=== PATIENT | male | born 1945 | race Caucasian/White ===

== ENCOUNTER 2016-08-20 19:30 | Inpatient (IN) | payer MEDICARE ==
[~2016-08-20] VITALS: Ht 177.8 cm; Wt 85.2 kg
--- NOTE | 2016-08-20 19:35 | NUR ---
EDGE KITTER IN ROOM WITH PT
--- NOTE | 2016-08-20 19:46 | ERPDOC ---
Departure Disposition Decision Date: Aug 20, 2016 Disposition Decision Time: 20:54 (ROSALEE GLASS APRN) Disposition: 65 TO PSYCH HOSP/UNIT Impression Impression (ROSALEE GLASS APRN) Impression: Primary Impression: Dementia with behavioral disturbance Dementia type: unspecified type Qualified Codes: F03.91 - Unspecified dementia with behavioral disturbance Severity: Mild Severity Details Medically stable for admission to [facility] (ROSALEE GLASS APRN) Condition: Stable Seen By: Mid-level only (ROSALEE GLASS APRN) Problems/Meds/Labs Reviewed?: Yes Medications reviewed and manag: Yes (ROSALEE GLASS APRN) Follow up care ordered?: Yes (ROSALEE GLASS APRN) HPI - Psychosocial General Chief Complaint: Psychiatric Problems Stated Complaint: GEN CLEARANCE/DEMENTIA/AGRESSION Time Seen by MD: 19:37 Source: RN notes reviewed Exam Limitations: clinical condition (DEMENTIA, SEDATED) (ROSALEE GLASS APRN) HPI - Psychosocial Initial Comments Patient is a 71-year-old male who is brought to [facility] emergency room this evening for evaluation of acute psychosis in behaviors. Patient has a known history of dementia. He currently resides at the [facility] in [place]. It is reported that he has resided at this location since August 12 2016. Reported that he has had increasing aggressive behaviors toward staff. On arrival to the emergency room. Patient is sleeping in the upright position with his eyes closed. He does not appear to be in any acute distress. Vital signs reviewed. It is reported that he received Haldol prior to arrival. He will not follow any commands due to his level of sedation. Occurred At: home Onset: Rapid Duration: 1 week (ROSALEE GLASS APRN) Allergies: Coded Allergies: No Known Allergies (Unverified , 08/20/16) Past History Patient Medical History Problem List Updates: Dementia Hypothyroidism Hearing deficit (ROSALEE GLASS APRN) Patient Surgical History Surgical history is unknown. No listed surgical history. In paperwork (ROSALEE GLASS APRN) Review of Systems Unable to Obtain ROS Due to: clinical condition, dementia Comments Unable to obtain ROS due to mentation (ROSALEE GLASS APRN) Physical Exam General Vitals and Pain First Documented Vital Signs Date Time Temp Pulse Resp B/P Pulse Ox O2 Delivery O2 Flow Rate FiO2 08/20/16 19:33 62 16 99/58 98 Room Air Weight: Kilograms: Height (feet): Height (inches): Triage Pain Scale: (ROSALEE GLASS V ELECTRICAL PROSPECTOR) Respiratory (brief) Respiratory: FOUND: clear all roberts, equal bilaterally ([place],ROSALEE V ELECTRICAL PROSPECTOR) Cardiovascular (brief) Cardiac: FOUND: regular rate, regular rhythm (ROSALEE GLASS V ELECTRICAL PROSPECTOR) Abdomen (brief) Abdominal Brief: FOUND: bowel normo active x4, soft, NOT FOUND: distended, tender (ROSALEE GLASS V ELECTRICAL PROSPECTOR) Integumentary (brief) Integumentary Brief: FOUND: dry, pink, warm, NOT FOUND: rash (ROSALEE GLASS V ELECTRICAL PROSPECTOR) Psychiatric (brief) Comments Sedated (ROSALEE GLASS V ELECTRICAL PROSPECTOR) Progress Results/Orders Orders Procedure Category Date Status Time Cmp - Comprehensive LAB 08/20/16 Complete Metabolic 19:41 Ua, Dip Wreflex LAB 08/20/16 Complete Microsc & [facility]endant [facility] 19:41 Tsh - Thyroid Stim LAB 08/20/16 Complete Hormone 19:41 EKG EKG 08/20/16 Logged 19:41 Cbc W/Auto LAB 08/20/16 Complete Diff-Reflex Manual 19:41 Lab Results Laboratory Tests Test 08/20/16 19:57 08/20/16 20:15 White Blood Count 5.2T/MM3 Red Blood Count 4.23M/MM3 Hemoglobin 13.5GM/DL Hematocrit 40.9% Mean Corpuscular Volume 96.7UM3 Mean Corpuscular Hemoglobin 31.9UUG Mean Corpuscular Hemoglobin Concent 33.0GM/DL RDW Standard Deviation 46.3FL Platelet Count 178T/MM3 Mean Platelet Volume 9.5UM3 Immature Granulocyte % (Auto) 0.2% Neutrophils (%) (Auto) 61.2% Lymphocytes (%) (Auto) 24.0% Monocytes (%) (Auto) 9.4% Eosinophils (%) (Auto) 4.8% Basophils (%) (Auto) 0.4% Absolute Immature Granulocyte (auto 0.01T/MM3 Absolute Neutrophils (auto) 3.2T/MM3 Absolute Lymphocytes (auto) 1.3T/MM3 Absolute Monocytes (auto) 0.5T/MM3 Absolute Eosinophils (auto) 0.3T/MM3 Absolute Basophils (auto) 0.0T/MM3 Turbidity < 20 Sodium Level 141MEQ/L Potassium Level 4.2MEQ/L Chloride Level 102MEQ/L Carbon Dioxide Level 28MEQ/L Anion Gap 11MEQ/L Blood Urea Nitrogen 13.0MG/DL Creatinine 1.0MG/DL Glomerular Filtration Rate Calc 73 BUN/Creatinine Ratio 13RATIO Glucose Level 101MG/DL Calculated Osmolality 271MOSM/KG Calcium Level 8.9MG/DL Total Bilirubin 1.20MG/DL Icterus Index < 2 Aspartate Amino Transf (AST/SGOT) 25U/L Alanine Aminotransferase (ALT/SGPT) 30U/L Alkaline Phosphatase 54U/L Total Protein 6.5G/DL Albumin 3.6G/DL Globulin 2.9G/DL Albumin/Globulin Ratio 1.2RATIO Thyroid Stimulating Hormone (TSH) 3.13MIU/L Chemistry Specimen Hemolysis 35 Urine Collection Type Voided-not cc-midstr Urine Color Yellow Urine Turbidity Clear Urine pH 5.0 Urine Specific [place] >=1.030 Urine Protein Negative Urine Glucose (UA) Negative Urine Ketones Negative Urine Blood Negative Urine Nitrite Negative Urine Bilirubin Negative Urine Urobilinogen 0.2EU/DL Urine Leukocyte Esterase Negative Urinalysis Comment Microscopic not ind. (ROSALEE GLASS APRN) Progress Progress 2044- Reviewed all medical labs. Patient appears to be medically stable to admission to [facility] for further psychiatric evaluation and treatment. (ROSALEE GLASS APRN) ROSALEE GLASS APRN Aug 20, 2016 19:46 YAHAIRA SERRANO MD Aug 26, 2016 17:16
[2016-08-20] MEDS ORDERED: HALO1TAB PO (20:03)
[2016-08-20] MEDS ORDERED: LEVO125T11 PO (20:05)
[2016-08-20] MEDS ORDERED: DONE10TA30 PO (20:05)
[2016-08-20] MEDS ORDERED: LORA0.5T2 PO (20:05)
[2016-08-20] MEDS ORDERED: RISP4TAB17 PO (20:07)
[2016-08-20] MEDS ORDERED: MIRT15TA6 PO (20:07)
[2016-08-20 20:12] LABS: BASOPHILS % (AUTO) 0.4 % (0-2); EOSINOPHILS # (AUTO) 0.3 T/MM3 (0-0.5); EOSINOPHILS % (AUTO) 4.8 % (0-4); HCT - HEMATOCRIT 40.9 % (41-53); HGB - HEMOGLOBIN 13.5 GM/DL (13.5-17.5); IMMATURE GRANULOCYTE # (AUTO) 0.01 T/MM3 (0.00-0.03); IMMATURE GRANULOCYTE % (AUTO) 0.2 % (0.0-0.5); LYMPHOCYTES # (AUTO) 1.3 T/MM3 (1-4.8); MEAN CORPUSCULAR HGB 31.9 UUG (26-34); MEAN CORPUSCULAR VOLUME 96.7 UM3 (80-100); MEAN PLATELET VOLUME 9.5 UM3 (9.4-12.4); MONOCYTES # (AUTO) 0.5 T/MM3 (0-0.8); MONOCYTES % (AUTO) 9.4 % (0-9.0); NEUTROPHILS #(AUTO)-ABSOLUTE 3.2 T/MM3 (1.8-7.7); NEUTROPHILS % (AUTO) 61.2 % (33-66); RED BLOOD COUNT 4.23 M/MM3 (4.50-5.90); WBC - WHITE BLOOD COUNT 5.2 T/MM3 (4.5-11.0)
[2016-08-20 20:19] LABS: ALBUMIN 3.6 G/DL (3.5-5.0); ALBUMIN/GLOBULIN RATIO 1.2 RATIO (1.1-2.2); ALKALINE PHOSPHATASE 54 U/L (38-126); ALT (SGPT) 30 U/L (21-72); ANION GAP 11 MEQ/L (5-15); AST (SGOT) 25 U/L (17-59); BUN/CREATININE RATIO 13 RATIO (6-26); CALCIUM 8.9 MG/DL (8.4-10.2); CHLORIDE 102 MEQ/L (98-107); CO2 - CARBON DIOXIDE 28 MEQ/L (22-30); GLOMERULAR FILTRATION RATE 73; GLUCOSE 101 MG/DL (75-110); POTASSIUM 4.2 MEQ/L (3.6-5); SODIUM 141 MEQ/L (134-144); TOTAL PROTEIN 6.5 G/DL (6.3-8.2)
[2016-08-20 20:20] LABS: BLOOD, URINE NEGATIVE (NEGATIVE); COLOR,URINE YELLOW (YELLOW); LEUKOCYTE ESTERASE ,URINE NEGATIVE (NEGATIVE); NITRITE,URINE NEGATIVE (NEGATIVE); UROBILINOGEN,URINE 0.2 EU/DL (NORMAL)
[2016-08-20 20:50] LABS: THYROID STIM HORMONE-TSH 3.13 MIU/L (0.47-4.68)
--- NOTE | 2016-08-20 21:04 | NUR ---
ADMIT [facility] ROOM 191 TO PT
[2016-08-20 21:10] VITALS: BP 125/81; PULSE 70; RESP 20; TEMP 97.9; O2SAT 99
--- NOTE | 2016-08-20 21:10 | NUR ---
admit note Pt is a 71 yr old male patient coming from ER, pt is from [place] foster home came through [facility]. Pt transferred with ER nurse and belonging into room 191. Pt transferred from cart to bed with assist of three. Pt is lethargic, pt does open his eyes and mumbles to stimuli. Pt is alert and oriented x1, pt is lethargic, anxious and guarded when woken up. Pt appropriately dressed for the weather, pt has a reddness to his coccyx area, skin is intact no drainage noted. will turn pt q 2 hours. Pt came with a suit case and clothing listed in inventory, pt has a left sided hearing aide. Pt unable to state why he is here. Per facility pt here for combative behaviors, and insomnia.
--- OUTSIDE RECORDS SUMMARY | 2016-08-20 23:01 | XMS REPORT | Continuity of Care Document ---
Demographics Preferred Language Unknown Marital Status Unknown Mandaeism Affiliation Unknown Race Unknown Ethnic Group Unknown Author Author [facility] Organization [facility] Address Unknown Phone Unavailable Support Name Relationship Address Phone YAHAIRA SERRANO MD Caregiver [address] [place] [phone] Unavailable Advance Directives Directive Response Recorded Date/Time Advanced Directives Type Unable to Obtain 08/20/16 7:33pm Chief Complaint and Reason for Visit Chief Complaint Psychiatric Problems Reason for Visit Dementia with behavioral disturbance Problems Past Problems Medical Problem Onset Date Dementia with behavioral disturbance Unknown Medications Current Home Medications Medication Dose Units Route Directions Days Qty Instructions Start Date Donepezil Hcl 10 Mg Tablet 10 Mg Oral Daily 08/20/16 Haloperidol 1 Mg Tablet 1 Mg Oral Every 12 Hours 08/20/16 Levothyroxine Sodium 125 Mcg Tablet 125 Mcg Oral Before Breakfast 08/20/16 Lorazepam 0.5 Mg Tablet 0.5 Mg Oral Every 4 Hours as needed for Anxiety 08/20/16 Mirtazapine 15 Mg Tablet 7.5 Mg Oral Bedtime 08/20/16 Risperidone 4 Mg Tablet 2 Mg Oral Twice A Day 08/20/16 Social History Query Response Start Date Stop Date Smoking Status Unknown if ever smoked Hospital Discharge Instructions No hospital discharge instructions. Plan of Care Discharge Date 08/20/16 9:10pm Disposition 65 TO PSYCH HOSP/UNIT Condition at Discharge Stable Prescriptions See Medication Section Functional Status No functional status results. Allergies, Adverse Reactions, Alerts No known allergies. Immunizations Query Response on File Recorded Date/Time Influenza Vaccine Hx UNKNOWN 08/20/16 7:52pm Vital Signs Acute Vital Signs Vital Response Date/Time Pulse Rate (adult) 54 bpm (60 - 100) 08/20/2016 9:10pm Respiratory Rate 16 breaths/min (10 - 20) 08/20/2016 9:10pm O2 Sat by Pulse Oximetry 97 % (90 - 100) 08/20/2016 9:10pm Blood Pressure 104/62 mm Hg 08/20/2016 9:10pm Height (Feet) 5 feet 08/20/2016 7:33pm Height (Inches) 10.00 inches 08/20/2016 7:33pm Weight (Kilograms) 89.800 kg 08/20/2016 7:33pm Body Mass Index (BMI) 28.0 08/20/2016 7:33pm Results Laboratory Results Test Name Result Units Flags Reference Collection Date/Time Result Date/ Time Comments White Blood Count 5.2 T/MM3 4.5-11.0 08/20/2016 7:57pm 08/20/2016 8: 12pm Red Blood Count 4.23 M/MM3 L 4.50-5.90 08/20/2016 7:57pm 08/20/2016 8: 12pm Hemoglobin 13.5 GM/DL 13.5-17.5 08/20/2016 7:57pm 08/20/2016 8:12pm Hematocrit 40.9 % L 41-53 08/20/2016 7:57pm 08/20/2016 8:12pm Mean Corpuscular Volume 96.7 UM3 80-100 08/20/2016 7:57pm 08/20/2016 8: 12pm Mean Corpuscular Hemoglobin 31.9 UUG 26-34 08/20/2016 7:57pm 2016 8:12pm Mean Corpuscular Hemoglobin Concent 33.0 GM/DL 31-37 08/20/2016 7:57pm 08/20/2016 8:12pm RDW Standard Deviation 46.3 FL 36.9-50.2 08/20/2016 7:57pm 08/20/2016 8 :12pm Platelet Count 178 T/MM3 130-400 08/20/2016 7:57pm 08/20/2016 8:12pm Mean Platelet Volume 9.5 UM3 9.4-12.4 08/20/2016 7:57pm 08/20/2016 8: 12pm Neutrophils (%) (Auto) 61.2 % 33-66 08/20/2016 7:57pm 08/20/2016 8: 12pm Lymphocytes (%) (Auto) 24.0 % 23-45 08/20/2016 7:57pm 08/20/2016 8: 12pm Monocytes (%) (Auto) 9.4 % H 0-9.0 08/20/2016 7:57pm 08/20/2016 8:12pm Eosinophils (%) (Auto) 4.8 % H 0-4 08/20/2016 7:57pm 08/20/2016 8:12pm Basophils (%) (Auto) 0.4 % 0-2 08/20/2016 7:57pm 08/20/2016 8:12pm Immature Granulocyte % (Auto) 0.2 % 0.0-0.5 08/20/2016 7:57pm 2016 8:12pm Absolute Neutrophils (auto) 3.2 T/MM3 1.8-7.7 08/20/2016 7:57pm 2016 8:12pm Absolute Lymphocytes (auto) 1.3 T/MM3 1-4.8 08/20/2016 7:57pm 2016 8:12pm Absolute Monocytes (auto) 0.5 T/MM3 0-0.8 08/20/2016 7:57pm 08/20/2016 8:12pm Absolute Eosinophils (auto) 0.3 T/MM3 0-0.5 08/20/2016 7:57pm 2016 8:12pm Absolute Basophils (auto) 0.0 T/MM3 0-0.2 08/20/2016 7:57pm 08/20/2016 8:12pm Absolute Immature Granulocyte (auto 0.01 T/MM3 0.00-0.03 08/20/2016 7: 57pm 08/20/2016 8:12pm Icterus Index < 2 0-7 08/20/2016 7:57pm 08/20/2016 8:50pm Chemistry Specimen Hemolysis 35 H 0-25 08/20/2016 7:57pm 08/20/2016 8: 50pm 26-70: Specimen Exhibited Slight Hemolysis - can falsely elevate K (Potassium) and Urine Protein. Turbidity < 20 0-20 08/20/2016 7:57pm 08/20/2016 8:50pm Sodium Level 141 MEQ/L 134-144 08/20/2016 7:57pm 08/20/2016 8:19pm Potassium Level 4.2 MEQ/L 3.6-5 08/20/2016 7:57pm 08/20/2016 8:19pm Chloride Level 102 MEQ/L 98-107 08/20/2016 7:57pm 08/20/2016 8:19pm Carbon Dioxide Level 28 MEQ/L 22-30 08/20/2016 7:57pm 08/20/2016 8: 19pm Anion Gap 11 MEQ/L 5-15 08/20/2016 7:57pm 08/20/2016 8:19pm Blood Urea Nitrogen 13.0 MG/DL 9-20 08/20/2016 7:57pm 08/20/2016 8: 19pm Creatinine 1.0 MG/DL 0.8-1.5 08/20/2016 7:57pm 08/20/2016 8:19pm BUN/Creatinine Ratio 13 RATIO 6-26 08/20/2016 7:57pm 08/20/2016 8:19pm Glomerular Filtration Rate Calc 73 08/20/2016 7:57pm 08/20/2016 8: 19pm Glucose Level 101 MG/DL 75-110 08/20/2016 7:57pm 08/20/2016 8:19pm Calculated Osmolality 271 MOSM/KG 261-280 08/20/2016 7:57pm 08/20/2016 8:19pm Calcium Level 8.9 MG/DL 8.4-10.2 08/20/2016 7:57pm 08/20/2016 8:19pm Total Bilirubin 1.20 MG/DL 0.20-1.30 08/20/2016 7:57pm 08/20/2016 8: 19pm Alkaline Phosphatase 54 U/L 38-126 08/20/2016 7:57pm 08/20/2016 8:19pm Total Protein 6.5 G/DL 6.3-8.2 08/20/2016 7:57pm 08/20/2016 8:19pm Albumin 3.6 G/DL 3.5-5.0 08/20/2016 7:57pm 08/20/2016 8:19pm Globulin 2.9 G/DL 2.4-3.6 08/20/2016 7:57pm 08/20/2016 8:19pm Albumin/Globulin Ratio 1.2 RATIO 1.1-2.2 08/20/2016 7:57pm 08/20/2016 8 :19pm Aspartate Amino Transf (AST/SGOT) 25 U/L 17-59 08/20/2016 7:57pm 2016 8:19pm Alanine Aminotransferase (ALT/SGPT) 30 U/L 21-72 08/20/2016 7:57pm 09/2016 8:19pm Thyroid Stimulating Hormone (TSH) 3.13 MIU/L 0.47-4.68 08/20/2016 7: 57pm 08/20/2016 8:50pm Urine Collection Type VOIDED-NOT CC-MIDSTR 08/20/2016 8:15pm 2016 8:20pm Urine Color YELLOW YELLOW 08/20/2016 8:15pm 08/20/2016 8:20pm Urine Turbidity CLEAR CLEAR 08/20/2016 8:15pm 08/20/2016 8:20pm Urine Specific [place] >=1.030 H 1.015-1.025 08/20/2016 8:15pm 2016 8:20pm Urine pH 5.0 5.0-8.0 08/20/2016 8:15pm 08/20/2016 8:20pm Urine Leukocyte Esterase NEGATIVE NEGATIVE 08/20/2016 8:15pm 2016 8:20pm Urine Nitrite NEGATIVE NEGATIVE 08/20/2016 8:15pm 08/20/2016 8:20pm Urine Protein NEGATIVE NEGATIVE 08/20/2016 8:15pm 08/20/2016 8:20pm Urine Glucose (UA) NEGATIVE NEGATIVE 08/20/2016 8:15pm 08/20/2016 8: 20pm Urine Ketones NEGATIVE NEGATIVE 08/20/2016 8:15pm 08/20/2016 8:20pm Urine Urobilinogen 0.2 EU/DL NORMAL 08/20/2016 8:15pm 08/20/2016 8: 20pm Urine Bilirubin NEGATIVE NEGATIVE 08/20/2016 8:15pm 08/20/2016 8: 20pm Urine Blood NEGATIVE NEGATIVE 08/20/2016 8:15pm 08/20/2016 8:20pm Urinalysis Comment MICROSCOPIC NOT IND. 08/20/2016 8:15pm 2016 8:20pm Procedures No known history of procedures. Encounters Encounter Location Arrival/Admit Date Discharge/Depart Date Attending Provider Departed Emergency Room [facility] 08/20/16 7:30pm 08/20/16 9: 10pm YAHAIRA SERRANO MD Recent Diagnosis
[2016-08-20] MEDS ORDERED: DIVA250T4 PO (23:15)
[2016-08-20] MEDS ORDERED: QUET25TA PO (23:15)
[2016-08-20] MEDS ORDERED: PRN ORDERS MC (23:30)
[2016-08-20] MEDS ORDERED: HALOPERIDOL 5 MG/ML INJECTION IM PRN (23:30)
[2016-08-20] MEDS ORDERED: LORAZEPAM 2 MG/ML INJECTION IM PRN (23:30)
[2016-08-21] VITALS (7 sets, daily range): BP systolic 105–108; BP diastolic 63–69; PULSE 60–82; RESP 10–18; TEMP 97.5–98.4; O2SAT 95–99; Ht 177.8 cm; Wt 85.2 kg
[2016-08-21] MEDS: MIRTAZAPINE 15 MG TABLET PO SCH ×2 (01:14→20:06)
[2016-08-21] MEDS: DONEPEZIL 10 MG TABLET PO SCH ×2 (01:14→20:06)
--- NOTE | 2016-08-21 04:42 | NUR ---
Chart Check 24 hour chart check completed
--- NOTE | 2016-08-21 06:56 | NUR ---
Summary Arrived on shift, patient was awake in bed with the bed alarm on, patient was guarded with assessment. patient was wringing his hands back and forth while i was listening to his lung sounds. Patient was up and down frequently to the side of bed. Patient thought it was morning and wanted to get ready for work. To help patient calm, staff walked patient with the assist of 2 and gait belt up and down the hallwayx2, and to sit in dayroom for a snack. Patient received his scheduled HS medications once brought from pharmacy at 0114. Patient took medications crushed without issue. While in dayroom patient had a glass of water and 2 pudding cups. After snacks patient was transitioned to bed without issue. Patient was cooperative with all cares. Patient is noticeably rigid, has tremors, and shuffled gait. Once patient transitioned back to bed. Patient fell asleep around 0230. Patient has been incontinent of large amounts of urine x2 this shift. no prns given. patient is currently asleep in bed with the bed alarm on, rails upx3, and call light is in reach.
--- NOTE | 2016-08-21 07:54 | NUR ---
SMOKING STATUS Pt has not smoked in last year. Unknown if patient had previously smoked. No RT consult needed.
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
[2016-08-21 09:38] LABS: HEMOGLOBIN A1C 5.3 % (6.1-7.9)
[2016-08-21] MEDS: LEVOTHYROXINE 125 MCG TABLET PO SCH (09:55)
[2016-08-21 10:30] LABS: PREALBUMIN 15.9 MG/DL (17.6-36.0)
--- NOTE | 2016-08-21 14:40 | NUR ---
STERLING KATZ SPOKE WITH PT SON BARI. CM EXPLAINED ROLE AND PROVIDED CONTACT INFORMATION. PT WILL RETURN TO [facility]. BARI IS AWARE TO CONTACT CM IF NEEDS ARISE. CM LEFT MESSAGE FOR ZACKERY AT [facility].
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
--- NOTE | 2016-08-21 19:30 | NUR ---
SUMMARY Patient is AO x 1. patient woke up at 1315 today and did not take naps after he woke up, patient did not ate breakfast, he needed assistance with meals. Patient was refusing to let staff assist him with cares, he tried to kick a nursing officer, eventually he allow staff to finish his bag bath, patient walked with a gait belt on and assistance of 2 to the dining room, he gives small steps. No aggressive behaviors noted, no Hallucinations noted. Patient does tried to get up and walk without assistance. He is unsteady, and does not always make needs known. No PRN medications given this shift.
[2016-08-21] MEDS: LORAZEPAM INTENSOL 1mg/0.5ml ORAL SOLUTION SL PRN (21:46)
--- NOTE | 2016-08-21 23:02 | NUR ---
status: Patient in day room at start of shift. Physical assessment complete with no significant findings. Patient was eating a pudding. Patient was calm and walking around day room and group room with staff. Snacks x2 after walk. Patient began to go look for doors and found the back/front door and tried to leave. Patient was becoming restless and agitated, as observed by patient was tense, restless, guarded, pushing staff away. Staff assisted patient to room to check patients incontinence, patient was incontinent of a large bowel movement. Patient became physically aggressive with staff while doing cares. He was shoving, grabbing, trying to break fingers, and trying to swing at staff. Two staff stood with patient to help maintain balance, while third RN provided hygiene care. Patient received ativan 0.5mg intensol at 2146. Staff was then able to provide hygiene cares. Patient was still guarded and tense once cares were done, patient was remorseful and patient apologized to staff "are you ok, are you sure". Patient gave staff a hug. Patient walked more with staff, to day room. In day room, staff applied lotion to patients skin. Patient sat and help staffs hands once cares where done. Patient sat with staff until he was ready to go to bed. Patient transitioned to bed with no issues. Gave staff hug. Bed rails up x 3 and bed alarm activated. Addendum: 08/22/16 at 0757 by CHRISSIE NIELSON RN Note was dictated by this RN, Document wrote By Orienting RN. I agree with the note charted above.
--- NOTE | 2016-08-21 23:27 | GENHPPDOC ---
[facility] 08/21/16 Time of Service: 18:40 Start Time: 18:40 Stop Time: 19:20 >50% of this visit spent in counseling/coordination care. Chief Complaint: Combativeness History of Present Illness Patient is a 71-year-old, retired [employer], who was transferred from foster home for combativeness and agitation. He has history of cognitive impairment and was recently transferred by his family to the foster due to inability of his family to take care of him. He was said to agitated to the point where he grabbed a staff and was shaking the staff. He was taken to the ER at [facility] and was given Haloperidol which appeared to have helped but not much. He was on Risperidone 2mg BID and Haloperidol 1mg BID. Both were recently discontinued. He is also on Donepezil 10mg and Mirtazapine 7.5mg po q hs. Patient was seen to have hearing loss on both ears and he responds vaguely to loud speech. He was noted to have bradykinesis, postural instability, resting and kinetic tremor. There is also cogwheel rigidity of both of wrist with clasp knife rigidity of his elbow. Patient was supposed to be evaluated by speech therapy today, but they are yet to assess him. He is able to eat and drinks liberally. Reviewed his CBC, CMP and UA were all WNL. His EKG showed sinus bradycardia with QtcB of 433 and QtcF of 434. Past Medical Hx: Hypothyroidism, hearing loss Past Psych: Unable to obtain Social Hx: He lives in a foster home and retired from the [employer] Psychosis: delusions, paranoia Dementia: memory impairment, poor executive function. Past Medical History Past Medical History Patient's Medical History: (1) Sensorineural hearing loss (2) Hypothyroidism (3) Overweight (BMI 25.0-29.9) (4) Dementia with behavioral disturbance Dementia Hypothyroidism Hearing deficit Surgical History Patient's Surgical History: Unknown. Current Medications Home Meds Reported Medications Divalproex Sodium (Depakote) 250 Mg Tablet.dr, 1 TAB PO BID, TAB 08/20/16 Quetiapine Fumarate (Seroquel) 25 Mg Tablet, 25 MG PO 1600,2100, TAB 08/20/16 Mirtazapine (Mirtazapine) 15 Mg Tablet, 7.5 MG PO HS 08/20/16 Lorazepam (Lorazepam) 0.5 Mg Tablet, 0.5 MG PO Q4H Y for ANXIETY 08/20/16 Levothyroxine Sodium (Levothyroxine Sodium) 125 Mcg Tablet, 125 MCG PO ACB 08/20/16 Donepezil HCl (Donepezil HCl) 10 Mg Tablet, 10 MG PO HS 08/20/16 Allergies: Coded Allergies: No Known Allergies (Unverified , 08/20/16) Family History Family History: Unknown and unobtainable. Vaccines UNKNOWN No Social History Smoking Status: Unknown if ever smoked Service: Yes Advance Directives: Yes DPOA for Healthcare Only Review of Systems Constitutional: REPORTS: appetite decrease Eyes General: DENIES: exudate Lids/Accessories: DENIES: eye protrusion Vision: DENIES: blurring ENMT Ears: DENIES: drainage Hearing: REPORTS: hearing loss Balance: ataxia, falling to one side Sinuses: NOT FOUND: congestion Mouth/Throat: DENIES: painful swallowing Cardiovascular DENIES: dyspnea on exertion Vascular: DENIES: pallor of an extremity Pulmonary Respiratory: DENIES: dyspnea, tachypnea GI Upper Abdomen: DENIES: abdominal swelling Lower Abdomen: DENIES: constipation Musculoskeletal General: DENIES: tenderness Integumentary Skin: DENIES: sores Nails: DENIES: striae Neurological General: DENIES: blindness Psychiatric Psychiatric: anxiety, irritability, DENIES: memory impairment Generations Exam Vitals Vital Signs Date Time Temp Pulse Resp B/P Pulse Ox O2 Delivery O2 Flow Rate FiO2 08/21/16 22:39 98.3 82 18 108/69 97 Room Air Physical examination performed by the hospitalist. Height (Feet): 5 Height (Inches): 10.00 Mental Status Exam Muscle Strength/Tone: Weak Dressing: Casual Grooming: Disheveled Attitude: Combative Motor Activity: Agitation Eye Contact: Poor Speech: Slowed Volume: Soft Rhythm: Mumbled, Paucity of Language Sensory: Alert Orientation: Disoriented to time, Disoriented to person, Disoriented to place, Disoriented to situation Mood: Irritable Affect: Flat Thought Organization: [place] Associations: Loose-associations Abstract Reasoning: Impaired, concrete Computation: Poor Computation Thought Content: Delusions Perception/Psychotic: Psychotic Attention Span/Concentration: Inattentive Language: Naming Impaired Fund of Knowledge: Poor fund of knowledge Memory: Poor-immediate, Poor-recent, Poor-remote Suicidal Ideation: None Homicidal Ideation: None Insight: Poor Judgment: Poor Impulse Control: Poor Laboratory Tests Test 08/21/16 08:06 Hemoglobin A1c 5.3% Prealbumin 15.9MG/DL Triglycerides Level Pending Cholesterol Level Pending LDL Cholesterol, Calculated Pending VLDL Cholesterol Pending HDL Cholesterol Direct Pending Cholesterol/HDL Ratio Pending Vitamin B12 Level Pending Folate Pending Assessment and Plan (1) Major neurocognitive disorder Assessment: Possibly due to Parkinsonian type or Subcortical etiology. r/o anti-psychotic induced Parkinsonian syndrome. 1. Hold Risperidone and Haloperidol. Cont Mirtazapine 2. Observe patient on the unit 3. ST to see patient for swallow test VONDA CLARK MD Aug 21, 2016 23:17
[2016-08-22] MEDS: HALOPERIDOL 1 MG/0.5 ML ORAL LIQUID PO PRN (01:44)
--- NOTE | 2016-08-22 02:12 | NUR ---
Sleep note: Patient went to sleep at 2215 and was awake walking and pacing at 0130.
[2016-08-22 04:03] LABS: FOLATE 16.2 NG/ML (2.76-20)
--- NOTE | 2016-08-22 04:36 | NUR ---
Status: Patient is being handed off to Eros HUI who states she needs no further report on patient, as she knows them.
--- NOTE | 2016-08-22 07:59 | NUR ---
Chart Check 24 hour chart check completed
--- NOTE | 2016-08-22 08:02 | NUR ---
Summary/PRN Post laying down at 2300 patient rested awake in bed quietly talking to self for an hour before wanting to get up and walk again. Patient believed he was at work and things needed to be done. Patient walked in garza with 2 assist. Patient was cooperative until 0120, patient was wringing his hands, grabbing and squeezing staffs hands. Patient balled up hands shaking repeating "don't and it's not right" patient was tense and agitated. With the assist of staff patient was checked for incontinence. Patient had another bowel movement, and was not letting staff provide cares. Patient received PRN Haldol 0.5mg po at 0144. After receiving PRN patient allowed staff to change his brief 20min later. Once cares were done, patient was still guarded though continued to slowly ease. After patient calmed he thought he was back in the , patient wanted to be in formation and walk eber up and down the hallway. Patient counted steps "1,2,3,4" over and over. After walking laps, patient wanted to work on the "track", as he was pointing to the ground. Patient made comments of there can't be any holes around the track and they need to be fixed. Staff continued to walk with patient pretending to fix the track. Patient was pleasant and cooperative during this interaction. Pleasantly demented. Patient then slowly wore himself down till he was tiring. Staff was then able to direct patient to sit in recliner for a snack. Patient had 2 puddings, then sat peacefully holding hands with RN until he was ready for bed. Patient transitioned to bed with the assist of 2 staff. Once in bed staff sat with patient until he fell asleep. Bed alarm is on, Rails upx3, and call light is in reach.
[2016-08-22] MEDS: LEVOTHYROXINE 125 MCG TABLET PO SCH (08:39)
--- NOTE | 2016-08-22 08:45 | NUR ---
Patient slept 4 hours last night
[2016-08-22 08:56] VITALS: BP 98/63; PULSE 77; RESP 15; O2SAT 94
--- NOTE | 2016-08-22 09:59 | NUR ---
SPEECH SCREEN COMPLETED NURSING REPORTS PATIENT MASTICATING WELL AND SWALLOWING THIN LIQUIDS WITH NO OVERT S/S OF ASPIRATION. NURSING TO CONTACT ST DEPARTMENT IF QUESTIONS/CONCERNS ARISE.
--- NOTE | 2016-08-22 10:25 | NUR ---
Patient Status Patient is sleeping at the time of this RN's arrival at 0700; he awakes on his own at 0845, incontinent of both bowel and bladder. Three staff members are present to provide cares; two are holding hands and distracting him from the third helping to adjust clothing and provide skin/barry care. He does not yell out or try to swing as staff; only pushes against staff when they assist him to sit. Following cares he ambulated to the dining room and ate 100% of breakfast requiring only set-up assistance from staff. He walked a couple of times in the hallway with staff and gait belt stopping at the doors and asking if he could leave. Staff are able to distract by showing him the locked doors and offering a seat in a recliner in the day room. He sat and fell asleep at 0945 until just now. He is awake and interacting with staff.
--- NOTE | 2016-08-22 11:55 | NUR ---
BRANCH SERVICE REPRESENTATIVE - PSH / ADVANCED DIRECTIVES TROUBLE TRACER found pt in day room and was escorted to office with RN. Pt was able to walk with a shuffle to the office with assist of staff and gait belt. Pt presented with tremors in Parkinson-like fashion as he was walking and when he was able to sit in SW office. Pt was only Ox1 but could only recite his first name. Pt shows signs of hearing loss bilaterally and therefore it was somewhat difficult for pt to understand during interview. Pt showed signs of flat affect as evidenced by no facial expression and lack of emotion. Pt did become easily agitated in conversation and got up to walk by himself. RN assist called to walk pt back to day room. According to documentation from the [place], pt was recently placed in a respite placement and then went to a [facility] Foster [facility] for personnel. Pt was non service connected in the [facility]. He was placed in the [facility] on 08/16/16 and later the staff took him on 08/18/16 to [facility] because of difficulty sleeping and combative with cares. Only documentation of family found was patient's son, Henry Diego, whom patient was living prior to respite placement. Documentation shows son was unable to care for pt further because of change of pt's need of care. Son has been called to complete the PSH, however, no answer. Waiting for call back to further complete hx. SW unable to discuss tx plan [facility] pt at this time because of resistance in communication with SW. Pt is considered poor historian. No documentation of Advanced directives found in pt chart. Clarification with son will occur.
--- NOTE | 2016-08-22 14:57 | NUR ---
TRAINING FACILITATOR--PSH/ADVANCE DIRECTIVE [facility] made phone call to pt's son/DPOA-HC (Henry Jacobs). He was asked about pt's code status and he asked that pt. be made DNR. Pt. was born in [place]. He has been and 3x. He has two sons (Henry--[place]; Nathanael--[place]). He was in the [employer] during [place] [employer]. 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 Pt. was alcoholic and went to substance abuse treatment. He has not drank for over 30 years. Pt. has never been episcopal. Discharge plan is for pt. to return to [place] foster home in [place] when stable. Son reports pt. has been difficult for him to manage for past several weeks. They have gotten worse since moving to placement.
[2016-08-22 16:19] VITALS: BP 114/72; PULSE 65; RESP 14; TEMP 97.7; O2SAT 93
--- NOTE | 2016-08-22 18:22 | NUR ---
Shift Summary Patient is alert and awake over the noon hour, ate 100% of lunch independently and walked with staff in the garza. At 1415 staff assisted him to the bathroom to provide hygiene cares as patient was incontinent. This RN helped to adjust patient clothing while other RN talked to him for distraction. He yelled out once "hey!" and again was resistive to sitting down but did not try to strike out at staff. He napped off an on for two and a half hours (sometimes appearing asleep, other times looking out in to the hallway). He sets off his bed alarm just after 1700 requesting to get something to eat. He consumes 100% of supper independently and walked two laps in the garza. He asked for something more to eat, took a cup of tapioca pudding and has now fallen back asleep in the recliner
--- NOTE | 2016-08-22 19:45 | GENPN ---
Generations Subjective Date DATE: 08/22/16 TIME: 19:40 Subjective/Severity of Illness Medications Current Medications Medications (Trade) Dose Ordered Sig/Raymon Start Time Stop Time Status Last Admin Dose Admin Donepezil HCl (Aricept) 10 mg HS 08/21/16 21:00 08/21/16 20:06 10 MG Levothyroxine Sodium (Synthroid) 125 mcg ACB 08/21/16 06:30 08/22/16 08:39 125 MCG Mirtazapine (Remeron) 7.5 mg HS 08/21/16 21:00 08/21/16 20:06 7.5 MG Miscellaneous Medication (May use PRN orders) 1 PRN PRN 08/20/16 23:30 Haloperidol (Haldol) 0.5 mg Q6H PRN 08/20/16 23:30 Lorazepam (Ativan) 0.5 mg Q6H PRN 08/20/16 23:30 Lorazepam (Ativan) 0.5 mg Q6H PRN 08/20/16 23:30 Haloperidol Lactate (Haldol 5 Mg/ml Inj) 0.5 mg Q6H PRN 08/20/16 23:30 Lorazepam (Ativan Intensol) 0.5 mg Q6H PRN 08/21/16 03:15 08/21/16 21:46 0.5 MG Haloperidol (Haldol Liquid) 0.5 mg Q6H PRN 08/21/16 03:15 08/22/16 01:44 0.5 MG Subjective Pt seen and chart examined. Case discussed with nursing. Nursing reports pt slept 4 hours and has a good appetite. Pt did nap some during the day. Nursing reports pt was slightly combative and agitated with cares last night but was better today. On face to face the pt is resting quielty in bed. He is pleasant but only oriented to self. He continues to have a tremor. He voices no concerns at this time. Time of Service: 16:30 Start Time: 16:30 Stop Time: 16:45 Care >50% of this visit spent in counseling/coordination care. Generations Exam Vitals Vital Signs Date Time Temp Pulse Resp B/P Pulse Ox O2 Delivery O2 Flow Rate FiO2 08/22/16 16:19 97.7 65 14 114/72 93 Room Air Physical examination performed by the hospitalist. Height (Feet): 5 Height (Inches): 10.00 Mental Status Exam Muscle Strength/Tone: Weak Dressing: Casual Grooming: Good Attitude: Cooperative Motor Activity: Retardation Eye Contact: Fair Speech: Slowed Volume: Soft Rhythm: Slurred Sensory: Alert Orientation: Oriented to person Mood: Neutral Affect: Congruent Rate of Thoughts: Delayed Thought Organization: [place] Associations: Illogical Abstract Reasoning: Impaired, concrete Thought Content: Normal Perception/Psychotic: Hx psychosis,not current Attention Span/Concentration: Short Span Fund of Knowledge: Poor fund of knowledge Memory: Poor-immediate, Poor-recent Suicidal Ideation: None Homicidal Ideation: None Insight: Poor Judgment: Poor Impulse Control: Poor Assessment and Plan (1) Major neurocognitive disorder Assessment: Possibly due to Parkinsonian type or Subcortical etiology. r/o anti-psychotic induced Parkinsonian syndrome. 1. Hold Risperidone and Haloperidol. Cont Mirtazapine 2. Observe patient on the unit 3. ST to see patient for swallow test\ 08/22/16 Continue current care Cont. current psych. meds JUAN MEDINA MD Aug 22, 2016 19:44
[2016-08-22] MEDS: DONEPEZIL 10 MG TABLET PO SCH (20:06)
[2016-08-22] MEDS: MIRTAZAPINE 15 MG TABLET PO SCH (20:07)
[2016-08-22 22:33] VITALS: BP 103/65; PULSE 73; RESP 14; TEMP 98.3; O2SAT 97
[2016-08-22] MEDS: ACETAMINOPHEN 325 MG TABLET PO PRN (23:52)
--- NOTE | 2016-08-23 03:37 | NUR ---
Chart Check 24 hour chart check completed
--- NOTE | 2016-08-23 03:37 | NUR ---
status arrived on shift. Patient was sitting in dayroom watching tv with staff present. patient walked halls with staff. patient continues to be aggressive with hygiene cares. During cares patient was grabbing, twisting limbs, digging nails, and attempting to hit staff. It took 3 staff to provide hygiene cares. Once cares were done patient calmed, no prns needed. After cares patient went back to walking halls before sitting in dayroom with staff. When patient when to sit down in dayroom patient grimaced and started rubbing his left knee. PRN tylenol 650mg given po at 2345. Post tylenol patient was no longer rubbing knee, though still grimaced x2. will continue to monitor. Patient is still awake in dayroom with staff present at this time.
--- NOTE | 2016-08-23 04:30 | NUR ---
sleep Patient is asleep in bed. bed alarm on, rails upx3, call light is in reach.
--- NOTE | 2016-08-23 06:24 | NUR ---
Summary Patient spent most of the shift walking the garza or sitting in the dayroom with staff. Patient is oriented to person only. Unable to make needs known. Patient continues to be aggressive just with hygiene cares. While trying to change and clean patient, he was attempting to hit, grab, shove, digging nails, and twisting limbs. Patient was 3 assist with cares. once cares were done, patient calmed. no prns needed. patient was awake till 0430. when patient fell asleep in bed with the bed alarm on, rails upx2, and call light is in reach.
[2016-08-23] MEDS: LEVOTHYROXINE 125 MCG TABLET PO SCH (06:53)
[2016-08-23 11:06] VITALS: BP 118/74; PULSE 65; RESP 16; TEMP 97.3; O2SAT 99
--- NOTE | 2016-08-23 11:09 | NUR ---
status pt slept 6.75 hrs. woke at 1045 this am. very cooperative with shower and morning hygiene cares. no aggressive behavior with changing wet clothing. pt ate oatmeal and milk for breakfast due to lunch being served soon. will continue to monitor.
--- NOTE | 2016-08-23 14:01 | GENPN ---
Generations Subjective Date DATE: 08/23/16 TIME: 13:57 Subjective/Severity of Illness Medications Current Medications Medications (Trade) Dose Ordered Sig/Raymon Start Time Stop Time Status Last Admin Dose Admin Donepezil HCl (Aricept) 10 mg HS 08/21/16 21:00 08/22/16 20:06 10 MG Levothyroxine Sodium (Synthroid) 125 mcg ACB 08/21/16 06:30 08/23/16 06:53 125 MCG Mirtazapine (Remeron) 7.5 mg HS 08/21/16 21:00 08/22/16 20:07 7.5 MG Miscellaneous Medication (May use PRN orders) 1 PRN PRN 08/20/16 23:30 Haloperidol (Haldol) 0.5 mg Q6H PRN 08/20/16 23:30 Lorazepam (Ativan) 0.5 mg Q6H PRN 08/20/16 23:30 Lorazepam (Ativan) 0.5 mg Q6H PRN 08/20/16 23:30 Haloperidol Lactate (Haldol 5 Mg/ml Inj) 0.5 mg Q6H PRN 08/20/16 23:30 Lorazepam (Ativan Intensol) 0.5 mg Q6H PRN 08/21/16 03:15 08/21/16 21:46 0.5 MG Haloperidol (Haldol Liquid) 0.5 mg Q6H PRN 08/21/16 03:15 08/22/16 01:44 0.5 MG Acetaminophen (Tylenol Regular Strength) 1-2 tabs Q5H PRN 08/22/16 23:45 08/22/16 23:52 650 MG Subjective Pt seen and chart examined. Case discussed with nursing. Nursing reports pt slept 4 hours and has a good appetite. Pt did nap some during the day. pt continues to be agitated and irritable with cares at times but is otherwise doing well. on face to face the pt is resting in bed. he is slow to respond and only oriented to self. he denies pain and voices no concerns at this time Time of Service: 09:30 Start Time: 09:30 Stop Time: 09:45 Care >50% of this visit spent in counseling/coordination care. Generations Exam Vitals Vital Signs Date Time Temp Pulse Resp B/P Pulse Ox O2 Delivery O2 Flow Rate FiO2 4/8/17 11:06 97.3 65 16 118/74 99 Room Air Physical examination performed by the hospitalist. Height (Feet): 5 Height (Inches): 10.00 Mental Status Exam Muscle Strength/Tone: Normal Dressing: Casual Grooming: Fair Attitude: Guarded Motor Activity: Retardation Eye Contact: Fair Speech: Slowed Volume: Soft Rhythm: Appropriate Rhythm Sensory: Alert Orientation: Oriented to person Mood: Neutral Affect: Congruent Rate of Thoughts: Delayed Thought Organization: [place] Associations: Illogical Abstract Reasoning: Impaired, concrete Thought Content: Normal Perception/Psychotic: Hx psychosis,not current Attention Span/Concentration: Short Span Fund of Knowledge: Poor fund of knowledge Memory: Poor-immediate, Poor-recent Suicidal Ideation: None Homicidal Ideation: None Insight: Poor Judgment: Poor Impulse Control: Poor Assessment and Plan (1) Major neurocognitive disorder Assessment: Possibly due to Parkinsonian type or Subcortical etiology. r/o anti-psychotic induced Parkinsonian syndrome. 1. Hold Risperidone and Haloperidol. Cont Mirtazapine 2. Observe patient on the unit 3. ST to see patient for swallow test\ 08/22/16 Continue current care 08/23/16 continue current care Cont. current psych. meds JUAN MEDINA MD Aug 23, 2016 14:00
[2016-08-23 16:00] VITALS: BP 112/65; PULSE 63; RESP 16; TEMP 98.6; O2SAT 96
--- NOTE | 2016-08-23 16:00 | NUR ---
SLUMS/ETOH Patient abused alcohol by history, has been sober for 20 years. Unable to complete SLUMS due to significant cognitive impairment and limited verbal communication
[2016-08-23] MEDS: LORAZEPAM INTENSOL 1mg/0.5ml ORAL SOLUTION SL PRN (17:00)
[2016-08-23] MEDS: HALOPERIDOL 1 MG/0.5 ML ORAL LIQUID PO PRN (17:00)
--- NOTE | 2016-08-23 17:15 | NUR ---
PRN during cares pt became angry, squeezing this nurses hands. yelling "help me help me" once done with cares pt and this nurse walked up the garza. pt asked this nurse "why are you doing this to me" pt became very suspicious and tense of staff and other pts in the day room. pt stating " they are out to get me, they are hurting me. Let me talk to a malt liquors sales supervisor." 0.5mg of ativan and 0.5mg of haldol intensol given at 1700. will continue to monitor.
--- NOTE | 2016-08-23 17:36 | NUR ---
summary pt slept 1.25 hrs this shift. was cooperative up until giving him the prn at 1700. ate 100% of all meals. pt a little more calm at this time sitting in recliner in day room. pt has a flat affect. pt unable to make needs known. pt has walked up and down the garza just a few times this shift. no exit seeking this shift. had just the one time of aggressive behavior with cares.
[2016-08-23] MEDS: DONEPEZIL 10 MG TABLET PO SCH (19:37)
[2016-08-23] MEDS: MIRTAZAPINE 15 MG TABLET PO SCH (19:37)
[2016-08-23 20:00] VITALS: RESP 14
--- NOTE | 2016-08-23 22:00 | NUR ---
BEDTIMES PT INTO BED AT 1900 SLEEPING AT 1930. PT INTO BED 0 NOTED ASLEEP 2244. PT SLEPT 0.75 HOURS FOR DAYSHIFT.
--- NOTE | 2016-08-23 22:39 | NUR ---
CARES ASSISTED PT TO RESTROOM PT WAS UNAWARE THAT HE HAD SOILED HIMSELF. PT UNABLE TO VERBALIZE HIS NEEDS OR ABLE TO FOLLOW DIRECTIONS WITHOUT CONSTANT CUING AND LEADING FROM STAFF. PT HAD INCONTINENT BM AND URINE THAT SATURATED HIS PANTS. PT UNABLE TO FOLLOW DIRECTIONS TO SIT ON TOILET AND TOOK MUCH EFFORT FROM STAFF TO ASSIST PT TO TOILET. PT GAIT IS SHAKY AND UNSTEADY. PT SPEECH IS INAPPROPRIATE AND MUMBLED. PT IS UNABLE TO GIVE APPROPRIATE ANSWERS OR RESPONSES TO QUESTIONS OR DIRECTION. WHILE ASSISTING PT TO CHANGE CLOTHING AND CLEAN BM PT URINATED ON THE FLOOR AND REMAINED UNAWARE OF HIS ACTIONS OR SURROUNDINGS. PT ASSISTED WITH EILEEN CARE AND SKIN CARE AND ASSISTED TO BED. PT IN BED WITH 2 RAILS UP ALARM ON BED IN LOW POSITIONS AND LIGHTS DIMMED DOOR PARTIALLY OPEN. Addendum: 08/23/16 at 2243 by DARIELA PASTOR RN Amended: Links added.
--- NOTE | 2016-08-23 22:45 | NUR ---
STATUS UPON START OF SHIFT PT IS IN BED SLEEPING. PT IS SLEEPING HEAVILY AND DIFFICULT TO AROUSE. PT ABLE TO OPEN EYES BUT DOES NOT ANSWER QUESTIONS OR COOPERATE WITH ASSESSMENT WITHOUT CONSTANT CUING AND DIRECTION. FOLLOWING ASSESSMENT AND PT IS ABLE TO TAKE MEDICATIONS CRUSHED IN PUDDING AND DRINK WATER, PT HAS NO COUGHING OR DIFFICULTY WITH THESE TASKS. PT REMAINED IN BED UNTIL APPROXIMATELY 2144 WHEN PT GOT OUT OF BED SETTING OFF BED ALARM. PT IS CONFUSED AND WALKING WITH SHAKY GAIT UNSTEADY ON HIS FEET AND TREMORS NOTED IN UPPER EXTREMITIES. PT SPEECH IS MUMBLED AND VERY DIFFICULT TO UNDERSTAND, SPEECH IS INAPPROPRIATE AND NOT RELATED TO CURRENT SURROUNDINGS. PT UNABLE TO EXPRESS ANY NEEDS UNAWARE HE HAS SOILED HIMSELF. PT UNABLE TO TAKE DIRECTION TO RESTROOM WITHOUT CONSTANT CUING SEE CARES NOTE. PT ASSISTED BACK TO BED FOLLOWING CARES. PT HAS NOT BEEN AGGRESSIVE PHYSICALLY OR VERBALLY. PT HAS REQUIRED NO PRN MEDICATIONS FROM THIS RN.
--- NOTE | 2016-08-23 23:46 | NUR ---
Chart Check 24 hour chart check completed
[2016-08-24 00:34] VITALS: BP 114/69; PULSE 61; RESP 16; TEMP 97.8; O2SAT 97
--- NOTE | 2016-08-24 01:00 | NUR ---
CARES ASSISTED PT WITH CHANGING OF CLOTHING AND BEDDING FOLLOWING INCONTINENT VOID. PT SATURATED BEDDING AND CLOTHING. PT GOT OUT OF BED ACTIVATING BED ALARM. PT CONFUSED AND UNABLE TO FOLLOW COMMANDS. PT UPSET AND CURING WITH STAFF DURING CARES. PT GRABBING STAFF HANDS AND ARMS AND TWISTING ABLE. PT BEDDING CHANGED PT ASSISTED INTO GOWN AND CLEAN UNDERGARMENTS. PT BACK IN BED WITH 2 RAILS UP ALARM ON LIGHTS DIMMED AND DOOR PARTIALLY CLOSED TO LIMIT NOISE AND LIGHT DISTRACTIONS. Addendum: 08/24/16 at 0102 by DARIELA PASTOR RN Amended: Links added.
--- NOTE | 2016-08-24 01:42 | NUR ---
CARES PT ASSISTED WITH CARES FOLLOWING GETTING OUT OF BED SOUNDING ALARM. PT HAD INCONTINENT VOID. DURING THIS TIME PT GOT OUT OF BED AND WAS UNABLE TO BE REDIRECTED TO RESTROOM OR BACK INTO BED IMMEDIATELY. PT ATTEMPTED TO WALK PAST STAFF AND STAFF AMBULATED WITH PT IN HOWELL TO DINNING AREA. PT WENT TO LOCKED DOOR AND STATED "I THOUGHT BY NOW THEY WOULD BE SWARMING US" PT THEN PUSHED ON LOCKED EMERGENCY EXIT AND PT WAS ASSURED ALL DOORS IN THE AREA WERE LOCKED AND THAT WE WERE SAFE WHERE WE WERE. PT AT THIS MOMENT STATED "WELL THAT IS A GOOD THING" AND CONTINUED TO AMBULATE. PT STATES "MY BAGGIN IS A DRAGGIN" AND PULLS UP HIS GOWN AND BEGINS MESSING WITH HIS BRIEF, AT THIS POINT PT IS ABLE TO BE DIRECTED BACK TO HIS ROOM TO CHANGE HIS UNDERGARMENTS. PT IS SUSPICIOUS OF SOME STAFF BUT REMAINS COOPERATIVE AT THIS TIME. PT SPEECH IS MORE CLEAR BUT REMAINS INAPPROPRIATE OR UNRELATED IN REGARDS TO MOST CIRCUMSTANCES. Addendum: 08/24/16 at 0150 by DARIELA PASTOR RN Amended: Links added.
[2016-08-24] MEDS: LORAZEPAM 0.5 MG TABLET PO PRN (04:10)
[2016-08-24] MEDS: ACETAMINOPHEN 325 MG TABLET PO PRN (04:11)
--- NOTE | 2016-08-24 04:24 | NUR ---
CARES PT UP OUT OF BED ALARM SOUNDED. PT SATURATED BRIEFS, GOWN AND BEDDING. ALL SATURATED ITEMS REPLACED AND SKIN CARE PROVIDED. PT RUBBING RIGHT KNEE AND APPEARS TO BE COMPLAINT OF PAIN IN RIGHT KNEE. PT HAS NOT BEEN RESTING WELL. Addendum: 08/24/16 at 0426 by DARIELA PASTOR RN Amended: Links added.
--- NOTE | 2016-08-24 04:26 | NUR ---
PRN MEDICATION PRN MEDICATIONS GIVEN SEE EMAR. PT DURING CARES WAS RUBBING RIGHT KNEE AND COMPLAINT OF PAIN IN RIGHT KNEE UNABLE TO RATE PAIN. PT HAS BEEN RESTLESS AND NOT GETTING MUCH SLEEP. PT NOTED TO BE MUMBLING TO SELF IN DARK AND SINGING TO SELF IN DARK OF ROOM RATHER THAN SLEEPING. PRN'S GIVEN IN ATTEMPT TO CONTROL PT PAIN AND ASSIST WITH RESTLESS BEHAVIOR. WILL CONTINUE TO MONITOR PT BEHAVIOR. PT TOOK MEDS CRUSHED IN PUDDING AND DRANK WHOLE ANNELISE AND APPLE JUICE. PT TOLERATED WELL AND IS EASILY DIRECTED BACK INTO BED.
--- NOTE | 2016-08-24 05:24 | NUR ---
STATUS PT UP OUT OF BED SOUNDING ALARM. PT AMBULATED IN THE HOWELL AFTER FAILED ATTEMPT TO REDIRECT PT TO BED. PT AMBULATED WITH STAND BY ASSIST TO DAY ROOM WHERE HE ATE A PUDDING AND DRANK A ANNELISE. PT THEN AMBULATED BACK TO ROOM AND WAS ASSISTED BACK INTO BED. ALARM ON BED IN LOW POSITION AND RAILS UP X2.
[2016-08-24] MEDS: LEVOTHYROXINE 125 MCG TABLET PO SCH (05:33)
--- NOTE | 2016-08-24 05:44 | NUR ---
SUMMARY PT AT START OF SHIFT WAS VERY DROWSY AND HAD DIFFICULTY STAYING AWAKE DURING EXAM AND DID NOT ANSWER QUESTIONS. THE NIGHT WENT ON PT BECAME MORE ALERT AND BECAME RESTLESS. PT WAS IN BED AT START OF THIS RN SHIFT. PT WAS COOPERATIVE WITH MEDICATIONS. PT WAS AGGRESSIVE AT SOME TIMES DURING CARES. PT THROUGHOUT THE NIGHT HAD IMPROVED SPEECH HOWEVER PT IS STILL DIFFICULT TO UNDERSTAND AND MAKES STATEMENTS THAT ARE NOT CONGRUENT WITH CURRENT SITUATION. PT WAS RESTLESS MOST OF THE NIGHT GETTING OUT OF BED OFTEN, WALKING THE HALLS SEVERAL TIMES. PT HAD SEVERAL INCONTINENT VOIDS. WHEN PT WAS IN BED HE DID NOT SLEEP MOST OF THE TIME HE COULD BE HEARD MUMBLING AND HUMMING TO HIMSELF. PT RECEIVED PRN MEDICATIONS SEE EMAR FOR PAIN AND RESTLESSNESS. PT HAS DIFFICULTY FOLLOWING DIRECTION AND REQUIRES CONTINUOUS PROMPTS AND CUING TO PERFORM SIMPLE TASKS. PT DURING EPISODES OF INCONTINENCE AND SATURATING BEDDING WAS UNABLE TO MAKE IT KNOWN THAT HE HAD URINATED OR NOTICE THAT HIS CLOTHING AND BEDDING WERE SOILED.
--- NOTE | 2016-08-24 06:32 | NUR ---
CARES PT OUT OF BED ALARM SOUNDING. PT INCONTINENT VOID SOILED BRIEF AND GOWN. PT ASSISTED TO GET CLEANED AND CHANGED. DURING ASSISTING PT BECAME AGGRESSIVE WITH THIS RN GRABBING AT WRISTS AND HANDS AND ATTEMPTING TO WRING HANDS/WRISTS. PT WAS CALMED BY THIS RN AND OTHER STAFF. OTHER STEREOTYPER HELPER WAS ABLE TO STEP IN AND REDUCE PT AGITATION AND COMPLETE ASSISTANCE WITH CARES. Addendum: 08/24/16 at 0634 by DARIELA PASTOR RN Amended: Links added.
[2016-08-24 08:22] VITALS: BP 112/71; PULSE 70; RESP 16; TEMP 97.4; O2SAT 97
--- NOTE | 2016-08-24 08:30 | NUR ---
Sleep time Pt was in bed at 1900 and up at 0730. he slept a total of 3.5 hours as recorded on patient observation forms.
--- NOTE | 2016-08-24 10:13 | NUR ---
Vaccine Assessment Called and left message for Yojana ([phone]) at the [facility] to call back with Vaccine information. Pts name was not left in the message, just that we had a mutual patient and that we needed Flu and Pneumonia immunization information.
--- NOTE | 2016-08-24 11:03 | GENPN ---
[facility] Subjective Date DATE: 08/24/16 TIME: 10:59 Subjective/Severity of Illness Medications Current Medications Medications (Trade) Dose Ordered Sig/Raymon Start Time Stop Time Status Last Admin Dose Admin Donepezil HCl (Aricept) 10 mg HS 08/21/16 21:00 08/23/16 19:37 10 MG Levothyroxine Sodium (Synthroid) 125 mcg ACB 08/21/16 06:30 08/24/16 05:33 125 MCG Mirtazapine (Remeron) 7.5 mg HS 08/21/16 21:00 08/23/16 19:37 7.5 MG Miscellaneous Medication (May use PRN orders) 1 PRN PRN 08/20/16 23:30 Haloperidol (Haldol) 0.5 mg Q6H PRN 08/20/16 23:30 Lorazepam (Ativan) 0.5 mg Q6H PRN 08/20/16 23:30 08/24/16 04:10 0.5 MG Lorazepam (Ativan) 0.5 mg Q6H PRN 08/20/16 23:30 Haloperidol Lactate (Haldol 5 Mg/ml Inj) 0.5 mg Q6H PRN 08/20/16 23:30 Lorazepam (Ativan Intensol) 0.5 mg Q6H PRN 08/21/16 03:15 08/23/16 17:00 0.5 MG Haloperidol (Haldol Liquid) 0.5 mg Q6H PRN 08/21/16 03:15 08/23/16 17:00 0.5 MG Acetaminophen (Tylenol Regular Strength) 1-2 tabs Q5H PRN 08/22/16 23:45 08/24/16 04:11 650 MG Subjective Pt seen and chart examined. Case discussed with nursing. Nursing reports pt has not been sleeping well but has been sleeping during the day. Nursing reports pt paces and exit seeks at times. On face to face the pt is pleasant but confused. He is only oriented to self. He states he is doing well and voices no concerns. Denies any pain. Time of Service: 09:30 Start Time: 09:30 Stop Time: 09:45 Care >50% of this visit spent in counseling/coordination care. [facility] Exam Vitals Vital Signs Date Time Temp Pulse Resp B/P Pulse Ox O2 Delivery O2 Flow Rate FiO2 4/9/17 08:22 97.4 70 16 112/71 97 Room Air Physical examination performed by the hospitalist. Height (Feet): 5 Height (Inches): 10.00 Mental Status Exam Muscle Strength/Tone: Weak Dressing: Casual Grooming: Good Attitude: Guarded Motor Activity: Retardation Eye Contact: Fair Speech: Slowed Volume: Soft Rhythm: Slurred Sensory: Alert Orientation: Oriented to person Mood: Neutral Affect: Congruent Rate of Thoughts: Delayed Thought Organization: [place] Associations: Illogical Abstract Reasoning: Impaired, concrete Thought Content: Normal Perception/Psychotic: Hx psychosis,not current Attention Span/Concentration: Short Span Fund of Knowledge: Poor fund of knowledge Memory: Poor-immediate, Poor-recent Suicidal Ideation: None Homicidal Ideation: None Insight: Poor Judgment: Poor Impulse Control: Fair Assessment and Plan (1) Major neurocognitive disorder Assessment: Possibly due to Parkinsonian type or Subcortical etiology. r/o anti-psychotic induced Parkinsonian syndrome. 1. Hold Risperidone and Haloperidol. Cont Mirtazapine 2. Observe patient on the unit 3. ST to see patient for swallow test\ 08/22/16 Continue current care 08/23/16 continue current care 08/24/16 Continue current care Cont. current psych. meds JUAN MEDINA MD Aug 24, 2016 11:03
[2016-08-24] MEDS: LORAZEPAM INTENSOL 1mg/0.5ml ORAL SOLUTION SL PRN ×2 (12:15→20:39)
[2016-08-24] MEDS: HALOPERIDOL 1 MG/0.5 ML ORAL LIQUID PO PRN ×2 (12:15→20:40)
--- NOTE | 2016-08-24 12:15 | NUR ---
PRN Pt received PRN Ativan 0.5mg Liquid and Haldol 0.5mg Liquid @ 1215 for aggression. Pt was hitting staff during cares and being verbally aggressive telling staff "I am tired of this shit and i am not going to take it anymore".
--- NOTE | 2016-08-24 12:52 | NUR ---
Status Pt was cooperative with assessment and medications but resistive with cares. Pt was incontinent of B&B and took three staff to change his brief and clean him. Pt was aggressive, hitting and yelling at staff. Pt received PRN medications to help him calm (see note). Pt is impulsive and restless, he will not stay seated for long periods of time. Speech is nonsensical, sarcastic and requests need to be repeated often. When asked to perform a task the patient will agree that he understands what is being asked of him, but is unable to perform the task. Pt is currently in day room watching television with staff present.
--- NOTE | 2016-08-24 13:15 | NUR ---
PRN Follow up PT responded well to PRN. Pt calmed and sat in recliner in the day room after lunch.
--- NOTE | 2016-08-24 18:31 | NUR ---
Summary Pt was incontinent of B&B a few times today and each time we changed him he was aggressive. We tried numerous approaches and changed out staff to make the patient feel more comfortable. Pt would attempt to hit staff if cares were attempted. If he could not hit he would attempt to bite. Pt is unable to sit still for more than 15-20min and requires additional observation when he is up due to his poor safety awareness and poor gait. Pt able to answer a few questions with a valid response but most answers are nonsensical and do not pertain to the question. Pt will state that it is ok for us to do his cares but then will not allow the action to take place. PT has eaten well today and had no complaints of pain or discomfort. Pt is currently sitting with staff in the day room.
[2016-08-24 20:00] VITALS: RESP 16
[2016-08-24] MEDS: DONEPEZIL 10 MG TABLET PO SCH (20:33)
[2016-08-24] MEDS: MIRTAZAPINE 15 MG TABLET PO SCH (20:34)
--- NOTE | 2016-08-24 20:39 | NUR ---
PRN PT GIVEN PRN ATIVAN AND HALDOL AT THIS TIME. PT SINCE START OF THIS RN SHIFT HAS BEEN RESTLESS, WANDERING HALLS, GETTING IN AND OUT OF BED WALKING TO DAY ROOM SITTING AND THEN WALKING TO ROOM. PT OFTEN PAUSES AND STANDS IN HOWELL AND IS UNABLE TO BE DIRECTED. PT DURING ASSISTANCE WITH CARES PT BECOMES VERBALLY AGGRESSIVE AND MAKES THREATS TO STAFF TO BE PHYSICALLY AGGRESSIVE. PT REQUIRES MULTIPLE STAFF TO ASSIST WITH CARES DUE TO HIS INABILITY TO COMPREHEND THE PROCESS OF CARES AND HIS AGITATION AND AGGRESSION WITH CARES. PT HAS TREMORS AND SHUFFLING GAIT AND IS UNSTEADY ON HIS FEET. PT DOES NOT TAKE CUING OR DIRECTION WELL. WHEN ATTEMPTING TO REDIRECT PT HE EASILY BECOMES BOTH VERBALLY AGGRESSIVE AND PHYSICALLY AGGRESSIVE. PT GRASPS STAFF HANDS AND ARMS AND OCCASIONALLY ATTEMPTS TO WRING STAFF EXTREMITIES.
--- NOTE | 2016-08-24 21:10 | NUR ---
BEDTIME PT ASSISTED INTO BED BY STAFF AT THIS TIME.
[2016-08-24 22:45] VITALS: BP 119/67; PULSE 80; RESP 18; TEMP 98.6; O2SAT 96
--- NOTE | 2016-08-25 00:40 | NUR ---
SHIFT STATUS PT ALERT ORIENTED TO SELF. PT SPEECH IS MUMBLED AND DIFFICULT TO UNDERSTAND. PT IS AGGRESSIVE WITH CARES AND UNCOOPERATIVE. PT DOES NOT TAKE CUES OR FOLLOW INSTRUCTIONS. PT GETS RIGID AND WILL NOT BEND LEGS WHEN TRYING TO HELP PT SIT ON TOILET OR IN BED. WHEN PT SATURATED CLOTHING AND BED PT WAS CHANGED AND WAS VERY AGITATED CURSING AT STAFF GRABBING STAFF HANDS AND WRISTS AND ATTEMPTING TO WRING STAFF LIMBS. PT IS NOT ABLE TO BE REDIRECTED EASILY AND IS RESTLESS GETTING OUT OF BED SEVERAL TIMES WANDERING HALLS TO DAY ROOM AND THEN BACK TO BED. PT IS COMPLETE INCONTINENT WITH VOIDING AND BMS. PT IS UNABLE TO UNDERSTAND EDUCATION. PT AT 0030 WAS UP WANTING TO WALK IN HOWELL DURING AMBULATION PT POINTS TO FLOOR AND STATES " THE GROOVES ARE ALL IN THE [place]... THERE IS A BUNCH OF FOOD DOWN THERE, YOU CANT SEE IT BUT YOU CAN FEEL IT" WHILE STATING THIS PT BEGAN TO STEP HIGHER RAISING KNEES IF TRYING TO STEP OVER THINGS. ATTEMPTED TO REORIENT PT TO HOSPITAL AND ENSURE THAT THERE WAS NOTHING IN HIS WAY. PT AMBULATED BACK TO HIS BED AND CRAWLED INTO BED EASILY STATING "WILL YOU JUST LET ME SLEEP". PT IN BED LOW POSITION BED ALARM ON RAILS UP X3 LIGHTS OFF AND DOOR PARTIALLY CLOSED TO LIMIT DISTRACTIONS.
--- NOTE | 2016-08-25 01:51 | NUR ---
Chart Check 24 hour chart check completed
[2016-08-25] MEDS: LORAZEPAM INTENSOL 1mg/0.5ml ORAL SOLUTION SL PRN ×2 (02:49→14:29)
[2016-08-25] MEDS: HALOPERIDOL 1 MG/0.5 ML ORAL LIQUID PO PRN (02:49)
--- NOTE | 2016-08-25 02:56 | NUR ---
PRN PT HAS BEEN GETTING INCREASINGLY LOUDER OVER THE LAST COUPLE OF HOURS SHOUTING OUT. PT HAS BEEN RESTLESS GETTING OUT OF BED AND TRYING TO WANDER IN HALLS. PT HAS NOT BEEN SLEEPING TALKING TO SELF AND OCCASIONALLY SHOUTING OUT. PT IS UNABLE TO EXPRESS WHAT HIS NEEDS ARE WHEN STAFF RESPONDS TO HIS SHOUTS. PT IS AGITATED AND CURSING AT STAFF AND WHEN NO ONE IS IN THE ROOM WITH HIM. PT HAS HAD HALLUCINATIONS LOOKING AROUND ROOM AND STATING "HUH I GUESS HE IS GONE NOW" HOWEVER PT IS UNABLE TO DESCRIBE ANY FURTHER OR EXPRESS ANY MORE CLEARLY WHAT HE IS EXPERIENCING. PRN GIVEN TO HELP PT WITH RESTLESSNESS.
--- NOTE | 2016-08-25 05:47 | NUR ---
SHIFT SUMMARY Pt alert oriented to self. Pt is uncooperative and does not take direction well does not take cuing well. Pt has been aggressive verbally and physically with staff. Pt has been restless all shift for this RN and has been noted when not attempting to get up and wander halls with SBA pt is noted to be mumbling to self and occasionally calling out, and pt has received PRN medications see emar and notes. Pt is unable to make his needs known. Pt is fully incontinent. Pt has had hallucinations while ambulating in garza see status note. Pt speech is clear and easily understood and appropriate during periods of agitation and aggressiveness with staff. Pt has tremors noted and shuffling gait, requires stand by assist. Pt requires multiple staff for cares due to aggressive behaviors and pt becomes very rigid and grasps/clings to staff and will not bend legs when trying to toilet or assist pt to sit in bed. Pt has remained restless and agitated despite PRN doses.
[2016-08-25] MEDS: LEVOTHYROXINE 125 MCG TABLET PO SCH (06:38)
[2016-08-25 07:56] VITALS: BP 111/74; PULSE 71; RESP 18; TEMP 97.7; O2SAT 98
--- NOTE | 2016-08-25 09:53 | PNPDOC ---
Subjective Date DATE: 08/25/16 TIME: 09:45 Subjective Yuan was seen at the breakfast table. He looked directly at me when I talked with him, but he hardly said a word. His motor movements were slow but controlled. He denied having any pain. Staff report that he's been verbally and physically aggressive. He's been restless and hallucinating. He's had a good appetite and bowels are moving. Objective Vital Signs Vital signs Vital Signs Date Time Temp Pulse Resp B/P Pulse Ox O2 Delivery O2 Flow Rate FiO2 08/25/16 07:56 97.7 71 18 111/74 98 Room Air Height (Feet): 5 Height (Inches): 10.00 Weight (Kilograms): 89.000 General General Appearance: Alert, Orientated x 1, No Acute Distress Eyes (Brief) Eyes: FOUND: other ENMT (Brief) ENMT: FOUND: mucosa moist Respiratory (Brief) Respiratory: FOUND: clear all roberts, equal bilaterally Cardiovascular (Brief) Cardiac: FOUND: regular rate, regular rhythm Abdomen (Brief) Abdominal: FOUND: BS normo active x4, soft, NOT FOUND: tender Extremities (Brief) Extremity : Side: Bilateral Extremity Finding: NOT FOUND: edema Musculoskeletal (Brief) Musculoskeletal: NOT FOUND: deformity, tenderness Integumentary (Brief) Integumentary: FOUND: dry, warm Neurologic (Brief) Neurological: FOUND: other (no tremor noted today) Psychiatric (Brief) Psychiatric: FOUND: alert, oriented (x1) Assessment & Plan Problems: (1) Dementia with behavioral disturbance Status: Acute Qualifiers: Dementia type: unspecified type Qualified Codes: F03.91 - Unspecified dementia with behavioral disturbance (2) Sinus bradycardia Status: Resolved (3) Hypothyroidism Status: Chronic (4) Sensorineural hearing loss Status: Chronic (5) Overweight (BMI 25.0-29.9) Status: Chronic Plan/Intensity of Service Labs reviewed - unremarkable. VSS. Psychiatric notes reviewed. Medically stable. Code Status Do Not Resuscitate Hospital Course Summary Disclaimer The hospital course summary below is not to be considered part of the above Progress Note. Hospital Course Summary 08/21/16 Agree with admission orders. Hypothyroidism. TSH was over 10 when checked in April 2016. On reassessment yesterday, it had improved to 3.13. Continue levothyroxine. Labs reviewed: CBC and CMP were unremarkable. Urinalysis was negative for UTI. Folate, iron, vitamin B12, hemoglobin A1c, all pending. Will also check prealbumin. Bradycardia: EKG revealed sinus bradycardia with a left axis deviation. Borderline hypotension: Monitor at this time. Patient had similarly low blood pressure upon admission to the [facility]. Shuffling gait, tremor, and nurses report rigidity: Consider neurologic evaluation for Parkinson's. 08/22/16 Labs reviewed - unremarkable. VSS. Psychiatric notes reviewed. Medically stable. TAMARA BLAIR MACHINE FINISHER Aug 25, 2016 09:49
--- NOTE | 2016-08-25 10:28 | NUR ---
SLEEP Pt was out of bed at 0715 and has 0 reported hours of sleep per the observation sheets.
--- NOTE | 2016-08-25 10:49 | NUR ---
Communication Called and spoke to Lissa RN ([phone]) who has handled patients care before coming to the [facility] unit. She relayed Vaccine information and stated that she would fax documentation later today.
--- NOTE | 2016-08-25 11:03 | NUR ---
DEMAND INSPECTOR--AM GROUP Pt. was present but asleep in recliner during AM psychoeducational group facilitated by [facility]. Pt. did not respond to his name when it was called.
--- NOTE | 2016-08-25 11:14 | NUR ---
ASSET MANAGEMENT COORDINATOR LSCSW left phone message with pt's son/DPOA-HC (Henry) regarding review of Tx Plan.
--- NOTE | 2016-08-25 14:30 | NUR ---
PRN Pt received Ativan Intensol 0.5mg before his shower this afternoon @ 1429 due to aggressive behaviors with cares. Pt was hitting and grabbing staff.
--- NOTE | 2016-08-25 14:56 | NUR ---
COKE OVEN MASON--PM GROUP Pt. was in his room with staff and was not present for the psychoeducational group facilitated by [facility].
--- NOTE | 2016-08-25 14:56 | NUR ---
STERLING KATZ SPOKE WITH ZACKERY FROM [place]. ZACKERY IS WORKING ON TRANSPORTATION NEEDS FOR PT AT THE TIME OF D/C FROM [facility]. ZACKERY IS PLANNING TO FOLLOW UP WITH [facility]. ZACKERY IS AWARE TO CONTACT [facility] IF NEEDS ARISE.
--- NOTE | 2016-08-25 15:18 | NUR ---
ORCHARD WORKER--[place] PLAN SIGNED LSCSW made phone contact with pt's son/DPOA-HC (Henry Diego). Reviewed contents of proposed [place] plan. Son had no additions or corrections and gave permission to sign his name in agreement on the form.
--- NOTE | 2016-08-25 15:24 | NUR ---
PRN Follow up Pt calmed after PRN was given and cares were complete.
--- NOTE | 2016-08-25 15:28 | NUR ---
Status Pt was cooperative with assessment. He takes his medications crushed in pudding and is still resistive to cares. Pt eats well usually finishing his meals. Pt had a shower today and was resistive until he realized what we were doing and then began to cooperate. Pt struck out at staff but soon after apologized for his actions. Pt was incontinent of B&B and is still very uncomfortable with changing him and cleaning him. Pt received Ativan Intensol to help calm him before his shower. Pt has been out to all meals so far today and napped in the day room in the recliner this afternoon. Pt is currently in bed resting with side rails up x2 and bed alarm activated.
[2016-08-25 16:35] VITALS: BP 95/54; PULSE 53; RESP 18; TEMP 97.1; O2SAT 99
--- NOTE | 2016-08-25 18:33 | NUR ---
Summary Pt slept for a short time after his shower and got up for dinner. It takes him a while to realize what is going on and constant cueing is needed. patient ate 100% of meals today and has no behaviors since waking from his shower. Pt has had no complaints of pain or discomfort. Pt is currently sitting with staff in the day room.
--- NOTE | 2016-08-25 19:26 | GENPN ---
[facility] Subjective Date DATE: 08/25/16 TIME: 10:33 Subjective/Severity of Illness Medications Current Medications Medications (Trade) Dose Ordered Sig/Raymon Start Time Stop Time Status Last Admin Dose Admin Donepezil HCl (Aricept) 10 mg HS 08/21/16 21:00 08/24/16 20:33 10 MG Levothyroxine Sodium (Synthroid) 125 mcg ACB 08/21/16 06:30 08/25/16 06:38 125 MCG Mirtazapine (Remeron) 7.5 mg HS 08/21/16 21:00 08/24/16 20:34 7.5 MG Miscellaneous Medication (May use PRN orders) 1 PRN PRN 08/20/16 23:30 Haloperidol (Haldol) 0.5 mg Q6H PRN 08/20/16 23:30 Lorazepam (Ativan) 0.5 mg Q6H PRN 08/20/16 23:30 08/24/16 04:10 0.5 MG Lorazepam (Ativan) 0.5 mg Q6H PRN 08/20/16 23:30 Haloperidol Lactate (Haldol 5 Mg/ml Inj) 0.5 mg Q6H PRN 08/20/16 23:30 Lorazepam (Ativan Intensol) 0.5 mg Q6H PRN 08/21/16 03:15 08/25/16 02:49 0.5 MG Haloperidol (Haldol Liquid) 0.5 mg Q6H PRN 08/21/16 03:15 08/25/16 02:49 0.5 MG Acetaminophen (Tylenol Regular Strength) 1-2 tabs Q5H PRN 08/22/16 23:45 08/24/16 04:11 650 MG Subjective Patient seen and chart reviewed. Case discussed with treatment team. Patient is sleeping during rounds as he did not sleep all night. He reportedly laid in bed from 2100 to 0700, restless but did not sleep. Per staff, patient has been aggressive with cares (hitting/biting) and requiring PRN Haldol/Ativan multiple times per day. The weekend psychiatrist did not start an antipsychotic due to patients rigidity but will discuss use of Seroquel with son given other limited treatment options to control aggression. Appetite is good. VSS. No new labs. Time of Service: 09:30 Start Time: 10:00 Stop Time: 10:20 Care >50% of this visit spent in counseling/coordination care. [facility] Exam Vitals Vital Signs Date Time Temp Pulse Resp B/P Pulse Ox O2 Delivery O2 Flow Rate FiO2 08/25/16 07:56 97.7 71 18 111/74 98 Room Air Physical examination performed by the hospitalist. Height (Feet): 5 Height (Inches): 10.00 Mental Status Exam Muscle Strength/Tone: Rigid Dressing: Casual Grooming: Fair Attitude: Combative Motor Activity: Restless (when awake, currently sleeping) Eye Contact: Other Speech: Other (sleeping) Sensory: Other (sleeping) Orientation: Oriented to person Mood: Irritable Affect: Labile Rate of Thoughts: Other (cannot currently assess) Thought Organization: Other (cannot currently assess) Thought Content: Other (canot currently assess) Perception/Psychotic: Other (canot currently assess) Attention Span/Concentration: Other (cannot currently assess) Fund of Knowledge: Poor fund of knowledge Memory: Other (cannot currently assess) Suicidal Ideation: Other (no suicidal comments made to staff) Homicidal Ideation: Other (no homicidal statements made to staff) Insight: Impaired Judgment: Impaired Impulse Control: Poor Assessment and Plan (1) Major neurocognitive disorder Assessment: Possibly due to Parkinsonian type or Subcortical etiology. r/o anti-psychotic induced Parkinsonian syndrome. 1. Hold Risperidone and Haloperidol. Cont Mirtazapine 2. Observe patient on the unit 3. ST to see patient for swallow test\ 08/22/16 Continue current care 08/23/16 continue current care 08/24/16 Continue current care 08/25/16: Will discuss antipsychotic use with son/KANDACE Figueroa ([phone]) and start Seroquel 25mg PO BID if he consents; plan to start Ativan 1mg PO HS to target insomnia as well. Will discuss antipsychotic use with son/KANDACE Figueroa ([phone]) and start Seroquel 25mg PO BID if he consents; plan to start Ativan 1mg PO HS to target insomnia as well. VAUGHN PARRA MD Aug 25, 2016 10:33
[2016-08-25 19:58] VITALS: BP 126/71; PULSE 64; RESP 16; TEMP 97.8; O2SAT 98
[2016-08-25 20:30] VITALS: PULSE 86
[2016-08-25] MEDS: DONEPEZIL 10 MG TABLET PO SCH (21:40)
[2016-08-25] MEDS: LORAZEPAM 1 MG TABLET PO SCH (21:40)
[2016-08-25] MEDS: MIRTAZAPINE 15 MG TABLET PO SCH (21:40)
[2016-08-25] MEDS: QUETIAPINE 25 MG TABLET PO SCH (21:40)
--- NOTE | 2016-08-25 22:40 | NUR ---
summary Arrived on shift, patient was dozing off and on in recliner in dayroom. Patient was passive with assessment. Cooperative with vitals. Patient took scheduled hs medications crushed in pudding without issue. No behaviors noted. no prns given. after an hour patient roused and became more awake sitting watching tv with staff present.
[2016-08-25 23:00] VITALS: PULSE 82; RESP 16
[2016-08-26] MEDS: LORAZEPAM 0.5 MG TABLET PO PRN (00:10)
[2016-08-26] MEDS: HALOPERIDOL 0.5 MG TABLET PO PRN ×2 (00:10→22:18)
--- NOTE | 2016-08-26 00:10 | NUR ---
prn given Pt is restless, pacing up and down hallways with staff, pt incontinent taken to room and changed, pt guarded with staff pushed staff hands away, pt then touch his pants and stated they are wet, pt then agreed to change into new clothes. Pt held the brief and then sat down on bed and allowed staff to pull brief over his feet, pt then stood up and pulled brief up. Pt up pacing room, pt assisted back to dayroom, pt paced in dayroom, then sat in recliner for less than 5 min, pt up pacing hallways with staff, pt given Ativan and Haldol in pudding, pt remains in dayroom with staff.
--- NOTE | 2016-08-26 01:00 | NUR ---
prn update Pt is now sitting in dayroom with staff, pt is calmer in the recliner, pt is rocking his body in the chair, pt is drinking lemonade crystal light, will monitor pt.
[2016-08-26 01:23] LABS: LDL CHOLESTEROL,CALCULATED 55.4 (66-159); RISK FACTOR 2.3 RATIO (0-5.0); VLDL CHOLESTEROL 13.6 MG/DL (0-28)
--- NOTE | 2016-08-26 02:15 | NUR ---
bedtime Pt fell asleep at 02:15, pt slept 4.5 hours on dayshift
--- NOTE | 2016-08-26 04:50 | NUR ---
Chart Check 24 hour chart check completed
--- NOTE | 2016-08-26 07:17 | NUR ---
shift summary Pt is alert and oriented x1, pt awake and in dayroom at the start of shift, pt then up pacing unit with staff, pt talking loudly and mumbling words at times, pt up and down unable to rest. Pt little resistive with cares (see previous prn note). Pt given Ativan 0.5mg and Haldol 0.5 mg at 00:10, pt remained restless, pacing and having visual hallucinations seeing and grabbing at stuff on the floor. Pt falling asleep in recliner in dayroom, pt assisted to room, pt incontinent changed, pt then assist x1 into bed, pt awake, restless, and taking in bed, pt fell asleep at 04:15, pt is currently sleeping in bed with 2 bed rails up and bed alarm on.
[2016-08-26] MEDS: LEVOTHYROXINE 125 MCG TABLET PO SCH (08:58)
[2016-08-26] MEDS: QUETIAPINE 25 MG TABLET PO SCH (08:58)
--- NOTE | 2016-08-26 09:26 | NUR ---
SLEEP 3.75 Pt went to bed at 0215 this morning and awoke at 0845. Pt slept a total of 3.75 hours as reported on 15 minute observation sheets.
[2016-08-26 09:35] VITALS: BP 115/73; PULSE 87; RESP 16; TEMP 97.1; O2SAT 98
--- NOTE | 2016-08-26 10:30 | NUR ---
BUSINESS SERVICES ASSOCIATE--AM GROUP Pt. was sitting at table in day room staring out the window. When invited to join group, pt. stood up and began walking the hallways. He does not make eye contact nor acknowledge SW's request to join the group.
--- NOTE | 2016-08-26 14:48 | NUR ---
Status Pt was cooperative with assessment cares and medications. Pt has been more cooperative today with cares than usual. Cares are explained very clearly to the patient before they are performed. Pt has not been resistive at all today so far and has actually assisted with cares. Pt has been incontinent of urine a couple of times today requiring bed changes. He has been back and forth from the day room to his bedroom today taking naps. Pt is currently in the day room watching television with staff present.
--- NOTE | 2016-08-26 16:25 | GENPN ---
[facility] Subjective Date DATE: 08/26/16 TIME: 10:12 Subjective/Severity of Illness Medications Current Medications Medications (Trade) Dose Ordered Sig/Raymon Start Time Stop Time Status Last Admin Dose Admin Donepezil HCl (Aricept) 10 mg HS 08/21/16 21:00 08/25/16 21:40 10 MG Levothyroxine Sodium (Synthroid) 125 mcg ACB 08/21/16 06:30 08/26/16 08:58 125 MCG Mirtazapine (Remeron) 7.5 mg HS 08/21/16 21:00 08/25/16 21:40 7.5 MG Miscellaneous Medication (May use PRN orders) 1 PRN PRN 08/20/16 23:30 Haloperidol (Haldol) 0.5 mg Q6H PRN 08/20/16 23:30 08/26/16 00:10 0.5 MG Lorazepam (Ativan) 0.5 mg Q6H PRN 08/20/16 23:30 08/26/16 00:10 0.5 MG Lorazepam (Ativan) 0.5 mg Q6H PRN 08/20/16 23:30 Haloperidol Lactate (Haldol 5 Mg/ml Inj) 0.5 mg Q6H PRN 08/20/16 23:30 Lorazepam (Ativan Intensol) 0.5 mg Q6H PRN 08/21/16 03:15 08/25/16 14:29 0.5 MG Haloperidol (Haldol Liquid) 0.5 mg Q6H PRN 08/21/16 03:15 08/25/16 02:49 0.5 MG Acetaminophen (Tylenol Regular Strength) 1-2 tabs Q5H PRN 08/22/16 23:45 08/24/16 04:11 650 MG Lorazepam (Ativan) 1 mg HS 08/25/16 21:00 08/25/16 21:40 1 MG Quetiapine Fumarate (Seroquel) 25 mg BID 08/25/16 21:00 08/26/16 08:58 25 MG Subjective Patient seen and chart reviewed. Case discussed with treatment team. Patient is initially in dayroom and then slowly pacing the garza during interview. He shakes my hand when I introduce myself and attempts to be polite, but has limited effective communication (and does seem frustrated by this). Staff report that patient has been restless and a little resistive with cares, but improved from previous. He was restless, pacing, and having VH overnight. He was then given PRN Ativan and Haldol PO at 00:10 and this was effective). Patient's gait/rigidity not significantly changed since starting Seroquel. Appetite is good. VSS. Time of Service: 09:30 Start Time: 10:00 Stop Time: 10:20 Care >50% of this visit spent in counseling/coordination care. [facility] Exam Vitals Vital Signs Date Time Temp Pulse Resp B/P Pulse Ox O2 Delivery O2 Flow Rate FiO2 08/26/16 09:35 97.1 87 16 115/73 98 Room Air Physical examination performed by the hospitalist. Height (Feet): 5 Height (Inches): 10.00 Mental Status Exam Muscle Strength/Tone: Rigid Dressing: Casual Grooming: Fair Attitude: Cooperative (to his ability) Motor Activity: Retardation, Pacing, Restless Eye Contact: Fair Speech: Slowed Volume: Soft Rhythm: Mumbled, Paucity of Language Sensory: Alert Orientation: Disoriented to time, Disoriented to place, Disoriented to situation, Oriented to person Mood: Neutral Affect: Restricted Rate of Thoughts: Delayed Thought Organization: Confused Associations: Illogical Abstract Reasoning: Poor abstract reasoning Thought Content: Other (No abnormal thought content elicited other than suspecte poverty) Perception/Psychotic: Psychotic Current Hallucinations: Visual (overnight) Attention Span/Concentration: Short Span Language: Naming Impaired Fund of Knowledge: Poor fund of knowledge Memory: Poor-immediate, Poor-recent Suicidal Ideation: Denies Homicidal Ideation: Denies Insight: Impaired Judgment: Impaired Impulse Control: Fair (improving) Assessment and Plan (1) Major neurocognitive disorder Assessment: Possibly due to Parkinsonian type or Subcortical etiology. r/o anti-psychotic induced Parkinsonian syndrome. 1. Hold Risperidone and Haloperidol. Cont Mirtazapine 2. Observe patient on the unit 3. ST to see patient for swallow test\ 08/22/16 Continue current care 08/23/16 continue current care 08/24/16 Continue current care 08/25/16: Will discuss antipsychotic use with son/DPWILLIAM Figueroa ([phone]) and start Seroquel 25mg PO BID if he consents; plan to start Ativan 1mg PO HS to target insomnia as well. 08/26/16: Increase Seroquel to 25mg PO q AM and 50mg PO q HS; titrate slowly to effect while monitoring effect on gait/rigidity. Increase Seroquel to 25mg PO q AM and 50mg PO q HS; titrate slowly to effect while monitoring effect on gait/rigidity. Continue current care otherwise. VAUGHN PARRA MD Aug 26, 2016 10:12
[2016-08-26 16:55] VITALS: BP 103/65; PULSE 67; RESP 18; TEMP 97.7; O2SAT 96
--- NOTE | 2016-08-26 18:12 | NUR ---
Summary Pt slept off and on today and was incontinent of urine twice. Pt reacted better today with cares, he was not resistive and was able to help with changing his clothes, attempting to put his own pants on and putting his own shirt on. Patient ate well today and has no behaviors other than a small amount of restlessness later in the shift. Pt has had no S/S of pain or discomfort and no PRN medications. Pt is currently sitting with staff in the day room.
[2016-08-26 19:49] VITALS: BP 106/66; PULSE 77; RESP 16; TEMP 98.6; O2SAT 94
[2016-08-26] MEDS: DONEPEZIL 10 MG TABLET PO SCH (20:24)
[2016-08-26] MEDS: LORAZEPAM 1 MG TABLET PO SCH (20:24)
[2016-08-26] MEDS: MIRTAZAPINE 15 MG TABLET PO SCH (20:24)
[2016-08-26 21:00] VITALS: RESP 16
[2016-08-26] MEDS ORDERED: QUETIAPINE 50 MG TABLET PO SCH (21:00)
--- NOTE | 2016-08-26 22:18 | NUR ---
prn given Pt is restless, pacing the hallways, grimacing, pt voice is getting louder with staff, attempting to push at staff, pt exit seeking pushing on door in dayroom, pulling at door handles of pt rooms, pt attempting to enter other pt's room. Pt given Haldol 0.5mg po crushed in pudding. Pt paced in hallways with staff, pt now in dayroom with staff eating pudding.
[2016-08-26] MEDS: ACETAMINOPHEN 325 MG TABLET PO PRN (23:43)
--- NOTE | 2016-08-26 23:43 | NUR ---
prn given/update Pt is in dayroom with staff watching tv, pt complaining of left leg knee pain, Tylenol 650mg po given, will monitor pt.
--- NOTE | 2016-08-27 00:30 | NUR ---
prn update/bedtime Pt went to bed at 0030, pt states his knee feels okay, pt mumbles with speech, pt is currently in bed with 2 bed rails up and bed alarm on.
--- NOTE | 2016-08-27 06:38 | NUR ---
shift summary Pt is oriented to person only, pt is confused needed staff extra supervision for a short period of time. pt took hs meds crushed in pudding. Pt needed lots of cuing with cares, pt did push staff hands away with cares, pt refused to sit on the toilet to have a bowel movement, pt incontinent of urine, pt did allow brief to be changed with lots of cuing. Pt is having visual hallucination thinks the floor is a boat and wanted to walk on the boat. Pt paced the unit and exit seeking pushing on doors, wanted to put staff out of the unit. Pt given Haldol 0.5mg po at 22:18 when pt grabbed staffs hands, and unable to sooth patient with voice or touch. Pt had knee pain and given Tylenol at 23:43, pt went to bed at 00:30. Pt up several times during the night incontinent, pt had a bowel movement at 03:30, pt did allow staff to clean him after cuing and waiting until pt said he was ready. Pt is sleeping in bed with 2 bed rails up and bed alarm on.
[2016-08-27] MEDS: LEVOTHYROXINE 125 MCG TABLET PO SCH (07:06)
[2016-08-27] MEDS ORDERED: QUETIAPINE 25 MG TABLET PO SCH (09:00)
--- NOTE | 2016-08-27 11:04 | NUR ---
VEHICLE INSURANCE AGENT--AM GROUP PT. was not present for psychoeducational group facilitated by [facility]. The severity of his dementia makes it difficult for him to attend to such activities.
--- NOTE | 2016-08-27 12:11 | GENPN ---
[facility] Subjective Date DATE: 08/27/16 TIME: 12:06 Subjective/Severity of Illness Medications Current Medications Medications (Trade) Dose Ordered Sig/Raymon Start Time Stop Time Status Last Admin Dose Admin Donepezil HCl (Aricept) 10 mg HS 08/21/16 21:00 08/26/16 20:24 10 MG Levothyroxine Sodium (Synthroid) 125 mcg ACB 08/21/16 06:30 08/27/16 07:06 125 MCG Mirtazapine (Remeron) 7.5 mg HS 08/21/16 21:00 08/26/16 20:24 7.5 MG Miscellaneous Medication (May use PRN orders) 1 PRN PRN 08/20/16 23:30 Haloperidol (Haldol) 0.5 mg Q6H PRN 08/20/16 23:30 08/26/16 22:18 0.5 MG Lorazepam (Ativan) 0.5 mg Q6H PRN 08/20/16 23:30 08/26/16 00:10 0.5 MG Lorazepam (Ativan) 0.5 mg Q6H PRN 08/20/16 23:30 Haloperidol Lactate (Haldol 5 Mg/ml Inj) 0.5 mg Q6H PRN 08/20/16 23:30 Lorazepam (Ativan Intensol) 0.5 mg Q6H PRN 08/21/16 03:15 08/25/16 14:29 0.5 MG Haloperidol (Haldol Liquid) 0.5 mg Q6H PRN 08/21/16 03:15 08/25/16 02:49 0.5 MG Acetaminophen (Tylenol Regular Strength) 1-2 tabs Q5H PRN 08/22/16 23:45 08/26/16 23:43 650 MG Lorazepam (Ativan) 1 mg HS 08/25/16 21:00 08/26/16 20:24 1 MG Quetiapine Fumarate (Seroquel) 25 mg BID 08/25/16 21:00 08/26/16 10:49 DC 08/26/16 08:58 25 MG Quetiapine Fumarate (Seroquel) 25 mg DAILY 08/27/16 09:00 Quetiapine Fumarate (Seroquel) 50 mg HS 08/26/16 21:00 08/26/16 20:24 50 MG Subjective Patient seen and chart reviewed. Case discussed with treatment team. Patient currently sleeping during AM rounds as he was reportedly restless and slept very little overnight. He continues to struggle with sleep time disturbance as he slept 5-6 hours yesterday during the day. Patient continues to exhibit frequent agitation and physical aggression with any cares by staff despite redirection, priming, etc. He continues to have VH and exit-seek as well. Appetite is good. VSS. PRNs in past 24 hours: Haldol PO at 2118 for physical aggression with cares. Time of Service: :30 Start Time: 09:40 Stop Time: 10:00 Care >50% of this visit spent in counseling/coordination care. [facility] Exam Vitals Vital Signs Date Time Temp Pulse Resp B/P Pulse Ox O2 Delivery O2 Flow Rate FiO2 08/26/16 21:00 16 08/26/16 19:49 98.6 77 106/66 94 Room Air Physical examination performed by the hospitalist. Height (Feet): 5 Height (Inches): 10.00 Mental Status Exam Muscle Strength/Tone: Rigid Dressing: Casual Grooming: Poor Attitude: Uncooperative, Combative Motor Activity: Retardation, Pacing, Restless Eye Contact: Poor Speech: Slowed Volume: Soft Rhythm: Mumbled, Paucity of Language Sensory: Other (Currently sleeping) Orientation: Disoriented to time, Disoriented to place, Disoriented to situation, Oriented to person Mood: Neutral Affect: Labile Rate of Thoughts: Delayed Thought Organization: Confused Associations: Illogical Abstract Reasoning: Impaired, concrete Thought Content: Other (Difficult to fully assess due to limited communication skills) Perception/Psychotic: Psychotic Current Hallucinations: Visual Attention Span/Concentration: Short Span Language: Naming Impaired Fund of Knowledge: Poor fund of knowledge Memory: Poor-immediate, Poor-recent, Poor-remote Suicidal Ideation: None Homicidal Ideation: None Insight: Impaired Judgment: Impaired Impulse Control: Poor Assessment and Plan (1) Major neurocognitive disorder Assessment: Possibly due to Parkinsonian type or Subcortical etiology. 1. Hold Risperidone and Haloperidol. Cont Mirtazapine 2. Observe patient on the unit 3. ST to see patient for swallow test\ 08/22/16 Continue current care 08/23/16 continue current care 08/24/16 Continue current care 08/25/16: Will discuss antipsychotic use with son/DPWILLIAM Figueroa ([phone]) and start Seroquel 25mg PO BID if he consents; plan to start Ativan 1mg PO HS to target insomnia as well. 08/26/16: Increase Seroquel to 25mg PO q AM and 50mg PO q HS; titrate slowly to effect while monitoring effect on gait/rigidity. 08/27/16: Increase Seroquel to 50mg PO q AM and 100mg PO q HS; titrate slowly to effect while monitoring effect on gait/rigidity. (2) Hypothyroidism (3) Sensorineural hearing loss Increase Seroquel to 50mg PO q AM and 100mg PO q HS; titrate slowly to effect while monitoring effect on gait/rigidity. VAUGHN PARRA MD Aug 27, 2016 12:09
--- NOTE | 2016-08-27 14:34 | NUR ---
MID SHIFT NOTE PT IS ORIENTED TO SELF ONLY. PT HAS BEEN COMPLIANT WITH CARES BUT NEEDS CONSTANT REDIRECTION. PT HAS BEEN INCONTINENT OF BLADDER. PT HAS TAKEN ALL MEDS DIRECTED. PT REFUSED BREAKFAST BUT ATE WELL FOR LUNCH. PT CANNOT MAKE NEEDS KNOWN AND IS DEPENDANT FOR CARES. PT IS ABLE TO AMBULATE WITH SBA.
[2016-08-27 14:43] VITALS: RESP 16
[2016-08-27 16:06] VITALS: BP 108/65; PULSE 76; RESP 16; TEMP 98.2; O2SAT 100
--- NOTE | 2016-08-27 16:12 | NUR ---
STERILE PROC TECH--PM GROUP Pt. was only passively involved for short parts of the psychoeducational group led by [facility]. The severity of pt's dementia makes it difficult for him to interact or be aware of his surroundings. He sat briefly for a time in a recliner in the group area but he did not appear to understand what was going on around him.
--- NOTE | 2016-08-27 17:19 | PNPDOC ---
Subjective Date DATE: 08/27/16 TIME: 17:10 Subjective Yuan is seen this afternoon sitting up in the day room watching television. He is alert and makes good eye contact and states, "I am hard of hearing". Yesterday as having any pain. He denies. He is comfortably breathing on room air and does not appear to be in any acute distress. BP 108/65. Objective Vital Signs Vital signs Vital Signs Date Time Temp Pulse Resp B/P Pulse Ox O2 Delivery O2 Flow Rate FiO2 08/27/16 16:06 98.2 76 16 108/65 100 Room Air Height (Feet): 5 Height (Inches): 10.00 Weight (Kilograms): 89.000 General General Appearance: Alert, Orientated x 1, Cooperative, No Acute Distress Eyes (Brief) Eyes: FOUND: EOMI ENMT (Brief) ENMT: FOUND: mucosa moist, normal dentition, NOT FOUND: pharnyx erythema Neck (Brief) Neck: FOUND: midline, NOT FOUND: adenopathy, carotid bruits, tracheal deviation Respiratory (Brief) Respiratory: FOUND: clear all roberts, equal bilaterally, NOT FOUND: wheezes Cardiovascular (Brief) Cardiac: FOUND: regular rate, regular rhythm, NOT FOUND: murmur, pedal edema Capillary Refill: <2 sec Abdomen (Brief) Abdominal: FOUND: BS normo active x4, soft, NOT FOUND: distended, tender Lymphatic (Brief) Lymphatic: NOT FOUND: adenopathy Musculoskeletal (Brief) Musculoskeletal: NOT FOUND: tenderness Integumentary (Brief) Integumentary: FOUND: dry, pink, warm Neurologic (Brief) Neurological: FOUND: cranial 2-12 intact Psychiatric (Brief) Psychiatric: FOUND: alert, attentive, normal affect Comments Flat affect Assessment & Plan Problems: (1) Dementia with behavioral disturbance Status: Acute Qualifiers: Dementia type: unspecified type Qualified Codes: F03.91 - Unspecified dementia with behavioral disturbance (2) Sinus bradycardia Status: Resolved (3) Hypothyroidism Status: Chronic (4) Sensorineural hearing loss Status: Chronic (5) Overweight (BMI 25.0-29.9) Status: Chronic Plan/Intensity of Service 08/27 Overall appears to be medically stable. Continued psychiatric care as per Dr. Cui Blood pressure has been well controlled Continue to encourage patient to participate in unit activities and provide a safe environment Code Status Do Not Resuscitate Hospital Course Summary Disclaimer The hospital course summary below is not to be considered part of the above Progress Note. Hospital Course Summary 08/21/16 Agree with admission orders. Hypothyroidism. TSH was over 10 when checked in April 2016. On reassessment yesterday, it had improved to 3.13. Continue levothyroxine. Labs reviewed: CBC and CMP were unremarkable. Urinalysis was negative for UTI. Folate, iron, vitamin B12, hemoglobin A1c, all pending. Will also check prealbumin. Bradycardia: EKG revealed sinus bradycardia with a left axis deviation. Borderline hypotension: Monitor at this time. Patient had similarly low blood pressure upon admission to the [facility]. Shuffling gait, tremor, and nurses report rigidity: Consider neurologic evaluation for Parkinson's. 08/22/16 Labs reviewed - unremarkable. VSS. Psychiatric notes reviewed. Medically stable. ROSALEE GLASS APRN Aug 27, 2016 17:18
--- NOTE | 2016-08-27 18:43 | NUR ---
SHIFT SUMMARY SEE PRIOR NOTE. PT IS PACING IN [place] WITH SBA. PT ATE WELL FOR SUPPER PT HAS HAD NO BEHAVIORS AND IS ATTEMPTING TO COMMUNICATE NEEDS (WORDS ARE MUMBLED) PT HAS HAD NO PRN MEDICATION AND NO BEHAVIORS FOR THIS SHIFT. PT SLEPT FOR 11 HOURS FROM MIDNIGHT TILL END OF THIS SHIFT.
[2016-08-27] MEDS: LORAZEPAM 1 MG TABLET PO SCH (19:49)
[2016-08-27] MEDS: DONEPEZIL 10 MG TABLET PO SCH (19:49)
[2016-08-27] MEDS: MIRTAZAPINE 15 MG TABLET PO SCH (19:50)
[2016-08-27] MEDS: QUETIAPINE 50 MG TABLET PO SCH (19:50)
--- NOTE | 2016-08-27 20:50 | NUR ---
prn given Pt is restless, grimacing and pacing hallways with staff, pt took hs meds crushed in pudding at 19:50, pt incontinent of urine, pt would not allow staff to change him, pt swatted at staff, and refused to allow pants to be pulled down, pt given Haldol 0.5 mg po, pt is pacing dayroom with staff.
[2016-08-27] MEDS: HALOPERIDOL 0.5 MG TABLET PO PRN ×2 (20:53→20:55)
[2016-08-27 21:27] VITALS: BP 128/71; PULSE 86; RESP 18; TEMP 98.9; O2SAT 97
[2016-08-27 21:50] VITALS: RESP 18
--- NOTE | 2016-08-27 21:50 | NUR ---
prn update Pt remains restless, pacing, pt did allow staff to change him. Pt is now in dayroom with staff, will monitor pt.
--- NOTE | 2016-08-27 23:59 | NUR ---
Chart Check 24 hour chart check completed
--- NOTE | 2016-08-28 | NUR ---
Bed Pt. went to bed at 2345 after pacing the hallways with staff. Lying in bed talking at this time.
--- NOTE | 2016-08-28 00:01 | NUR ---
bedtime Pt is in dayroom in the recliner with feet up on footrest, pt fell asleep at 0001. Pt legs covered with a blanket for comfort, staff giving extra care tonight, will monitor pt. Addendum: 08/29/16 at 0239 by GARCIA LONDON RN pt fell asleep at 00:1 in the recliner dayroom, pt legs are up on foot rest, staff is with patient giving extra care.
[2016-08-28] MEDS: LORAZEPAM INTENSOL 1mg/0.5ml ORAL SOLUTION SL PRN ×4 (01:02→22:12)
--- NOTE | 2016-08-28 01:09 | NUR ---
Agitation Pt. got out of bed at 0100 sounding bed alarm. Staff responded. Pt. agitated and grabbed staff bilat. wrist, mumbling something incoherently. Two RN assisted to release staff member and assisted pt. back to bed. Pt. placed in reverse trendelenburg and pt. began to sleep nearly immediately. Bed position returned to normal and pt. continues to sleep at this time.
--- NOTE | 2016-08-28 01:35 | NUR ---
Agitation Pt. climbed out of bed. Agitated, shaky. Ativan Intensol 0.5mg given with water. Assisted back to bed. RN gently patting right leg for comfort and noted muscle spasms.
[2016-08-28] MEDS: CYCLOBENZAPRINE 5 MG TABLET PO PRN ×2 (03:02→19:59)
--- NOTE | 2016-08-28 03:02 | NUR ---
Restless Pt. restless. Muscles spams palpable on legs. Flexeril 5mg po given with pudding. Pt. in bed, alarm on.
--- NOTE | 2016-08-28 03:45 | NUR ---
Sleep Pt. went to sleep.
--- NOTE | 2016-08-28 05:43 | NUR ---
Status Pt. woke briefly. Reassured pt. and pt. laid back down to sleep.
[2016-08-28] MEDS: LEVOTHYROXINE 125 MCG TABLET PO SCH (06:42)
[2016-08-28 08:00] VITALS: BP 128/69; PULSE 85; RESP 16; TEMP 97.8; O2SAT 98
[2016-08-28] MEDS ORDERED: QUETIAPINE 25 MG TABLET PO SCH (09:00)
--- NOTE | 2016-08-28 09:09 | NUR ---
status/prn pt wake at 0845. took pt to the bathroom to change clothes and to give a shower. pt became agitated with taking off his wet clothes. pt grabbed this nurses wrist/arm and started twisting and squeezing very tight. pt tried to bite this nurses arm. finally got shower done. pt walking to dinning room cussing and still very agitated. 0.5mg ativan given at 0905.
--- NOTE | 2016-08-28 10:30 | NUR ---
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 was present for part of the psychoeducational group facilitated by [facility]. He did not make any attempt to participate, even passively. He is Ox1 and remained calm while sitting in recliner in group area. Although awake, he did not respond or show any recognition that his name was being called by this SW. Finished group by listening to three Hindu hymns related to Ping. Pt. did now show any change in demeanor during group time.
--- NOTE | 2016-08-28 10:48 | NUR ---
follow up pt more calm since prn medication given this am. ativan was 0.5mg ativan intensol. ate well for breakfast. sitting in day room at present time. pt slept a total of 5.5 hrs.
--- NOTE | 2016-08-28 14:04 | NUR ---
STERLING KATZ LEFT FOR CHOLO DOUGLAS STRATEGIC PLANNER AT THE ME. CM EXPLAINED ROLE AND PROVIDED CONTACT INFORMATION.
[2016-08-28 16:10] VITALS: BP 114/69; PULSE 75; RESP 16; TEMP 97.8; O2SAT 100
--- NOTE | 2016-08-28 16:59 | GENPN ---
[facility] Subjective Date DATE: 08/28/16 TIME: 16:52 Subjective/Severity of Illness Medications Current Medications Medications (Trade) Dose Ordered Sig/Raymon Start Time Stop Time Status Last Admin Dose Admin Donepezil HCl (Aricept) 10 mg HS 08/21/16 21:00 08/27/16 19:49 10 MG Levothyroxine Sodium (Synthroid) 125 mcg ACB 08/21/16 06:30 08/28/16 06:42 125 MCG Mirtazapine (Remeron) 7.5 mg HS 08/21/16 21:00 08/27/16 19:50 7.5 MG Miscellaneous Medication (May use PRN orders) 1 PRN PRN 08/20/16 23:30 Haloperidol (Haldol) 0.5 mg Q6H PRN 08/20/16 23:30 08/27/16 20:55 0.5 MG Lorazepam (Ativan) 0.5 mg Q6H PRN 08/20/16 23:30 08/26/16 00:10 0.5 MG Lorazepam (Ativan) 0.5 mg Q6H PRN 08/20/16 23:30 Haloperidol Lactate (Haldol 5 Mg/ml Inj) 0.5 mg Q6H PRN 08/20/16 23:30 Lorazepam (Ativan Intensol) 0.5 mg Q6H PRN 08/21/16 03:15 08/28/16 09:06 0.5 MG Haloperidol (Haldol Liquid) 0.5 mg Q6H PRN 08/21/16 03:15 08/25/16 02:49 0.5 MG Acetaminophen (Tylenol Regular Strength) 1-2 tabs Q5H PRN 08/22/16 23:45 08/26/16 23:43 650 MG Lorazepam (Ativan) 1 mg HS 08/25/16 21:00 08/27/16 19:49 1 MG Quetiapine Fumarate (Seroquel) 25 mg BID 08/25/16 21:00 08/26/16 10:49 DC 08/26/16 08:58 25 MG Quetiapine Fumarate (Seroquel) 25 mg DAILY 08/27/16 09:00 08/27/16 12:12 DC Quetiapine Fumarate (Seroquel) 50 mg HS 08/26/16 21:00 08/27/16 12:12 DC 08/26/16 20:24 50 MG Quetiapine Fumarate (Seroquel) 100 mg HS 08/27/16 21:00 08/27/16 19:50 100 MG Quetiapine Fumarate (Seroquel) 50 mg DAILY 08/28/16 09:00 08/28/16 09:06 50 MG Cyclobenzaprine HCl (Flexeril) 5 mg Q8H PRN 08/28/16 02:00 08/28/16 03:02 5 MG Subjective Patient seen and chart reviewed. Case discussed with treatment team. Patient currently sleeping during AM rounds in chair in dayroom. He did sleep 5.5 hours overnight (partly due to the fact that he slept until 11 AM yesterday) -- will continue efforts to modify sleeping hours to regular. Per staff, patient continues to be aggressive, particularly with cares, despite attempts to prime, redirect, etc. This tends to occur any time they need to help him with urination /incontinence. He has gotten multiple PRNs in the past 24 hours. He continues to have VH and exit-seek as well. Appetite is good. VSS. Time of Service: 09:30 Start Time: 10:20 Stop Time: 10:40 Care >50% of this visit spent in counseling/coordination care. [facility] Exam Vitals Vital Signs Date Time Temp Pulse Resp B/P Pulse Ox O2 Delivery O2 Flow Rate FiO2 08/28/16 16:10 97.8 75 16 114/69 100 Room Air Physical examination performed by the hospitalist. Height (Feet): 5 Height (Inches): 10.00 Mental Status Exam Muscle Strength/Tone: Rigid Dressing: Casual Grooming: Fair Attitude: Uncooperative, Combative Motor Activity: Restless Eye Contact: Poor Speech: Slowed Volume: Soft Rhythm: Mumbled Sensory: Other (Currently sleeping) Orientation: Disoriented to time, Disoriented to place, Disoriented to situation, Oriented to person Mood: Neutral Affect: Labile Rate of Thoughts: Delayed Thought Organization: Confused Associations: Illogical Abstract Reasoning: Poor abstract reasoning Thought Content: Other (Difficult to fuly assess) Perception/Psychotic: Perception Normal Attention Span/Concentration: Short Span Language: Naming Impaired Fund of Knowledge: Poor fund of knowledge Memory: Poor-immediate, Poor-recent Suicidal Ideation: None Homicidal Ideation: None Insight: Impaired Judgment: Impaired Impulse Control: Poor Assessment and Plan (1) Major neurocognitive disorder Assessment: Possibly due to Parkinsonian type or Subcortical etiology. 1. Hold Risperidone and Haloperidol. Cont Mirtazapine 2. Observe patient on the unit 3. ST to see patient for swallow test\ 08/22/16 Continue current care 08/23/16 continue current care 08/24/16 Continue current care 08/25/16: Will discuss antipsychotic use with son/DPWILLIAM Figueroa ([phone]) and start Seroquel 25mg PO BID if he consents; plan to start Ativan 1mg PO HS to target insomnia as well. 08/26/16: Increase Seroquel to 25mg PO q AM and 50mg PO q HS; titrate slowly to effect while monitoring effect on gait/rigidity. 08/27/16: Increase Seroquel to 50mg PO q AM and 100mg PO q HS; titrate slowly to effect while monitoring effect on gait/rigidity. 08/28/16: Start Depakote 250mg PO BID to target anger. (2) Hypothyroidism (3) Sensorineural hearing loss Start Depakote 250mg PO BID to target anger/mood in addition to Seroquel. VAUGHN PARRA MD Aug 28, 2016 16:55
--- NOTE | 2016-08-28 18:00 | NUR ---
summary pt alert and oriented to self only. pt has flat affect. cooperative most of shift. since the am ativan no further prn's given. pt eats well for all meals. pt was incontinent this afternoon, no physical aggression with hygiene and changing of brief. no visual hallucinations noted. takes all medication with no issues. pt slept for 3.25 hrs so far this shift.
[2016-08-28] MEDS: DIVALPROEX 250 MG TABLET PO SCH (19:58)
[2016-08-28] MEDS: LORAZEPAM 1 MG TABLET PO SCH (19:58)
[2016-08-28] MEDS: DONEPEZIL 10 MG TABLET PO SCH (19:58)
[2016-08-28] MEDS: MIRTAZAPINE 15 MG TABLET PO SCH (19:59)
[2016-08-28] MEDS: QUETIAPINE 50 MG TABLET PO SCH (19:59)
[2016-08-28 20:00] VITALS: BP 111/66; PULSE 64; RESP 16; RESP 18; TEMP 98.4; O2SAT 97
--- NOTE | 2016-08-28 20:00 | NUR ---
Prn given Pt is restless, getting in and out of bed, pt muscles and tight and tense. Pt given Flexeril in pudding with hs meds, pt is now up ambulating hallways.
--- NOTE | 2016-08-28 21:00 | NUR ---
prn update Pt is less anxious able to ambulate in the hallways, 2 staff able to change patient, pt did grab at wrist/hands, but let go when asked. Pt then walked out to dayroom with staff and is now in dayroom eating a snack.
[2016-08-28] MEDS: HALOPERIDOL 1 MG/0.5 ML ORAL LIQUID PO PRN (22:12)
--- NOTE | 2016-08-28 22:12 | NUR ---
prn given Pt is now restless, ambulating hallways with staff, pt becoming more tense, pt grimacing, having visual hallucinations seeing faces in the carpet. Pt unable to be soothed with voice, pt given Ativan/Haldol liquid in water, pt remains ambulating hallways with staff.
--- NOTE | 2016-08-28 23:12 | NUR ---
prn follow up Pt is sitting in recliner and eating applesauce with staff, less tense, but awake and watching tv in the dayroom.
--- NOTE | 2016-08-29 00:01 | NUR ---
bedtime Pt fell asleep in recliner in dayroom with leg's elevated at 0001, pt is still asleep in dayroom with staff present, will monitor pt.
--- NOTE | 2016-08-29 02:34 | NUR ---
Chart Check 24 hour chart check completed
--- NOTE | 2016-08-29 06:42 | NUR ---
shift summary Pt is alert and oriented to self only, pt is up with assist x1-2, pt needs lots of cuing for adl's. pt in bed at the start of shift, pt assessment, vitals done while pt in bed, pt cussing at staff to leave his pants alone. Pt reassured that his vitals were all I needed at this time. Pt did allow vitals to bed taken. Pt got up out of bed twice, walked to the door looked out and then went back to bed. Pt up again at 20:30 incontinent of urine and stool. Pt pushing staff's hands away and holding on to staff' wrist, staff back off and walked hallways with patient. Pt did come down to dayroom, and took meds crushed in pudding. Pt given flexeril given for muscle pain. Pt did allow staff to change him at 2100. Pt then assisted to the dayroom, pt sat in recliner, ambulated hallways, ate several snacks. Pt restless at 22:10, ambulating hallways with staff, pt clinching fist and grimacing (see previous notes) pt restless up and down, attempted to assist pt to bed unable to, pt got on all fours in bed, but would not allow staff to lay him down, pt just screamed when staff attempted. Pt taken back to dayroom, pt fell asleep in a recliner in the dayroom at 0001, pt has been sleeping in the recliner since. Staff in dayroom with patient for safety. will monitor pt.
[2016-08-29] MEDS: LEVOTHYROXINE 125 MCG TABLET PO SCH (09:22)
[2016-08-29] MEDS: DIVALPROEX 250 MG TABLET PO SCH ×2 (09:24→19:08)
[2016-08-29 09:25] VITALS: BP 119/69; PULSE 61; RESP 16; TEMP 97.6; O2SAT 99
[2016-08-29] MEDS ORDERED: QUETIAPINE 50 MG TABLET PO SCH (09:30)
--- NOTE | 2016-08-29 10:00 | NUR ---
status pt sleeping in recliner upon this nurses arrival. woke at 0915 for a total sleep time of 9.25 hrs. pt compliant with meds and changing incontinent clothes. no aggressive behavior.
[2016-08-29 15:38] VITALS: BP 101/54; PULSE 62; RESP 16; TEMP 97.4; O2SAT 99
--- NOTE | 2016-08-29 17:08 | GENPN ---
[facility] Subjective Date DATE: 08/29/16 TIME: 17:04 Subjective/Severity of Illness Medications Current Medications Medications (Trade) Dose Ordered Sig/Raymon Start Time Stop Time Status Last Admin Dose Admin Donepezil HCl (Aricept) 10 mg HS 08/21/16 21:00 08/28/16 19:58 10 MG Levothyroxine Sodium (Synthroid) 125 mcg ACB 08/21/16 06:30 08/29/16 09:22 125 MCG Mirtazapine (Remeron) 7.5 mg HS 08/21/16 21:00 08/28/16 19:59 7.5 MG Miscellaneous Medication (May use PRN orders) 1 PRN PRN 08/20/16 23:30 Haloperidol (Haldol) 0.5 mg Q6H PRN 08/20/16 23:30 08/27/16 20:55 0.5 MG Lorazepam (Ativan) 0.5 mg Q6H PRN 08/20/16 23:30 08/26/16 00:10 0.5 MG Lorazepam (Ativan) 0.5 mg Q6H PRN 08/20/16 23:30 Haloperidol Lactate (Haldol 5 Mg/ml Inj) 0.5 mg Q6H PRN 08/20/16 23:30 Lorazepam (Ativan Intensol) 0.5 mg Q6H PRN 08/21/16 03:15 08/28/16 22:12 0.5 MG Haloperidol (Haldol Liquid) 0.5 mg Q6H PRN 08/21/16 03:15 08/28/16 22:12 0.5 MG Acetaminophen (Tylenol Regular Strength) 1-2 tabs Q5H PRN 08/22/16 23:45 08/26/16 23:43 650 MG Lorazepam (Ativan) 1 mg HS 08/25/16 21:00 08/28/16 19:58 1 MG Quetiapine Fumarate (Seroquel) 25 mg BID 08/25/16 21:00 08/26/16 10:49 DC 08/26/16 08:58 25 MG Quetiapine Fumarate (Seroquel) 25 mg DAILY 08/27/16 09:00 08/27/16 12:12 DC Quetiapine Fumarate (Seroquel) 50 mg HS 08/26/16 21:00 08/27/16 12:12 DC 08/26/16 20:24 50 MG Quetiapine Fumarate (Seroquel) 100 mg HS 08/27/16 21:00 08/28/16 19:59 100 MG Quetiapine Fumarate (Seroquel) 50 mg DAILY 08/28/16 09:00 08/29/16 09:24 DC 08/28/16 09:06 50 MG Cyclobenzaprine HCl (Flexeril) 5 mg Q8H PRN 08/28/16 02:00 08/28/16 19:59 5 MG Divalproex Sodium (Depakote) 250 mg BID 08/28/16 21:00 08/29/16 09:24 250 MG Quetiapine Fumarate (Seroquel) 50 mg DAILY 08/30/16 09:00 08/30/16 09:00 DC Quetiapine Fumarate (Seroquel) 50 mg DAILY 08/29/16 09:30 08/29/16 09:30 50 MG Subjective Patient seen and chart reviewed. Nursing reports pt remains some what resistive with cares at times although today he did well with no issues. Pt received Ativan and Haldol at 2212 for agitation. Pt slept well but would not sleep in his bed. On face to face the pt is confused. He is only oriented to self. He is not able to respond appropriately to questions. He does not appear to be in any pain. Tolerating meds Time of Service: 16:15 Start Time: 16:15 Stop Time: 16:30 Care >50% of this visit spent in counseling/coordination care. [facility] Exam Vitals Vital Signs Date Time Temp Pulse Resp B/P Pulse Ox O2 Delivery O2 Flow Rate FiO2 08/29/16 15:38 97.4 62 16 101/54 99 Room Air Physical examination performed by the hospitalist. Height (Feet): 5 Height (Inches): 10.00 Mental Status Exam Muscle Strength/Tone: Normal Dressing: Casual Grooming: Fair Attitude: Guarded Motor Activity: Retardation Eye Contact: Fair Speech: Slowed Volume: Soft Rhythm: Slurred Sensory: Alert Orientation: Oriented to person Mood: Neutral Affect: Congruent Rate of Thoughts: Delayed Thought Organization: [place] Associations: Illogical Abstract Reasoning: Impaired, concrete Thought Content: Delusions Perception/Psychotic: Hx psychosis,not current Attention Span/Concentration: Short Span Fund of Knowledge: Poor fund of knowledge Memory: Poor-immediate, Poor-recent Suicidal Ideation: None Homicidal Ideation: None Insight: Poor Judgment: Poor Impulse Control: Poor Assessment and Plan (1) Major neurocognitive disorder Assessment: Possibly due to Parkinsonian type or Subcortical etiology. 1. Hold Risperidone and Haloperidol. Cont Mirtazapine 2. Observe patient on the unit 3. ST to see patient for swallow test\ 08/22/16 Continue current care 08/23/16 continue current care 08/24/16 Continue current care 08/25/16: Will discuss antipsychotic use with son/DPWILLIAM Figueroa ([phone]) and start Seroquel 25mg PO BID if he consents; plan to start Ativan 1mg PO HS to target insomnia as well. 08/26/16: Increase Seroquel to 25mg PO q AM and 50mg PO q HS; titrate slowly to effect while monitoring effect on gait/rigidity. 08/27/16: Increase Seroquel to 50mg PO q AM and 100mg PO q HS; titrate slowly to effect while monitoring effect on gait/rigidity. 08/28/16: Start Depakote 250mg PO BID to target anger. 08/29/16 Continue current care (2) Hypothyroidism (3) Sensorineural hearing loss Cont. current psych. meds JUAN MEDINA MD Aug 29, 2016 17:07
--- NOTE | 2016-08-29 17:35 | NUR ---
summary pt cooperative most of shift. walks garza a couple times. eats well for all meals. no physical aggressiveness so far this shift. has allow staff to change wet briefs x2 this shift. no prn meds given. no hallucinations noted. has disorganized speech.
[2016-08-29] MEDS: QUETIAPINE 50 MG TABLET PO SCH (19:08)
[2016-08-29] MEDS: LORAZEPAM 1 MG TABLET PO SCH (19:08)
[2016-08-29] MEDS: MIRTAZAPINE 15 MG TABLET PO SCH (19:09)
[2016-08-29] MEDS: DONEPEZIL 10 MG TABLET PO SCH (19:09)
[2016-08-29] MEDS: CYCLOBENZAPRINE 5 MG TABLET PO PRN (19:09)
[2016-08-29 20:26] VITALS: PULSE 77; RESP 18
[2016-08-29 20:29] VITALS: BP 112/67; PULSE 77; RESP 18; TEMP 98.2; O2SAT 98
[2016-08-29] MEDS: HALOPERIDOL 0.5 MG TABLET PO PRN (22:28)
[2016-08-29] MEDS: LORAZEPAM 0.5 MG TABLET PO PRN (22:28)
[2016-08-29] MEDS: ACETAMINOPHEN 325 MG TABLET PO PRN (22:28)
--- NOTE | 2016-08-29 22:28 | NUR ---
PRN Pt. given Ativan 0.5mg PO and Haldol 0.5mg PO crushed to promote sleep and decrease restlessness. Pt. is pacing the halls and is up and down in the recliner in the dayroom. Pt. is having visual hallucinations. Pt. is reaching out for things that are not seen while laying in his bed. Pt. is observed doing this twice. Pt. is also given 650mg of tylenol at 2228 for pain observed when walking the halls, pt. reaches down and grabs his left knee and also his left side and groans. Pt. takes meds without difficulty. Pt. is sitting in the dayroom with staff supervision.
--- NOTE | 2016-08-29 23:40 | NUR ---
PRN F/U - Status Pt. is currently resting calmly in bed. Bed alarm activated and SR up x3.
--- NOTE | 2016-08-30 00:18 | NUR ---
Chart Check 24 hour chart check completed
[2016-08-30] MEDS: CYCLOBENZAPRINE 5 MG TABLET PO PRN ×2 (03:42→20:00)
--- NOTE | 2016-08-30 03:46 | NUR ---
PRN PRN Flexeril given to pt. to relieve spasms in pt legs. Pt. is having apparent agitation and restlessness for prior RN pt had pain in legs and pt is known to have rigidity and spasms in legs. Pt. legs are rigid and shake with ambulation and attempting to sit or stand. Will continue to monitor.
--- NOTE | 2016-08-30 03:50 | NUR ---
STATUS SINCE START OF THIS RN SHIFT PT HAS BEEN AGITATED. PT WAS GIVEN HALDOL AND ATIVAN AND TYLENOL PRIOR TO THIS RN SHIFT. PT WAS ASSISTED BY PRIOR SHIFT INTO BED AT 1146. BY 1150 PT WAS BACK OUT OF BED AND CONTINUED TO GET OUT OF BED WAS DIFFICULT TO REDIRECT AND REQUIRED 1 TO 1 PATIENT CARE FOR PT SAFETY. PT HAS BEEN EXPERIENCING VISUAL HALLUCINATIONS GRABBING FOR OBJECTS IN THE AIR AND SPEAKING TO PEOPLE WHEN NO ONE IS IN ROOM. PT MUMBLES TO SELF AND OCCASIONALLY SHOUTS OUT. PT IS DIFFICULT TO UNDERSTAND AND PT DOES NOT FOLLOW THOUGHT PATTERNS, DIRECTION OR CUES FROM STAFF. PT CONTINUES TO BE UNCOOPERATIVE AND AGITATED OCCASIONALLY GETTING UP AND WANDERING HALLS. PT HAS CURSED AND KICKED AT STAFF DURING ASSISTING PT TO SAFE POSITION IN BED WHEN PT WAS HANGING HIMSELF OVER THE RAILS OF THE BED YELLING "HELP ME".
--- NOTE | 2016-08-30 04:27 | NUR ---
CARES PT VERY AGGRESSIVE WITH CARES FOLLOWING SATURATING BRIEF AND MONSTER ON BED. PT REQUIRED THREE RN ASSISTANCE. PT WAS GRABBING TWISTING AND MADE SEVERAL ATTEMPTS TO BITE STAFF. PT YELLED "YOU WANNA LOSE A HAND" AT STAFF AFTER GRABBING HOLD OF STAFF HAND AND WRIST AND ATTEMPTING TO TWIST AND WRING STAFF MEMBERS HANDS AND WRISTS. FOLLOWING GETTING NEW BRIEF AND CLEAN MONSTER APPLIED TO BED PT IS BACK TO QUIET MUMBLING TO SELF WITH OCCASIONAL SHOUTS AND RESTLESS BEHAVIORS. Addendum: 08/30/16 at 0429 by DARIELA PASTOR RN Amended: Links added.
[2016-08-30] MEDS: HALOPERIDOL 1 MG/0.5 ML ORAL LIQUID PO PRN (04:33)
[2016-08-30] MEDS: LORAZEPAM INTENSOL 1mg/0.5ml ORAL SOLUTION SL PRN (04:33)
--- NOTE | 2016-08-30 04:38 | NUR ---
PRN PT GIVEN PRN DUE TO AGGRESSION WITH CARES. SEE EMAR AND CARES NOTE.
[2016-08-30] MEDS: LEVOTHYROXINE 125 MCG TABLET PO SCH (05:32)
--- NOTE | 2016-08-30 05:38 | NUR ---
PRN FOLLOW UP PT HAS BEEN SLEEPING SINCE 0500 FOLLOWING PRN'S SEE EMAR AND CARES NOTES. RESTLESSNESS AND AGITATION DECREASED
--- NOTE | 2016-08-30 05:39 | NUR ---
SHIFT SUMMARY ASSUMED CARE OF PT AT 2300. AT THIS TIME PT IS AMBULATING IN [place] WITH PRIOR SHIFT RN. PT IS CONFUSED ALERT ONLY TO SELF. PT IS REPORTED TO HAVE BEEN COOPERATIVE WITH CARES AND PLEASANT FOR THE MOST PART OF THE DAY AND EARLY EVENING SHIFT. PRIOR TO LEAVING RN FROM PRIOR SHIFT GOT PT TO BED AROUND 1146. PT WAS BACK OUT OF BED AT 1150 SOUNDING BED ALARM. PT IS CONFUSED DOES NOT FOLLOW DIRECTIONS OR CUES AND IS DIFFICULT TO DIRECT. PT REQUIRED ONE ON ONE CARE FROM 0000 TO 0030 AND AGAIN ONE ON ONE CARE FROM 0100 TO 0500. DURING THIS TIME PT WAS NOTED TO BE HAVING VISUAL HALLUCINATIONS ATTEMPTING TO GRAB OBJECTS FROM THE AIR. PT WAS RESTLESS GETTING OUT OF BED SEVERAL TIMES WITH UNSTEADY GAIT. PT WAS NOTED TO BE AGITATED AND UNCOOPERATIVE AND NOT EASILY REDIRECTED. PT REQUIRED BEDDING AND BRIEF CHANGE AND BECAME VERY AGGRESSIVE WITH STAFF SEE CARES NOTE AND REQUIRED PRN MEDICATION SEE EMAR AND CARES NOTE. AT 0500 PT WAS SNORING AND TALKING TO SELF IN SLEEP. PT IS IN BED IN LOW POSITION RAILS UP X3 BED ALARM ARMED DOOR PARTIALLY CLOSED AND LIGHTS DIMMED. 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
[2016-08-30] MEDS ORDERED: QUETIAPINE 50 MG TABLET PO SCH (09:00)
--- NOTE | 2016-08-30 10:29 | GENPN ---
Ch[facility] Subjective Date DATE: 08/30/16 TIME: 10:25 Subjective/Severity of Illness Medications Current Medications Medications (Trade) Dose Ordered Sig/Raymon Start Time Stop Time Status Last Admin Dose Admin Donepezil HCl (Aricept) 10 mg HS 08/21/16 21:00 08/29/16 19:09 10 MG Levothyroxine Sodium (Synthroid) 125 mcg ACB 08/21/16 06:30 08/30/16 05:32 125 MCG Mirtazapine (Remeron) 7.5 mg HS 08/21/16 21:00 08/29/16 19:09 7.5 MG Miscellaneous Medication (May use PRN orders) 1 PRN PRN 08/20/16 23:30 Haloperidol (Haldol) 0.5 mg Q6H PRN 08/20/16 23:30 08/29/16 22:28 0.5 MG Lorazepam (Ativan) 0.5 mg Q6H PRN 08/20/16 23:30 08/29/16 22:28 0.5 MG Lorazepam (Ativan) 0.5 mg Q6H PRN 08/20/16 23:30 Haloperidol Lactate (Haldol 5 Mg/ml Inj) 0.5 mg Q6H PRN 08/20/16 23:30 Lorazepam (Ativan Intensol) 0.5 mg Q6H PRN 08/21/16 03:15 08/30/16 04:33 0.5 MG Haloperidol (Haldol Liquid) 0.5 mg Q6H PRN 08/21/16 03:15 08/30/16 04:33 0.5 MG Acetaminophen (Tylenol Regular Strength) 1-2 tabs Q5H PRN 08/22/16 23:45 08/29/16 22:28 325 MG Lorazepam (Ativan) 1 mg HS 08/25/16 21:00 08/29/16 19:08 1 MG Quetiapine Fumarate (Seroquel) 25 mg BID 08/25/16 21:00 08/26/16 10:49 DC 08/26/16 08:58 25 MG Quetiapine Fumarate (Seroquel) 25 mg DAILY 08/27/16 09:00 08/27/16 12:12 DC Quetiapine Fumarate (Seroquel) 50 mg HS 08/26/16 21:00 08/27/16 12:12 DC 08/26/16 20:24 50 MG Quetiapine Fumarate (Seroquel) 100 mg HS 08/27/16 21:00 08/29/16 19:08 100 MG Quetiapine Fumarate (Seroquel) 50 mg DAILY 08/28/16 09:00 08/29/16 09:24 DC 08/28/16 09:06 50 MG Cyclobenzaprine HCl (Flexeril) 5 mg Q8H PRN 08/28/16 02:00 08/30/16 03:42 5 MG Divalproex Sodium (Depakote) 250 mg BID 08/28/16 21:00 08/29/16 19:08 250 MG Quetiapine Fumarate (Seroquel) 50 mg DAILY 08/30/16 09:00 08/30/16 09:00 DC Quetiapine Fumarate (Seroquel) 50 mg DAILY 08/29/16 09:30 08/29/16 09:30 50 MG Subjective Patient seen and chart reviewed. Nursing reports pt was up most of the night wandering. Pt received Ativan and Haldol and nursing reports it is not effective. On nelson to face the pt is resting quietly in bed. He is confused and only oriented to self. He denies any pain. Voices no concerns at this time. Time of Service: 10:15 Start Time: 10:15 Stop Time: 10:30 Care >50% of this visit spent in counseling/coordination care. [facility] Exam Vitals Vital Signs Date Time Temp Pulse Resp B/P Pulse Ox O2 Delivery O2 Flow Rate FiO2 08/29/16 20:29 98.2 77 18 112/67 98 Room Air Physical examination performed by the hospitalist. Height (Feet): 5 Height (Inches): 10.00 Mental Status Exam Muscle Strength/Tone: Normal Dressing: Casual Grooming: Fair Attitude: Guarded Motor Activity: Retardation Eye Contact: Fair Speech: Slowed Volume: Soft Rhythm: Slurred Sensory: Alert Orientation: Oriented to person Mood: Neutral Affect: Congruent Rate of Thoughts: Delayed Thought Organization: [place] Associations: Illogical Abstract Reasoning: Impaired, concrete Thought Content: Normal Perception/Psychotic: Psychotic Attention Span/Concentration: Inattentive Fund of Knowledge: Poor fund of knowledge Memory: Poor-immediate, Poor-recent Suicidal Ideation: None Homicidal Ideation: None Insight: Poor Judgment: Poor Impulse Control: Fair Assessment and Plan (1) Major neurocognitive disorder Assessment: Possibly due to Parkinsonian type or Subcortical etiology. 1. Hold Risperidone and Haloperidol. Cont Mirtazapine 2. Observe patient on the unit 3. ST to see patient for swallow test\ 08/22/16 Continue current care 08/23/16 continue current care 08/24/16 Continue current care 08/25/16: Will discuss antipsychotic use with son/DPWILLIAM Figueroa ([phone]) and start Seroquel 25mg PO BID if he consents; plan to start Ativan 1mg PO HS to target insomnia as well. 08/26/16: Increase Seroquel to 25mg PO q AM and 50mg PO q HS; titrate slowly to effect while monitoring effect on gait/rigidity. 08/27/16: Increase Seroquel to 50mg PO q AM and 100mg PO q HS; titrate slowly to effect while monitoring effect on gait/rigidity. 08/28/16: Start Depakote 250mg PO BID to target anger. 08/29/16 Continue current care 08/30/16 Change Seroquel to 25mg daily and 150mg PO QHS (2) Hypothyroidism (3) Sensorineural hearing loss Cont. current psych. meds Change Seroquel to 25mg PO daily and 150mg PO QHS JUAN MEDINA MD Aug 30, 2016 10:29
[2016-08-30] MEDS: QUETIAPINE 50 MG TABLET PO SCH ×2 (10:32→19:59)
[2016-08-30] MEDS: DIVALPROEX 250 MG TABLET PO SCH (10:35)
[2016-08-30 10:36] VITALS: BP 129/70; PULSE 76; RESP 18; TEMP 97.9; O2SAT 96
[2016-08-30 10:54] VITALS: PULSE 76; RESP 18
--- NOTE | 2016-08-30 11:00 | NUR ---
Pt slept 3 hours total this shift. Pt was up and down throughout the night and didn't really rest enough to sleep at all. Pt able to sleep from 0730 to 1030. Pt woke up soaked in urine, Pt able to be assisted x 2 and cleaned. Pt cooperative and followed cues well. Pt now eating at this time. Will continue to monitor.
[2016-08-30 15:53] VITALS: BP 98/52; PULSE 61; RESP 18; TEMP 98.2; O2SAT 96
--- NOTE | 2016-08-30 16:33 | PNPDOC ---
ALONDRALIBERTAD Tses LEAD PASTOR 08/30/16 1627: Subjective Date DATE: 08/30/16 TIME: 16:24 Subjective Yuan is seen in follow up. He is sleeping quietly. Chart is reviewed. He continues to have variable behaviors at times. Objective Vital Signs Vital signs Vital Signs Date Time Temp Pulse Resp B/P Pulse Ox O2 Delivery O2 Flow Rate FiO2 08/30/16 15:53 98.2 61 18 98/52 96 Room Air Height (Feet): 5 Height (Inches): 10.00 Weight (Kilograms): 89.000 General Comments Resting quietly. NAD Neck (Brief) Neck: FOUND: midline, NOT FOUND: JVD, nuchal rigidity, spasm Respiratory (Brief) Respiratory: FOUND: clear all roberts, equal bilaterally, symmetrical, NOT FOUND : rales, wheezes Cardiovascular (Brief) Cardiac: FOUND: regular rate, regular rhythm Abdomen (Brief) Abdominal: FOUND: BS normo active x4, soft, NOT FOUND: tender Musculoskeletal (Brief) Musculoskeletal: NOT FOUND: deformity Integumentary (Brief) Integumentary: FOUND: dry, pink, warm Psychiatric (Brief) Comments Sleeping quietly. Assessment & Plan Problems: (1) Dementia with behavioral disturbance Status: Acute Qualifiers: Dementia type: unspecified type Qualified Codes: F03.91 - Unspecified dementia with behavioral disturbance (2) Sinus bradycardia Status: Resolved (3) Hypothyroidism Status: Chronic (4) Sensorineural hearing loss Status: Chronic (5) Overweight (BMI 25.0-29.9) Status: Chronic Plan/Intensity of Service 08/30/16- Continue supportive care. Need to consider CT of the head if not done elsewhere. Repeat labs in am. Assess RPR as well. BP is a bit low- push fluids. Likely due to antipsychotics. Consider neurology eval. for diagnosis of gait instability, rigidity. We will continue to monitor. Code Status Do Not Resuscitate Hospital Course Summary Disclaimer The hospital course summary below is not to be considered part of the above Progress Note. Hospital Course Summary 08/21/16 Agree with admission orders. Hypothyroidism. TSH was over 10 when checked in April 2016. On reassessment yesterday, it had improved to 3.13. Continue levothyroxine. Labs reviewed: CBC and CMP were unremarkable. Urinalysis was negative for UTI. Folate, iron, vitamin B12, hemoglobin A1c, all pending. Will also check prealbumin. Bradycardia: EKG revealed sinus bradycardia with a left axis deviation. Borderline hypotension: Monitor at this time. Patient had similarly low blood pressure upon admission to the [facility]. Shuffling gait, tremor, and nurses report rigidity: Consider neurologic evaluation for Parkinson's. 08/22/16 Labs reviewed - unremarkable. VSS. Psychiatric notes reviewed. Medically stable. 08/30/16- Continue supportive care. Need to consider CT of the head if not done elsewhere. Repeat labs in am. Assess RPR as well. BP is a bit low- push fluids. Likely due to antipsychotics. Consider neurology eval. for diagnosis of gait instability, rigidity. (Bill CHIEF OPERATOR visit only). MARK CHIRINOS MD 08/30/16 1935: LIBERTAD CANTU LEAD PASTOR Aug 30, 2016 16:27 MARK CHIRINOS MD Aug 30, 2016 19:35
--- NOTE | 2016-08-30 16:38 | NUR ---
Mid shift Summary Pt has been resting most of the day. Pt hasn't slept much of the past few days. Pt slept from 1245 to 1445, 2 hours. Pt now up and eating pudding and drinking fluid. Pt bag bath given in room, and Pt cooperative and attempted to clean himself. Pt has not been aggressive, physically or verbally. Pt does set off bed alarm when getting out of bed. Pt unable to process using call light. Pt did participate in beach ball toss this morning, unable to see the ball when above head level, but no injury obtained. Pt goes through 3 ring binder of scenery pictures at the table this afternoon. Pt up with shuffling gait, and stand by assist x 1. Pt has no drooling. Dementia assessment of pain rated at a 1. WIll continue to monitor pain.
--- NOTE | 2016-08-30 17:35 | NUR ---
Summary Pt has been oriented to self only. PT has been mostly nonverbal and slept in between groups and meals for a total of 4 hours since 0700. See previous note to how much he slept last night. Pt has been compliant with all medications. PT took meds whole, but then chewed them up, order for depakote sprinkles obtained. Pt did allow all cares today by staff with assist x 2 without physical aggression. It was helpful when 1 staff would que Pt verbally, while the other staff helped with nonverbal ques ie patting the bed to sit down so that pants could be changed. Pt becoming more alert this evening as the night progresses. Pt stares at the floor and at times seems to be responding to internal stimuli, but doesn't grab at anything; mostly looking around at the floor. Otherwise, no s/s seen of hallucinations. Will continue to monitor. Pt has been completely incontinent. No BM today. No other c/o voiced.
[2016-08-30] MEDS: LORAZEPAM 1 MG TABLET PO SCH (19:58)
[2016-08-30] MEDS: DONEPEZIL 10 MG TABLET PO SCH (19:58)
[2016-08-30] MEDS: DIVALPROEX SPRINKLE 125 MG CAPSULE PO SCH (19:58)
[2016-08-30] MEDS: MIRTAZAPINE 15 MG TABLET PO SCH (19:59)
[2016-08-30 20:00] VITALS: PULSE 84; RESP 18
[2016-08-30] MEDS: ACETAMINOPHEN 325 MG TABLET PO PRN (22:50)
[2016-08-30] MEDS: LORAZEPAM 0.5 MG TABLET PO PRN (22:50)
[2016-08-30] MEDS: HALOPERIDOL 0.5 MG TABLET PO PRN (22:50)
--- NOTE | 2016-08-30 23:00 | NUR ---
STATUS Report received in SBAR. All cares assumed. Pt sitting at table in day care having a snack at the start of shift. Pt is impulsive, standing and sitting frequently. Pt speech is illogical and nonsensical, monotone speech. Assessment complete. See flowsheet. Pt is alert and oriented to self only. He is unaware of location, time or current situation. Pt PERRL, MAETC, noted stiffness to extremities. Pt is 5/5 for strength x 4 extremities with stiffness et shuffling walk. Pt began to remove his pants in day room. When assisting pt to pulls his pants up he became irritated et making nonsensical statements. pt was returned to room where he had a BM. Pt returned to bed and day room frequently. While assisting pt in his room to use the RR, pt became combative et started pulling on aids arms. Was able to calm pt down. Pt was given Ativan 0.5mg PO, HAldol 0.5mg PO prn doses to assist pt in calming down. Pt sat in day room for about 30 min then stated that he was sleepy. Pt retired to bed. Pt is currently in bed sleeping. RN nearby. Will cont to monitor.
[2016-08-30 23:59] VITALS: BP 116/73; PULSE 84; RESP 18; TEMP 98.8; O2SAT 95
--- NOTE | 2016-08-31 01:25 | NUR ---
Chart Check 24 hour chart check completed
--- NOTE | 2016-08-31 06:38 | NUR ---
BEDTIME Pt went to bed at 0030 last night with small 15 minute nap prior to that. Pt slept approximately 3.75 hours on day shift.
--- NOTE | 2016-08-31 06:38 | NUR ---
SUMMARY Pt did not awaken in the night to use RR. Pt was mostly cooperative with cares. For the one time he became somewhat combative pt was easily redirected and immediately apologized to staff. Pt speech is monotone and slow. He is slow to respond and when he does the words are nonsensical. Pt was pacing and restless eliciting PRN Ativan, Haldol PO. Pt was able to take these meds crushed in pudding.
[2016-08-31 08:00] VITALS: BP 115/69; PULSE 79; RESP 20; TEMP 96.8; O2SAT 99
--- NOTE | 2016-08-31 08:17 | GENPN ---
Chika Subjective Date DATE: 08/31/16 TIME: 08:14 Subjective/Severity of Illness Medications Current Medications Medications (Trade) Dose Ordered Sig/Raymon Start Time Stop Time Status Last Admin Dose Admin Donepezil HCl (Aricept) 10 mg HS 08/21/16 21:00 08/30/16 19:58 10 MG Levothyroxine Sodium (Synthroid) 125 mcg ACB 08/21/16 06:30 08/30/16 05:32 125 MCG Mirtazapine (Remeron) 7.5 mg HS 08/21/16 21:00 08/30/16 19:59 7.5 MG Miscellaneous Medication (May use PRN orders) 1 PRN PRN 08/20/16 23:30 Haloperidol (Haldol) 0.5 mg Q6H PRN 08/20/16 23:30 08/30/16 22:50 0.5 MG Lorazepam (Ativan) 0.5 mg Q6H PRN 08/20/16 23:30 08/30/16 22:50 0.5 MG Lorazepam (Ativan) 0.5 mg Q6H PRN 08/20/16 23:30 Haloperidol Lactate (Haldol 5 Mg/ml Inj) 0.5 mg Q6H PRN 08/20/16 23:30 Lorazepam (Ativan Intensol) 0.5 mg Q6H PRN 08/21/16 03:15 08/30/16 04:33 0.5 MG Haloperidol (Haldol Liquid) 0.5 mg Q6H PRN 08/21/16 03:15 08/30/16 04:33 0.5 MG Acetaminophen (Tylenol Regular Strength) 1-2 tabs Q5H PRN 08/22/16 23:45 08/30/16 22:50 325 MG Lorazepam (Ativan) 1 mg HS 08/25/16 21:00 08/30/16 19:58 1 MG Quetiapine Fumarate (Seroquel) 25 mg BID 08/25/16 21:00 08/26/16 10:49 DC 08/26/16 08:58 25 MG Quetiapine Fumarate (Seroquel) 25 mg DAILY 08/27/16 09:00 08/27/16 12:12 DC Quetiapine Fumarate (Seroquel) 50 mg HS 08/26/16 21:00 08/27/16 12:12 DC 08/26/16 20:24 50 MG Quetiapine Fumarate (Seroquel) 100 mg HS 08/27/16 21:00 08/30/16 10:31 DC 08/29/16 19:08 100 MG Quetiapine Fumarate (Seroquel) 50 mg DAILY 08/28/16 09:00 08/29/16 09:24 DC 08/28/16 09:06 50 MG Cyclobenzaprine HCl (Flexeril) 5 mg Q8H PRN 08/28/16 02:00 08/30/16 20:00 5 MG Divalproex Sodium (Depakote) 250 mg BID 08/28/16 21:00 08/30/16 11:24 DC 08/30/16 10:35 250 MG Quetiapine Fumarate (Seroquel) 50 mg DAILY 08/30/16 09:00 08/30/16 09:00 DC Quetiapine Fumarate (Seroquel) 50 mg DAILY 08/29/16 09:30 08/30/16 10:30 DC 08/29/16 09:30 50 MG Quetiapine Fumarate (Seroquel) 25 mg DAILY 08/31/16 09:00 08/30/16 10:32 25 MG Quetiapine Fumarate (Seroquel) 150 mg HS 08/30/16 21:00 08/30/16 19:59 150 MG Divalproex Sodium (Depakote Sprinkle) 250 mg BID 08/30/16 21:00 08/30/16 19:58 250 MG Subjective Patient seen and chart reviewed. Nursing reports pt did sleep better. Did get Haldol and Ativan before bed for restlessness but no behaviors noted. On face to face the pt is resting quietly in bed. He is pleasant but confused. He is only oriented to self. Denies pain. Tolerating meds Time of Service: 07:45 Start Time: 07:45 Stop Time: 08:00 Care >50% of this visit spent in counseling/coordination care. Generations Exam Vitals Vital Signs Date Time Temp Pulse Resp B/P Pulse Ox O2 Delivery O2 Flow Rate FiO2 08/30/16 23:59 98.8 84 18 116/73 95 Room Air Physical examination performed by the hospitalist. Height (Feet): 5 Height (Inches): 10.00 Mental Status Exam Muscle Strength/Tone: Normal Dressing: Casual Grooming: Fair Attitude: Guarded Motor Activity: Retardation Eye Contact: Fair Speech: Slowed Volume: Soft Rhythm: Slurred Sensory: Alert Orientation: Oriented to person Mood: Neutral Affect: Congruent Rate of Thoughts: Delayed Thought Organization: [place] Associations: Illogical Abstract Reasoning: Impaired, concrete Thought Content: Normal Perception/Psychotic: Hx psychosis,not current Attention Span/Concentration: Short Span Fund of Knowledge: Poor fund of knowledge Memory: Poor-immediate, Poor-recent Suicidal Ideation: None Homicidal Ideation: None Insight: Poor Judgment: Poor Impulse Control: Fair Assessment and Plan (1) Major neurocognitive disorder Assessment: Possibly due to Parkinsonian type or Subcortical etiology. 1. Hold Risperidone and Haloperidol. Cont Mirtazapine 2. Observe patient on the unit 3. ST to see patient for swallow test\ 08/22/16 Continue current care 08/23/16 continue current care 08/24/16 Continue current care 08/25/16: Will discuss antipsychotic use with son/DPWILLIAM Figueroa ([phone]) and start Seroquel 25mg PO BID if he consents; plan to start Ativan 1mg PO HS to target insomnia as well. 08/26/16: Increase Seroquel to 25mg PO q AM and 50mg PO q HS; titrate slowly to effect while monitoring effect on gait/rigidity. 08/27/16: Increase Seroquel to 50mg PO q AM and 100mg PO q HS; titrate slowly to effect while monitoring effect on gait/rigidity. 08/28/16: Start Depakote 250mg PO BID to target anger. 08/29/16 Continue current care 08/30/16 Change Seroquel to 25mg daily and 150mg PO QHS 08/31/16 Continue current care (2) Hypothyroidism (3) Sensorineural hearing loss Cont. current psych. meds JUAN MEDINA MD Aug 31, 2016 08:17
[2016-08-31] MEDS: LEVOTHYROXINE 125 MCG TABLET PO SCH (10:00)
[2016-08-31] MEDS: DIVALPROEX SPRINKLE 125 MG CAPSULE PO SCH ×2 (10:01→19:58)
[2016-08-31] MEDS: QUETIAPINE 50 MG TABLET PO SCH ×2 (10:01→19:59)
--- NOTE | 2016-08-31 12:40 | NUR ---
wake up time patient woke up at 0945 this morning
[2016-08-31 13:44] LABS: BASOPHILS % (AUTO) 0.3 % (0-2); EOSINOPHILS # (AUTO) 0.3 T/MM3 (0-0.5); EOSINOPHILS % (AUTO) 3.6 % (0-4); HCT - HEMATOCRIT 42.7 % (41-53); HGB - HEMOGLOBIN 14.4 GM/DL (13.5-17.5); IMMATURE GRANULOCYTE # (AUTO) 0.03 T/MM3 (0.00-0.03); IMMATURE GRANULOCYTE % (AUTO) 0.3 % (0.0-0.5); LYMPHOCYTES # (AUTO) 1.4 T/MM3 (1-4.8); LYMPHOCYTES % (AUTO) 16.2 % (23-45); MEAN CORPUSCULAR HGB 32.4 UUG (26-34); MEAN CORPUSCULAR HGB CONC(MCHC 33.7 GM/DL (31-37); MEAN CORPUSCULAR VOLUME 96.2 UM3 (80-100); MEAN PLATELET VOLUME 9.2 UM3 (9.4-12.4); MONOCYTES # (AUTO) 0.6 T/MM3 (0-0.8); MONOCYTES % (AUTO) 6.9 % (0-9.0); NEUTROPHILS #(AUTO)-ABSOLUTE 6.4 T/MM3 (1.8-7.7); NEUTROPHILS % (AUTO) 72.7 % (33-66); RED BLOOD COUNT 4.44 M/MM3 (4.50-5.90); WBC - WHITE BLOOD COUNT 8.8 T/MM3 (4.5-11.0)
[2016-08-31 13:53] LABS: ANION GAP 10 MEQ/L (5-15); BUN/CREATININE RATIO 14 RATIO (6-26); CALCIUM 9.1 MG/DL (8.4-10.2); CHLORIDE 102 MEQ/L (98-107); CO2 - CARBON DIOXIDE 30 MEQ/L (22-30); CREATININE 0.9 MG/DL (0.8-1.5); GLOMERULAR FILTRATION RATE 83; GLUCOSE 83 MG/DL (75-110); POTASSIUM 4.3 MEQ/L (3.6-5); SODIUM 142 MEQ/L (134-144)
--- NOTE | 2016-08-31 14:42 | NUR ---
SUMMARY patient woke up incontinent this morning, he allow this RN to assist with hygiene cares with out getting restless or aggressive, patient ate most 100 % of his breakfast, after breakfast staff asked if he wanted to do some coloring with other patients and patient said yes, he sat in the dining room and did some coloring for a little bit, then he went to the recliner and took a nap. Patient denies pain, no physical distress noted. Flat affect, does not smile, Patient has difficulty making needs known. NO PRN medication given. Patient is currently taking a nap in the day room, will continue to monitor.
[2016-08-31 16:00] VITALS: BP 112/68; PULSE 81; RESP 18; TEMP 97.8; O2SAT 98
[2016-08-31 19:40] VITALS: BP 99/56; PULSE 70; RESP 18; TEMP 97.4; O2SAT 98
[2016-08-31] MEDS: CYCLOBENZAPRINE 5 MG TABLET PO PRN (19:57)
[2016-08-31] MEDS: DONEPEZIL 10 MG TABLET PO SCH (19:57)
[2016-08-31] MEDS: LORAZEPAM 1 MG TABLET PO SCH (19:57)
--- NOTE | 2016-08-31 19:57 | NUR ---
prn update Pt is alert to self only, pt in bed at the start of shift, pt woke up and got out of bed, pt now pacing in the hallways with staff, pt grabbing his left knee Flexeril and HS meds given crushed in pudding. Pt is still ambulating with staff.
[2016-08-31] MEDS: MIRTAZAPINE 15 MG TABLET PO SCH (19:59)
[2016-08-31 20:30] VITALS: RESP 20
[2016-08-31] MEDS: HALOPERIDOL 0.5 MG TABLET PO PRN (21:10)
[2016-08-31] MEDS: LORAZEPAM 0.5 MG TABLET PO PRN (21:10)
--- NOTE | 2016-08-31 21:10 | NUR ---
prn given and update Pt is exit seeking banging on back exit door, pt upset that he cannot open door, pt angry pacing hallways attempting to open door, pt pushed open the door another patient room, other pt asleep in the bed, JJ started slapping the nurse restaurant line server outside other pt room. Staff intervened and attempted to turn pt towards his room. Pt became very angry yelled "don't touch me" and started swinging and swatting at staff. Pt grabbed staffs wrist and fingers gripped tightly, and attempted to twist pt hands. Pt did let go after staff talking with staff, pt remains angry pacing hallways with staff,pt is incontinent of urine, pt will not allow staff to change him at this time. Pt given Ativan 0.5mg and Haldol 0.5mg po crushed in pudding. Pt took pudding while standing, pt then up and down in recliner, with staff.
[2016-08-31] MEDS: ACETAMINOPHEN 325 MG TABLET PO PRN (22:46)
--- NOTE | 2016-08-31 22:46 | NUR ---
prn update Pt is awake, restless, sitting down in dayroom, pt grimacing and touching left knee. Tylenol given crushed in pudding, will monitor pt.
--- NOTE | 2016-08-31 23:45 | NUR ---
patient update Pt sitting in the dayroom talking with staff, pt starting picking at spots on his pants. Pt agreed to have his pants changed, pt walked with staff to his room, pt refused to go into the bathroom. Pt did walk to the closet and picked out his pants and shirt, pt did allow his pants to be changed with lots of cuing, with assist from staff x2, pt incontinent with urine and bowel.
--- NOTE | 2016-09-01 00:30 | NUR ---
bedtime Pt went to sleep at 0030, pt slept 3.5 hours on dayshift, with 2 bed rails up and bed alarm on.
--- NOTE | 2016-09-01 03:39 | NUR ---
Chart Check 24 hour chart check completed
--- NOTE | 2016-09-01 06:40 | NUR ---
shift summary Pt is alert and oriented x1, pt is up with assist x1-2, pt uncooperative with staff at the start of shift (see previous notes), pt went to sleep at 0030, pt up once during night, pt did allow staff to change patient during without aggression or combativeness. Pt is sleeping in bed with 2 bed rails up and bed alarm on.
[2016-09-01 08:55] VITALS: BP 117/72; PULSE 73; RESP 18; TEMP 97.6; O2SAT 98
[2016-09-01] MEDS: DIVALPROEX SPRINKLE 125 MG CAPSULE PO SCH ×2 (08:57→19:56)
[2016-09-01] MEDS: LEVOTHYROXINE 125 MCG TABLET PO SCH (08:57)
[2016-09-01] MEDS: QUETIAPINE 50 MG TABLET PO SCH ×2 (08:58→19:55)
--- NOTE | 2016-09-01 09:06 | PNPDOC ---
Subjective Date DATE: 09/01/16 TIME: 08:48 Subjective Yuan was still in bed. He opened his eyes briefly but did not verbally communicate. He appeared to be comfortable. He has been resistive and uncooperative most of the times when he needs changing, but nurses deny any new or acute concerns. He has been eating well and his bowels are moving. Objective Vital Signs Vital signs Vital Signs Date Time Temp Pulse Resp B/P Pulse Ox O2 Delivery O2 Flow Rate FiO2 08/31/16 20:30 20 08/31/16 19:40 97.4 70 99/56 98 Room Air Height (Feet): 5 Height (Inches): 10.00 Weight (Kilograms): 87.200 General General Appearance: Orientated x 1, No Acute Distress Respiratory (Brief) Respiratory: FOUND: clear all roberts, equal bilaterally Cardiovascular (Brief) Cardiac: FOUND: regular rate, regular rhythm Abdomen (Brief) Abdominal: FOUND: BS normo active x4, soft, NOT FOUND: distended Extremities (Brief) Extremity : Side: Bilateral Extremity Finding: NOT FOUND: edema Musculoskeletal (Brief) Musculoskeletal: NOT FOUND: deformity, tenderness Integumentary (Brief) Integumentary: FOUND: dry, warm Psychiatric (Brief) Psychiatric: FOUND: other (sleeps but awakens easily with light touch. Did not verbally communicate) Laboratory Laboratory Laboratory Tests 08/31/16 13:07 Laboratory Tests 08/31/16 13:07 Assessment & Plan Problems: (1) Dementia with behavioral disturbance Status: Acute Qualifiers: Dementia type: unspecified type Qualified Codes: F03.91 - Unspecified dementia with behavioral disturbance (2) Sinus bradycardia Status: Resolved (3) Hypothyroidism Status: Chronic (4) Sensorineural hearing loss Status: Chronic (5) Overweight (BMI 25.0-29.9) Status: Chronic Plan/Intensity of Service [facility] had a [facility]. BP continues to run low - encourage fluids. Labs were done on 08/31/16 - unremarkable. Psych notes reviewed - over the last few days Depakote was started to target anger and Seroquel dose has been adjusted. Code Status Do Not Resuscitate Hospital Course Summary Disclaimer The hospital course summary below is not to be considered part of the above Progress Note. Hospital Course Summary 08/21/16 Agree with admission orders. Hypothyroidism. TSH was over 10 when checked in April 2016. On reassessment yesterday, it had improved to 3.13. Continue levothyroxine. Labs reviewed: CBC and CMP were unremarkable. Urinalysis was negative for UTI. Folate, iron, vitamin B12, hemoglobin A1c, all pending. Will also check prealbumin. Bradycardia: EKG revealed sinus bradycardia with a left axis deviation. Borderline hypotension: Monitor at this time. Patient had similarly low blood pressure upon admission to the [facility]. Shuffling gait, tremor, and nurses report rigidity: Consider neurologic evaluation for Parkinson's. 08/22/16 Labs reviewed - unremarkable. VSS. Psychiatric notes reviewed. Medically stable. 08/30/16- Continue supportive care. Need to consider CT of the head if not done elsewhere. Repeat labs in am. Assess RPR as well. BP is a bit low- push fluids. Likely due to antipsychotics. Consider neurology eval. for diagnosis of gait instability, rigidity. (Bill RADIO INSTALLER AUTOM[employer]BILE visit only). 09/01/16 Staff is going to call the [place] and see if he's had a previous head CT. BP continues to run low - encourage fluids. Labs were done on 08/31/16 - unremarkable. Psych notes reviewed - over the last few days Depakote was started to target anger and Seroquel dose has been adjusted. TAMARA BLAIR APRN Sep 01, 2016 08:49
--- NOTE | 2016-09-01 09:52 | NUR ---
SLEEP 7.75 hours Pt went to bed at 0030 last night and awoke at 0845 for 7.75 hours of total sleep as documented on 15 minute observation form.
--- NOTE | 2016-09-01 14:12 | NUR ---
Status Pt was cooperative with assessment cares and medications crushed in pudding. Pt had a shower this morning and has been mostly cooperative today. Cares are explained very clearly to the patient before they are performed and he allows us to change him but is still hesitant. Pt has not been happy with this RN today due to having to follow him around when he ambulates but he has not been aggressive. Pt has resisted cares from this RN after his shower this morning but will allow the female RN's to help him with cares. Pt is currently in the day room watching television with staff present.
--- NOTE | 2016-09-01 14:50 | NUR ---
STERLING KATZ SPOKE WITH CHOLO DOUGL[employer] COUNTERPERSON. SHE WILL SET UP TRANSPORTATION AT TIME OF D/C FROM [facility]. CHOLO IS AWARE TO CONTACT STERLING IF NEEDS ARISE.
[2016-09-01 15:57] VITALS: BP 103/66; PULSE 72; RESP 16; TEMP 98.7; O2SAT 99
--- NOTE | 2016-09-01 18:10 | NUR ---
Summary Pt had no behaviors this shift, other than being a little bit restless. Pt had a Continent BM today and is beginning to recognize when he needs to go to the bathroom. Pt ate well at all meals and is currently in the day room sitting in a recliner with staff present.
[2016-09-01] MEDS: LORAZEPAM 1 MG TABLET PO SCH (19:55)
[2016-09-01] MEDS: MIRTAZAPINE 15 MG TABLET PO SCH (19:56)
[2016-09-01] MEDS: DONEPEZIL 10 MG TABLET PO SCH (19:56)
[2016-09-01 20:05] VITALS: PULSE 82
[2016-09-01] MEDS: CYCLOBENZAPRINE 5 MG TABLET PO PRN (20:48)
[2016-09-01] MEDS: HALOPERIDOL 1 MG/0.5 ML ORAL LIQUID PO PRN (20:49)
--- NOTE | 2016-09-01 21:30 | NUR ---
Status/PRN Arrived on shift, patient was a/ox1 in dayroom. Patient was passive with assessment, took scheduled hs medications crushed in pudding without issue. Patient sat in dayroom with staff present before getting up and walking to patient room. Once in room patient was pacing around bed cursing. Patient was making nonsensical sentences. Staff attempted to calm and redirect patient, attempted to walk with patient. Patient was glaring and becoming intrusive to staff. patient was getting in staff's face while still cursing and pointing around room. Patient was not able to be calmed or redirected. Staff could not safely check for patient incontinence, and just continued to attempt to redirect and calm patient while other staff member got PRN Haldol 0.5mg po at 2047 for patient. Staff swapped out again to attempt to reproach patient. At that time staff was able to get patient to take 1 bite of pudding with PRN medication in it, before patient refuse the rest of the snack. After patient received prn, staff let patient continue to pace at a safe distance before patient began to slowly calm. Once starting to calm staff checked patient for incontinence, and was able to change brief with 3 assist. Patient was grabbing and cursing at staff during hygiene cares. Once cares were done patient paced for a short period before laying down. Patient is currently laying in bed talking to self.
--- NOTE | 2016-09-01 21:42 | GENPN ---
Chika Subjective Date DATE: 09/01/16 TIME: 09:22 Subjective/Severity of Illness Medications Current Medications Medications (Trade) Dose Ordered Sig/Raymon Start Time Stop Time Status Last Admin Dose Admin Donepezil HCl (Aricept) 10 mg HS 08/21/16 21:00 08/31/16 19:57 10 MG Levothyroxine Sodium (Synthroid) 125 mcg ACB 08/21/16 06:30 09/01/16 08:57 125 MCG Mirtazapine (Remeron) 7.5 mg HS 08/21/16 21:00 08/31/16 19:59 7.5 MG Miscellaneous Medication (May use PRN orders) 1 PRN PRN 08/20/16 23:30 Haloperidol (Haldol) 0.5 mg Q6H PRN 08/20/16 23:30 08/31/16 21:10 0.5 MG Lorazepam (Ativan) 0.5 mg Q6H PRN 08/20/16 23:30 08/31/16 21:10 0.5 MG Lorazepam (Ativan) 0.5 mg Q6H PRN 08/20/16 23:30 Haloperidol Lactate (Haldol 5 Mg/ml Inj) 0.5 mg Q6H PRN 08/20/16 23:30 Lorazepam (Ativan Intensol) 0.5 mg Q6H PRN 08/21/16 03:15 08/30/16 04:33 0.5 MG Haloperidol (Haldol Liquid) 0.5 mg Q6H PRN 08/21/16 03:15 08/30/16 04:33 0.5 MG Acetaminophen (Tylenol Regular Strength) 1-2 tabs Q5H PRN 08/22/16 23:45 08/31/16 22:46 650 MG Lorazepam (Ativan) 1 mg HS 08/25/16 21:00 08/31/16 19:57 1 MG Quetiapine Fumarate (Seroquel) 25 mg BID 08/25/16 21:00 08/26/16 10:49 DC 08/26/16 08:58 25 MG Quetiapine Fumarate (Seroquel) 25 mg DAILY 08/27/16 09:00 08/27/16 12:12 DC Quetiapine Fumarate (Seroquel) 50 mg HS 08/26/16 21:00 08/27/16 12:12 DC 08/26/16 20:24 50 MG Quetiapine Fumarate (Seroquel) 100 mg HS 08/27/16 21:00 08/30/16 10:31 DC 08/29/16 19:08 100 MG Quetiapine Fumarate (Seroquel) 50 mg DAILY 08/28/16 09:00 08/29/16 09:24 DC 08/28/16 09:06 50 MG Cyclobenzaprine HCl (Flexeril) 5 mg Q8H PRN 08/28/16 02:00 08/31/16 19:57 5 MG Divalproex Sodium (Depakote) 250 mg BID 08/28/16 21:00 08/30/16 11:24 DC 08/30/16 10:35 250 MG Quetiapine Fumarate (Seroquel) 50 mg DAILY 08/30/16 09:00 08/30/16 09:00 DC Quetiapine Fumarate (Seroquel) 50 mg DAILY 08/29/16 09:30 08/30/16 10:30 DC 08/29/16 09:30 50 MG Quetiapine Fumarate (Seroquel) 25 mg DAILY 08/31/16 09:00 09/01/16 08:58 25 MG Quetiapine Fumarate (Seroquel) 150 mg HS 08/30/16 21:00 08/31/16 19:59 150 MG Divalproex Sodium (Depakote Sprinkle) 250 mg BID 08/30/16 21:00 09/01/16 08:57 250 MG Subjective Patient seen and chart reviewed. Case discussed with treatment team. Patient is eating breakfast on approach and does not respond to my attempts at interview. Intention tremor noticeable but does not impair ability to feed self. Patient slept ~3.5 hours during the day yesterday but did sleep 7.75 hours overnight, which is a significant improvement. He had an episode of agitation last night with cares, requiring both PRN Ativan and Haldol. He continues to be difficult to redirect as well as physically aggressive during these episodes. No concern for SI, HI. Not observed responding to internal stimuli. Very limited communication skills. Hospitalist suggested CT of head; agree but do not think patient's STM allows him to be cooperative at this time. Staff asked to look at [place] records for previous imaging. VSS. Time of Service: 07:45 Start Time: 09:10 Stop Time: 09:30 Care >50% of this visit spent in counseling/coordination care. Generations Exam Vitals Vital Signs Date Time Temp Pulse Resp B/P Pulse Ox O2 Delivery O2 Flow Rate FiO2 08/31/16 20:30 20 08/31/16 19:40 97.4 70 99/56 98 Room Air Physical examination performed by the hospitalist. Height (Feet): 5 Height (Inches): 10.00 Mental Status Exam Muscle Strength/Tone: Rigid (not noticeably increased since start of Seroquel) Dressing: Casual Grooming: Fair Attitude: Combative (at tiems) Motor Activity: Retardation, Tremors Eye Contact: Poor Speech: Slowed Volume: Soft Rhythm: Mumbled, Paucity of Language Sensory: Alert Orientation: Disoriented to time, Disoriented to place, Disoriented to situation, Oriented to person Mood: Neutral Affect: Labile Rate of Thoughts: Delayed Thought Organization: Confused Associations: Illogical Abstract Reasoning: Poor abstract reasoning Thought Content: Other (Poverty of thought) Perception/Psychotic: Perception Normal Attention Span/Concentration: Inattentive Language: Naming Impaired Fund of Knowledge: Poor fund of knowledge Memory: Poor-immediate, Poor-recent, Poor-remote Suicidal Ideation: None Homicidal Ideation: None Insight: Impaired Judgment: Impaired Impulse Control: Poor Laboratory Tests Test 08/31/16 13:07 White Blood Count 8.8T/MM3 Red Blood Count 4.44M/MM3 Hemoglobin 14.4GM/DL Hematocrit 42.7% Mean Corpuscular Volume 96.2UM3 Mean Corpuscular Hemoglobin 32.4UUG Mean Corpuscular Hemoglobin Concent 33.7GM/DL RDW Standard Deviation 45.4FL Platelet Count 195T/MM3 Mean Platelet Volume 9.2UM3 Immature Granulocyte % (Auto) 0.3% Neutrophils (%) (Auto) 72.7% Lymphocytes (%) (Auto) 16.2% Monocytes (%) (Auto) 6.9% Eosinophils (%) (Auto) 3.6% Basophils (%) (Auto) 0.3% Absolute Immature Granulocyte (auto 0.03T/MM3 Absolute Neutrophils (auto) 6.4T/MM3 Absolute Lymphocytes (auto) 1.4T/MM3 Absolute Monocytes (auto) 0.6T/MM3 Absolute Eosinophils (auto) 0.3T/MM3 Absolute Basophils (auto) 0.0T/MM3 Turbidity < 20 Sodium Level 142MEQ/L Potassium Level 4.3MEQ/L Chloride Level 102MEQ/L Carbon Dioxide Level 30MEQ/L Anion Gap 10MEQ/L Blood Urea Nitrogen 13.0MG/DL Creatinine 0.9MG/DL Glomerular Filtration Rate Calc 83 BUN/Creatinine Ratio 14RATIO Glucose Level 83MG/DL Calculated Osmolality 272MOSM/KG Calcium Level 9.1MG/DL Icterus Index < 2 Chemistry Specimen Hemolysis < 15 Rapid Plasma Reagin Pending Assessment and Plan (1) Major neurocognitive disorder Assessment: Possibly due to Parkinsonian type or Subcortical etiology. 1. Hold Risperidone and Haloperidol. Cont Mirtazapine 2. Observe patient on the unit 3. ST to see patient for swallow test\ 08/22/16 Continue current care 08/23/16 continue current care 08/24/16 Continue current care 08/25/16: Will discuss antipsychotic use with son/DPWILLIAM Figueroa ([phone]) and start Seroquel 25mg PO BID if he consents; plan to start Ativan 1mg PO HS to target insomnia as well. 08/26/16: Increase Seroquel to 25mg PO q AM and 50mg PO q HS; titrate slowly to effect while monitoring effect on gait/rigidity. 08/27/16: Increase Seroquel to 50mg PO q AM and 100mg PO q HS; titrate slowly to effect while monitoring effect on gait/rigidity. 08/28/16: Start Depakote 250mg PO BID to target anger. 08/29/16 Continue current care 08/30/16 Change Seroquel to 25mg daily and 150mg PO QHS 08/31/16 Continue current care 09/01/16: Increase Depakote to 250mg PO q AM and 500mg PO q HS to target continued mood lability. (2) Hypothyroidism (3) Sensorineural hearing loss Increase Depakote to 250mg PO q AM and 500mg PO q HS to target continued mood lability. VAUGHN PARRA MD Sep 01, 2016 09:22
[2016-09-01] MEDS: ACETAMINOPHEN 325 MG TABLET PO PRN (21:45)
--- NOTE | 2016-09-01 22:45 | NUR ---
sleep Patient has calmed and is currently asleep in bed.
--- NOTE | 2016-09-01 22:50 | NUR ---
status patient laid in bed for a short period talking to self before getting up to walk into hallway. Once in hallway patient told staff that his left knee was bothering him. Patient was offered Tylenol for pain, Patient stated "yea, that might help them go". Patient received 650mg of Tylenol po at 2145. Patient took medication crushed in pudding without issue. After taking Tylenol patient went back into room and stared at bed. Patient then walked around to other side of bed to stare before walking back. After this behavior continued a few times, staff was able to help get the patient to sit down. Once sitting Staff helped lay the patient down and provided a warm blanket. patient laid awake in bed talking before falling asleep at 2245
[2016-09-02 00:42] VITALS: BP 113/69; PULSE 71; RESP 16; TEMP 98.6; O2SAT 99
--- NOTE | 2016-09-02 07:19 | NUR ---
summary Once asleep in bed at 2245, patient has been asleep since. no further behaviors noted. Bed alarm is on, rails upx3, and call light is in reach.
[2016-09-02 08:58] VITALS: BP 120/76; PULSE 62; RESP 12; TEMP 97; O2SAT 96
[2016-09-02] MEDS: LEVOTHYROXINE 125 MCG TABLET PO SCH (09:23)
[2016-09-02] MEDS: DIVALPROEX SPRINKLE 125 MG CAPSULE PO SCH ×2 (09:23→19:21)
[2016-09-02] MEDS: CYCLOBENZAPRINE 5 MG TABLET PO PRN ×2 (09:26→19:22)
[2016-09-02] MEDS: QUETIAPINE 50 MG TABLET PO SCH ×2 (09:26→19:22)
--- NOTE | 2016-09-02 10:30 | NUR ---
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 was present and passively engaged in psychoeducational group facilitated by [facility]. Pt. was alert but only oriented to himself. He appeared calm and demonstrated flat affect. Topic was on "Favorites" and "Change". Patients were asked to identify some of their favorite things (ice cream, color, vegetable, etc.). Pt did not attempt to answer any question asked of him. Talked with patients about how some of the things they either "liked" or "disliked" change--just like everything else. Ended group by listening to Khurram younger. Pt. remained calm for entire group.
--- NOTE | 2016-09-02 10:49 | NUR ---
STATUS Patient went to bed at 2245 and woke up this morning at 0930. patient cooperative with care and assist with x2 staff given bag bath no hitting kicking or biting during care patient voices no pain at this time. assisted to the dining room and ambulates with a non stable gait. will continue to monitor.
--- NOTE | 2016-09-02 13:14 | NUR ---
status Patient had good appetite and took his medicine crushed in vanilla pudding without any difficulties given prn due complain of knee pain. very restless seating in the day room then will walk in the hallway or lay down for few minutes then up. Resistive with care and would not let anyone help him even after trying different staff will continue to try. Resting quiet in bed.
--- NOTE | 2016-09-02 14:31 | NUR ---
status patient in room seated on the edge of bed restless and talking to self did allow staff to help with barry care with assist x 2 patient holding staff hand and trying to squeeze trying to squeeze staff hand. is continent of urine and following directions without difficulties at this time. will continue to monitor.
[2016-09-02 16:01] VITALS: BP 145/79; PULSE 74; RESP 94; TEMP 98.1; O2SAT 98
--- NOTE | 2016-09-02 16:44 | GENPN ---
Chika Subjective Date DATE: 09/02/16 TIME: 08:47 Subjective/Severity of Illness Medications Current Medications Medications (Trade) Dose Ordered Sig/Raymon Start Time Stop Time Status Last Admin Dose Admin Donepezil HCl (Aricept) 10 mg HS 08/21/16 21:00 09/01/16 19:56 10 MG Levothyroxine Sodium (Synthroid) 125 mcg ACB 08/21/16 06:30 09/01/16 08:57 125 MCG Mirtazapine (Remeron) 7.5 mg HS 08/21/16 21:00 09/01/16 19:56 7.5 MG Miscellaneous Medication (May use PRN orders) 1 PRN PRN 08/20/16 23:30 Haloperidol (Haldol) 0.5 mg Q6H PRN 08/20/16 23:30 08/31/16 21:10 0.5 MG Lorazepam (Ativan) 0.5 mg Q6H PRN 08/20/16 23:30 08/31/16 21:10 0.5 MG Lorazepam (Ativan) 0.5 mg Q6H PRN 08/20/16 23:30 Haloperidol Lactate (Haldol 5 Mg/ml Inj) 0.5 mg Q6H PRN 08/20/16 23:30 Lorazepam (Ativan Intensol) 0.5 mg Q6H PRN 08/21/16 03:15 08/30/16 04:33 0.5 MG Haloperidol (Haldol Liquid) 0.5 mg Q6H PRN 08/21/16 03:15 09/01/16 20:49 0.5 MG Acetaminophen (Tylenol Regular Strength) 1-2 tabs Q5H PRN 08/22/16 23:45 09/01/16 21:45 650 MG Lorazepam (Ativan) 1 mg HS 08/25/16 21:00 09/01/16 19:55 1 MG Quetiapine Fumarate (Seroquel) 25 mg BID 08/25/16 21:00 08/26/16 10:49 DC 08/26/16 08:58 25 MG Quetiapine Fumarate (Seroquel) 25 mg DAILY 08/27/16 09:00 08/27/16 12:12 DC Quetiapine Fumarate (Seroquel) 50 mg HS 08/26/16 21:00 08/27/16 12:12 DC 08/26/16 20:24 50 MG Quetiapine Fumarate (Seroquel) 100 mg HS 08/27/16 21:00 08/30/16 10:31 DC 08/29/16 19:08 100 MG Quetiapine Fumarate (Seroquel) 50 mg DAILY 08/28/16 09:00 08/29/16 09:24 DC 08/28/16 09:06 50 MG Cyclobenzaprine HCl (Flexeril) 5 mg Q8H PRN 08/28/16 02:00 09/01/16 20:48 5 MG Divalproex Sodium (Depakote) 250 mg BID 08/28/16 21:00 08/30/16 11:24 DC 08/30/16 10:35 250 MG Quetiapine Fumarate (Seroquel) 50 mg DAILY 08/30/16 09:00 08/30/16 09:00 DC Quetiapine Fumarate (Seroquel) 50 mg DAILY 08/29/16 09:30 08/30/16 10:30 DC 08/29/16 09:30 50 MG Quetiapine Fumarate (Seroquel) 25 mg DAILY 08/31/16 09:00 09/01/16 08:58 25 MG Quetiapine Fumarate (Seroquel) 150 mg HS 08/30/16 21:00 09/01/16 19:55 150 MG Divalproex Sodium (Depakote Sprinkle) 250 mg BID 08/30/16 21:00 09/01/16 21:43 DC 09/01/16 19:56 250 MG Divalproex Sodium (Depakote Sprinkle) 250 mg DAILY 09/02/16 09:00 Divalproex Sodium (Depakote Sprinkle) 500 mg HS 09/02/16 21:00 Subjective Patient seen and chart reviewed. Case discussed with treatment team. Patient is still sleeping during AM rounds and I did not wake him as he has very limited communication skills. Patient did sleep 10+ hours overnight, which is a significant improvement. Per nursing staff, he was much more cooperative during the day yesterday though somewhat mildly resistive with cares. He did have an episode of agitation in the evening with pacing, cussing and "getting in staff's faces." He was given PRN Haldol at 20:49. No concern for SI, HI. Not observed responding to internal stimuli. Hospitalist suggested CT of head; agree but do not think patient's STM allows him to be cooperative at this time. Staff asked to look at [place] records for previous imaging. VSS. Time of Service: 07:45 Start Time: 09:10 Stop Time: 09:30 Care >50% of this visit spent in counseling/coordination care. Generations Exam Vitals Vital Signs Date Time Temp Pulse Resp B/P Pulse Ox O2 Delivery O2 Flow Rate FiO2 09/02/16 00:42 98.6 71 16 113/69 99 Room Air Physical examination performed by the hospitalist. Height (Feet): 5 Height (Inches): 10.00 Mental Status Exam Muscle Strength/Tone: Rigid Dressing: Casual Grooming: Fair Attitude: Uncooperative (improving ), Combative Motor Activity: Retardation, Tremors Eye Contact: Poor Speech: Slowed Volume: Soft Rhythm: Mumbled, Paucity of Language Sensory: Other (Currently asleep) Orientation: Disoriented to time, Disoriented to place, Disoriented to situation, Oriented to person Mood: Neutral Affect: Labile (improving) Rate of Thoughts: Delayed Thought Organization: Confused Associations: Illogical Abstract Reasoning: Impaired, concrete Thought Content: Other (Poverty of thought) Perception/Psychotic: Perception Normal Attention Span/Concentration: Inattentive Language: Naming Impaired Fund of Knowledge: Poor fund of knowledge Memory: Poor-immediate, Poor-recent, Poor-remote Suicidal Ideation: None Homicidal Ideation: None Insight: Impaired Judgment: Impaired Impulse Control: Poor Assessment and Plan (1) Major neurocognitive disorder Assessment: Possibly due to Parkinsonian type or Subcortical etiology. 1. Hold Risperidone and Haloperidol. Cont Mirtazapine 2. Observe patient on the unit 3. ST to see patient for swallow test\\ 08/22/16 Continue current care 08/23/16 continue current care 08/24/16 Continue current care 08/25/16: Will discuss antipsychotic use with son/DPWILLIAM Figueroa ([phone]) and start Seroquel 25mg PO BID if he consents; plan to start Ativan 1mg PO HS to target insomnia as well. 08/26/16: Increase Seroquel to 25mg PO q AM and 50mg PO q HS; titrate slowly to effect while monitoring effect on gait/rigidity. 4/12/17: Increase Seroquel to 50mg PO q AM and 100mg PO q HS; titrate slowly to effect while monitoring effect on gait/rigidity. 08/28/16: Start Depakote 250mg PO BID to target anger. 08/29/16 Continue current care 08/30/16 Change Seroquel to 25mg daily and 150mg PO QHS 08/31/16 Continue current care 09/01/16: Increase Depakote to 250mg PO q AM and 500mg PO q HS to target continued mood lability. 09/02/16: Patient will receive increased dose of Depakote tonight at bedtime; continue current care otherwise. Improving overall. (2) Hypothyroidism (3) Sensorineural hearing loss VAUGHN PARRA MD Sep 02, 2016 08:47
--- NOTE | 2016-09-02 18:00 | NUR ---
Summary Patient currently seated in the day room with staff is alert x1 et pt had a good day and was resisting care during the day with increased confusion . no aggression at this times. will continue to monitor.
[2016-09-02] MEDS: DONEPEZIL 10 MG TABLET PO SCH (19:22)
[2016-09-02] MEDS: MIRTAZAPINE 15 MG TABLET PO SCH (19:22)
[2016-09-02] MEDS: LORAZEPAM 1 MG TABLET PO SCH (19:22)
--- NOTE | 2016-09-02 19:22 | NUR ---
PRN PT GIVEN PRN FLEXERIL WITH HS MEDICATIONS DUE TO RIGIDITY AND SPASMS.
[2016-09-02 20:16] VITALS: BP 112/69; PULSE 89; RESP 18; TEMP 98.9; O2SAT 95
--- NOTE | 2016-09-02 20:50 | NUR ---
BEDTIME PT INTO BED WITH TWO ASSIST. BED LOW ALARM ON RAILS UP X2. LIGHTS DIMMED DOOR PARTIALLY SHUT TO MINIMIZE DISTURBANCES.
[2016-09-02] MEDS: HALOPERIDOL 1 MG/0.5 ML ORAL LIQUID PO PRN (21:57)
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
[2016-09-02] MEDS: OXYCODONE 10 MG/0.5 ML PO PRN (23:42)
--- NOTE | 2016-09-03 | NUR ---
status/prn pain assumed care of patient at 2300. Patient was sitting in dayroom with 2 staff. Patient sat in dayroom for short period before wanting to walk in the halls. When walking in the garza patient was observed to be grimacing, pausing every few steps, noticed rubbing knees and side. Patient was rigid and tense, unable to make needs known. Patient is uncooperative with cares, shoving, grabbing, pushing, and trying to kick staff when in reach. Telehospitalist contacted about advance dementia pain, and pain control. PRN order received. Patient received prn Oxycodone 5mg po at 2342, Patient is currently awake in bed with staff at bedside.
--- NOTE | 2016-09-03 01:00 | NUR ---
sleep Patient asleep in bed at 0100
--- NOTE | 2016-09-03 02:00 | NUR ---
Chart Check 24 hour chart check completed
--- NOTE | 2016-09-03 05:48 | NUR ---
Summary/Sleep time After receiving prn pain medication, patient was awake in bed tossing and turning. Patient was talking to self and picking and grabbing at the air. Patient appeared to be having visual hallucinations. Speech was jumbled, disorganized and hard to follow thought process. Patient slowly started to calm, before resting quietly in bed looking around. Patient fell asleep in bed at 0100, and slept till 0515 for a total of 4.25 hours. Patient is currently lying awake in bed mumbling to self and looking around room. Bed alarm is on, rails upx3, and call light is in reach.
--- NOTE | 2016-09-03 06:52 | NUR ---
sleep patient fell back to sleep at 0630
[2016-09-03 08:53] VITALS: BP 115/69; PULSE 66; RESP 18; TEMP 97; O2SAT 97
[2016-09-03] MEDS: LEVOTHYROXINE 125 MCG TABLET PO SCH (10:50)
[2016-09-03] MEDS: CYCLOBENZAPRINE 5 MG TABLET PO PRN (10:51)
[2016-09-03] MEDS: QUETIAPINE 50 MG TABLET PO SCH ×2 (10:51→19:28)
[2016-09-03] MEDS: DIVALPROEX SPRINKLE 125 MG CAPSULE PO SCH ×2 (10:52→19:27)
--- NOTE | 2016-09-03 14:46 | NUR ---
UNIT NURSE--PM GROUP [facility] led psychoeducational group in which pt. was a passive participant. Activity involved neurocognitive guessing game to encourage communication and socialization. Pt. was alert, Ox1, calm, with dysthymic mood and affect. He did not attempt to answer any questions asked. When asked how he was doing, he had scowl on his face and did not answer. Pt. did not seem to be aware of the situation around him.
--- NOTE | 2016-09-03 15:19 | NUR ---
[facility] [place] ([phone]). Patient has not had imaging performed there; records going back to 2013. Information requested by Dr. Mey Smalls
[2016-09-03 16:27] VITALS: BP 111/65; PULSE 68; RESP 18; TEMP 97.7; O2SAT 99
--- NOTE | 2016-09-03 16:48 | NUR ---
Summary Pt slept off and on today. Pt tolerated his cares much better today, he was minimally resistive. Patient ate well today and has no behaviors other than a small amount of restlessness later in the shift. Pt received Tramadol 5mg this morning with his am medications. Pt is currently sitting with staff in the day room.
[2016-09-03] MEDS: LORAZEPAM 1 MG TABLET PO SCH (19:27)
[2016-09-03] MEDS: DONEPEZIL 10 MG TABLET PO SCH (19:27)
[2016-09-03] MEDS: MIRTAZAPINE 15 MG TABLET PO SCH (19:27)
[2016-09-03] MEDS: CYCLOBENZAPRINE 5 MG TABLET PO SCH (19:28)
[2016-09-03] MEDS: OXYCODONE 10 MG/0.5 ML PO PRN (19:29)
[2016-09-03 21:08] VITALS: BP 133/68; PULSE 82; RESP 18; TEMP 97.7; O2SAT 98
--- NOTE | 2016-09-03 22:03 | NUR ---
SHIFT SUMMARY PATIENT HAS BEEN PLEASANT AND COOPERATIVE WITH STAFF THIS EVENING. HE WALKED THE HOWELL MAJORITY OF THE EVENING. HE WOULD HAVE SHORT PERIODS WHERE HE WOULD SIT AND HAVE A SNACK AND THEN WOULD GET UP AND START WALKING AROUND WITH SUPERVISION. HE TOOK ALL HIS EVENING MEDICATIONS CRUSHED. HE WAS GIVEN A PRN OXYCODONE 5MG FOR KNEE DISCOMFORT AND IT WAS EFFECTIVE WITHIN 20 MIN. HE DID NOT HAVE ANY VISUAL HALLUCINATIONS DURING THIS 4 HOUR SHIFT. ONCE IN ROOM HE REMAINED IN BED WITH BED ALARM ON AND BED RAILS UP X2.
[2016-09-03 23:49] VITALS: PULSE 82; RESP 18
--- NOTE | 2016-09-04 00:25 | NUR ---
Chart Check 24 hour chart check completed
--- NOTE | 2016-09-04 06:47 | NUR ---
Sleeptime Pt. is asleep at 2100 awake at 2215. Pt is asleep at 2245 and awake at 2315 and asleep at 2345.
--- NOTE | 2016-09-04 06:49 | NUR ---
Summary Pt. is alert to self. Pt. sets off the bed alarm at 2315 and is incontinent of urine. Pt. is passive and cooperative with hygiene cares. Pt. redirects back to bed without difficulty. No physical or verbal aggression is noted or reported. No hallucinations noted. No prn meds given. Pt. is resting in bed with the bed alarm activated and SR up x2.
[2016-09-04] MEDS: CYCLOBENZAPRINE 5 MG TABLET PO SCH ×3 (10:41→19:42)
[2016-09-04] MEDS: LEVOTHYROXINE 125 MCG TABLET PO SCH (10:41)
[2016-09-04] MEDS: QUETIAPINE 50 MG TABLET PO SCH ×2 (10:41→19:41)
[2016-09-04] MEDS: DIVALPROEX SPRINKLE 125 MG CAPSULE PO SCH ×2 (10:41→19:41)
[2016-09-04 10:47] VITALS: BP 121/77; PULSE 82; RESP 16; TEMP 97.8; O2SAT 95
--- NOTE | 2016-09-04 10:58 | NUR ---
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 was in his room and did not participate in psychoeducational group facilitated by [facility].
--- NOTE | 2016-09-04 13:32 | GENPN ---
[facility] Subjective Date DATE: 09/03/16 TIME: 21:40 Subjective/Severity of Illness Medications Current Medications Medications (Trade) Dose Ordered Sig/Raymon Start Time Stop Time Status Last Admin Dose Admin Donepezil HCl (Aricept) 10 mg HS 08/21/16 21:00 09/03/16 19:27 10 MG Levothyroxine Sodium (Synthroid) 125 mcg ACB 08/21/16 06:30 09/03/16 10:50 125 MCG Mirtazapine (Remeron) 7.5 mg HS 08/21/16 21:00 09/03/16 19:27 7.5 MG Miscellaneous Medication (May use PRN orders) 1 PRN PRN 08/20/16 23:30 Haloperidol (Haldol) 0.5 mg Q6H PRN 08/20/16 23:30 08/31/16 21:10 0.5 MG Lorazepam (Ativan) 0.5 mg Q6H PRN 08/20/16 23:30 08/31/16 21:10 0.5 MG Lorazepam (Ativan) 0.5 mg Q6H PRN 08/20/16 23:30 Haloperidol Lactate (Haldol 5 Mg/ml Inj) 0.5 mg Q6H PRN 08/20/16 23:30 Lorazepam (Ativan Intensol) 0.5 mg Q6H PRN 08/21/16 03:15 08/30/16 04:33 0.5 MG Haloperidol (Haldol Liquid) 0.5 mg Q6H PRN 08/21/16 03:15 09/02/16 21:57 0.5 MG Acetaminophen (Tylenol Regular Strength) 1-2 tabs Q5H PRN 08/22/16 23:45 09/01/16 21:45 650 MG Lorazepam (Ativan) 1 mg HS 08/25/16 21:00 09/03/16 19:27 1 MG Quetiapine Fumarate (Seroquel) 25 mg BID 08/25/16 21:00 08/26/16 10:49 DC 08/26/16 08:58 25 MG Quetiapine Fumarate (Seroquel) 25 mg DAILY 08/27/16 09:00 08/27/16 12:12 DC Quetiapine Fumarate (Seroquel) 50 mg HS 08/26/16 21:00 08/27/16 12:12 DC 08/26/16 20:24 50 MG Quetiapine Fumarate (Seroquel) 100 mg HS 08/27/16 21:00 08/30/16 10:31 DC 08/29/16 19:08 100 MG Quetiapine Fumarate (Seroquel) 50 mg DAILY 08/28/16 09:00 08/29/16 09:24 DC 08/28/16 09:06 50 MG Cyclobenzaprine HCl (Flexeril) 5 mg Q8H PRN 08/28/16 02:00 09/03/16 10:51 5 MG Divalproex Sodium (Depakote) 250 mg BID 08/28/16 21:00 08/30/16 11:24 DC 08/30/16 10:35 250 MG Quetiapine Fumarate (Seroquel) 50 mg DAILY 08/30/16 09:00 08/30/16 09:00 DC Quetiapine Fumarate (Seroquel) 50 mg DAILY 08/29/16 09:30 08/30/16 10:30 DC 08/29/16 09:30 50 MG Quetiapine Fumarate (Seroquel) 25 mg DAILY 08/31/16 09:00 09/03/16 10:51 25 MG Quetiapine Fumarate (Seroquel) 150 mg HS 08/30/16 21:00 09/03/16 19:28 150 MG Divalproex Sodium (Depakote Sprinkle) 250 mg BID 08/30/16 21:00 09/01/16 21:43 DC 09/01/16 19:56 250 MG Divalproex Sodium (Depakote Sprinkle) 250 mg DAILY 09/02/16 09:00 09/03/16 10:52 250 MG Divalproex Sodium (Depakote Sprinkle) 500 mg HS 09/02/16 21:00 09/03/16 19:27 500 MG Oxycodone HCl (Oxycodone Oral Solution) 5 mg Q4H PRN 09/02/16 22:30 09/03/16 19:29 5 MG Cyclobenzaprine HCl (Flexeril) 5 mg TID 09/03/16 21:00 09/03/16 19:28 5 MG Subjective Patient seen and chart reviewed. Case discussed with treatment team. Patient is sitting in chair relaxing in dayroom watching TV with peers on approach. He is eating grapes and cannot tell me what they are but offers me one. When I ask to perform physical exam to assess rigidity, patient refuses and says he has already been stretched 3 times today. He then gets up and tries to walk to his room. Per nursing staff, he was much more cooperative during the day yesterday though somewhat mildly resistive with cares. He did have an episode of agitation in the evening and was given PRN Haldol at 21:59. Patient seems to be less agitated when his pain is relieved. No concern for SI, HI. Not observed responding to internal stimuli. Hospitalist suggested CT of head; agree but do not think patient's STM allows him to be cooperative at this time. Staff asked to look at [place] records for previous imaging. VSS. Time of Service: 07:45 Start Time: 16:50 Stop Time: 17:10 Care >50% of this visit spent in counseling/coordination care. [facility] Exam Vitals Vital Signs Date Time Temp Pulse Resp B/P Pulse Ox O2 Delivery O2 Flow Rate FiO2 09/03/16 21:08 97.7 82 18 133/68 98 Room Air Physical examination performed by the hospitalist. Height (Feet): 5 Height (Inches): 10.00 Mental Status Exam Muscle Strength/Tone: Rigid Dressing: Casual Grooming: Fair Attitude: Combative (intermittent, improving) Motor Activity: Retardation, Tremors Eye Contact: Poor Speech: Slowed Volume: Soft Rhythm: Mumbled, Paucity of Language Sensory: Alert Orientation: Disoriented to time, Disoriented to place, Disoriented to situation, Oriented to person Mood: Neutral Affect: Labile Rate of Thoughts: Delayed Thought Organization: Confused Associations: Illogical Abstract Reasoning: Impaired, concrete Thought Content: Other (Poverty of thought) Perception/Psychotic: Perception Normal Attention Span/Concentration: Inattentive Language: Naming Impaired Fund of Knowledge: Poor fund of knowledge Memory: Poor-immediate, Poor-recent, Poor-remote Suicidal Ideation: None Homicidal Ideation: None Insight: Impaired Judgment: Impaired Impulse Control: Poor (though improving) Assessment and Plan (1) Major neurocognitive disorder Assessment: Possibly due to Parkinsonian type or Subcortical etiology. 1. Hold Risperidone and Haloperidol. Cont Mirtazapine 2. Observe patient on the unit 3. ST to see patient for swallow test\ 08/22/16 Continue current care 08/23/16 continue current care 08/24/16 Continue current care 08/25/16: Will discuss antipsychotic use with son/KANDACE Figueroa ([phone]) and start Seroquel 25mg PO BID if he consents; plan to start Ativan 1mg PO HS to target insomnia as well. 08/26/16: Increase Seroquel to 25mg PO q AM and 50mg PO q HS; titrate slowly to effect while monitoring effect on gait/rigidity. 08/27/16: Increase Seroquel to 50mg PO q AM and 100mg PO q HS; titrate slowly to effect while monitoring effect on gait/rigidity. 08/28/16: Start Depakote 250mg PO BID to target anger. 08/29/16 Continue current care 08/30/16 Change Seroquel to 25mg daily and 150mg PO QHS 08/31/16 Continue current care 09/01/16: Increase Depakote to 250mg PO q AM and 500mg PO q HS to target continued mood lability. 09/02/16: Patient will receive increased dose of Depakote tonight at bedtime; continue current care otherwise. Improving overall. 09/03/16: Will schedule Flexeril 5mg PO TID at 0800, 1500, 2100. Continue current care otherwise; Depakote has yet to reach steady-state level since increasing dose. (2) Hypothyroidism (3) Sensorineural hearing loss VAUGHN PARRA MD Sep 03, 2016 21:40
--- NOTE | 2016-09-04 13:43 | NUR ---
status pt woke this am at 1045. total sleep time is 11 hrs. pt alert to person only. allows this nurse to change incontinent brief without any verbal or physical aggression. at some fruit for breakfast and only bites for lunch. pt stayed in day room for a short time, got up and walked to room and got in bed. no hallucinations noted so far this shift. compliant with am medication.
[2016-09-04 16:42] VITALS: BP 103/67; PULSE 85; RESP 16; TEMP 98.1; O2SAT 95
--- NOTE | 2016-09-04 18:00 | NUR ---
summary pt has been cooperative all shift. pt has not shown any verbal or physical aggression with incontinent cares all shift. tries to open fire door in dinning room once. compliant with all medications. no visual or auditory hallucinations noted this shift.
[2016-09-04] MEDS: MIRTAZAPINE 15 MG TABLET PO SCH (19:42)
[2016-09-04] MEDS: DONEPEZIL 10 MG TABLET PO SCH (19:42)
[2016-09-04] MEDS: OXYCODONE 10 MG/0.5 ML PO PRN ×2 (19:42→23:32)
[2016-09-04] MEDS: LORAZEPAM 1 MG TABLET PO SCH (19:42)
[2016-09-04 19:51] VITALS: BP 107/67; PULSE 86; RESP 20; TEMP 98.1; O2SAT 93
--- NOTE | 2016-09-04 20:47 | GENPN ---
[facility] Subjective Date DATE: 09/04/16 TIME: 09:08 Subjective/Severity of Illness Medications Current Medications Medications (Trade) Dose Ordered Sig/Raymon Start Time Stop Time Status Last Admin Dose Admin Donepezil HCl (Aricept) 10 mg HS 08/21/16 21:00 09/03/16 19:27 10 MG Levothyroxine Sodium (Synthroid) 125 mcg ACB 08/21/16 06:30 09/03/16 10:50 125 MCG Mirtazapine (Remeron) 7.5 mg HS 08/21/16 21:00 09/03/16 19:27 7.5 MG Miscellaneous Medication (May use PRN orders) 1 PRN PRN 08/20/16 23:30 Haloperidol (Haldol) 0.5 mg Q6H PRN 08/20/16 23:30 08/31/16 21:10 0.5 MG Lorazepam (Ativan) 0.5 mg Q6H PRN 08/20/16 23:30 08/31/16 21:10 0.5 MG Lorazepam (Ativan) 0.5 mg Q6H PRN 08/20/16 23:30 Haloperidol Lactate (Haldol 5 Mg/ml Inj) 0.5 mg Q6H PRN 08/20/16 23:30 Lorazepam (Ativan Intensol) 0.5 mg Q6H PRN 08/21/16 03:15 08/30/16 04:33 0.5 MG Haloperidol (Haldol Liquid) 0.5 mg Q6H PRN 08/21/16 03:15 09/02/16 21:57 0.5 MG Acetaminophen (Tylenol Regular Strength) 1-2 tabs Q5H PRN 08/22/16 23:45 09/01/16 21:45 650 MG Lorazepam (Ativan) 1 mg HS 08/25/16 21:00 09/03/16 19:27 1 MG Quetiapine Fumarate (Seroquel) 25 mg BID 08/25/16 21:00 08/26/16 10:49 DC 08/26/16 08:58 25 MG Quetiapine Fumarate (Seroquel) 25 mg DAILY 08/27/16 09:00 08/27/16 12:12 DC Quetiapine Fumarate (Seroquel) 50 mg HS 08/26/16 21:00 08/27/16 12:12 DC 08/26/16 20:24 50 MG Quetiapine Fumarate (Seroquel) 100 mg HS 08/27/16 21:00 08/30/16 10:31 DC 08/29/16 19:08 100 MG Quetiapine Fumarate (Seroquel) 50 mg DAILY 08/28/16 09:00 08/29/16 09:24 DC 08/28/16 09:06 50 MG Cyclobenzaprine HCl (Flexeril) 5 mg Q8H PRN 08/28/16 02:00 09/03/16 10:51 5 MG Divalproex Sodium (Depakote) 250 mg BID 08/28/16 21:00 08/30/16 11:24 DC 08/30/16 10:35 250 MG Quetiapine Fumarate (Seroquel) 50 mg DAILY 08/30/16 09:00 08/30/16 09:00 DC Quetiapine Fumarate (Seroquel) 50 mg DAILY 08/29/16 09:30 08/30/16 10:30 DC 08/29/16 09:30 50 MG Quetiapine Fumarate (Seroquel) 25 mg DAILY 08/31/16 09:00 09/03/16 10:51 25 MG Quetiapine Fumarate (Seroquel) 150 mg HS 08/30/16 21:00 09/03/16 19:28 150 MG Divalproex Sodium (Depakote Sprinkle) 250 mg BID 08/30/16 21:00 09/01/16 21:43 DC 09/01/16 19:56 250 MG Divalproex Sodium (Depakote Sprinkle) 250 mg DAILY 09/02/16 09:00 09/03/16 10:52 250 MG Divalproex Sodium (Depakote Sprinkle) 500 mg HS 09/02/16 21:00 09/03/16 19:27 500 MG Oxycodone HCl (Oxycodone Oral Solution) 5 mg Q4H PRN 09/02/16 22:30 09/03/16 19:29 5 MG Cyclobenzaprine HCl (Flexeril) 5 mg TID 09/03/16 21:00 09/03/16 19:28 5 MG Subjective Patient seen and chart reviewed. Case discussed with treatment team. Patient is still sleeping during AM rounds and I did not wake him as he has very limited communication skills and did not sleep as well overnight as he has been recently. Per nursing staff, patient has been more pleasant and overall cooperative with cares, despite restless sleep last night. No psychotropic PRNs required in the past 24 hours. Appetite good. No concern for SI, HI. Not observed responding to internal stimuli. Hospitalist suggested CT of head; agree but do not think patient's STM allows him to be cooperative at this time. [facility] VSS. Time of Service: 07:45 Start Time: 09:20 Stop Time: 09:40 Care >50% of this visit spent in counseling/coordination care. [facility] Exam Vitals Vital Signs Date Time Temp Pulse Resp B/P Pulse Ox O2 Delivery O2 Flow Rate FiO2 09/03/16 23:49 82 18 09/03/16 21:08 97.7 133/68 98 Room Air Physical examination performed by the hospitalist. Height (Feet): 5 Height (Inches): 10.00 Mental Status Exam Muscle Strength/Tone: Rigid Dressing: Casual Grooming: Fair Attitude: Cooperative (improving) Motor Activity: Retardation, Tremors Eye Contact: Poor Speech: Slowed Volume: Soft Rhythm: Mumbled, Paucity of Language Sensory: Other (Currently sleeping) Orientation: Disoriented to person, Disoriented to place, Disoriented to situation, Oriented to person Mood: Neutral Affect: Restricted (Lability improving) Rate of Thoughts: Delayed Thought Organization: Confused Associations: Illogical Abstract Reasoning: Impaired, concrete Computation: Poor Computation Thought Content: Other (Poverty of thought) Perception/Psychotic: Perception Normal Attention Span/Concentration: Inattentive Language: Naming Impaired Fund of Knowledge: Poor fund of knowledge Memory: Poor-immediate, Poor-recent, Poor-remote Suicidal Ideation: None Homicidal Ideation: None Insight: Impaired Judgment: Impaired Impulse Control: Other (Improving) Assessment and Plan (1) Major neurocognitive disorder Assessment: Possibly due to Parkinsonian type or Subcortical etiology. 1. Hold Risperidone and Haloperidol. Cont Mirtazapine 2. Observe patient on the unit 3. ST to see patient for swallow test\ 08/22/16 Continue current care 08/23/16 continue current care 08/24/16 Continue current care 08/25/16: Will discuss antipsychotic use with son/DPWILLIAM Figueroa ([phone]) and start Seroquel 25mg PO BID if he consents; plan to start Ativan 1mg PO HS to target insomnia as well. 08/26/16: Increase Seroquel to 25mg PO q AM and 50mg PO q HS; titrate slowly to effect while monitoring effect on gait/rigidity. 08/27/16: Increase Seroquel to 50mg PO q AM and 100mg PO q HS; titrate slowly to effect while monitoring effect on gait/rigidity. 08/28/16: Start Depakote 250mg PO BID to target anger. 08/29/16 Continue current care 08/30/16 Change Seroquel to 25mg daily and 150mg PO QHS 08/31/16 Continue current care 09/01/16: Increase Depakote to 250mg PO q AM and 500mg PO q HS to target continued mood lability. 09/02/16: Patient will receive increased dose of Depakote tonight at bedtime; continue current care otherwise. Improving overall. 09/03/16: Will schedule Flexeril 5mg PO TID at 0800, 1500, 2100. Continue current care otherwise; Depakote has yet to reach steady-state level since increasing dose. 09/04/16: Continue current care as patient is improving - sleep is biggest concern right now. Will continue to monitor for need of any additional bedtime PRNs. (2) Hypothyroidism (3) Sensorineural hearing loss VAUGHN PARRA MD Sep 04, 2016 09:08
--- NOTE | 2016-09-04 21:30 | NUR ---
bedtime Pt went to sleep at 21:30 with 2 bed rails up and bed alarm on.
--- NOTE | 2016-09-04 22:05 | NUR ---
SUMMARY PATIENT HAS BEEN PLEASANT AND COOPERATIVE THIS EVENING WITH STAFF. HE TOOK ALL HIS MEDICATIONS CRUSHED WITH PUDDING. HE WAS GIVEN A PRN OXYCODONE 5MG FOR KNEE PAIN. MEDICATION WAS EFFECTIVE, WHEN ASKED IF HE HAD PAIN HE DENIED IT. HE CONTINUES TO BE INCONTINENT, SKIN IS INTACT. NO OTHER PRN'S GIVEN OF NOW. HE SPENT ALOT OF TIME THIS EVENING IN THE DAYROOM WATCHING TV. PACING DOWN THE HOWELL HAS DECREASED THIS EVENING COMPARED TO YESTERDAY. NO AGGRESSIVE BEHAVIORS THIS SHIFT. NO HALLUCINATIONS NOTED. PATIENT REMAINED IN BED WITH BED ALARM ON AND BED RAILS UP X2.
[2016-09-04] MEDS: LORAZEPAM 0.5 MG TABLET PO PRN (23:32)
--- NOTE | 2016-09-04 23:50 | NUR ---
prn update Pt restless, slapping at staff, pt spiting at staff, pt twisting arms and pulling on arms, pt given Oxycodone at 2332 and Ativan 0.5mg po crushed in pudding, pt did rest after getting the meds.
--- NOTE | 2016-09-05 03:58 | NUR ---
Chart Check 24 hour chart check completed
[2016-09-05] MEDS: OXYCODONE 10 MG/0.5 ML PO PRN ×2 (05:46→19:55)
[2016-09-05] MEDS: LEVOTHYROXINE 125 MCG TABLET PO SCH (05:46)
--- NOTE | 2016-09-05 05:46 | NUR ---
prn given Pt awake, restless, swatting at staff, spiting at staff, pt given Synthroid crushed in pudding and Oxycodone in pudding. Pt able to be changed and is now resting in bed with staff at bedside. will monitor pt
--- NOTE | 2016-09-05 06:45 | NUR ---
shift summary Pt is alert and oriented x1, pt restless, pacing during start of manager of maintenance, pt had Oxycodone at 1942, 2332 and 0546, pt also had Ativan 0.5mg po crushed in pudding. Pt resistive to cares during night (see previous notes) Pt is now in bed with 2 bed rails up and bed alarm on.
[2016-09-05] MEDS: CYCLOBENZAPRINE 5 MG TABLET PO SCH ×2 (08:29→19:54)
[2016-09-05] MEDS: DIVALPROEX SPRINKLE 125 MG CAPSULE PO SCH ×2 (08:29→19:54)
[2016-09-05] MEDS: QUETIAPINE 50 MG TABLET PO SCH ×2 (08:30→19:53)
[2016-09-05 08:33] VITALS: BP 107/71; PULSE 78; RESP 14; TEMP 97.2; O2SAT 98
--- NOTE | 2016-09-05 08:51 | NUR ---
Status Pt went to bed at 2130 and awoke at 0815 this morning. He received a shower this morning with no combativeness. Pt resistant with walking, was leaning backwards, used wheelchair to bring to dining room for breakfast. Pt took his medications crushed with no issues. Pt eating minimally this morning. Will continue to monitor.
--- NOTE | 2016-09-05 10:46 | NUR ---
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 was sitting at dining room table finishing his breakfast during morning psychoeducational group facilitated by [facility].
--- NOTE | 2016-09-05 10:51 | PNPDOC ---
Subjective Date DATE: 09/05/16 TIME: 10:27 Subjective Yuan is seen today while sitting up at the breakfast table. He has his eyes closed and fork in his hand. He will open his eyes to verbal stimuli, however, will not verbally respond. His vital signs are normal this morning 107/71, pulse in the 70s. Last reported bowel movement was 09/02, he is incontinent chronically of urine. Objective Vital Signs Vital signs Vital Signs Date Time Temp Pulse Resp B/P Pulse Ox O2 Delivery O2 Flow Rate FiO2 09/05/16 08:33 97.2 78 14 107/71 98 Room Air Height (Feet): 5 Height (Inches): 10.00 Weight (Kilograms): 87.200 General General Appearance: Alert, Confused, Cooperative, No Acute Distress Eyes (Brief) Eyes: FOUND: EOMI ENMT (Brief) ENMT: FOUND: mucosa moist, normal dentition, NOT FOUND: pharnyx erythema Neck (Brief) Neck: FOUND: midline, NOT FOUND: adenopathy, carotid bruits, tracheal deviation Respiratory (Brief) Respiratory: FOUND: clear all roberts, equal bilaterally, NOT FOUND: wheezes Cardiovascular (Brief) Cardiac: FOUND: regular rate, regular rhythm, NOT FOUND: murmur, pedal edema Capillary Refill: <2 sec Abdomen (Brief) Abdominal: FOUND: BS normo active x4, soft, NOT FOUND: distended, tender Lymphatic (Brief) Lymphatic: NOT FOUND: adenopathy Musculoskeletal (Brief) Musculoskeletal: NOT FOUND: tenderness Integumentary (Brief) Integumentary: FOUND: dry, pink, warm Neurologic (Brief) Neurological: FOUND: cranial 2-12 intact Psychiatric (Brief) Psychiatric: FOUND: alert, attentive, normal affect Comments Non-verbal Assessment & Plan Problems: (1) Dementia with behavioral disturbance Status: Acute Qualifiers: Dementia type: unspecified type Qualified Codes: F03.91 - Unspecified dementia with behavioral disturbance (2) Sinus bradycardia Status: Resolved (3) Hypothyroidism Status: Chronic (4) Sensorineural hearing loss Status: Chronic (5) Overweight (BMI 25.0-29.9) Status: Chronic Plan/Intensity of Service 09/05/16 Yuan is somnolent this morning at the breakfast table. Did discuss medications with Dr Cui. Will change Flexeril to scheduled only at HS and otherwise keep it PRN. He is sleeping during the night which is a improvement. Continue with oxycodone as needed for pain control. BP is well controlled. Will add Miralax daily for bowel motivation. Last reported BM was on 09/05 Code Status Do Not Resuscitate Hospital Course Summary Disclaimer The hospital course summary below is not to be considered part of the above Progress Note. Hospital Course Summary 08/21/16 Agree with admission orders. Hypothyroidism. TSH was over 10 when checked in April 2016. On reassessment yesterday, it had improved to 3.13. Continue levothyroxine. Labs reviewed: CBC and CMP were unremarkable. Urinalysis was negative for UTI. Folate, iron, vitamin B12, hemoglobin A1c, all pending. Will also check prealbumin. Bradycardia: EKG revealed sinus bradycardia with a left axis deviation. Borderline hypotension: Monitor at this time. Patient had similarly low blood pressure upon admission to the [facility]. Shuffling gait, tremor, and nurses report rigidity: Consider neurologic evaluation for Parkinson's. 08/22/16 Labs reviewed - unremarkable. VSS. Psychiatric notes reviewed. Medically stable. 08/30/16- Continue supportive care. Need to consider CT of the head if not done elsewhere. Repeat labs in am. Assess RPR as well. BP is a bit low- push fluids. Likely due to antipsychotics. Consider neurology eval. for diagnosis of gait instability, rigidity. (Bill SECURITY INSTALLATION TECHNICIAN visit only). 09/01/16 Staff is going to call the [place] and see if he's had a previous head CT. BP continues to run low - encourage fluids. Labs were done on 08/31/16 - unremarkable. Psych notes reviewed - over the last few days Depakote was started to target anger and Seroquel dose has been adjusted. 09/05/16 Yuan is somnolent this morning at the breakfast table. Did discuss medications with Dr Cui. Will change Flexeril to scheduled only at HS and otherwise keep it PRN. He is sleeping during the night which is a improvement. Continue with oxycodone as needed for pain control. BP is well controlled. Will add Miralax daily for bowel motivation. Last reported BM was on 09/05 ROSALEE GLASS APRN Sep 05, 2016 10:50
[2016-09-05] MEDS: POLYETHYL.GLYCOL 3350 PACKET 17gm PO SCH (11:51)
--- NOTE | 2016-09-05 12:11 | NUR ---
Behaviors Pt combative during cares, kicking, hitting, and squeezing staff's hands during cares. Pt difficult to redirect. No prns given at this time; pt calmed once cares completed, will continue to monitor.
--- NOTE | 2016-09-05 12:52 | NUR ---
STERLING PARRA IS ANTICIPATING D/C FOR THURSDAY OF NEXT WEEK. STERLING SPOKE WITH CHOLO DOOR MAKER FROM [facility] AND SHE IS AWARE OF ANTICIPATED D/C PLAN FOR PT. CHOLO WILL SET UP TRANSPORTATION AND CONTACT STERLING WITH A ADMISSIONS COUNSELOR TIME. CHOLO AWARE TO CONTACT STERLING IF NEEDS ARISE.
--- NOTE | 2016-09-05 15:01 | GENPN ---
Chika Subjective Date DATE: 09/05/16 TIME: 10:12 Subjective/Severity of Illness Medications Current Medications Medications (Trade) Dose Ordered Sig/Raymon Start Time Stop Time Status Last Admin Dose Admin Donepezil HCl (Aricept) 10 mg HS 08/21/16 21:00 09/04/16 19:42 10 MG Levothyroxine Sodium (Synthroid) 125 mcg ACB 08/21/16 06:30 09/05/16 05:46 125 MCG Mirtazapine (Remeron) 7.5 mg HS 08/21/16 21:00 09/04/16 19:42 7.5 MG Miscellaneous Medication (May use PRN orders) 1 PRN PRN 08/20/16 23:30 Haloperidol (Haldol) 0.5 mg Q6H PRN 08/20/16 23:30 08/31/16 21:10 0.5 MG Lorazepam (Ativan) 0.5 mg Q6H PRN 08/20/16 23:30 09/04/16 23:32 0.5 MG Lorazepam (Ativan) 0.5 mg Q6H PRN 08/20/16 23:30 Haloperidol Lactate (Haldol 5 Mg/ml Inj) 0.5 mg Q6H PRN 08/20/16 23:30 Lorazepam (Ativan Intensol) 0.5 mg Q6H PRN 08/21/16 03:15 08/30/16 04:33 0.5 MG Haloperidol (Haldol Liquid) 0.5 mg Q6H PRN 08/21/16 03:15 09/02/16 21:57 0.5 MG Acetaminophen (Tylenol Regular Strength) 1-2 tabs Q5H PRN 08/22/16 23:45 09/01/16 21:45 650 MG Lorazepam (Ativan) 1 mg HS 08/25/16 21:00 09/04/16 19:42 1 MG Quetiapine Fumarate (Seroquel) 25 mg BID 08/25/16 21:00 08/26/16 10:49 DC 08/26/16 08:58 25 MG Quetiapine Fumarate (Seroquel) 25 mg DAILY 08/27/16 09:00 08/27/16 12:12 DC Quetiapine Fumarate (Seroquel) 50 mg HS 08/26/16 21:00 08/27/16 12:12 DC 08/26/16 20:24 50 MG Quetiapine Fumarate (Seroquel) 100 mg HS 08/27/16 21:00 08/30/16 10:31 DC 08/29/16 19:08 100 MG Quetiapine Fumarate (Seroquel) 50 mg DAILY 08/28/16 09:00 08/29/16 09:24 DC 08/28/16 09:06 50 MG Cyclobenzaprine HCl (Flexeril) 5 mg Q8H PRN 08/28/16 02:00 09/03/16 10:51 5 MG Divalproex Sodium (Depakote) 250 mg BID 08/28/16 21:00 08/30/16 11:24 DC 08/30/16 10:35 250 MG Quetiapine Fumarate (Seroquel) 50 mg DAILY 08/30/16 09:00 08/30/16 09:00 DC Quetiapine Fumarate (Seroquel) 50 mg DAILY 08/29/16 09:30 08/30/16 10:30 DC 08/29/16 09:30 50 MG Quetiapine Fumarate (Seroquel) 25 mg DAILY 08/31/16 09:00 09/05/16 08:30 25 MG Quetiapine Fumarate (Seroquel) 150 mg HS 08/30/16 21:00 09/04/16 19:41 150 MG Divalproex Sodium (Depakote Sprinkle) 250 mg BID 08/30/16 21:00 09/01/16 21:43 DC 09/01/16 19:56 250 MG Divalproex Sodium (Depakote Sprinkle) 250 mg DAILY 09/02/16 09:00 09/05/16 08:29 250 MG Divalproex Sodium (Depakote Sprinkle) 500 mg HS 09/02/16 21:00 09/04/16 19:41 500 MG Oxycodone HCl (Oxycodone Oral Solution) 5 mg Q4H PRN 09/02/16 22:30 09/05/16 05:46 5 MG Cyclobenzaprine HCl (Flexeril) 5 mg TID 09/03/16 21:00 09/05/16 08:29 5 MG Subjective Patient seen and chart reviewed. Case discussed with treatment team. Patient is sitting in dayroom in a wheelchair and attempts to cooperate with interview but has very limited communication skills. He continues to be resistive to physical exam but rigidity does not appear to have worsened in his wrists. Nursing were concerned that patient seemed to be more stiff and in pain this morning. Per nursing staff, patient was cooperative with cares throughout the day yesterday but continues to have episodic evening agitation. He was physically combative with evening cares last night and was given PRN Haldol 0.5mg PO at 2332. Patient then slept 10.75 hours overnight. Appetite good. No concern for SI, HI. Not observed responding to internal stimuli. Hospitalist suggested CT of head; agree if patient is able to cooperate. [facility] V[facility]. Time of Service: 07:45 Start Time: 09:50 Stop Time: 10:10 Care >50% of this visit spent in counseling/coordination care. [facility] Exam Vitals Vital Signs Date Time Temp Pulse Resp B/P Pulse Ox O2 Delivery O2 Flow Rate FiO2 09/05/16 08:33 97.2 78 14 107/71 98 Room Air Physical examination performed by the hospitalist. Height (Feet): 5 Height (Inches): 10.00 Mental Status Exam Muscle Strength/Tone: Rigid Dressing: Casual Grooming: Fair Attitude: Combative (at times in evening) Motor Activity: Retardation, Tremors Eye Contact: Poor Speech: Slowed Volume: Soft Rhythm: Mumbled, Paucity of Language Sensory: Alert Orientation: Disoriented to time, Disoriented to place, Disoriented to situation, Oriented to person Mood: Neutral Affect: Blunted, Labile Rate of Thoughts: Delayed Thought Organization: Confused Associations: Illogical Abstract Reasoning: Impaired, concrete Computation: Poor Computation Thought Content: Other (Poverty of thought) Perception/Psychotic: Perception Normal Attention Span/Concentration: Inattentive Language: Naming Impaired Fund of Knowledge: Poor fund of knowledge Memory: Poor-immediate, Poor-recent, Poor-remote Suicidal Ideation: None Homicidal Ideation: None Insight: Impaired Judgment: Impaired Impulse Control: Other (Worse in evening, improving) Assessment and Plan (1) Major neurocognitive disorder Assessment: Possibly due to Parkinsonian type or Subcortical etiology. 1. Hold Risperidone and Haloperidol. Cont Mirtazapine 2. Observe patient on the unit 3. ST to see patient for swallow test\ 08/22/16 Continue current care 08/23/16 continue current care 08/24/16 Continue current care 08/25/16: Will discuss antipsychotic use with son/DPWILLIAM Figueroa ([phone]) and start Seroquel 25mg PO BID if he consents; plan to start Ativan 1mg PO HS to target insomnia as well. 08/26/16: Increase Seroquel to 25mg PO q AM and 50mg PO q HS; titrate slowly to effect while monitoring effect on gait/rigidity. 08/27/16: Increase Seroquel to 50mg PO q AM and 100mg PO q HS; titrate slowly to effect while monitoring effect on gait/rigidity. 08/28/16: Start Depakote 250mg PO BID to target anger. 08/29/16 Continue current care 08/30/16 Change Seroquel to 25mg daily and 150mg PO QHS 08/31/16 Continue current care 09/01/16: Increase Depakote to 250mg PO q AM and 500mg PO q HS to target continued mood lability. 09/02/16: Patient will receive increased dose of Depakote tonight at bedtime; continue current care otherwise. Improving overall. 09/03/16: Will schedule Flexeril 5mg PO TID at 0800, 1500, 2100. Continue current care otherwise; Depakote has yet to reach steady-state level since increasing dose. 09/04/16: Continue current care as patient is improving - sleep is biggest concern right now. Will continue to monitor for need of any additional bedtime PRNs. 09/05/16: Will increase HS Ativan to 2mg, obtain VPA trough level in AM and adjust accordingly, check UA to r/o UTI, obtain CT of head if patient able to cooperate. (2) Hypothyroidism (3) Sensorineural hearing loss VAUGHN PARRA MD Sep 05, 2016 10:12
--- NOTE | 2016-09-05 16:04 | NUR ---
Status Pt only ate one bite of breakfast and only a few bites of lunch. Pt had aggression with hitting, kicking, and squeezing hands during cares in the afternoon. Pt did take medications with no issues, crushed in pudding. Pt has not received any prn's this shift; calmed once cares were done. Pt has been mumbled, hard to understand. He has not ambulated yet today, is leaning backwards and not wanting to move his feet. Pt has used wheelchair much of the day and been a x2 assist with transfers. No notice of any hallucinations today during this shift. Pt is currently in dayroom with staff present, will continue to monitor.
[2016-09-05 16:17] VITALS: BP 122/68; PULSE 87; RESP 16; TEMP 98.7; O2SAT 98
--- NOTE | 2016-09-05 18:55 | NUR ---
Summary Pt has not eaten well today; only bites of each meal. Has taken meds when given crushed. Pt combative with cares, kicking, hitting, squeezing. Pt has need 3 staff with cares. Pt has been restless but unable to walk on his own today; and won't let anyone help him. Pt currently in dayroom with staff sitting by him.
[2016-09-05] MEDS: MIRTAZAPINE 15 MG TABLET PO SCH (19:54)
[2016-09-05] MEDS: DONEPEZIL 10 MG TABLET PO SCH (19:54)
[2016-09-05] MEDS: LORAZEPAM 1 MG TABLET PO SCH (19:55)
--- NOTE | 2016-09-05 19:55 | NUR ---
prn given Pt is in dayroom, restless, pulling and pushing at staff, pt is squeezing hands tightly, pt keeps attempting to stand, pt stands up and starts to fall back and staff has to hold on to patient. Pt grimacing and clinching his teeth and hands. Pt given hs meds crushed in pudding and Oxycodone given, pt remains in dayroom with staff. will monitor pt.
[2016-09-05 20:00] VITALS: RESP 18
[2016-09-05 20:29] VITALS: BP 124/65; PULSE 82; RESP 18; TEMP 98.2; O2SAT 97
--- NOTE | 2016-09-05 21:00 | NUR ---
prn update Pt is in dayroom with staff, starting to fall asleep in the recliner, pt taken to room with assist of 2, pt assisted to bed changed, pt had no behaviors or aggression noted. Pt is now in bed with 2 bed rails up and bed alarm on.
--- NOTE | 2016-09-05 21:15 | NUR ---
bedrest Pt went to sleep at 21:15, pt is in bed with 2 bed rails up and bed alarm on
--- NOTE | 2016-09-06 01:39 | NUR ---
Chart Check 24 hour chart check completed
--- NOTE | 2016-09-06 07:15 | NUR ---
shift summary Pt is alert and orientated x1, pt resistive with cares, pt did allow staff to change him three times during master black belt, pt allowed labs to be drawn this morning. Pt needs to have a UA collected, pt incontinent overnight. Pt did have visual hallucinations at the start of shift wanting to grab at stuff in the air. Pt did receive a prn dose of Oxycodone elixer at 19:55 pt was swatting, kicking at staff. Pt is unsteady on his feet, pt leans back when standing, pt is up with assist x2 with gait belt. Pt is currently in bed with 2 bed rails up and bed alarm on.
[2016-09-06 08:23] VITALS: BP 118/71; PULSE 61; RESP 14; TEMP 97.4; O2SAT 98
--- NOTE | 2016-09-06 10:15 | NUR ---
Patient slept 9.25 hours last night
[2016-09-06] MEDS: LEVOTHYROXINE 125 MCG TABLET PO SCH (10:26)
[2016-09-06] MEDS: QUETIAPINE 50 MG TABLET PO SCH ×2 (10:27→19:46)
[2016-09-06] MEDS: POLYETHYL.GLYCOL 3350 PACKET 17gm PO SCH (10:27)
[2016-09-06] MEDS: DIVALPROEX SPRINKLE 125 MG CAPSULE PO SCH ×3 (10:27→19:47)
--- NOTE | 2016-09-06 11:40 | NUR ---
ST order received and chart reviewed. ST attempted swallow eval on Thursday, but pt was not awake/alert enough to participate. He took 2 swallows of thin liquid by straw without overt s/s aspiration. With the next bolus, he held it in his mouth and did not swallow. With max cues to alert, the patient eventually swallowed. Additional trials were not presented as pt was not alert enough. ST will follow and will complete eval when the patient is able.
--- NOTE | 2016-09-06 12:38 | GENPN ---
[facility] Subjective Date DATE: 09/06/16 TIME: 06:31 Subjective/Severity of Illness Medications Current Medications Medications (Trade) Dose Ordered Sig/Raymon Start Time Stop Time Status Last Admin Dose Admin Donepezil HCl (Aricept) 10 mg HS 08/21/16 21:00 09/05/16 19:54 10 MG Levothyroxine Sodium (Synthroid) 125 mcg ACB 08/21/16 06:30 09/05/16 05:46 125 MCG Mirtazapine (Remeron) 7.5 mg HS 08/21/16 21:00 09/05/16 19:54 7.5 MG Miscellaneous Medication (May use PRN orders) 1 PRN PRN 08/20/16 23:30 Haloperidol (Haldol) 0.5 mg Q6H PRN 08/20/16 23:30 08/31/16 21:10 0.5 MG Lorazepam (Ativan) 0.5 mg Q6H PRN 08/20/16 23:30 09/04/16 23:32 0.5 MG Lorazepam (Ativan) 0.5 mg Q6H PRN 08/20/16 23:30 Haloperidol Lactate (Haldol 5 Mg/ml Inj) 0.5 mg Q6H PRN 08/20/16 23:30 Lorazepam (Ativan Intensol) 0.5 mg Q6H PRN 08/21/16 03:15 08/30/16 04:33 0.5 MG Haloperidol (Haldol Liquid) 0.5 mg Q6H PRN 08/21/16 03:15 09/02/16 21:57 0.5 MG Acetaminophen (Tylenol Regular Strength) 1-2 tabs Q5H PRN 08/22/16 23:45 09/01/16 21:45 650 MG Lorazepam (Ativan) 1 mg HS 08/25/16 21:00 09/05/16 12:28 DC 09/04/16 19:42 1 MG Quetiapine Fumarate (Seroquel) 25 mg BID 08/25/16 21:00 08/26/16 10:49 DC 08/26/16 08:58 25 MG Quetiapine Fumarate (Seroquel) 25 mg DAILY 08/27/16 09:00 08/27/16 12:12 DC Quetiapine Fumarate (Seroquel) 50 mg HS 08/26/16 21:00 08/27/16 12:12 DC 08/26/16 20:24 50 MG Quetiapine Fumarate (Seroquel) 100 mg HS 08/27/16 21:00 08/30/16 10:31 DC 08/29/16 19:08 100 MG Quetiapine Fumarate (Seroquel) 50 mg DAILY 08/28/16 09:00 08/29/16 09:24 DC 08/28/16 09:06 50 MG Cyclobenzaprine HCl (Flexeril) 5 mg Q8H PRN 08/28/16 02:00 09/03/16 10:51 5 MG Divalproex Sodium (Depakote) 250 mg BID 08/28/16 21:00 08/30/16 11:24 DC 08/30/16 10:35 250 MG Quetiapine Fumarate (Seroquel) 50 mg DAILY 08/30/16 09:00 08/30/16 09:00 DC Quetiapine Fumarate (Seroquel) 50 mg DAILY 08/29/16 09:30 08/30/16 10:30 DC 08/29/16 09:30 50 MG Quetiapine Fumarate (Seroquel) 25 mg DAILY 08/31/16 09:00 09/05/16 08:30 25 MG Quetiapine Fumarate (Seroquel) 150 mg HS 08/30/16 21:00 09/05/16 19:53 150 MG Divalproex Sodium (Depakote Sprinkle) 250 mg BID 08/30/16 21:00 09/01/16 21:43 DC 09/01/16 19:56 250 MG Divalproex Sodium (Depakote Sprinkle) 250 mg DAILY 09/02/16 09:00 09/05/16 08:29 250 MG Divalproex Sodium (Depakote Sprinkle) 500 mg HS 09/02/16 21:00 09/05/16 19:54 500 MG Oxycodone HCl (Oxycodone Oral Solution) 5 mg Q4H PRN 09/02/16 22:30 09/05/16 19:55 5 MG Cyclobenzaprine HCl (Flexeril) 5 mg TID 09/03/16 21:00 09/05/16 10:44 DC 09/05/16 08:29 5 MG Cyclobenzaprine HCl (Flexeril) 5 mg HS 09/05/16 21:00 09/05/16 19:54 5 MG Polyethylene Glycol (Miralax) 17 g DAILY 09/05/16 11:00 09/05/16 11:51 17 G Lorazepam (Ativan) 2 mg HS 09/05/16 21:00 09/05/16 19:55 2 MG Subjective Patient seen and chart reviewed. RN reports he was admitted secondary to behaviors of combativeness and uncooperative w cares related to dementia. RN reports that his behavior has remained erratic at times. Having difficulty walking, unstead. Took a swing at the REFERRAL AND INFORMATION AIDE she reports. Takes meds in pudding. RN reports overall he is more cooperative w cares than prior to admission. has allowed them to change him throughout the night without combativeness. Alert, Oriented to self only. Slept thru night except for up due to incontinence. Appetite is poor yesterday. Time of Service: 06:45 Start Time: 06:45 Stop Time: 07:00 Care >50% of this visit spent in counseling/coordination care. [facility] Exam Vitals Vital Signs Date Time Temp Pulse Resp B/P Pulse Ox O2 Delivery O2 Flow Rate FiO2 09/05/16 20:29 98.2 82 18 124/65 97 Room Air Physical examination performed by the hospitalist. Height (Feet): 5 Height (Inches): 10.00 Mental Status Exam Dressing: Casual Grooming: Fair Attitude: Uncooperative Speech: Normal Sensory: Alert Orientation: Disoriented to time, Disoriented to place, Disoriented to situation, Oriented to person Mood: Irritable Affect: Labile Thought Organization: Disorganized, Confused Attention Span/Concentration: Distractable Memory: Poor-recent Suicidal Ideation: None Homicidal Ideation: None Insight: Poor Judgment: Poor Impulse Control: Poor Assessment and Plan (1) Major neurocognitive disorder Assessment: Possibly due to Parkinsonian type or Subcortical etiology. 1. Hold Risperidone and Haloperidol. Cont Mirtazapine 2. Observe patient on the unit 3. ST to see patient for swallow test\ 08/22/16 Continue current care 08/23/16 continue current care 08/24/16 Continue current care 08/25/16: Will discuss antipsychotic use with son/DPOA Henry ([phone]) and start Seroquel 25mg PO BID if he consents; plan to start Ativan 1mg PO HS to target insomnia as well. 08/26/16: Increase Seroquel to 25mg PO q AM and 50mg PO q HS; titrate slowly to effect while monitoring effect on gait/rigidity. 08/27/16: Increase Seroquel to 50mg PO q AM and 100mg PO q HS; titrate slowly to effect while monitoring effect on gait/rigidity. 08/28/16: Start Depakote 250mg PO BID to target anger. 08/29/16 Continue current care 08/30/16 Change Seroquel to 25mg daily and 150mg PO QHS 08/31/16 Continue current care 09/01/16: Increase Depakote to 250mg PO q AM and 500mg PO q HS to target continued mood lability. 09/02/16: Patient will receive increased dose of Depakote tonight at bedtime; continue current care otherwise. Improving overall. 09/03/16: Will schedule Flexeril 5mg PO TID at 0800, 1500, 2100. Continue current care otherwise; Depakote has yet to reach steady-state level since increasing dose. 09/04/16: Continue current care as patient is improving - sleep is biggest concern right now. Will continue to monitor for need of any additional bedtime PRNs. 09/05/16: Will increase HS Ativan to 2mg, obtain VPA trough level in AM and adjust accordingly, check UA to r/o UTI, obtain CT of head if patient able to cooperate. 09/06/16: VPA level this AM. Increase Depakote to 250/250/500. If cooperative enough today, CT scan. (2) Hypothyroidism (3) Sensorineural hearing loss CAROLINA FLORES MD Sep 06, 2016 06:36
[2016-09-06] MEDS: LORAZEPAM 0.5 MG TABLET PO PRN (14:35)
[2016-09-06] MEDS: CYCLOBENZAPRINE 5 MG TABLET PO SCH (14:35)
--- NOTE | 2016-09-06 15:00 | NUR ---
Pain/Behaviors Patient is rigid and stiff in his body movements, is noted to have facial grimacing and increased hand tremor. Staff assist patient to the bathroom as this is typical behavior if he has been incontinent. In the bathroom patient begins yelling out, squeezing and trying to hit with closed fist, tries to bite this RN's hand then the other CAR FERRIER. Staff provide continual explanation of cares during cares. Once on the toilet (no incontinent episode) patient appears to relax more though once staff have him back up to walk out he again tries to push at staff at squeezes tightly yelling loudly "help help help!". Once cares are finished patient sits in the day room. Posturing remains tense and guarded, shoulders are very tense and continued facial grimacing notes. Flexeril given for pain and Ativan 0.5mg at this time prior to straight cath to obtain ordered UA
[2016-09-06 16:00] VITALS: BP 109/75; PULSE 62; RESP 16; TEMP 97.4; O2SAT 98
--- NOTE | 2016-09-06 17:00 | NUR ---
UA Collection Straight cath performed using sterile technique; obtained 100cc light straw clear urine. Staff provide education to patient prior to procedure but due to patient's significant cognitive impairment staff are unable to verify patient's understanding. 3 staff present in the room at that time. Initially patient tried hitting and kicking but one staff member at the [facility] continued to talk to him and staff were able to obtain urine without too much difficulty. UA sent to lab per order
[2016-09-06 17:49] LABS: BLOOD, URINE TRACE-LYSED (NEGATIVE); COLOR,URINE YELLOW (YELLOW); LEUKOCYTE ESTERASE ,URINE NEGATIVE (NEGATIVE); NITRITE,URINE NEGATIVE (NEGATIVE)
--- NOTE | 2016-09-06 19:10 | NUR ---
Shift Summary Patient has been fatigued most of this shift; sleeps in until 1015 and then sleeps and additional 3 hours throughout this shift. (12-03). His gait is more steady then what was noted when this RN worked with him last but still used the wheelchair twice in the hallway when staff felt necessary. He slept through breakfast and through lunch, ate 2 ice creams this afternoon then ate 50% of supper independently. He took medications crushed in ice cream as he has a tendency to chew them. Presently he is sitting quietly in the day room with staff
[2016-09-06 19:35] VITALS: BP 137/72; PULSE 85; RESP 16; TEMP 98.5; O2SAT 99
[2016-09-06] MEDS: CYCLOBENZAPRINE 5 MG TABLET PO PRN (19:46)
[2016-09-06] MEDS: LORAZEPAM 1 MG TABLET PO SCH (19:46)
[2016-09-06] MEDS: MIRTAZAPINE 15 MG TABLET PO SCH (19:47)
[2016-09-06] MEDS: DONEPEZIL 10 MG TABLET PO SCH (19:47)
[2016-09-06] MEDS: OXYCODONE 10 MG/0.5 ML PO PRN (21:51)
--- NOTE | 2016-09-06 23:17 | NUR ---
Status/PRN/PRN Follow-Up Assumed patient care at 1914 and assessment completed at 1934. Patient is in dayroom recliner at time of assessment; quiet affect/guarded behavior. Does not answer orientation questions but does respond when name is called; with assessment he is mildly resistive stating in a gruff/irritated tone, "What are you doing?" Does not appear to comprehend provided rationale and does not follow simple commands. VS are stable. Takes medications - crushed and in ice cream (feeds self); no coughing or difficulty is noted with swallowing. Remains mildly resistive with HS cares although he is not physically aggressive and he distracts easily. Incontinent of urine and does not notify staff of needs. No hallucinations are noted. Restless/tense/frowns with activity; Oxycodone oral solution 5 mg. given po at 2150. Patient falls asleep by 2214 and remains sleeping at the current time.
--- NOTE | 2016-09-06 23:40 | NUR ---
Bedtime Patient is in bed at 2130 and is asleep by 2215. He slept 4.25 hours on day shift. He transfers to/from wheelchair with x1-2 assist; takes unsteady steps (stooped posture) and needs significant cueing for any direction/activity. Sleeping quietly at the current time. Bed alarm is on and side rails are up x3.
--- NOTE | 2016-09-07 01:51 | NUR ---
Chart Check 24 hour chart check completed
[2016-09-07] MEDS: LEVOTHYROXINE 125 MCG TABLET PO SCH ×2 (05:29→06:20)
--- NOTE | 2016-09-07 05:58 | NUR ---
Summary Patient has been CANDIS to person only this shift. Quiet/flat affect and guarded behavior last evening; seemingly poor comprehension of staff attempts to reassure/explain. Mildly resistive to cares/cueing although no physically or verbally aggressive behaviors are exhibited last evening; he distracts/redirects easily. Compliant with medications crushed and placed in ice cream. Oxycodone given prn for s/s pain/discomfort appeared to be effective as patient calms and rests well following administration. Incontinent of urine; unsteady gait and x1-2 assist provided with transfers to/from wheelchair. No evidence of hallucinations are noted. Physically and verbally aggressive with cares this a.m. (kicks, hits with a closed fist, cusses, grabs/pinches, and attempts to bite). Calms when left undisturbed. Refuses A.M. medication. Resting quietly at the current time. Bed rails are up x3 and bed alarm is on.
[2016-09-07 08:59] VITALS: BP 119/69; PULSE 63; RESP 16; TEMP 97.6; O2SAT 94
--- NOTE | 2016-09-07 10:00 | NUR ---
Patient slept 10 hours last night
[2016-09-07] MEDS: QUETIAPINE 25 MG TABLET PO SCH (10:32)
[2016-09-07] MEDS: DIVALPROEX SPRINKLE 125 MG CAPSULE PO SCH ×3 (10:32→19:42)
[2016-09-07] MEDS: POLYETHYL.GLYCOL 3350 PACKET 17gm PO SCH (10:32)
--- NOTE | 2016-09-07 11:29 | GENPN ---
[facility] Subjective Date DATE: 09/07/16 TIME: 06:10 Subjective/Severity of Illness Medications Current Medications Medications (Trade) Dose Ordered Sig/Raymon Start Time Stop Time Status Last Admin Dose Admin Donepezil HCl (Aricept) 10 mg HS 08/21/16 21:00 09/06/16 19:47 10 MG Levothyroxine Sodium (Synthroid) 125 mcg ACB 08/21/16 06:30 09/06/16 10:26 125 MCG Mirtazapine (Remeron) 7.5 mg HS 08/21/16 21:00 09/06/16 19:47 7.5 MG Miscellaneous Medication (May use PRN orders) 1 PRN PRN 08/20/16 23:30 Haloperidol (Haldol) 0.5 mg Q6H PRN 08/20/16 23:30 08/31/16 21:10 0.5 MG Lorazepam (Ativan) 0.5 mg Q6H PRN 08/20/16 23:30 09/06/16 14:35 0.5 MG Lorazepam (Ativan) 0.5 mg Q6H PRN 08/20/16 23:30 Haloperidol Lactate (Haldol 5 Mg/ml Inj) 0.5 mg Q6H PRN 08/20/16 23:30 Lorazepam (Ativan Intensol) 0.5 mg Q6H PRN 08/21/16 03:15 08/30/16 04:33 0.5 MG Haloperidol (Haldol Liquid) 0.5 mg Q6H PRN 08/21/16 03:15 09/02/16 21:57 0.5 MG Acetaminophen (Tylenol Regular Strength) 1-2 tabs Q5H PRN 08/22/16 23:45 09/01/16 21:45 650 MG Lorazepam (Ativan) 1 mg HS 08/25/16 21:00 09/05/16 12:28 DC 09/04/16 19:42 1 MG Quetiapine Fumarate (Seroquel) 25 mg BID 08/25/16 21:00 08/26/16 10:49 DC 08/26/16 08:58 25 MG Quetiapine Fumarate (Seroquel) 25 mg DAILY 08/27/16 09:00 08/27/16 12:12 DC Quetiapine Fumarate (Seroquel) 50 mg HS 08/26/16 21:00 08/27/16 12:12 DC 08/26/16 20:24 50 MG Quetiapine Fumarate (Seroquel) 100 mg HS 08/27/16 21:00 08/30/16 10:31 DC 08/29/16 19:08 100 MG Quetiapine Fumarate (Seroquel) 50 mg DAILY 08/28/16 09:00 08/29/16 09:24 DC 08/28/16 09:06 50 MG Cyclobenzaprine HCl (Flexeril) 5 mg Q8H PRN 08/28/16 02:00 09/06/16 19:46 5 MG Divalproex Sodium (Depakote) 250 mg BID 08/28/16 21:00 08/30/16 11:24 DC 08/30/16 10:35 250 MG Quetiapine Fumarate (Seroquel) 50 mg DAILY 08/30/16 09:00 08/30/16 09:00 DC Quetiapine Fumarate (Seroquel) 50 mg DAILY 08/29/16 09:30 08/30/16 10:30 DC 08/29/16 09:30 50 MG Quetiapine Fumarate (Seroquel) 25 mg DAILY 08/31/16 09:00 09/06/16 11:06 DC 09/06/16 10:27 25 MG Quetiapine Fumarate (Seroquel) 150 mg HS 08/30/16 21:00 09/06/16 19:46 150 MG Divalproex Sodium (Depakote Sprinkle) 250 mg BID 08/30/16 21:00 09/01/16 21:43 DC 09/01/16 19:56 250 MG Divalproex Sodium (Depakote Sprinkle) 250 mg DAILY 09/02/16 09:00 09/06/16 12:41 DC 09/06/16 10:27 250 MG Divalproex Sodium (Depakote Sprinkle) 500 mg HS 09/02/16 21:00 09/06/16 19:47 500 MG Oxycodone HCl (Oxycodone Oral Solution) 5 mg Q4H PRN 09/02/16 22:30 09/06/16 21:51 5 MG Cyclobenzaprine HCl (Flexeril) 5 mg TID 09/03/16 21:00 09/05/16 10:44 DC 09/05/16 08:29 5 MG Cyclobenzaprine HCl (Flexeril) 5 mg HS 09/05/16 21:00 09/06/16 14:35 5 MG Polyethylene Glycol (Miralax) 17 g DAILY 09/05/16 11:00 09/06/16 10:27 17 G Lorazepam (Ativan) 2 mg HS 09/05/16 21:00 09/06/16 19:46 2 MG Quetiapine Fumarate (Seroquel) 25 mg DAILY 09/07/16 09:00 Divalproex Sodium (Depakote Sprinkle) 250 mg [id number] 09/06/16 14:00 09/06/16 14:36 250 MG Subjective Patient seen and chart reviewed. RN reports he was admitted secondary to behaviors of combativeness and uncooperative w cares related to dementia. RN reports that his behavior has remained erratic at times. Having difficulty walking, unsteady. RN reports he was kicking, biting, cursing, hitting and it took 4 of them to do his cares tonight. They report the pain meds seem to have helped more than anything. Ativan reportedly beneficial as well. I increased his Depakote yesterday and has tolerated it fairly well thus far. Time of Service: 06:00 Start Time: 06:00 Stop Time: 06:15 Care >50% of this visit spent in counseling/coordination care. [facility] Exam Vitals Vital Signs Date Time Temp Pulse Resp B/P Pulse Ox O2 Delivery O2 Flow Rate FiO2 09/06/16 19:35 85 16 09/06/16 19:35 98.5 137/72 99 Room Air Physical examination performed by the hospitalist. Height (Feet): 5 Height (Inches): 10.00 Mental Status Exam Muscle Strength/Tone: Normal Dressing: Casual Grooming: Fair Attitude: Uncooperative, Combative Eye Contact: Fair Speech: Normal Volume: Normal Rhythm: Appropriate Rhythm Sensory: Alert Orientation: Disoriented to time, Disoriented to place, Disoriented to situation, Oriented to person Mood: Irritable Affect: Congruent, Labile Thought Organization: Confused Attention Span/Concentration: Distractable Memory: Poor-recent Suicidal Ideation: None Homicidal Ideation: None Insight: Poor Judgment: Poor Impulse Control: Poor Laboratory Tests Test 09/06/16 07:10 09/06/16 17:17 Valproic Acid (Depakene) Level 45.8UG/ML Urine Collection Type Voided-not cc-midstr Urine Color Yellow Urine Turbidity Clear Urine pH 6.0 Urine Specific [place] 1.025 Urine Protein Negative Urine Glucose (UA) Negative Urine Ketones 1+ Urine Blood Trace-lysed Urine Nitrite Negative Urine Bilirubin Negative Urine Urobilinogen 1.0EU/DL Urine Leukocyte Esterase Negative Urinalysis Comment Microscopic not ind. Assessment and Plan (1) Major neurocognitive disorder Assessment: Possibly due to Parkinsonian type or Subcortical etiology. 1. Hold Risperidone and Haloperidol. Cont Mirtazapine 2. Observe patient on the unit 3. ST to see patient for swallow test\ 08/22/16 Continue current care 08/23/16 continue current care 08/24/16 Continue current care 08/25/16: Will discuss antipsychotic use with son/DPWILLIAM Figueroa ([phone]) and start Seroquel 25mg PO BID if he consents; plan to start Ativan 1mg PO HS to target insomnia as well. 08/26/16: Increase Seroquel to 25mg PO q AM and 50mg PO q HS; titrate slowly to effect while monitoring effect on gait/rigidity. 08/27/16: Increase Seroquel to 50mg PO q AM and 100mg PO q HS; titrate slowly to effect while monitoring effect on gait/rigidity. 08/28/16: Start Depakote 250mg PO BID to target anger. 08/29/16 Continue current care 08/30/16 Change Seroquel to 25mg daily and 150mg PO QHS 08/31/16 Continue current care 09/01/16: Increase Depakote to 250mg PO q AM and 500mg PO q HS to target continued mood lability. 09/02/16: Patient will receive increased dose of Depakote tonight at bedtime; continue current care otherwise. Improving overall. 09/03/16: Will schedule Flexeril 5mg PO TID at 0800, 1500, 2100. Continue current care otherwise; Depakote has yet to reach steady-state level since increasing dose. 09/04/16: Continue current care as patient is improving - sleep is biggest concern right now. Will continue to monitor for need of any additional bedtime PRNs. 09/05/16: Will increase HS Ativan to 2mg, obtain VPA trough level in AM and adjust accordingly, check UA to r/o UTI, obtain CT of head if patient able to cooperate. 09/06/16: VPA level this AM. Increase Depakote to 250/250/500. If cooperative enough today, CT scan. 09/07/16: VPA was 45. I increased Depakote to total of 1000mg per day but may be able to go higher yet. Would like to monitor for daytime sedation first. (2) Hypothyroidism (3) Sensorineural hearing loss CAROLINA FLORES MD Sep 07, 2016 06:14
--- NOTE | 2016-09-07 13:36 | NUR ---
Status Patient sleeps in until 1000; it is reported to this RN that patient is "mildly resistive" (pushes against staff and needs constant cuing and direction for tasks) but is not physically aggressive toward staff during cares. He eats 100% of breakfast and 25% of lunch with only set-up help from staff. He took medications crushed in pudding due to recent history of swallowing difficulties (none noted with either meal or thin liquids today) and tendency to chew meds when given whole. He has used the wheelchair for transport due to unsteady gait (leans backwards). Presently he is sitting in the day room; eyes closed but is not asleep
--- NOTE | 2016-09-07 15:28 | PNPDOC ---
Subjective Date DATE: 09/07/16 TIME: 15:22 Subjective Yuan is up in chair sleepy soundly. Does not awaken to my exam. Another patient reports "he has been sleeping all day." Chart is reviewed- behaviors continue variable. Medications are being adjusted. Objective Vital Signs Vital signs Vital Signs Date Time Temp Pulse Resp B/P Pulse Ox O2 Delivery O2 Flow Rate FiO2 09/07/16 08:59 97.6 63 16 119/69 94 Room Air Height (Feet): 5 Height (Inches): 10.00 Weight (Kilograms): 87.100 General General Appearance: No Acute Distress Comments Resting quietly. Neck (Brief) Neck: FOUND: midline Respiratory (Brief) Respiratory: FOUND: clear all roberts, equal bilaterally, symmetrical, NOT FOUND : rales, wheezes Cardiovascular (Brief) Cardiac: FOUND: pedal edema (2+ LE edema. ), regular rate, regular rhythm Abdomen (Brief) Abdominal: FOUND: BS normo active x4, soft, NOT FOUND: distended, tender Extremities (Brief) Extremity : Side: Bilateral Extremity Finding: FOUND: edema Integumentary (Brief) Integumentary: FOUND: dry, warm Laboratory Laboratory Laboratory Tests Test 09/06/16 07:10 09/06/16 17:17 Valproic Acid (Depakene) Level 45.8UG/ML Urine Collection Type Voided-not cc-midstr Urine Color Yellow Urine Turbidity Clear Urine pH 6.0 Urine Specific [place] 1.025 Urine Protein Negative Urine Glucose (UA) Negative Urine Ketones 1+ Urine Blood Trace-lysed Urine Nitrite Negative Urine Bilirubin Negative Urine Urobilinogen 1.0EU/DL Urine Leukocyte Esterase Negative Urinalysis Comment Microscopic not ind. Sepsis Diagnostic Criteria Sepsis Confirmed/Suspected Infection: No Assessment & Plan Problems: (1) Dementia with behavioral disturbance Status: Acute Qualifiers: Dementia type: unspecified type Qualified Codes: F03.91 - Unspecified dementia with behavioral disturbance (2) Sinus bradycardia Status: Resolved (3) Hypothyroidism Status: Chronic (4) Sensorineural hearing loss Status: Chronic (5) Overweight (BMI 25.0-29.9) Status: Chronic Plan/Intensity of Service 09/07/16- Pt is resting quietly. Medications are being adjusted due to variable behavior. DC planning is noted- potential DC on Thursday. UA is assessed. No acute sx of UTI noted. Last BM 09/05. Labs are reviewed. Flexeril adjusted to decrease sedation. PRN oxycodone. Continue to attempt pain control. Mild edema, but does not appear fluid overloaded. Continue to monitor. Code Status Do Not Resuscitate Hospital Course Summary Disclaimer The hospital course summary below is not to be considered part of the above Progress Note. Hospital Course Summary 08/21/16 Agree with admission orders. Hypothyroidism. TSH was over 10 when checked in April 2016. On reassessment yesterday, it had improved to 3.13. Continue levothyroxine. Labs reviewed: CBC and CMP were unremarkable. Urinalysis was negative for UTI. Folate, iron, vitamin B12, hemoglobin A1c, all pending. Will also check prealbumin. Bradycardia: EKG revealed sinus bradycardia with a left axis deviation. Borderline hypotension: Monitor at this time. Patient had similarly low blood pressure upon admission to the [facility]. Shuffling gait, tremor, and nurses report rigidity: Consider neurologic evaluation for Parkinson's. 08/22/16 Labs reviewed - unremarkable. VSS. Psychiatric notes reviewed. Medically stable. 08/30/16- Continue supportive care. Need to consider CT of the head if not done elsewhere. Repeat labs in am. Assess RPR as well. BP is a bit low- push fluids. Likely due to antipsychotics. Consider neurology eval. for diagnosis of gait instability, rigidity. (Bill [employer] visit only). 09/01/16 Staff is going to call the [facility] and see if he's had a previous head CT. BP continues to run low - encourage fluids. Labs were done on 08/31/16 - unremarkable. Psych notes reviewed - over the last few days Depakote was started to target anger and Seroquel dose has been adjusted. 09/05/16 Yuan is somnolent this morning at the breakfast table. Did discuss medications with Dr Cui. Will change Flexeril to scheduled only at HS and otherwise keep it PRN. He is sleeping during the night which is a improvement. Continue with oxycodone as needed for pain control. BP is well controlled. Will add Miralax daily for bowel motivation. Last reported BM was on 09/0509/07/16- Pt is resting quietly. Medications are being adjusted due to variable behavior. DC planning is noted- potential DC on Thursday. UA is assessed. No acute sx of UTI noted. Last BM 09/05. Labs are reviewed. Flexeril adjusted to decrease sedation. PRN oxycodone. Continue to attempt pain control. Mild edema, but does not appear fluid overloaded. Continue to monitor. LIBERTAD CANTU [employer] SAL[employer] MANAGER Sep 07, 2016 15:25
[2016-09-07 16:00] VITALS: BP 106/67; PULSE 84; RESP 16; TEMP 98.3; O2SAT 99
--- NOTE | 2016-09-07 18:45 | NUR ---
Shift Summary Patient stays in the day room most of the shift, sleeping 2 hours this afternoon otherwise awake and restless: attempting to stand from the chair without staff assistance; sometimes able to completely stand otherwise legs never straighten and he supports his weight on his arms. He leans back when standing and is extremely unsteady necessitating the use of the wheelchair for transport. During hygiene cares today he has been resistive: squeezing staff's hands and "stiffens" when staff try to help him sit. He has not been combative (e.g. swinging at staff or trying to bite). Medications crushed throughout the shift. Presently he is sitting in the day room with staff
[2016-09-07 19:40] VITALS: BP 124/70; PULSE 92; RESP 18; TEMP 98.6; O2SAT 97
[2016-09-07] MEDS: DONEPEZIL 10 MG TABLET PO SCH (19:41)
[2016-09-07] MEDS: CYCLOBENZAPRINE 5 MG TABLET PO SCH (19:42)
[2016-09-07] MEDS: MIRTAZAPINE 15 MG TABLET PO SCH (19:44)
[2016-09-07] MEDS: QUETIAPINE 50 MG TABLET PO SCH (19:45)
[2016-09-07] MEDS: LORAZEPAM 1 MG TABLET PO SCH (19:53)
[2016-09-07] MEDS: OXYCODONE 10 MG/0.5 ML PO PRN (21:30)
--- NOTE | 2016-09-08 01:44 | NUR ---
Status/PRN and Follow-Up Assumed patient care at 1914 and assessment completed at 1939. Patient spends the evening in dayroom recliner - quiet/dozing at the beginning of the shift and then with noted restlessness as the evening progresses. CANDIS to person only and with guarded behavior. Seemingly poor comprehension of environment and of staff attempts to communicate with him; he does not follow simple commands. Speech is mumbled and when understood, it is nonsensical. VS are stable. Compliant with medications, crushed and placed in ice cream; he does not appear to have any difficulty swallowing. Prune juice was given; last BM 4-21 (small) and slightly hypoactive bowel sounds - abdomen is soft to touch (+ flatus). Increasingly restless and tense this evening, becoming loud and argumentative (frowns) - unable to reassure/distract. Oxycodone oral solution 5 mg. given po at 2129. Incontinent of urine. Resistive with cares (grabs/kicks lightly at staff) but does not hit or attempt to bite. Bears weight with transfers (stooped posture) and takes only a couple of shuffled steps. No evidence of hallucinations are noted. Calms after prn medication and cares.
--- NOTE | 2016-09-08 02:05 | NUR ---
Bedtime Patient was in bed by 0 and asleep by 2214. He slept 2.25 hours on dayshi. Resting quietly at the current time. Bed alarm is on and side rails are up x3.
--- NOTE | 2016-09-08 02:47 | NUR ---
Chart Check 24 hour chart check completed
[2016-09-08] MEDS: LEVOTHYROXINE 125 MCG TABLET PO SCH (05:33)
--- NOTE | 2016-09-08 06:21 | NUR ---
Summary Patient has been oriented only to self this shift. Compliant with medications, crushed and placed in ice cream/pudding. He remains resistive to cares (despite explanations/reassurances); becomes tense and will grab at staff and squeeze tightly. With cares this morning, he attempts to bite and kick; he calms as soon as cares are completed. He often keeps his eyes closed and mumbles to himself - it is difficult to tell if he is responding to visual or auditory hallucinations. Resting quietly at the current time.
[2016-09-08] MEDS: QUETIAPINE 25 MG TABLET PO SCH (09:42)
[2016-09-08] MEDS: DIVALPROEX SPRINKLE 125 MG CAPSULE PO SCH ×3 (09:42→19:40)
[2016-09-08] MEDS: POLYETHYL.GLYCOL 3350 PACKET 17gm PO SCH (09:42)
[2016-09-08] MEDS: OXYCODONE 10 MG/0.5 ML PO PRN (12:42)
[2016-09-08 16:34] VITALS: BP 125/78; PULSE 70; RESP 16; TEMP 97.8; O2SAT 98
--- NOTE | 2016-09-08 16:37 | NUR ---
STERLING KATZ SPOKE WITH CHOLO FROM [place] AND SHE IS AWARE THAT PT WILL NOT D/C TOMORROW BUT WILL FOLLOW UP WITH CM TOMORROW REGARDING D/C PLANS. CHOLO IS AWARE OF INSURANCE PEER TO PEER REVIEW FOR TOMORROW.
[2016-09-08] MEDS ORDERED: MILK OF MAGNESIA 30 ML SUSP PO PRN (16:45)
--- NOTE | 2016-09-08 17:12 | NUR ---
Shift Summary Pt did sleep in today. Pt was cooperative with assessment. Pt was premedicated with pain Meds before shower was given today. Pt still tried to hit and bite staff during cares. Pt did calm after cares were complete. Pt has been in the dayroom resting in recliner this afternoon. Pt only ate bites of lunch, did drink all of a mighty shake and ice cream. Pt has not had any difficulty swallowing today. Pt has taken Meds crushed in pudding today, without difficulty.
--- NOTE | 2016-09-08 17:17 | GENPN ---
[facility] Subjective Date DATE: 09/08/16 TIME: 14:58 Subjective/Severity of Illness Medications Current Medications Medications (Trade) Dose Ordered Sig/Raymon Start Time Stop Time Status Last Admin Dose Admin Donepezil HCl (Aricept) 10 mg HS 08/21/16 21:00 09/07/16 19:41 10 MG Levothyroxine Sodium (Synthroid) 125 mcg ACB 08/21/16 06:30 09/08/16 05:33 125 MCG Mirtazapine (Remeron) 7.5 mg HS 08/21/16 21:00 09/07/16 19:44 7.5 MG Miscellaneous Medication (May use PRN orders) 1 PRN PRN 08/20/16 23:30 Haloperidol (Haldol) 0.5 mg Q6H PRN 08/20/16 23:30 08/31/16 21:10 0.5 MG Lorazepam (Ativan) 0.5 mg Q6H PRN 08/20/16 23:30 09/06/16 14:35 0.5 MG Lorazepam (Ativan) 0.5 mg Q6H PRN 08/20/16 23:30 Haloperidol Lactate (Haldol 5 Mg/ml Inj) 0.5 mg Q6H PRN 08/20/16 23:30 Lorazepam (Ativan Intensol) 0.5 mg Q6H PRN 08/21/16 03:15 08/30/16 04:33 0.5 MG Haloperidol (Haldol Liquid) 0.5 mg Q6H PRN 08/21/16 03:15 09/02/16 21:57 0.5 MG Acetaminophen (Tylenol Regular Strength) 1-2 tabs Q5H PRN 08/22/16 23:45 09/01/16 21:45 650 MG Lorazepam (Ativan) 1 mg HS 08/25/16 21:00 09/05/16 12:28 DC 09/04/16 19:42 1 MG Quetiapine Fumarate (Seroquel) 25 mg BID 08/25/16 21:00 08/26/16 10:49 DC 08/26/16 08:58 25 MG Quetiapine Fumarate (Seroquel) 25 mg DAILY 08/27/16 09:00 08/27/16 12:12 DC Quetiapine Fumarate (Seroquel) 50 mg HS 08/26/16 21:00 08/27/16 12:12 DC 08/26/16 20:24 50 MG Quetiapine Fumarate (Seroquel) 100 mg HS 08/27/16 21:00 08/30/16 10:31 DC 08/29/16 19:08 100 MG Quetiapine Fumarate (Seroquel) 50 mg DAILY 08/28/16 09:00 08/29/16 09:24 DC 08/28/16 09:06 50 MG Cyclobenzaprine HCl (Flexeril) 5 mg Q8H PRN 08/28/16 02:00 09/06/16 19:46 5 MG Divalproex Sodium (Depakote) 250 mg BID 08/28/16 21:00 08/30/16 11:24 DC 08/30/16 10:35 250 MG Quetiapine Fumarate (Seroquel) 50 mg DAILY 08/30/16 09:00 08/30/16 09:00 DC Quetiapine Fumarate (Seroquel) 50 mg DAILY 08/29/16 09:30 08/30/16 10:30 DC 08/29/16 09:30 50 MG Quetiapine Fumarate (Seroquel) 25 mg DAILY 08/31/16 09:00 09/06/16 11:06 DC 09/06/16 10:27 25 MG Quetiapine Fumarate (Seroquel) 150 mg HS 08/30/16 21:00 09/07/16 19:45 150 MG Divalproex Sodium (Depakote Sprinkle) 250 mg BID 08/30/16 21:00 09/01/16 21:43 DC 09/01/16 19:56 250 MG Divalproex Sodium (Depakote Sprinkle) 250 mg DAILY 09/02/16 09:00 09/06/16 12:41 DC 09/06/16 10:27 250 MG Divalproex Sodium (Depakote Sprinkle) 500 mg HS 09/02/16 21:00 09/07/16 19:42 500 MG Oxycodone HCl (Oxycodone Oral Solution) 5 mg Q4H PRN 09/02/16 22:30 09/08/16 12:42 5 MG Cyclobenzaprine HCl (Flexeril) 5 mg TID 09/03/16 21:00 09/05/16 10:44 DC 09/05/16 08:29 5 MG Cyclobenzaprine HCl (Flexeril) 5 mg HS 09/05/16 21:00 09/07/16 19:42 5 MG Polyethylene Glycol (Miralax) 17 g DAILY 09/05/16 11:00 09/08/16 09:42 17 G Lorazepam (Ativan) 2 mg HS 09/05/16 21:00 09/07/16 19:53 2 MG Quetiapine Fumarate (Seroquel) 25 mg DAILY 09/07/16 09:00 09/08/16 09:42 25 MG Divalproex Sodium (Depakote Sprinkle) 250 mg [id number] 09/06/16 14:00 09/08/16 09:42 250 MG Subjective Patient seen and chart reviewed. Case discussed with treatment team. Patient is resting in bed and is confused, with limited communication skills, but cooperative to the best of his ability through interview. Patient denies adverse side effects related to medications. Per staff, patient is relatively cooperative with no problematic behaviors during the day, but again became agitated and aggressive with overnight cares last night. This has decreased in intensity at least and has not required PRNs but continues to be problematic for nighttime caregivers. Much of patient's agitation seems to be related to pain. Patient slept 12+ hours overnight. Appetite is good. VSS. No psychotropic PRNs required in the past 24 hours. Time of Service: 06:00 Start Time: 10:20 Stop Time: 10:40 Care >50% of this visit spent in counseling/coordination care. [facility] Exam Vitals Vital Signs Date Time Temp Pulse Resp B/P Pulse Ox O2 Delivery O2 Flow Rate FiO2 09/07/16 19:40 98.6 92 18 124/70 97 Room Air Physical examination performed by the hospitalist. Height (Feet): 5 Height (Inches): 10.00 Mental Status Exam Muscle Strength/Tone: Rigid Dressing: Casual Grooming: Fair Attitude: Combative (overnight only) Motor Activity: Retardation Eye Contact: Poor Speech: Slowed Volume: Soft Rhythm: Mumbled, Paucity of Language Sensory: Alert Orientation: Disoriented to time, Disoriented to place, Disoriented to situation, Oriented to person Mood: Neutral Affect: Blunted (labile only overnight) Rate of Thoughts: Delayed Thought Organization: Confused Associations: Illogical Abstract Reasoning: Impaired, concrete Computation: Poor Computation Thought Content: Other (Poverty of thought) Perception/Psychotic: Perception Normal Attention Span/Concentration: Inattentive Language: Naming Impaired Fund of Knowledge: Poor fund of knowledge Memory: Poor-immediate, Poor-recent, Poor-remote Suicidal Ideation: None Homicidal Ideation: None Insight: Impaired Judgment: Impaired Impulse Control: Other (Limited but improving) Assessment and Plan (1) Major neurocognitive disorder Assessment: Possibly due to Parkinsonian type or Subcortical etiology. 1. Hold Risperidone and Haloperidol. Cont Mirtazapine 2. Observe patient on the unit 3. ST to see patient for swallow test\ 08/22/16 Continue current care 08/23/16 continue current care 08/24/16 Continue current care 08/25/16: Will discuss antipsychotic use with son/KANDACE Figueroa ([phone]) and start Seroquel 25mg PO BID if he consents; plan to start Ativan 1mg PO HS to target insomnia as well. 08/26/16: Increase Seroquel to 25mg PO q AM and 50mg PO q HS; titrate slowly to effect while monitoring effect on gait/rigidity. 08/27/16: Increase Seroquel to 50mg PO q AM and 100mg PO q HS; titrate slowly to effect while monitoring effect on gait/rigidity. 08/28/16: Start Depakote 250mg PO BID to target anger. 08/29/16 Continue current care 08/30/16 Change Seroquel to 25mg daily and 150mg PO QHS 08/31/16 Continue current care 09/01/16: Increase Depakote to 250mg PO q AM and 500mg PO q HS to target continued mood lability. 09/02/16: Patient will receive increased dose of Depakote tonight at bedtime; continue current care otherwise. Improving overall. 09/03/16: Will schedule Flexeril 5mg PO TID at 0800, 1500, 2100. Continue current care otherwise; Depakote has yet to reach steady-state level since increasing dose. 09/04/16: Continue current care as patient is improving - sleep is biggest concern right now. Will continue to monitor for need of any additional bedtime PRNs. 09/05/16: Will increase HS Ativan to 2mg, obtain VPA trough level in AM and adjust accordingly, check UA to r/o UTI, obtain CT of head if patient able to cooperate. 09/06/16: VPA level this AM. Increase Depakote to 250/250/500. If cooperative enough today, CT scan. 09/07/16: VPA was 45. I increased Depakote to total of 1000mg per day but may be able to go higher yet. Would like to monitor for daytime sedation first. 09/08/16: Schedule oxycodone 5mg PO q HS. May continue taking Flexeril back to 5mg PO TID if patient is not too sedated during day, but primarily need to target overnight agitation/aggression first. Depakote still increasing to new steady state after recent increase. (2) Hypothyroidism (3) Sensorineural hearing loss VAUGHN PARRA MD Sep 08, 2016 14:58
[2016-09-08] MEDS: DONEPEZIL 10 MG TABLET PO SCH (19:40)
[2016-09-08] MEDS: LORAZEPAM 1 MG TABLET PO SCH (19:40)
[2016-09-08] MEDS: MIRTAZAPINE 15 MG TABLET PO SCH (19:41)
[2016-09-08] MEDS: QUETIAPINE 50 MG TABLET PO SCH (19:41)
[2016-09-08] MEDS: CYCLOBENZAPRINE 5 MG TABLET PO SCH (19:42)
[2016-09-08] MEDS: OXYCODONE 10 MG/0.5 ML PO SCH (19:45)
[2016-09-08 21:00] VITALS: RESP 18
[2016-09-08 21:11] VITALS: BP 120/76; PULSE 92; RESP 16; TEMP 98.4; O2SAT 98
--- NOTE | 2016-09-08 21:45 | NUR ---
bedtime Pt is sleeping in recliner in dayroom, pt assisted to bed x2, pt allowed gait belt to be placed with no issues. Pt cooperative with cares no aggression or agitation noted. Pt is now in bed with 2 bed rails up and bed alarm on.
--- NOTE | 2016-09-09 01:00 | NUR ---
patient status Pt is alert and oriented x1, pt in recliner at the start of shift, pt restless, anxious up and down, pt took hs meds, and had a snack, pt then rested in recliner until 21:30 pt cares done (see previous noted), pt is currently sleeping in bed with bed alarm on.
[2016-09-09] MEDS ORDERED: BISACODYL 5 MG E.C. TABLET PO PRN (02:00)
--- NOTE | 2016-09-09 02:25 | NUR ---
Chart Check 24 hour chart check completed
[2016-09-09] MEDS: DIVALPROEX SPRINKLE 125 MG CAPSULE PO SCH ×3 (06:38→20:06)
[2016-09-09] MEDS: LEVOTHYROXINE 125 MCG TABLET PO SCH (06:38)
--- NOTE | 2016-09-09 07:00 | NUR ---
shift summary Pt is alert and oriented x1, pt resistive to cares, pt took meds crushed in pudding, pt went to sleep at 21:45 and slept well, pt woken up at 06:30 changed, pt did push, pull and tug out staff. Pt did allow change with lots of cuing. Pt incontinent of urine, pt took half of his meds crushed in pudding. Pt is now resting in bed with 2 bed rails up and bed alarm on.
[2016-09-09] MEDS ORDERED: MILK OF MAGNESIA 30 ML SUSP PO ONE (09:15)
--- NOTE | 2016-09-09 09:19 | PNPDOC ---
TAMARA BLAIR C[employer] MEAT 09/09/16 0917: Subjective Date DATE: 09/09/16 TIME: 09:13 Subjective Yuan was sleeping comfortably in bed. He did not easily awaken. Per nurses, he was slightly resistive to cares this am but was cooperative last night. Oral intake is variable. Last BM was 09/05/16. Objective Vital Signs Vital signs Vital Signs Date Time Temp Pulse Resp B/P Pulse Ox O2 Delivery O2 Flow Rate FiO2 09/08/16 21:11 98.4 92 16 120/76 98 Room Air Height (Feet): 5 Height (Inches): 10.00 Weight (Kilograms): 87.100 General General Appearance: No Acute Distress Respiratory (Brief) Respiratory: FOUND: clear all roberts, equal bilaterally Cardiovascular (Brief) Cardiac: FOUND: regular rate, regular rhythm Abdomen (Brief) Abdominal: FOUND: BS normo active x4, soft, NOT FOUND: tender Extremities (Brief) Extremity : Side: Bilateral Extremity Finding: NOT FOUND: edema Musculoskeletal (Brief) Musculoskeletal: NOT FOUND: deformity Sepsis Diagnostic Criteria Sepsis Confirmed/Suspected Infection: No Assessment & Plan Problems: (1) Dementia with behavioral disturbance Status: Acute Qualifiers: Dementia type: unspecified type Qualified Codes: F03.91 - Unspecified dementia with behavioral disturbance (2) Sinus bradycardia Status: Resolved (3) Hypothyroidism Status: Chronic (4) Sensorineural hearing loss Status: Chronic (5) Overweight (BMI 25.0-29.9) Status: Chronic Plan/Intensity of Service Constipation - give MOM again today; start scheduled Senna plus in addition to MiraLAX. Bradycardia - resolved. Repeat labs for surveillance. Psychiatric notes reviewed - Depakote increased; scheduled oxycodone HS; continue Depakote. Code Status Do Not Resuscitate Hospital Course Summary Disclaimer The hospital course summary below is not to be considered part of the above Progress Note. Hospital Course Summary 08/21/16 Agree with admission orders. Hypothyroidism. TSH was over 10 when checked in April 2016. On reassessment yesterday, it had improved to 3.13. Continue levothyroxine. Labs reviewed: CBC and CMP were unremarkable. Urinalysis was negative for UTI. Folate, iron, vitamin B12, hemoglobin A1c, all pending. Will also check prealbumin. Bradycardia: EKG revealed sinus bradycardia with a left axis deviation. Borderline hypotension: Monitor at this time. Patient had similarly low blood pressure upon admission to the [facility]. Shuffling gait, tremor, and nurses report rigidity: Consider neurologic evaluation for Parkinson's. 08/22/16 Labs reviewed - unremarkable. VSS. Psychiatric notes reviewed. Medically stable. 08/30/16- Continue supportive care. Need to consider CT of the head if not done elsewhere. Repeat labs in am. Assess RPR as well. BP is a bit low- push fluids. Likely due to antipsychotics. Consider neurology eval. for diagnosis of gait instability, rigidity. (Bill [facility] visit only). 09/01/16 Staff is going to call the [place] and see if he's had a previous head CT. BP continues to run low - encourage fluids. Labs were done on 08/31/16 - unremarkable. Psych notes reviewed - over the last few days Depakote was started to target anger and Seroquel dose has been adjusted. 09/05/16 Yuan is somnolent this morning at the breakfast table. Did discuss medications with Dr Cui. Will change Flexeril to scheduled only at HS and otherwise keep it PRN. He is sleeping during the night which is a improvement. Continue with oxycodone as needed for pain control. BP is well controlled. Will add Miralax daily for bowel motivation. Last reported BM was on 09/0509/07/16- Pt is resting quietly. Medications are being adjusted due to variable behavior. DC planning is noted- potential DC on Thursday. UA is assessed. No acute sx of UTI noted. Last BM 09/05. Labs are reviewed. Flexeril adjusted to decrease sedation. PRN oxycodone. Continue to attempt pain control. Mild edema, but does not appear fluid overloaded. Continue to monitor. 09/09/16 Constipation - give MOM again today; start scheduled Senna plus in addition to MiraLAX. Bradycardia - resolved. Repeat labs for surveillance. Psychiatric notes reviewed - Depakote increased; scheduled oxycodone HS; continue Depakote. MARK LOUIS MD 09/09/16 2153: Assessment & Plan Assessment 09/09/2016-I reviewed this chart, the patient history, and the COOK [employer] MEAT's/PA's documented findings as above. We discussed and formulated the assessment and plan as above with the additions below.-Dr. Louis The patient is seen at supper time, that he is not very hungry. Staff are trying to encourage him to eat. He is sitting up in a chair and seems lethargic. He is not answering any of my questions. Chest is clear to auscultation. Cardiovascular reveals a regular rate and rhythm. Abdomen is soft and nontender. Extremities are free of edema. Vital signs are essentially stable. Agree with lab work tomorrow. Patient does have a low prealbumin albumin and likely some corresponding malnutrition. Weight is down approximately 2 kg since admission. B 12 was borderline low at 305. Will start oral B 12. TAMARA BLAIR APRN Sep 09, 2016 09:17 MARK LOUIS MD Sep 09, 2016 18:03
--- NOTE | 2016-09-09 10:48 | NUR ---
STERLING KATZ RECEIVED CALL FROM [facility] REGARDING TRANSPORTATION FOR PT AT TIME OF D/C. CM WILL CONTACT [facility] WHEN PT IS READY TO D/C. PT MUST BE PICKED UP BY 3:00PM PER TRANSPORTATION THAT IS THEIR LAST RUN DAILY.
[2016-09-09 12:00] VITALS: BP 143/91; PULSE 105; RESP 20; TEMP 98
[2016-09-09] MEDS: POLYETHYL.GLYCOL 3350 PACKET 17gm PO SCH (12:26)
[2016-09-09] MEDS: SENNA + DOCUSATE TAB PO SCH ×2 (12:26→20:07)
[2016-09-09] MEDS: QUETIAPINE 25 MG TABLET PO SCH (12:26)
--- NOTE | 2016-09-09 13:00 | NUR ---
status pt woke at 1145am. slept for a total of 13.5 hrs. pt only ate bites for lunch. compliant with medication so far this shift. pt combative with am cares, swinging at staff and tries to bite them. pt sits in day room with eyes closed most of the time. gets restless at times. has no sense of safety awareness.
--- NOTE | 2016-09-09 13:47 | GENPN ---
[facility] Subjective Date DATE: 09/09/16 TIME: 08:40 Subjective/Severity of Illness Medications Current Medications Medications (Trade) Dose Ordered Sig/Raymon Start Time Stop Time Status Last Admin Dose Admin Donepezil HCl (Aricept) 10 mg HS 08/21/16 21:00 09/08/16 19:40 10 MG Levothyroxine Sodium (Synthroid) 125 mcg ACB 08/21/16 06:30 09/09/16 06:38 125 MCG Mirtazapine (Remeron) 7.5 mg HS 08/21/16 21:00 09/08/16 19:41 7.5 MG Miscellaneous Medication (May use PRN orders) 1 PRN PRN 08/20/16 23:30 Haloperidol (Haldol) 0.5 mg Q6H PRN 08/20/16 23:30 08/31/16 21:10 0.5 MG Lorazepam (Ativan) 0.5 mg Q6H PRN 08/20/16 23:30 09/06/16 14:35 0.5 MG Lorazepam (Ativan) 0.5 mg Q6H PRN 08/20/16 23:30 Haloperidol Lactate (Haldol 5 Mg/ml Inj) 0.5 mg Q6H PRN 08/20/16 23:30 Lorazepam (Ativan Intensol) 0.5 mg Q6H PRN 08/21/16 03:15 08/30/16 04:33 0.5 MG Haloperidol (Haldol Liquid) 0.5 mg Q6H PRN 08/21/16 03:15 09/02/16 21:57 0.5 MG Acetaminophen (Tylenol Regular Strength) 1-2 tabs Q5H PRN 08/22/16 23:45 09/01/16 21:45 650 MG Lorazepam (Ativan) 1 mg HS 08/25/16 21:00 09/05/16 12:28 DC 09/04/16 19:42 1 MG Quetiapine Fumarate (Seroquel) 25 mg BID 08/25/16 21:00 08/26/16 10:49 DC 08/26/16 08:58 25 MG Quetiapine Fumarate (Seroquel) 25 mg DAILY 08/27/16 09:00 08/27/16 12:12 DC Quetiapine Fumarate (Seroquel) 50 mg HS 08/26/16 21:00 08/27/16 12:12 DC 08/26/16 20:24 50 MG Quetiapine Fumarate (Seroquel) 100 mg HS 08/27/16 21:00 08/30/16 10:31 DC 08/29/16 19:08 100 MG Quetiapine Fumarate (Seroquel) 50 mg DAILY 08/28/16 09:00 08/29/16 09:24 DC 08/28/16 09:06 50 MG Cyclobenzaprine HCl (Flexeril) 5 mg Q8H PRN 08/28/16 02:00 09/06/16 19:46 5 MG Divalproex Sodium (Depakote) 250 mg BID 08/28/16 21:00 08/30/16 11:24 DC 08/30/16 10:35 250 MG Quetiapine Fumarate (Seroquel) 50 mg DAILY 08/30/16 09:00 08/30/16 09:00 DC Quetiapine Fumarate (Seroquel) 50 mg DAILY 08/29/16 09:30 08/30/16 10:30 DC 08/29/16 09:30 50 MG Quetiapine Fumarate (Seroquel) 25 mg DAILY 08/31/16 09:00 09/06/16 11:06 DC 09/06/16 10:27 25 MG Quetiapine Fumarate (Seroquel) 150 mg HS 08/30/16 21:00 09/08/16 19:41 150 MG Divalproex Sodium (Depakote Sprinkle) 250 mg BID 08/30/16 21:00 09/01/16 21:43 DC 09/01/16 19:56 250 MG Divalproex Sodium (Depakote Sprinkle) 250 mg DAILY 09/02/16 09:00 09/06/16 12:41 DC 09/06/16 10:27 250 MG Divalproex Sodium (Depakote Sprinkle) 500 mg HS 09/02/16 21:00 09/08/16 19:40 500 MG Oxycodone HCl (Oxycodone Oral Solution) 5 mg Q4H PRN 09/02/16 22:30 09/08/16 12:42 5 MG Cyclobenzaprine HCl (Flexeril) 5 mg TID 09/03/16 21:00 09/05/16 10:44 DC 09/05/16 08:29 5 MG Cyclobenzaprine HCl (Flexeril) 5 mg HS 09/05/16 21:00 09/08/16 19:42 5 MG Polyethylene Glycol (Miralax) 17 g DAILY 09/05/16 11:00 09/08/16 09:42 17 G Lorazepam (Ativan) 2 mg HS 09/05/16 21:00 09/08/16 19:40 2 MG Quetiapine Fumarate (Seroquel) 25 mg DAILY 09/07/16 09:00 09/08/16 09:42 25 MG Divalproex Sodium (Depakote Sprinkle) 250 mg [id number] 09/06/16 14:00 09/09/16 06:38 250 MG Oxycodone HCl (Oxycodone Oral Solution) 5 mg HS 09/08/16 21:00 09/08/16 19:45 5 MG Magnesium Hydroxide (Mom) 30 ml DAILY PRN 09/08/16 16:45 09/08/16 16:36 30 ML Bisacodyl (Dulcolax) 10 mg DAILY PRN 09/09/16 02:00 09/09/16 06:39 10 MG Subjective Patient seen and chart reviewed. Case discussed with treatment team. Patient is asleep during rounds and is not woken as he is able to communicate little meaningfully. Per staff, patient is relatively cooperative with no problematic behaviors during the day and slept through the night (fluids held after 8 pm), but was aggressive with AM cares upon waking this morning. Much of patient's agitation seems to be related to pain and patient had not yet had any pain medication or Flexeril prior to cares. Patient slept ~10 hours overnight. Appetite is good. VSS. No psychotropic PRNs required in the past 24 hours. Time of Service: 06:00 Start Time: 09:20 Stop Time: 09:40 Care >50% of this visit spent in counseling/coordination care. [facility] Exam Vitals Vital Signs Date Time Temp Pulse Resp B/P Pulse Ox O2 Delivery O2 Flow Rate FiO2 09/08/16 21:11 98.4 92 16 120/76 98 Room Air Physical examination performed by the hospitalist. Height (Feet): 5 Height (Inches): 10.00 Mental Status Exam Muscle Strength/Tone: Rigid Dressing: Casual Grooming: Fair Attitude: Combative (at times, improving) Motor Activity: Retardation, Tremors Eye Contact: Poor Speech: Slowed Volume: Soft Rhythm: Mumbled, Paucity of Language Sensory: Alert Orientation: Disoriented to time, Disoriented to place, Disoriented to situation, Oriented to person Mood: Neutral Affect: Labile (improving overall, primarily related to pain) Rate of Thoughts: Delayed Thought Organization: Confused Associations: Illogical Abstract Reasoning: Impaired, concrete Computation: Poor Computation Thought Content: Other (Poverty of thought) Perception/Psychotic: Perception Normal Attention Span/Concentration: Inattentive Language: Naming Impaired Fund of Knowledge: Poor fund of knowledge Memory: Poor-immediate, Poor-recent, Poor-remote Suicidal Ideation: None Homicidal Ideation: None Insight: Impaired Judgment: Impaired Impulse Control: Poor (improving) Assessment and Plan (1) Major neurocognitive disorder Assessment: Possibly due to Parkinsonian type or Subcortical etiology. 1. Hold Risperidone and Haloperidol. Cont Mirtazapine 2. Observe patient on the unit 3. ST to see patient for swallow test\ 08/22/16 Continue current care 08/23/16 continue current care 08/24/16 Continue current care 08/25/16: Will discuss antipsychotic use with son/DPWILLIAM Figueroa ([phone]) and start Seroquel 25mg PO BID if he consents; plan to start Ativan 1mg PO HS to target insomnia as well. 08/26/16: Increase Seroquel to 25mg PO q AM and 50mg PO q HS; titrate slowly to effect while monitoring effect on gait/rigidity. 08/27/16: Increase Seroquel to 50mg PO q AM and 100mg PO q HS; titrate slowly to effect while monitoring effect on gait/rigidity. 08/28/16: Start Depakote 250mg PO BID to target anger. 08/29/16 Continue current care 08/30/16 Change Seroquel to 25mg daily and 150mg PO QHS 08/31/16 Continue current care 09/01/16: Increase Depakote to 250mg PO q AM and 500mg PO q HS to target continued mood lability. 09/02/16: Patient will receive increased dose of Depakote tonight at bedtime; continue current care otherwise. Improving overall. 09/03/16: Will schedule Flexeril 5mg PO TID at 0800, 1500, 2100. Continue current care otherwise; Depakote has yet to reach steady-state level since increasing dose. 09/04/16: Continue current care as patient is improving - sleep is biggest concern right now. Will continue to monitor for need of any additional bedtime PRNs. 09/05/16: Will increase HS Ativan to 2mg, obtain VPA trough level in AM and adjust accordingly, check UA to r/o UTI, obtain CT of head if patient able to cooperate. 09/06/16: VPA level this AM. Increase Depakote to 250/250/500. If cooperative enough today, CT scan. 09/07/16: VPA was 45. I increased Depakote to total of 1000mg per day but may be able to go higher yet. Would like to monitor for daytime sedation first. 09/08/16: Schedule oxycodone 5mg PO q HS. May continue taking Flexeril back to 5mg PO TID if patient is not too sedated during day, but primarily need to target overnight agitation/aggression first. Depakote still increasing to new steady state after recent increase. 09/09/16: Continue to hold fluids after 8:00 pm. Will also schedule AM dose of Flexeril, to be given 20-30 minutes prior to AM cares to minimize aggression/ agitation due to pain. (2) Hypothyroidism (3) Sensorineural hearing loss VAUGHN PARRA MD Sep 09, 2016 08:40
--- NOTE | 2016-09-09 14:19 | NUR ---
EFFICIENCY ANALYST--[facility] made phone contact with pt's son/DPOA-HC, Henry Diego. Son stated he had talked at length with Dr. Cui yesterday so he felt he was updated on patient's status and progress towards treatment goals. He is aware that Dr. Cui is still adjusting his pain medication to help manage behaviors during CARES. Son thanked for the phone call.
[2016-09-09 16:12] VITALS: BP 107/67; PULSE 94; RESP 14; TEMP 98.6; O2SAT 96
--- NOTE | 2016-09-09 18:19 | NUR ---
summary pt sits out in day rrom since waking this am. ate 25% of supper with assist. mumbles when speaking. keeps eyes closed most of day but pt not sleeping. takes all medication this shift. no signs of pain, discomfort or hallucinations.
--- NOTE | 2016-09-09 18:41 | NUR ---
summary pt is combative with hygiene cares at this time. squeezing hands of staff tries to kick. resists even to stand up, leaning himself backwards and tries to pull away from staff. pt looked at this nurse and states " fuck you" several times.
[2016-09-09 19:51] VITALS: BP 132/71; PULSE 96; RESP 16; TEMP 98.4; O2SAT 93
[2016-09-09] MEDS: LORAZEPAM 1 MG TABLET PO SCH (20:05)
[2016-09-09] MEDS: MIRTAZAPINE 15 MG TABLET PO SCH (20:06)
[2016-09-09] MEDS: CYCLOBENZAPRINE 5 MG TABLET PO SCH (20:06)
[2016-09-09] MEDS: DONEPEZIL 10 MG TABLET PO SCH (20:06)
[2016-09-09] MEDS: QUETIAPINE 50 MG TABLET PO SCH (20:07)
[2016-09-09] MEDS: OXYCODONE 10 MG/0.5 ML PO SCH (20:22)
--- NOTE | 2016-09-09 23:13 | NUR ---
status arrived on shift, patient was fatigued in dayroom. Patient was passive with assessment, and hs medications. Patient was helped to bed with the assist of two staff. When in room, patient was cooperative with changing brief. Patient had been incontinent of urine. Patient was cooperative with hygiene care. Once cares were done staff helped patient lay back in bed. Patient calmed and is currently resting in bed with the bed alarm on, [id number], and call light is in reach.
[2016-09-10] MEDS: LEVOTHYROXINE 125 MCG TABLET PO SCH ×2 (06:30→09:28)
[2016-09-10] MEDS: CYCLOBENZAPRINE 5 MG TABLET PO SCH ×3 (06:30→19:39)
[2016-09-10 06:54] LABS: BASOPHILS % (AUTO) 0.3 % (0-2); EOSINOPHILS # (AUTO) 0.5 T/MM3 (0-0.5); EOSINOPHILS % (AUTO) 7.2 % (0-4); HGB - HEMOGLOBIN 14.9 GM/DL (13.5-17.5); IMMATURE GRANULOCYTE # (AUTO) 0.01 T/MM3 (0.00-0.03); IMMATURE GRANULOCYTE % (AUTO) 0.2 % (0.0-0.5); LYMPHOCYTES # (AUTO) 1.9 T/MM3 (1-4.8); LYMPHOCYTES % (AUTO) 29.3 % (23-45); MEAN CORPUSCULAR HGB CONC(MCHC 33.1 GM/DL (31-37); MEAN CORPUSCULAR VOLUME 96.8 UM3 (80-100); MEAN PLATELET VOLUME 9.4 UM3 (9.4-12.4); MONOCYTES # (AUTO) 0.6 T/MM3 (0-0.8); MONOCYTES % (AUTO) 9.2 % (0-9.0); NEUTROPHILS #(AUTO)-ABSOLUTE 3.4 T/MM3 (1.8-7.7); NEUTROPHILS % (AUTO) 53.8 % (33-66); RED BLOOD COUNT 4.65 M/MM3 (4.50-5.90); WBC - WHITE BLOOD COUNT 6.4 T/MM3 (4.5-11.0)
[2016-09-10] MEDS: DIVALPROEX SPRINKLE 125 MG CAPSULE PO SCH ×4 (07:00→19:39)
[2016-09-10 07:06] LABS: ANION GAP 10 MEQ/L (5-15); BUN/CREATININE RATIO 18 RATIO (6-26); CALCIUM 8.9 MG/DL (8.4-10.2); CHLORIDE 104 MEQ/L (98-107); CO2 - CARBON DIOXIDE 31 MEQ/L (22-30); CREATININE 0.9 MG/DL (0.8-1.5); GLOMERULAR FILTRATION RATE 83; GLUCOSE 91 MG/DL (75-110); POTASSIUM 4.1 MEQ/L (3.6-5); SODIUM 145 MEQ/L (134-144)
--- NOTE | 2016-09-10 08:01 | NUR ---
Summary patient transitioned to bed and was cooperative with cares. no agitation or physical aggression noted. patient was asleep in bed at 2130. Patient slept through lab draw, turns, and hygiene cares. Patient had been incontinent in bed during the night. Staff was able to change brief without waking patient. Patient is still currently asleep in bed.
--- NOTE | 2016-09-10 08:51 | NUR ---
CM PT WILL D/C TO [facility] TODAY PER DR PARRA. [facility] WILL TRANSPORT PT AT 2:00PM TODAY. CM SPOKE WITH [facility] CRIMINAL ATTORNEY REGARDING D/C FOR TODAY. CM LEFT MESSAGE FOR ZACKERY [facility] REGARDING PT D/C FOR TODAY WITH TRANSPORTATION INFORMATION. CM ENCOURAGED ZACKERY TO CONTACT IF NEEDS [facility]. CM LEFT MESSAGE FOR PT SON WARREN REGARDING D/C PLAN FOR TODAY WITH CONTACT INFORMATION FOR CM.
[2016-09-10] MEDS: SENNA + DOCUSATE TAB PO SCH ×3 (09:00→19:38)
[2016-09-10] MEDS: CYANOCOBALAMIN (B-12) 500mcg TABLET PO SCH ×2 (09:00→09:28)
[2016-09-10] MEDS: QUETIAPINE 25 MG TABLET PO SCH ×2 (09:00→09:28)
[2016-09-10] MEDS: POLYETHYL.GLYCOL 3350 PACKET 17gm PO SCH ×2 (09:00→09:29)
[2016-09-10 09:45] VITALS: PULSE 83; RESP 10
--- NOTE | 2016-09-10 09:45 | NUR ---
Pt slept 12 hours. Pt went to bed at 2100 and awake at 0945. See previous notes by previous RN.
--- NOTE | 2016-09-10 10:32 | NUR ---
Spit out meds, AM cares Pt assist x 2 with bag bath this morning. Pt attempt to hit staff x 3 while getting Pt up into recliner. Pt sedated and continues to have tremors in hands and leg, especially right leg. Pt did take in pudding with meds crushed but not swallowing; Pt now spitting out morning medications. Pt remains to be extra care at this time, due to abrupt awaking and attempting to stand. Will continue to monitor.
[2016-09-10] MEDS ORDERED: CYCL5TAB PO (10:41)
[2016-09-10] MEDS ORDERED: LORA-204 PO (10:58)
[2016-09-10] MEDS ORDERED: QUET25TA73 PO (10:58)
[2016-09-10] MEDS ORDERED: QUET50TA53 PO (10:58)
[2016-09-10] MEDS ORDERED: OXYC20OR PO (10:58)
[2016-09-10] MEDS ORDERED: DIVA125C PO ×2 (10:58)
[2016-09-10 11:13] VITALS: BP 100/67; PULSE 83; RESP 10; TEMP 98.1; O2SAT 95
--- NOTE | 2016-09-10 11:20 | NUR ---
breakfast: morning assessment Pt continues to be sleepy and arouses by touch but not enough to eat/drink breakfast. Labs reviewed and Na 145. Pt continues to have extra care. Pt awakes abruptly and then goes back to sleep. Pt increasingly less aggressive when awakening as the morning goes on. Will continue to monitor.
--- NOTE | 2016-09-10 11:40 | NUR ---
NURSE ORTHO--AM GROUP Pt. is at table in dining room with staff and did not participate in psychoeducational group facilitated by [facility].
--- NOTE | 2016-09-10 11:50 | NUR ---
CM CM LEFT MESSAGE FOR [facility] INTERCHANGE AGENT STATING THAT PT NOT D/C TODAY. CM LEFT MESSAGE FOR PT SON WARREN STATING THAT PT IS NOT D/C TODAY AND ENCOURAGED THEM TO CONTACT IF NEEDS [facility]. [facility] TRANSPORT WAS NOTIFIED THAT PT WAS NOT D/C TODAY VIA GENERATION NURSE.
--- NOTE | 2016-09-10 13:00 | NUR ---
Lunch = magic cup and thickened liquid Pt becoming more alert and looking at me in the eyes. Pt given thickened cranberry juice by this RN and Pt starting to swallow safely. Pt given more and doing well and not slapping at staff when giving it. Magic cup given for calories and Pt ate it all and drank all of the juice (120mls). Pt given 1400 depakote sprinkles. Pt then moving more and Pt taken to the toilet with assist x 2. Pt sat on the toilet but very rigid and not relaxing. Pt given a suppository and assist x 3 to bed. Pt didn't swat or get aggressive with this assistance to toilet and then to bed. Pt resting in bed now with bed alarm on. Last BM was . Pt abdomen remains soft and nontender. Will continue to monitor. Pt in no acute distress. Pt unable to ambulate at this point, moves and relies on staff greatly to move and transfer.
--- NOTE | 2016-09-10 13:58 | NUR ---
STERLING KATZ SPOKE WITH PT SON REGARDING PT STATUS. SON IS AWARE THAT D/C IS ANTICIPATED FOR NEXT DAY OR 2. SON AWARE TO CONTACT CM IF NEEDS [facility]. STERLING SPOKE WITH [facility] AND SHE IS ALSO AWARE OF THE D/C PLAN FOR THE NEXT DAY OR 2. ZACKERY AWARE TO CONTACT CM IF NEEDS [facility]. STERLING SPOKE WITH CHOLO TURNTABLE MAN AND SHE IS AWARE OF PT STATUS AND D/C PLAN. [facility]OLO TO CONTACT CM IF NEEDS ARISE.
[2016-09-10] MEDS ORDERED: BISACODYL 10 MG SUPPOSITORY RECTALLY PRN (14:45)
[2016-09-10 16:00] VITALS: BP 112/71; PULSE 84; RESP 14; TEMP 98.3; O2SAT 96
--- NOTE | 2016-09-10 19:02 | NUR ---
Summary Pt has been more alert as the day has gone on, however mostly has slept or sat in recliner with eyes closed. Pt slept total of 3 hours for naps this shift. Pt spit out AM meds, but took other meds crushed in ice cream. Pt ate magic cup after lunch. Pt ate 2 mighty shakes and 1/2 a yogurt for dinner, see intake. Pt did have large BM soft and brown after suppository. Pt has been incontinent of both bowel and bladder. Pt was hitting this morning with cares, see previous notes, but now is cooperative with cares and has not hit or been physically aggressive since 1300. Pt seen attempting to pick things up off the floor x 2 today. Pt continues to have underlying tremor when he wakes up. FLACC pain scale is 7. Plan is to see if medical physician can recommend any time of pain patch for Pt due to Pt needing flexeril in the morning, but is sleepy in the morning and can't safely swallow. Dr. Cui okay with contacting medical management tomorrow 09/11 about possible pain patch. Will continue to monitor.
[2016-09-10] MEDS: OXYCODONE 10 MG/0.5 ML PO SCH (19:36)
[2016-09-10] MEDS: QUETIAPINE 50 MG TABLET PO SCH (19:37)
[2016-09-10] MEDS: DONEPEZIL 10 MG TABLET PO SCH (19:38)
[2016-09-10] MEDS: LORAZEPAM 1 MG TABLET PO SCH (19:39)
[2016-09-10 20:35] VITALS: BP 143/74; PULSE 103; RESP 17; TEMP 99.6; O2SAT 92
[2016-09-10 20:44] VITALS: RESP 14
--- NOTE | 2016-09-10 21:35 | GENPN ---
[facility] Subjective Date DATE: 09/10/16 TIME: 21:30 Subjective/Severity of Illness Medications Current Medications Medications (Trade) Dose Ordered Sig/Raymon Start Time Stop Time Status Last Admin Dose Admin Donepezil HCl (Aricept) 10 mg HS 08/21/16 21:00 09/10/16 19:38 10 MG Levothyroxine Sodium (Synthroid) 125 mcg ACB 08/21/16 06:30 09/09/16 06:38 125 MCG Mirtazapine (Remeron) 7.5 mg HS 08/21/16 21:00 09/10/16 17:50 DC 09/09/16 20:06 7.5 MG Miscellaneous Medication (May use PRN orders) 1 PRN PRN 08/20/16 23:30 Haloperidol (Haldol) 0.5 mg Q6H PRN 08/20/16 23:30 08/31/16 21:10 0.5 MG Lorazepam (Ativan) 0.5 mg Q6H PRN 08/20/16 23:30 09/06/16 14:35 0.5 MG Lorazepam (Ativan) 0.5 mg Q6H PRN 08/20/16 23:30 Haloperidol Lactate (Haldol 5 Mg/ml Inj) 0.5 mg Q6H PRN 08/20/16 23:30 Lorazepam (Ativan Intensol) 0.5 mg Q6H PRN 08/21/16 03:15 08/30/16 04:33 0.5 MG Haloperidol (Haldol Liquid) 0.5 mg Q6H PRN 08/21/16 03:15 09/02/16 21:57 0.5 MG Acetaminophen (Tylenol Regular Strength) 1-2 tabs Q5H PRN 08/22/16 23:45 09/01/16 21:45 650 MG Lorazepam (Ativan) 1 mg HS 08/25/16 21:00 09/05/16 12:28 DC 09/04/16 19:42 1 MG Quetiapine Fumarate (Seroquel) 25 mg BID 08/25/16 21:00 08/26/16 10:49 DC 08/26/16 08:58 25 MG Quetiapine Fumarate (Seroquel) 25 mg DAILY 08/27/16 09:00 08/27/16 12:12 DC Quetiapine Fumarate (Seroquel) 50 mg HS 08/26/16 21:00 08/27/16 12:12 DC 08/26/16 20:24 50 MG Quetiapine Fumarate (Seroquel) 100 mg HS 08/27/16 21:00 08/30/16 10:31 DC 08/29/16 19:08 100 MG Quetiapine Fumarate (Seroquel) 50 mg DAILY 08/28/16 09:00 08/29/16 09:24 DC 08/28/16 09:06 50 MG Cyclobenzaprine HCl (Flexeril) 5 mg Q8H PRN 08/28/16 02:00 09/06/16 19:46 5 MG Divalproex Sodium (Depakote) 250 mg BID 08/28/16 21:00 08/30/16 11:24 DC 08/30/16 10:35 250 MG Quetiapine Fumarate (Seroquel) 50 mg DAILY 08/30/16 09:00 08/30/16 09:00 DC Quetiapine Fumarate (Seroquel) 50 mg DAILY 08/29/16 09:30 08/30/16 10:30 DC 08/29/16 09:30 50 MG Quetiapine Fumarate (Seroquel) 25 mg DAILY 08/31/16 09:00 09/06/16 11:06 DC 09/06/16 10:27 25 MG Quetiapine Fumarate (Seroquel) 150 mg HS 08/30/16 21:00 09/10/16 19:37 150 MG Divalproex Sodium (Depakote Sprinkle) 250 mg BID 08/30/16 21:00 09/01/16 21:43 DC 09/01/16 19:56 250 MG Divalproex Sodium (Depakote Sprinkle) 250 mg DAILY 09/02/16 09:00 09/06/16 12:41 DC 09/06/16 10:27 250 MG Divalproex Sodium (Depakote Sprinkle) 500 mg HS 09/02/16 21:00 09/10/16 19:39 500 MG Oxycodone HCl (Oxycodone Oral Solution) 5 mg Q4H PRN 09/02/16 22:30 09/08/16 12:42 5 MG Cyclobenzaprine HCl (Flexeril) 5 mg TID 09/03/16 21:00 09/05/16 10:44 DC 09/05/16 08:29 5 MG Cyclobenzaprine HCl (Flexeril) 5 mg HS 09/05/16 21:00 09/09/16 09:57 DC 09/08/16 19:42 5 MG Polyethylene Glycol (Miralax) 17 g DAILY 09/05/16 11:00 09/09/16 12:26 17 G Lorazepam (Ativan) 2 mg HS 09/05/16 21:00 09/10/16 17:50 DC 09/09/16 20:05 2 MG Quetiapine Fumarate (Seroquel) 25 mg DAILY 09/07/16 09:00 Future Hold 09/09/16 12:26 25 MG Divalproex Sodium (Depakote Sprinkle) 250 mg [id number] 09/06/16 14:00 09/10/16 13:47 250 MG Oxycodone HCl (Oxycodone Oral Solution) 5 mg HS 09/08/16 21:00 09/10/16 19:36 5 MG Magnesium Hydroxide (Mom) 30 ml DAILY PRN 09/08/16 16:45 09/08/16 16:36 30 ML Bisacodyl (Dulcolax) 10 mg DAILY PRN 09/09/16 02:00 09/09/16 06:39 10 MG Senna/Docusate Sodium (Senna Plus) 1 tab BID 09/09/16 09:15 09/10/16 19:38 1 TAB Cyclobenzaprine HCl (Flexeril) 5 mg 0630,21 09/09/16 21:00 09/10/16 19:39 5 MG Cyanocobalamin (Vit. B-12) 1,000 mcg DAILY 09/10/16 08:00 Bisacodyl (Dulcolax) 10 mg DAILY PRN 09/10/16 14:45 09/10/16 14:20 10 MG Lorazepam (Ativan) 1 mg HS 09/10/16 21:00 09/10/16 19:39 1 MG Subjective Patient seen and chart reviewed. Case discussed with treatment team. Patient is sitting in dayroom watching TV and responds minimally to interview but does allow me to examine his hands. Per staff, slept heavily (through cares) overnight but was aggressive with cares this morning (he had not yet been given Flexeril). He then was very sedated through much of the day, and refused his medications. He would intermittently wake up "ready to hit." BP was low this AM (100/67) and respirations were also low (~10/minute). Patient had not had a BM since 09/05; suppository was given and was calmer after BM. No psychotropic PRNs required in the past 24 hours. Time of Service: 06:00 Start Time: 18:20 Stop Time: 18:40 Care >50% of this visit spent in counseling/coordination care. [facility] Exam Vitals Vital Signs Date Time Temp Pulse Resp B/P Pulse Ox O2 Delivery O2 Flow Rate FiO2 09/10/16 20:44 14 09/10/16 20:35 99.6 103 143/74 92 Room Air Physical examination performed by the hospitalist. Height (Feet): 5 Height (Inches): 10.00 Mental Status Exam Muscle Strength/Tone: Rigid Dressing: Casual Grooming: Fair Attitude: Combative, Tense Motor Activity: Retardation, Tremors Eye Contact: Poor Speech: Slowed Volume: Soft Rhythm: Mumbled, Paucity of Language Sensory: Alert Orientation: Disoriented to time, Disoriented to place, Disoriented to situation, Oriented to person Mood: Neutral Affect: Blunted, Labile Rate of Thoughts: Delayed Thought Organization: Confused Associations: Illogical Abstract Reasoning: Impaired, concrete Computation: Poor Computation Thought Content: Other (Poverty of thought) Perception/Psychotic: Perception Normal Attention Span/Concentration: Inattentive Language: Naming Impaired Fund of Knowledge: Poor fund of knowledge Memory: Poor-immediate, Poor-recent, Poor-remote Suicidal Ideation: None Homicidal Ideation: None Insight: Impaired Judgment: Impaired Impulse Control: Poor Laboratory Tests Test 09/10/16 06:25 White Blood Count 6.4T/MM3 Red Blood Count 4.65M/MM3 Hemoglobin 14.9GM/DL Hematocrit 45.0% Mean Corpuscular Volume 96.8UM3 Mean Corpuscular Hemoglobin 32.0UUG Mean Corpuscular Hemoglobin Concent 33.1GM/DL RDW Standard Deviation 45.4FL Platelet Count 183T/MM3 Mean Platelet Volume 9.4UM3 Immature Granulocyte % (Auto) 0.2% Neutrophils (%) (Auto) 53.8% Lymphocytes (%) (Auto) 29.3% Monocytes (%) (Auto) 9.2% Eosinophils (%) (Auto) 7.2% Basophils (%) (Auto) 0.3% Absolute Immature Granulocyte (auto 0.01T/MM3 Absolute Neutrophils (auto) 3.4T/MM3 Absolute Lymphocytes (auto) 1.9T/MM3 Absolute Monocytes (auto) 0.6T/MM3 Absolute Eosinophils (auto) 0.5T/MM3 Absolute Basophils (auto) 0.0T/MM3 Turbidity < 20 Sodium Level 145MEQ/L Potassium Level 4.1MEQ/L Chloride Level 104MEQ/L Carbon Dioxide Level 31MEQ/L Anion Gap 10MEQ/L Blood Urea Nitrogen 16.0MG/DL Creatinine 0.9MG/DL Glomerular Filtration Rate Calc 83 BUN/Creatinine Ratio 18RATIO Glucose Level 91MG/DL Calculated Osmolality 280MOSM/KG Calcium Level 8.9MG/DL Icterus Index < 2 Chemistry Specimen Hemolysis < 15 Assessment and Plan (1) Major neurocognitive disorder Assessment: Possibly due to Parkinsonian type or Subcortical etiology. 1. Hold Risperidone and Haloperidol. Cont Mirtazapine 2. Observe patient on the unit 3. ST to see patient for swallow test\\ 08/22/16 Continue current care 08/23/16 continue current care 08/24/16 Continue current care 08/25/16: Will discuss antipsychotic use with son/KANDACE Figueroa ([phone]) and start Seroquel 25mg PO BID if he consents; plan to start Ativan 1mg PO HS to target insomnia as well. 08/26/16: Increase Seroquel to 25mg PO q AM and 50mg PO q HS; titrate slowly to effect while monitoring effect on gait/rigidity. 08/27/16: Increase Seroquel to 50mg PO q AM and 100mg PO q HS; titrate slowly to effect while monitoring effect on gait/rigidity. 08/28/16: Start Depakote 250mg PO BID to target anger. 08/29/16 Continue current care 08/30/16 Change Seroquel to 25mg daily and 150mg PO QHS 08/31/16 Continue current care 09/01/16: Increase Depakote to 250mg PO q AM and 500mg PO q HS to target continued mood lability. 09/02/16: Patient will receive increased dose of Depakote tonight at bedtime; continue current care otherwise. Improving overall. 09/03/16: Will schedule Flexeril 5mg PO TID at 0800, 1500, 2100. Continue current care otherwise; Depakote has yet to reach steady-state level since increasing dose. 09/04/16: Continue current care as patient is improving - sleep is biggest concern right now. Will continue to monitor for need of any additional bedtime PRNs. 09/05/16: Will increase HS Ativan to 2mg, obtain VPA trough level in AM and adjust accordingly, check UA to r/o UTI, obtain CT of head if patient able to cooperate. 09/06/16: VPA level this AM. Increase Depakote to 250/250/500. If cooperative enough today, CT scan. 09/07/16: VPA was 45. I increased Depakote to total of 1000mg per day but may be able to go higher yet. Would like to monitor for daytime sedation first. 09/08/16: Schedule oxycodone 5mg PO q HS. May continue taking Flexeril back to 5mg PO TID if patient is not too sedated during day, but primarily need to target overnight agitation/aggression first. Depakote still increasing to new steady state after recent increase. 09/09/16: Continue to hold fluids after 8:00 pm. Will also schedule AM dose of Flexeril, to be given 20-30 minutes prior to AM cares to minimize aggression/ agitation due to pain. 09/10/16: Will discontinue mirtazapine at HS, and decrease Ativan to 1mg Po q HS now that Depakote has likely reached new steady-state levels. Will also hold Seroquel 25mg q AM and monitor for less sedation. Will discuss possibility of patch for pain control rather than PO/PRN medications. (2) Hypothyroidism (3) Sensorineural hearing loss VAUGHN PARRA MD Sep 10, 2016 21:33
--- NOTE | 2016-09-11 00:57 | NUR ---
Mid shift status Pt was sitting in day room at beginning of shift. Pt alert to person. Up assist x 2. Pt cooperative with assessment. Compliant with HS meds, taking crushed in pudding. Pt has not displayed any verbal or physical aggression this shift. No behaviors with HS cares. Pt has been sleeping since 2144. No PRNs given. Currently sleeping. Bed rails up x 2 and alarm on. Will continue to monitor Addendum: 09/11/16 at 0105 by ISABELLA PELLETIER RN Correction: Report by CAN PUSHER stated pt was combative during HS cares, trying to hit and kick. Had to have 3rd assist to help change pt. Once changed, pt was fine and noncombative.
--- NOTE | 2016-09-11 01:05 | NUR ---
Bed time Pt went to bed at 2114 and was asleep by 2144. Sleep time during day hours was 2.5 hours. Currently sleeping. Will continue to monitor
--- NOTE | 2016-09-11 01:06 | NUR ---
Chart Check 24 hour chart check completed
[2016-09-11] MEDS: LEVOTHYROXINE 125 MCG TABLET PO SCH (05:44)
[2016-09-11] MEDS: CYCLOBENZAPRINE 5 MG TABLET PO SCH ×2 (05:44→20:08)
--- NOTE | 2016-09-11 06:08 | NUR ---
Summary Pt has been sleeping since 2144. Checked pt for incontinence at 0530 and he was incontinent of bowel and bladder. Pt was a bit resistive with cares, trying to swing at staff or squeeze staff hands tightly and not let go. Once pt was changed, he was fine and went back to sleep. Pt only took half of his AM meds, spitting the other half at this nurse. Pt has not displayed any verbal or physical aggression this shift. Only some combativeness during cares. No PRNs given. Currently sleeping. Bed rails up x 2 and alarm on. Will continue to monitor
[2016-09-11 08:00] VITALS: BP 132/72; PULSE 77; RESP 16; TEMP 97.4; O2SAT 95
--- NOTE | 2016-09-11 08:00 | NUR ---
WAKE UP NOTE PATIENT WOKE UP AT 1200 TODAY
[2016-09-11] MEDS: DIVALPROEX SPRINKLE 125 MG CAPSULE PO SCH ×3 (08:21→20:08)
[2016-09-11] MEDS: POLYETHYL.GLYCOL 3350 PACKET 17gm PO SCH (08:21)
[2016-09-11] MEDS: CYANOCOBALAMIN (B-12) 500mcg TABLET PO SCH (08:21)
[2016-09-11] MEDS: SENNA + DOCUSATE TAB PO SCH ×2 (08:21→20:09)
--- NOTE | 2016-09-11 11:34 | NUR ---
CM PER PHONE CONVERSATION WITH NOE VELASCO SW WILL COORDINATE HOSPICE CARE FOR THIS PATIENT.
--- NOTE | 2016-09-11 11:53 | PNPDOC ---
TAMARA BLAIR DIRECTOR [facility] 09/11/16 1147: Subjective Date DATE: 09/11/16 TIME: 11:39 Subjective Yuan was sleeping in his bed. He opened his eyes briefly and turned his head towards my voice, then closed them again. He didn't answer any questions. Dr. Cui and nursing staff voiced concerns about uncontrolled pain. He is sometimes combative or agitated with cares. Oral intake has declined. Objective Vital Signs Vital signs Vital Signs Date Time Temp Pulse Resp B/P Pulse Ox O2 Delivery O2 Flow Rate FiO2 09/10/16 20:44 14 09/10/16 20:35 99.6 103 143/74 92 Room Air Height (Feet): 5 Height (Inches): 10.00 Weight (Kilograms): 85.200 General General Appearance: No Acute Distress ENMT (Brief) ENMT: NOT FOUND: mucosa moist (dry) Respiratory (Brief) Respiratory: FOUND: clear all roberts, equal bilaterally Cardiovascular (Brief) Cardiac: FOUND: regular rate, regular rhythm Abdomen (Brief) Abdominal: FOUND: BS normo active x4, soft, NOT FOUND: tender Extremities (Brief) Extremity : Side: Bilateral Extremity Finding: NOT FOUND: edema Musculoskeletal (Brief) Musculoskeletal: NOT FOUND: deformity Integumentary (Brief) Integumentary: FOUND: dry, warm Laboratory Laboratory Laboratory Tests 09/10/16 06:25 Laboratory Tests 09/10/16 06:25 Sepsis Diagnostic Criteria Sepsis Confirmed/Suspected Infection: No Assessment & Plan Problems: (1) Dementia with behavioral disturbance Status: Acute Qualifiers: Dementia type: unspecified type Qualified Codes: F03.91 - Unspecified dementia with behavioral disturbance (2) Sinus bradycardia Status: Resolved (3) Hypothyroidism Status: Chronic (4) Sensorineural hearing loss Status: Chronic (5) Overweight (BMI 25.0-29.9) Status: Chronic Plan/Intensity of Service Will start low-dose fentanyl patch d/t concerns regarding uncontrolled pain. Vitamin B12 was low-normal and oral replacement was initiated. Mild hypernatremia noted. Poor oral intake. SW is planning on trying to reach family for guidance on goals of care. Pt would be hospice-appropriate. Psych progress notes reviewed: discontinued mirtazapine at HS, and decreased Ativan to 1mg Po q HS; Depakote has likely reached new steady-state levels. Hold Seroquel 25mg q AM and monitor for less sedation. Later in the day I received a phone call from [facility] - family wants to continue with hospice through [facility]. Code Status Do Not Resuscitate Hospital Course Summary Disclaimer The hospital course summary below is not to be considered part of the above Progress Note. Hospital Course Summary 08/21/16 Agree with admission orders. Hypothyroidism. TSH was over 10 when checked in April 2016. On reassessment yesterday, it had improved to 3.13. Continue levothyroxine. Labs reviewed: CBC and CMP were unremarkable. Urinalysis was negative for UTI. Folate, iron, vitamin B12, hemoglobin A1c, all pending. Will also check prealbumin. Bradycardia: EKG revealed sinus bradycardia with a left axis deviation. Borderline hypotension: Monitor at this time. Patient had similarly low blood pressure upon admission to the [facility]. Shuffling gait, tremor, and nurses report rigidity: Consider neurologic evaluation for Parkinson's. 08/22/16 Labs reviewed - unremarkable. VSS. Psychiatric notes reviewed. Medically stable. 08/30/16- Continue supportive care. Need to consider CT of the head if not done elsewhere. Repeat labs in am. Assess RPR as well. BP is a bit low- push fluids. Likely due to antipsychotics. Consider neurology eval. for diagnosis of gait instability, rigidity. (Bill CRIME SCENE SPECIALIST visit only). 09/01/16 Staff is going to call the [facility] and see if he's had a previous head CT. BP continues to run low - encourage fluids. Labs were done on 08/31/16 - unremarkable. Psych notes reviewed - over the last few days Depakote was started to target anger and Seroquel dose has been adjusted. 09/05/16 Yuan is somnolent this morning at the breakfast table. Did discuss medications with Dr Cui. Will change Flexeril to scheduled only at HS and otherwise keep it PRN. He is sleeping during the night which is a improvement. Continue with oxycodone as needed for pain control. BP is well controlled. Will add Miralax daily for bowel motivation. Last reported BM was on 09/0509/07/16- Pt is resting quietly. Medications are being adjusted due to variable behavior. DC planning is noted- potential DC on Thursday. UA is assessed. No acute sx of UTI noted. Last BM 09/05. Labs are reviewed. Flexeril adjusted to decrease sedation. PRN oxycodone. Continue to attempt pain control. Mild edema, but does not appear fluid overloaded. Continue to monitor. 09/09/16 Constipation - give MOM again today; start scheduled Senna plus in addition to MiraLAX. Bradycardia - resolved. Repeat labs for surveillance. Psychiatric notes reviewed - Depakote increased; scheduled oxycodone HS; continue Depakote. 09/11/16 Will start low-dose fentanyl patch d/t concerns regarding uncontrolled pain. Vitamin B12 was low-normal and oral replacement was initiated. Mild hypernatremia noted. Poor oral intake. SW is planning on trying to reach family for guidance on goals of care. Pt would be hospice-appropriate. Psych progress notes reviewed: discontinued mirtazapine at HS, and decreased Ativan to 1mg Po q HS; Depakote has likely reached new steady-state levels. Hold Seroquel 25mg q AM and monitor for less sedation. Later in the day I received a phone call from [facility] - family wants to continue with hospice through [facility]. MARK CHIRINOS MD 09/11/16 1902: TAMARA BLAIR APRN Sep 11, 2016 11:47 MARK CHIRINOS MD Sep 11, 2016 19:02
--- NOTE | 2016-09-11 12:01 | NUR ---
KNIFE GRINDER--Hospice referral During team meeting yesterday, nursing reported that pt. is pocketing food and not swallowing when they attempt to administer medications. Dr. Cui was agreeable for Hospice referral if hospitalist team was in agreement. Elizabeth Villegas APRN, was contacted and agreed pt. was appropriate for hospice services. [facility] and RN, Timothy, made phone contact with pt's son, Henry. Provided update on pt's status and advised son that recommendation from medical team is that pt. is appropriate for hospice services. Son was agreeable for hospice services and asked that [facility] be contacted. Son was advised that potential discharge would occur tomorrow once hospice services are arranged. [facility] Angela Pinto ([phone])--the flame cutting machine operator of the [facility] where Yuan resides. She has worked with hospice patients in her home and feels very comfortable with the addition of those services. She has had very good experiences working with [facility] and thinks they provide outstanding services for our veterans. [facility] made contact with [facility]. They will be out today at 1630 to evaluate pt.
[2016-09-11] MEDS: FENTANYL 12MCG/HR PATCH TD SCH (12:21)
--- NOTE | 2016-09-11 14:00 | NUR ---
STATUS PATIENT WOKE UP AT NOON TODAY, HE WAS INCONTINENT OF URINE AND BOWEL, PATIENT WAS COMBATIVE WITH CARES, HE TRIED TO PUNCH STAFF WITH CARES, HE WAS YELLING "HELP" HE WAS ALSO GRABBING STAFF HANDS REALLY TIGHT, AFTER CARES, HE CAME TO THE DINING ROOM FOR LUNCH AND ONLY ATE 15 % OF LUNCH AND A MIGHTY SHAKE. PATIENT TOOK HIS MEDICATIONS CRUSHED WITH CHOCOLATE PUDDING. PATIENT IS CURRENTLY SLEEPING IN THE DAY ROOM, WILL CONTINUE TO MONITOR FOR ANY NEEDS.
[2016-09-11 16:00] VITALS: BP 108/73; PULSE 82; RESP 14; TEMP 98.2
--- NOTE | 2016-09-11 16:59 | NUR ---
DIRECTOR OF RESEARCH AND DEVELOPMENT--[facility] Denice from [facility] came out to evaluate pt. They feel he is an appropriate referral for hospice. She is going to talk with JER Macdonald at [facility], and see if there is an opening in their hospice unit. Karen has already left for the day so she will have her supervisor chemical get back with [facility] staff regarding discharge options.
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
[2016-09-11 19:21] VITALS: BP 120/78; PULSE 90; RESP 16; TEMP 98.2; O2SAT 95
[2016-09-11] MEDS: DONEPEZIL 10 MG TABLET PO SCH (20:08)
[2016-09-11] MEDS: LORAZEPAM 1 MG TABLET PO SCH (20:08)
[2016-09-11] MEDS: QUETIAPINE 50 MG TABLET PO SCH (20:09)
[2016-09-11] MEDS: OXYCODONE 10 MG/0.5 ML PO SCH (20:09)
[2016-09-11 21:59] VITALS: PULSE 90; RESP 16
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
--- NOTE | 2016-09-12 00:58 | NUR ---
Chart Check 24 hour chart check completed
--- NOTE | 2016-09-12 00:58 | NUR ---
Bed time Pt was already in bed at beginning of shift. Pt fell asleep at 1945 and was awake at 2345 due to incontinence. After pt changed, he is back asleep at 0045. Slept 2.75 hours during days. Currently sleeping. Will continue to monitor
[2016-09-12] MEDS: LEVOTHYROXINE 125 MCG TABLET PO SCH (05:46)
[2016-09-12] MEDS: CYCLOBENZAPRINE 5 MG TABLET PO SCH ×2 (05:46→20:21)
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
[2016-09-12] MEDS: DIVALPROEX SPRINKLE 125 MG CAPSULE PO SCH ×4 (07:00→20:20)
[2016-09-12] MEDS: CYANOCOBALAMIN (B-12) 500mcg TABLET PO SCH ×2 (09:00→10:16)
[2016-09-12] MEDS: POLYETHYL.GLYCOL 3350 PACKET 17gm PO SCH ×2 (09:00→10:16)
[2016-09-12] MEDS: SENNA + DOCUSATE TAB PO SCH ×3 (09:00→20:20)
--- NOTE | 2016-09-12 09:00 | NUR ---
SLEEP 13.25 Hours Pt went to bed at 1900 last night and awoke at 1100. Pt slept a total of 13.25 hours as documented on the 15 minute observation forms.
--- NOTE | 2016-09-12 11:19 | GENPN ---
[facility] Subjective Date DATE: 09/11/16 TIME: 08:25 Subjective/Severity of Illness Medications Current Medications Medications (Trade) Dose Ordered Sig/Raymon Start Time Stop Time Status Last Admin Dose Admin Donepezil HCl (Aricept) 10 mg HS 08/21/16 21:00 09/10/16 19:38 10 MG Levothyroxine Sodium (Synthroid) 125 mcg ACB 08/21/16 06:30 09/11/16 05:44 125 MCG Mirtazapine (Remeron) 7.5 mg HS 08/21/16 21:00 09/10/16 17:50 DC 09/09/16 20:06 7.5 MG Miscellaneous Medication (May use PRN orders) 1 PRN PRN 08/20/16 23:30 Haloperidol (Haldol) 0.5 mg Q6H PRN 08/20/16 23:30 08/31/16 21:10 0.5 MG Lorazepam (Ativan) 0.5 mg Q6H PRN 08/20/16 23:30 09/06/16 14:35 0.5 MG Lorazepam (Ativan) 0.5 mg Q6H PRN 08/20/16 23:30 Haloperidol Lactate (Haldol 5 Mg/ml Inj) 0.5 mg Q6H PRN 08/20/16 23:30 Lorazepam (Ativan Intensol) 0.5 mg Q6H PRN 08/21/16 03:15 08/30/16 04:33 0.5 MG Haloperidol (Haldol Liquid) 0.5 mg Q6H PRN 08/21/16 03:15 09/02/16 21:57 0.5 MG Acetaminophen (Tylenol Regular Strength) 1-2 tabs Q5H PRN 08/22/16 23:45 09/01/16 21:45 650 MG Lorazepam (Ativan) 1 mg HS 08/25/16 21:00 09/05/16 12:28 DC 09/04/16 19:42 1 MG Quetiapine Fumarate (Seroquel) 25 mg BID 08/25/16 21:00 08/26/16 10:49 DC 08/26/16 08:58 25 MG Quetiapine Fumarate (Seroquel) 25 mg DAILY 08/27/16 09:00 08/27/16 12:12 DC Quetiapine Fumarate (Seroquel) 50 mg HS 08/26/16 21:00 08/27/16 12:12 DC 08/26/16 20:24 50 MG Quetiapine Fumarate (Seroquel) 100 mg HS 08/27/16 21:00 08/30/16 10:31 DC 08/29/16 19:08 100 MG Quetiapine Fumarate (Seroquel) 50 mg DAILY 08/28/16 09:00 08/29/16 09:24 DC 08/28/16 09:06 50 MG Cyclobenzaprine HCl (Flexeril) 5 mg Q8H PRN 08/28/16 02:00 09/06/16 19:46 5 MG Divalproex Sodium (Depakote) 250 mg BID 08/28/16 21:00 08/30/16 11:24 DC 08/30/16 10:35 250 MG Quetiapine Fumarate (Seroquel) 50 mg DAILY 08/30/16 09:00 08/30/16 09:00 DC Quetiapine Fumarate (Seroquel) 50 mg DAILY 08/29/16 09:30 08/30/16 10:30 DC 08/29/16 09:30 50 MG Quetiapine Fumarate (Seroquel) 25 mg DAILY 08/31/16 09:00 09/06/16 11:06 DC 09/06/16 10:27 25 MG Quetiapine Fumarate (Seroquel) 150 mg HS 08/30/16 21:00 09/10/16 19:37 150 MG Divalproex Sodium (Depakote Sprinkle) 250 mg BID 08/30/16 21:00 09/01/16 21:43 DC 09/01/16 19:56 250 MG Divalproex Sodium (Depakote Sprinkle) 250 mg DAILY 09/02/16 09:00 09/06/16 12:41 DC 09/06/16 10:27 250 MG Divalproex Sodium (Depakote Sprinkle) 500 mg HS 09/02/16 21:00 09/10/16 19:39 500 MG Oxycodone HCl (Oxycodone Oral Solution) 5 mg Q4H PRN 09/02/16 22:30 09/08/16 12:42 5 MG Cyclobenzaprine HCl (Flexeril) 5 mg TID 09/03/16 21:00 09/05/16 10:44 DC 09/05/16 08:29 5 MG Cyclobenzaprine HCl (Flexeril) 5 mg HS 09/05/16 21:00 09/09/16 09:57 DC 09/08/16 19:42 5 MG Polyethylene Glycol (Miralax) 17 g DAILY 09/05/16 11:00 09/11/16 08:21 17 G Lorazepam (Ativan) 2 mg HS 09/05/16 21:00 09/10/16 17:50 DC 09/09/16 20:05 2 MG Quetiapine Fumarate (Seroquel) 25 mg DAILY 09/07/16 09:00 Future Hold 09/09/16 12:26 25 MG Divalproex Sodium (Depakote Sprinkle) 250 mg [id number] 09/06/16 14:00 09/11/16 08:21 250 MG Oxycodone HCl (Oxycodone Oral Solution) 5 mg HS 09/08/16 21:00 09/10/16 19:36 5 MG Magnesium Hydroxide (Mom) 30 ml DAILY PRN 09/08/16 16:45 09/08/16 16:36 30 ML Bisacodyl (Dulcolax) 10 mg DAILY PRN 09/09/16 02:00 09/09/16 06:39 10 MG Senna/Docusate Sodium (Senna Plus) 1 tab BID 09/09/16 09:15 09/11/16 08:21 1 TAB Cyclobenzaprine HCl (Flexeril) 5 mg 0630,21 09/09/16 21:00 09/11/16 05:44 5 MG Cyanocobalamin (Vit. B-12) 1,000 mcg DAILY 09/10/16 08:00 09/11/16 08:21 1,000 MCG Bisacodyl (Dulcolax) 10 mg DAILY PRN 09/10/16 14:45 09/10/16 14:20 10 MG Lorazepam (Ativan) 1 mg HS 09/10/16 21:00 09/10/16 19:39 1 MG Subjective Patient seen and chart reviewed. Case discussed with treatment team. Patient is sleeping during rounds and was reportedly resistive with cares this morning. He also was physically aggressive with HS cares last night. This morning, he took only half of his medications and then spit out the rest. Patient slept 2.5 hours during the day and then from 21:45 to 05:30 this morning. No psychotropic PRNs required in the past 24 hours. Time of Service: 06:00 Start Time: 09:40 Stop Time: 10:00 Care >50% of this visit spent in counseling/coordination care. [facility] Exam Vitals Vital Signs Date Time Temp Pulse Resp B/P Pulse Ox O2 Delivery O2 Flow Rate FiO2 09/10/16 20:44 14 09/10/16 20:35 99.6 103 143/74 92 Room Air Physical examination performed by the hospitalist. Height (Feet): 5 Height (Inches): 10.00 Mental Status Exam Muscle Strength/Tone: Rigid Dressing: Casual Grooming: Disheveled Attitude: Combative Motor Activity: Retardation Eye Contact: Poor Speech: Slowed Volume: Soft Rhythm: Mumbled, Paucity of Language Sensory: Other (currently sleeping) Orientation: Disoriented to time, Disoriented to place, Disoriented to situation, Oriented to person Mood: Neutral Affect: Labile Rate of Thoughts: Delayed Thought Organization: Confused Associations: Illogical Abstract Reasoning: Impaired, concrete Thought Content: Other (Poverty of thought) Perception/Psychotic: Perception Normal Attention Span/Concentration: Inattentive Language: Naming Impaired Fund of Knowledge: Poor fund of knowledge Memory: Poor-immediate, Poor-recent, Poor-remote Suicidal Ideation: None Homicidal Ideation: None Insight: Impaired Judgment: Impaired Impulse Control: Poor Assessment and Plan (1) Major neurocognitive disorder Assessment: Possibly due to Parkinsonian type or Subcortical etiology. 1. Hold Risperidone and Haloperidol. Cont Mirtazapine 2. Observe patient on the unit 3. ST to see patient for swallow test\ 08/22/16 Continue current care 08/23/16 continue current care 08/24/16 Continue current care 08/25/16: Will discuss antipsychotic use with son/DPWILLIAM Figueroa ([phone]) and start Seroquel 25mg PO BID if he consents; plan to start Ativan 1mg PO HS to target insomnia as well. 08/26/16: Increase Seroquel to 25mg PO q AM and 50mg PO q HS; titrate slowly to effect while monitoring effect on gait/rigidity. 08/27/16: Increase Seroquel to 50mg PO q AM and 100mg PO q HS; titrate slowly to effect while monitoring effect on gait/rigidity. 08/28/16: Start Depakote 250mg PO BID to target anger. 08/29/16 Continue current care 08/30/16 Change Seroquel to 25mg daily and 150mg PO QHS 08/31/16 Continue current care 09/01/16: Increase Depakote to 250mg PO q AM and 500mg PO q HS to target continued mood lability. 09/02/16: Patient will receive increased dose of Depakote tonight at bedtime; continue current care otherwise. Improving overall. 09/03/16: Will schedule Flexeril 5mg PO TID at 0800, 1500, 2100. Continue current care otherwise; Depakote has yet to reach steady-state level since increasing dose. 09/04/16: Continue current care as patient is improving - sleep is biggest concern right now. Will continue to monitor for need of any additional bedtime PRNs. 09/05/16: Will increase HS Ativan to 2mg, obtain VPA trough level in AM and adjust accordingly, check UA to r/o UTI, obtain CT of head if patient able to cooperate. 09/06/16: VPA level this AM. Increase Depakote to 250/250/500. If cooperative enough today, CT scan. 09/07/16: VPA was 45. I increased Depakote to total of 1000mg per day but may be able to go higher yet. Would like to monitor for daytime sedation first. 09/08/16: Schedule oxycodone 5mg PO q HS. May continue taking Flexeril back to 5mg PO TID if patient is not too sedated during day, but primarily need to target overnight agitation/aggression first. Depakote still increasing to new steady state after recent increase. 09/09/16: Continue to hold fluids after 8:00 pm. Will also schedule AM dose of Flexeril, to be given 20-30 minutes prior to AM cares to minimize aggression/ agitation due to pain. 09/10/16: Will discontinue mirtazapine at HS, and decrease Ativan to 1mg Po q HS now that Depakote has likely reached new steady-state levels. Will also hold Seroquel 25mg q AM and monitor for less sedation. Will discuss possibility of patch for pain control rather than PO/PRN medications. 09/11/16: Patient continues to be agitated and aggressive with cares, believed to be related to pain. Patient has demonstrated decreased respiratory rate with higher doses of medications. Will discuss Hospice with family. (2) Hypothyroidism (3) Sensorineural hearing loss VAUGHN PARRA MD Sep 11, 2016 08:25
--- NOTE | 2016-09-12 11:46 | NUR ---
[employer] - DISCHARGE PLANNING This SW has spoken with [facility] who has declined pt to the inpatient unit. At this time, they have stated it is more appropriate for pt to go the unit at the [facility] for hospice. The [facility] is sending out a housing management representative to evaluate pt for placement. This SW has spoken with the [facility] foster home placement and if he is not able to go to the unit at the [facility] then she will be willing to take him back to her home with hospice placement. Pt's son has been notified and educated on hospice services and how they can benefit pt. Son is in agreeing and will be available to sign pw as needed. This SW gave names of hospices available to the foster care if needed. Hospitalist has been notified to come and assist with review of pt's change of disease and will come to [facility] to discuss. At this time, planning to D/C sometime today. SW in the unit will work with CM dept to facilitate.
--- NOTE | 2016-09-12 13:21 | NUR ---
COUN[facility] MANAGER--[facility] LSCSW received return phone call from Carlton Coleman CM at [facility] [phone]. [phone]. He said that they already have two admissions today and logistically do not have staff to take on another one, especially with the behaviors he has with CARES. He said he would be willing to call back on Thursday at 1000 to see if placement is still needed and he would evaluate pt. for placement at that time.
--- NOTE | 2016-09-12 14:34 | NUR ---
STERLING KATZ SPOKE WITH ZACKERY, [facility] PROVIDER. SHE SAID THAT SHE CAN'T ACCEPT PT BACK TO HER HOME WITHOUT PERMISSION OF [facility] (P# [phone]). ROD SPOKE WITH [facility]. SHE GAVE PERMISSION TO CONTACT HOSPICE. STERLING CONTACTED ZACKERY TO SEE WHICH HOSPICE SHE WOULD LIKE TO USE. ZACKERY SAID THAT SHE HAD SPOKEN TO [facility] AND WAS TOLD THAT PT WOULD NOT RETURN TO HER HOME. STERLING, [facility] AND ROD SPOKE ON SPEAKER PHONE. IT WAS DETERMINED THAT PT CAN'T RETURN TO [facility]. ON THURSDAY [facility] WILL RE-EVALUATE PT FOR ADMISSION TO THEIR UNIT.
--- NOTE | 2016-09-12 15:30 | NUR ---
CRIMINALIST--FAMILY CONTACT/HOSPICE APPROVAL [facility] was advised by Dorothy Murguia (PD) that Dr. Cui had done a [id number] phone call with Dr. Cobb (biomedical service engineer unit at [facility] Dr. Cobb agreed that pt. is an appropriate referral for their hospice unit but they will not be able to accept pt. until Thursday. Gabriele asked this SW to contact patient's son, Henry, to see if son is still agreeable for patient to be referred for hospice services. This SW contacted Henry by phone. Updated son regarding phone call between doctors and Dr. Cobb decision that pt. is appropriate for hospice services. Son was very agreeable to those services; he felt there was really no other option due to his dad's current condition and symptoms. The son knows that insurance is no longer paying for hospitalization. He asked that the transfer take place abigail because pt. cannot afford cost of extended stay. Advised son that Carlton Coleman ([facility] CM) would be calling this SW back on Thursday at 1000 and arrangements should be made at that time for transfer on Thursday.
[2016-09-12 16:00] VITALS: BP 120/80; PULSE 84; RESP 16; TEMP 98.2; O2SAT 95
--- NOTE | 2016-09-12 19:47 | NUR ---
SHIFT SUMMARY patient was sleep in bed until noon, he did not ate breakfast or lunch today, patient spit out morning medications. He did well with cares this after noon, he allow staff to help with bath and hygiene cares, he had 75 % of dinner this evening. No aggressive behaviors noted, No PRN medication given, Patient is unable to make needs known. Patient is currently in the day room, staff is near by, will continue to monitor.
[2016-09-12] MEDS: QUETIAPINE 50 MG TABLET PO SCH (20:20)
[2016-09-12] MEDS: LORAZEPAM 1 MG TABLET PO SCH (20:20)
[2016-09-12 20:21] VITALS: PULSE 84; RESP 16
[2016-09-12] MEDS: DONEPEZIL 10 MG TABLET PO SCH (20:21)
[2016-09-12] MEDS: OXYCODONE 10 MG/0.5 ML PO SCH (20:28)
[2016-09-12 20:35] VITALS: BP 122/68; PULSE 87; RESP 16; TEMP 98
--- NOTE | 2016-09-12 22:00 | NUR ---
Bedtime / status Pt up in wheelchair in day room upon initial assessment. Pt encouraged to take bites of magic cup but up regulated and very focused on this RN as if mad, clenching fists and attempting to kick. This RN backed away and out of Pt's sight, Pt to de regulate and allowed other staff member to give crushed medications in magic cup. Pt stayed up for a little bit and assist x 2 to get gown on and change breif. Pt incontinent of urine. Pt able to regulate better with one person talking in his right ear and being direct and calm with Pt. Pt upregulated when trying to do too many things or overstimulation of touch ie both staff trying to take off pants and put on gown. Pt in bed at this time. Will continue to monitor. Call light in reach. Bed locked and low. Bed alarm on.
--- NOTE | 2016-09-13 00:16 | NUR ---
Chart Check 24 hour chart check completed
--- NOTE | 2016-09-13 06:13 | NUR ---
Summary Pt has been sleeping most of the night. Pt slept from 2200 until now, approx 6.75 hours, and continues to sleep. When awoke to do barry-care, Pt pushing on staff when doing cares and changing him and turning him, but not physically aggressive. Pt was verbally aggressive when first getting him into bed for the night stated, "You fuckin, get out" grimaces and pulling on hands/wringing hands. PT remains assist x 2 or more with cares. Warm blankets put on Pt to help calm, but Pt took them off. Pt looked sweaty after checking in on him and only top sheet laid on Pt. Pt did take meds crushed in magic cup. Pt refused HS snack of magic cup. Will continue to monitor. Call light in reach. Bed locked and low. Bed alarm on.
[2016-09-13] MEDS: CYCLOBENZAPRINE 5 MG TABLET PO SCH ×2 (06:47→21:08)
[2016-09-13] MEDS: LEVOTHYROXINE 125 MCG TABLET PO SCH (06:47)
[2016-09-13] MEDS: DIVALPROEX SPRINKLE 125 MG CAPSULE PO SCH ×3 (07:00→21:08)
[2016-09-13] MEDS: POLYETHYL.GLYCOL 3350 PACKET 17gm PO SCH (09:00)
[2016-09-13] MEDS: CYANOCOBALAMIN (B-12) 500mcg TABLET PO SCH (09:00)
[2016-09-13] MEDS: SENNA + DOCUSATE TAB PO SCH ×2 (09:00→21:08)
[2016-09-13 09:54] VITALS: RESP 16
--- NOTE | 2016-09-13 13:31 | NUR ---
MID SHIFT NOTE PT HAS STAYED IN BED FOR MOST OF MORNING. PT IS NOT ORIENTED. PT IS COMBATIVE WITH CARES AND HAS REFUSED MOST OF HIS MEDICATION. PT SPEECH IS NOT INTELLIGIBLE BUT IS LOUD AND ANGRY. PT IS COMPLETELY INCONTINENT FOR THIS SHIFT. A FULL BED CHANGE WAS DONE AND PT WAS PIVOT TRANSFERRED TO /. PT WAS COMBATIVE WITH STAFF FOR CARES AND ATTEMPTED TO BITE, HIT, HOLD, KICK DURING CARES. PT SKIN IS PINK DRY AND INTACT DURING BRIEF CHANGE. PT ATE ABOUT 50% OF LUNCH ON OWN AND REFUSED ASSISTANCE. WILL CONTINUE TO MONITOR PT.
--- NOTE | 2016-09-13 14:51 | PNPDOC ---
Subjective Date DATE: 09/13/16 TIME: 14:46 Subjective Yuan is seen in follow up. He is nonverbal. Opens his eyes and is restless during exam. Remains violent at times with staff. D/W Dr. Cui- planned discharge to Hospice services on Thursday. Waiting on bed at [facility]. Chart is reviewed. Objective Vital Signs Vital signs Vital Signs Date Time Temp Pulse Resp B/P Pulse Ox O2 Delivery O2 Flow Rate FiO2 09/13/16 09:54 16 09/12/16 20:35 98.0 87 122/68 Room Air 09/12/16 16:00 95 Height (Feet): 5 Height (Inches): 10.00 Weight (Kilograms): 85.200 General General Appearance: Uncooperative, No Acute Distress Comments Somnolent. Respiratory (Brief) Respiratory: FOUND: clear all roberts, equal bilaterally, symmetrical, NOT FOUND : rales, wheezes Cardiovascular (Brief) Cardiac: FOUND: regular rate, regular rhythm, NOT FOUND: murmur, pedal edema Abdomen (Brief) Abdominal: FOUND: BS normo active x4, soft, NOT FOUND: distended, tender Extremities (Brief) Extremity : Extremity Finding: NOT FOUND: edema Integumentary (Brief) Integumentary: FOUND: dry, warm Sepsis Diagnostic Criteria Sepsis Confirmed/Suspected Infection: No Assessment & Plan Problems: (1) Dementia with behavioral disturbance Status: Acute Qualifiers: Dementia type: unspecified type Qualified Codes: F03.91 - Unspecified dementia with behavioral disturbance (2) Sinus bradycardia Status: Resolved (3) Hypothyroidism Status: Chronic (4) Sensorineural hearing loss Status: Chronic (5) Overweight (BMI 25.0-29.9) Status: Chronic Plan/Intensity of Service 09/13/16- Behaviors remain an issue if patient is not sedated. He seems to be a bit better on low-dose Fentanyl patch. I have reviewed medications- at this point, I think we should continue current since comfort is the herrera issue. Agree with plans to transfer to inpatient hospice at the [facility] on Thursday. Continue safe, supportive environment. Code Status Do Not Resuscitate Hospital Course Summary Disclaimer The hospital course summary below is not to be considered part of the above Progress Note. Hospital Course Summary 08/21/16 Agree with admission orders. Hypothyroidism. TSH was over 10 when checked in April 2016. On reassessment yesterday, it had improved to 3.13. Continue levothyroxine. Labs reviewed: CBC and CMP were unremarkable. Urinalysis was negative for UTI. Folate, iron, vitamin B12, hemoglobin A1c, all pending. Will also check prealbumin. Bradycardia: EKG revealed sinus bradycardia with a left axis deviation. Borderline hypotension: Monitor at this time. Patient had similarly low blood pressure upon admission to the [facility]. Shuffling gait, tremor, and nurses report rigidity: Consider neurologic evaluation for Parkinson's. 08/22/16 Labs reviewed - unremarkable. VSS. Psychiatric notes reviewed. Medically stable. 08/30/16- Continue supportive care. Need to consider CT of the head if not done elsewhere. Repeat labs in am. Assess RPR as well. BP is a bit low- push fluids. Likely due to antipsychotics. Consider neurology eval. for diagnosis of gait instability, rigidity. (Bill MUSIC PRODUCER visit only). 09/01/16 Staff is going to call the [facility] and see if he's had a previous head CT. BP continues to run low - encourage fluids. Labs were done on 08/31/16 - unremarkable. Psych notes reviewed - over the last few days Depakote was started to target anger and Seroquel dose has been adjusted. 09/05/16 Yuan is somnolent this morning at the breakfast table. Did discuss medications with Dr Cui. Will change Flexeril to scheduled only at HS and otherwise keep it PRN. He is sleeping during the night which is a improvement. Continue with oxycodone as needed for pain control. BP is well controlled. Will add Miralax daily for bowel motivation. Last reported BM was on 09/0509/07/16- Pt is resting quietly. Medications are being adjusted due to variable behavior. DC planning is noted- potential DC on Thursday. UA is assessed. No acute sx of UTI noted. Last BM 09/05. Labs are reviewed. Flexeril adjusted to decrease sedation. PRN oxycodone. Continue to attempt pain control. Mild edema, but does not appear fluid overloaded. Continue to monitor. 09/09/16 Constipation - give MOM again today; start scheduled Senna plus in addition to MiraLAX. Bradycardia - resolved. Repeat labs for surveillance. Psychiatric notes reviewed - Depakote increased; scheduled oxycodone HS; continue Depakote. 09/11/16 Will start low-dose fentanyl patch d/t concerns regarding uncontrolled pain. Vitamin B12 was low-normal and oral replacement was initiated. Mild hypernatremia noted. Poor oral intake. SW is planning on trying to reach family for guidance on goals of care. Pt would be hospice-appropriate. Psych progress notes reviewed: discontinued mirtazapine at HS, and decreased Ativan to 1mg Po q HS; Depakote has likely reached new steady-state levels. Hold Seroquel 25mg q AM and monitor for less sedation. Later in the day I received a phone call from [facility] - family wants to continue with hospice through [facility]. 09/13/16- Behaviors remain an issue if patient is not sedated. He seems to be a bit better on low-dose Fentanyl patch. I have reviewed medications- at this point, I think we should continue current since comfort is the herrera issue. Agree with plans to transfer to inpatient hospice at the [facility] on Thursday. Continue safe, supportive environment. [employer]ERT[employer] ORDER DELIVERY RUNNER Sep 13, 2016 14:50
--- NOTE | 2016-09-13 16:56 | GENPN ---
[facility] Subjective Date DATE: 09/13/16 TIME: 10:41 Subjective/Severity of Illness Medications Current Medications Medications (Trade) Dose Ordered Sig/Raymon Start Time Stop Time Status Last Admin Dose Admin Donepezil HCl (Aricept) 10 mg HS 08/21/16 21:00 09/12/16 20:21 10 MG Levothyroxine Sodium (Synthroid) 125 mcg ACB 08/21/16 06:30 09/13/16 06:47 125 MCG Mirtazapine (Remeron) 7.5 mg HS 08/21/16 21:00 09/10/16 17:50 DC 09/09/16 20:06 7.5 MG Miscellaneous Medication (May use PRN orders) 1 PRN PRN 08/20/16 23:30 Haloperidol (Haldol) 0.5 mg Q6H PRN 08/20/16 23:30 08/31/16 21:10 0.5 MG Lorazepam (Ativan) 0.5 mg Q6H PRN 08/20/16 23:30 09/06/16 14:35 0.5 MG Lorazepam (Ativan) 0.5 mg Q6H PRN 08/20/16 23:30 Haloperidol Lactate (Haldol 5 Mg/ml Inj) 0.5 mg Q6H PRN 08/20/16 23:30 Lorazepam (Ativan Intensol) 0.5 mg Q6H PRN 08/21/16 03:15 08/30/16 04:33 0.5 MG Haloperidol (Haldol Liquid) 0.5 mg Q6H PRN 08/21/16 03:15 09/02/16 21:57 0.5 MG Acetaminophen (Tylenol Regular Strength) 1-2 tabs Q5H PRN 08/22/16 23:45 09/01/16 21:45 650 MG Lorazepam (Ativan) 1 mg HS 08/25/16 21:00 09/05/16 12:28 DC 09/04/16 19:42 1 MG Quetiapine Fumarate (Seroquel) 25 mg BID 08/25/16 21:00 08/26/16 10:49 DC 08/26/16 08:58 25 MG Quetiapine Fumarate (Seroquel) 25 mg DAILY 08/27/16 09:00 08/27/16 12:12 DC Quetiapine Fumarate (Seroquel) 50 mg HS 08/26/16 21:00 08/27/16 12:12 DC 08/26/16 20:24 50 MG Quetiapine Fumarate (Seroquel) 100 mg HS 08/27/16 21:00 08/30/16 10:31 DC 08/29/16 19:08 100 MG Quetiapine Fumarate (Seroquel) 50 mg DAILY 08/28/16 09:00 08/29/16 09:24 DC 08/28/16 09:06 50 MG Cyclobenzaprine HCl (Flexeril) 5 mg Q8H PRN 08/28/16 02:00 09/06/16 19:46 5 MG Divalproex Sodium (Depakote) 250 mg BID 08/28/16 21:00 08/30/16 11:24 DC 08/30/16 10:35 250 MG Quetiapine Fumarate (Seroquel) 50 mg DAILY 08/30/16 09:00 08/30/16 09:00 DC Quetiapine Fumarate (Seroquel) 50 mg DAILY 08/29/16 09:30 08/30/16 10:30 DC 08/29/16 09:30 50 MG Quetiapine Fumarate (Seroquel) 25 mg DAILY 08/31/16 09:00 09/06/16 11:06 DC 09/06/16 10:27 25 MG Quetiapine Fumarate (Seroquel) 150 mg HS 08/30/16 21:00 09/12/16 20:20 150 MG Divalproex Sodium (Depakote Sprinkle) 250 mg BID 08/30/16 21:00 09/01/16 21:43 DC 09/01/16 19:56 250 MG Divalproex Sodium (Depakote Sprinkle) 250 mg DAILY 09/02/16 09:00 09/06/16 12:41 DC 09/06/16 10:27 250 MG Divalproex Sodium (Depakote Sprinkle) 500 mg HS 09/02/16 21:00 09/12/16 20:20 500 MG Oxycodone HCl (Oxycodone Oral Solution) 5 mg Q4H PRN 09/02/16 22:30 09/08/16 12:42 5 MG Cyclobenzaprine HCl (Flexeril) 5 mg TID 09/03/16 21:00 09/05/16 10:44 DC 09/05/16 08:29 5 MG Cyclobenzaprine HCl (Flexeril) 5 mg HS 09/05/16 21:00 09/09/16 09:57 DC 09/08/16 19:42 5 MG Polyethylene Glycol (Miralax) 17 g DAILY 09/05/16 11:00 09/11/16 08:21 17 G Lorazepam (Ativan) 2 mg HS 09/05/16 21:00 09/10/16 17:50 DC 09/09/16 20:05 2 MG Quetiapine Fumarate (Seroquel) 25 mg DAILY 09/07/16 09:00 Future Hold 09/09/16 12:26 25 MG Divalproex Sodium (Depakote Sprinkle) 250 mg [id number] 09/06/16 14:00 09/11/16 16:09 250 MG Oxycodone HCl (Oxycodone Oral Solution) 5 mg HS 09/08/16 21:00 09/12/16 20:28 5 MG Magnesium Hydroxide (Mom) 30 ml DAILY PRN 09/08/16 16:45 09/08/16 16:36 30 ML Bisacodyl (Dulcolax) 10 mg DAILY PRN 09/09/16 02:00 09/09/16 06:39 10 MG Senna/Docusate Sodium (Senna Plus) 1 tab BID 09/09/16 09:15 09/12/16 20:20 1 TAB Cyclobenzaprine HCl (Flexeril) 5 mg 0630,21 09/09/16 21:00 09/13/16 06:47 5 MG Cyanocobalamin (Vit. B-12) 1,000 mcg DAILY 09/10/16 08:00 09/11/16 08:21 1,000 MCG Bisacodyl (Dulcolax) 10 mg DAILY PRN 09/10/16 14:45 09/10/16 14:20 10 MG Lorazepam (Ativan) 1 mg HS 09/10/16 21:00 09/12/16 20:20 1 MG Fentanyl (Duragesic 12 Mcg) 1 patch Q3D 09/11/16 12:00 09/11/16 12:21 1 PATCH Fentanyl (Duragesic Patch Removal) 1 removal Q3D 09/14/16 12:00 Subjective Patient seen and chart reviewed. Case discussed with treatment team. Patient lying in bed while staff assist with care during rounds. Patient continues to be a bit resistive with cares but agitation is decreased when pain is well-controlled. Patient not able to verbally communicate well. He spits out medications at times but now has a patch for pain control. Will discuss pain regimen with hospitalist and whether other meds can now be decreased to minimize sedation and decreased respiratory drive. Son in agreement with Hospice services; [facility]. Patient slept 6.75 hours overnight. No psychotropic PRNs required in the past 24 hours. Time of Service: 06:00 Start Time: 14:00 Stop Time: 14:20 Care >50% of this visit spent in counseling/coordination care. [facility] Exam Vitals Vital Signs Date Time Temp Pulse Resp B/P Pulse Ox O2 Delivery O2 Flow Rate FiO2 09/13/16 09:54 16 09/12/16 20:35 98.0 87 122/68 Room Air 09/12/16 16:00 95 Physical examination performed by the hospitalist. Height (Feet): 5 Height (Inches): 10.00 Mental Status Exam Muscle Strength/Tone: Rigid Dressing: Casual Grooming: Fair Attitude: Uncooperative Motor Activity: Retardation, Tremors Eye Contact: Poor Speech: Normal Volume: Soft Rhythm: Mumbled, Paucity of Language Sensory: Alert Orientation: Disoriented to time, Disoriented to place, Disoriented to situation, Oriented to person Affect: Blunted Rate of Thoughts: Delayed Thought Organization: Confused Associations: Illogical Abstract Reasoning: Impaired, concrete Thought Content: Other (Poverty of thought) Perception/Psychotic: Perception Normal Attention Span/Concentration: Inattentive Language: Naming Impaired Fund of Knowledge: Poor fund of knowledge Memory: Poor-immediate, Poor-recent, Poor-remote Suicidal Ideation: None Homicidal Ideation: None Insight: Impaired Judgment: Impaired Impulse Control: Poor (improved since admission) Assessment and Plan (1) Major neurocognitive disorder Assessment: Suspected due to Parkinsonian type or Subcortical etiology. 1. Hold Risperidone and Haloperidol. Cont Mirtazapine 2. Observe patient on the unit 3. ST to see patient for swallow test\ 08/22/16 Continue current care 08/23/16 continue current care 08/24/16 Continue current care 08/25/16: Will discuss antipsychotic use with son/DPWILLIAM Figueroa ([phone]) and start Seroquel 25mg PO BID if he consents; plan to start Ativan 1mg PO HS to target insomnia as well. 08/26/16: Increase Seroquel to 25mg PO q AM and 50mg PO q HS; titrate slowly to effect while monitoring effect on gait/rigidity. 08/27/16: Increase Seroquel to 50mg PO q AM and 100mg PO q HS; titrate slowly to effect while monitoring effect on gait/rigidity. 08/28/16: Start Depakote 250mg PO BID to target anger. 08/29/16 Continue current care 08/30/16 Change Seroquel to 25mg daily and 150mg PO QHS 08/31/16 Continue current care 09/01/16: Increase Depakote to 250mg PO q AM and 500mg PO q HS to target continued mood lability. 09/02/16: Patient will receive increased dose of Depakote tonight at bedtime; continue current care otherwise. Improving overall. 09/03/16: Will schedule Flexeril 5mg PO TID at 0800, 1500, 2100. Continue current care otherwise; Depakote has yet to reach steady-state level since increasing dose. 09/04/16: Continue current care as patient is improving - sleep is biggest concern right now. Will continue to monitor for need of any additional bedtime PRNs. 09/05/16: Will increase HS Ativan to 2mg, obtain VPA trough level in AM and adjust accordingly, check UA to r/o UTI, obtain CT of head if patient able to cooperate. 09/06/16: VPA level this AM. Increase Depakote to 250/250/500. If cooperative enough today, CT scan. 09/07/16: VPA was 45. I increased Depakote to total of 1000mg per day but may be able to go higher yet. Would like to monitor for daytime sedation first. 09/08/16: Schedule oxycodone 5mg PO q HS. May continue taking Flexeril back to 5mg PO TID if patient is not too sedated during day, but primarily need to target overnight agitation/aggression first. Depakote still increasing to new steady state after recent increase. 09/09/16: Continue to hold fluids after 8:00 pm. Will also schedule AM dose of Flexeril, to be given 20-30 minutes prior to AM cares to minimize aggression/ agitation due to pain. 09/10/16: Will discontinue mirtazapine at HS, and decrease Ativan to 1mg Po q HS now that Depakote has likely reached new steady-state levels. Will also hold Seroquel 25mg q AM and monitor for less sedation. Will discuss possibility of patch for pain control rather than PO/PRN medications. 09/11/16: Patient continues to be agitated and aggressive with cares, believed to be related to pain. Patient has demonstrated decreased respiratory rate with higher doses of medications. Will discuss Hospice with family. 09/13/16: Son/DPOA in agreement with Hospice care. [facility] Will discuss pain regimen with hospitalist and whether other meds can now be decreased to minimize sedation and decreased respiratory drive. (2) Hypothyroidism (3) Sensorineural hearing loss VAUGHN PARRA MD Sep 13, 2016 10:41
[2016-09-13 17:44] VITALS: BP 121/77; PULSE 66; RESP 16; TEMP 98.6; O2SAT 96
--- NOTE | 2016-09-13 18:08 | NUR ---
SHIFT SUMMARY SEE PRIOR NOTE. PT STAYED UP IN RECLINER FOR MOST OF THE AFTERNOON THEN GOT AGITATED AND WAS OFFERED THE RESTROOM, PT WAS VERY COMBATIVE WITH STAFF. IT TOOK 3 STAFF TO PIVOT TO BED. PT WAS RESTING QUIETLY BEFORE STAFF LEFT ROOM. PT HAD BEEN 1:1 FOR ABOUT AN HOUR AFTER LUNCH BUT RELAXED AND CONTINUED TO REST AFTER THAT. PT HAS REFUSED ALL MEDICATION AND IS NOT COMPLIANT WITH ANY CARES. Addendum: 09/13/16 at 1813 by JULIANNA DICKENS RN WILL CONTINUE TO MONITOR PT TILL END OF SHIFT REPORT.
[2016-09-13] MEDS: DONEPEZIL 10 MG TABLET PO SCH (21:08)
[2016-09-13] MEDS: QUETIAPINE 50 MG TABLET PO SCH (21:13)
[2016-09-13] MEDS: LORAZEPAM 1 MG TABLET PO SCH (21:16)
[2016-09-13] MEDS: OXYCODONE 10 MG/0.5 ML PO SCH (21:37)
[2016-09-13 22:41] VITALS: BP 126/69; PULSE 83; RESP 15; TEMP 98.2; O2SAT 94
--- NOTE | 2016-09-14 02:50 | NUR ---
midshift note: PT doing well, he has been resting in bed. PT replies to RN when she speaks but is not the appropriate response.
--- NOTE | 2016-09-14 04:00 | NUR ---
Chart Check 24 hour chart check completed
--- NOTE | 2016-09-14 06:26 | NUR ---
shift summary: PT was combative while changing briefs, he was incontinent overnight. PT took medications. PT would not let RN put a shirt on him this morning but did allow RN to place pants. RN monitored patient overnight. PT slept most of shift.
[2016-09-14] MEDS: LEVOTHYROXINE 125 MCG TABLET PO SCH (06:38)
[2016-09-14] MEDS: DIVALPROEX SPRINKLE 125 MG CAPSULE PO SCH ×3 (06:39→20:06)
[2016-09-14] MEDS: CYCLOBENZAPRINE 5 MG TABLET PO SCH ×2 (06:39→20:06)
[2016-09-14 08:00] VITALS: BP 122/77; PULSE 91; RESP 16; TEMP 98.2; O2SAT 96
[2016-09-14] MEDS: SENNA + DOCUSATE TAB PO SCH ×2 (08:40→20:06)
[2016-09-14] MEDS: POLYETHYL.GLYCOL 3350 PACKET 17gm PO SCH (08:40)
[2016-09-14] MEDS: CYANOCOBALAMIN (B-12) 500mcg TABLET PO SCH (08:41)
[2016-09-14] MEDS ORDERED: FENTANYL PATCH REMOVAL TD SCH (12:00)
[2016-09-14] MEDS: FENTANYL 12MCG/HR PATCH TD SCH (12:25)
--- NOTE | 2016-09-14 15:10 | GENPN ---
[facility] Subjective Date DATE: 09/14/16 TIME: 09:51 Subjective/Severity of Illness Medications Current Medications Medications (Trade) Dose Ordered Sig/Raymon Start Time Stop Time Status Last Admin Dose Admin Donepezil HCl (Aricept) 10 mg HS 08/21/16 21:00 09/13/16 21:08 10 MG Levothyroxine Sodium (Synthroid) 125 mcg ACB 08/21/16 06:30 09/14/16 06:38 125 MCG Mirtazapine (Remeron) 7.5 mg HS 08/21/16 21:00 09/10/16 17:50 DC 09/09/16 20:06 7.5 MG Miscellaneous Medication (May use PRN orders) 1 PRN PRN 08/20/16 23:30 Haloperidol (Haldol) 0.5 mg Q6H PRN 08/20/16 23:30 08/31/16 21:10 0.5 MG Lorazepam (Ativan) 0.5 mg Q6H PRN 08/20/16 23:30 09/06/16 14:35 0.5 MG Lorazepam (Ativan) 0.5 mg Q6H PRN 08/20/16 23:30 Haloperidol Lactate (Haldol 5 Mg/ml Inj) 0.5 mg Q6H PRN 08/20/16 23:30 Lorazepam (Ativan Intensol) 0.5 mg Q6H PRN 08/21/16 03:15 08/30/16 04:33 0.5 MG Haloperidol (Haldol Liquid) 0.5 mg Q6H PRN 08/21/16 03:15 09/02/16 21:57 0.5 MG Acetaminophen (Tylenol Regular Strength) 1-2 tabs Q5H PRN 08/22/16 23:45 09/01/16 21:45 650 MG Lorazepam (Ativan) 1 mg HS 08/25/16 21:00 09/05/16 12:28 DC 09/04/16 19:42 1 MG Quetiapine Fumarate (Seroquel) 25 mg BID 08/25/16 21:00 08/26/16 10:49 DC 08/26/16 08:58 25 MG Quetiapine Fumarate (Seroquel) 25 mg DAILY 08/27/16 09:00 08/27/16 12:12 DC Quetiapine Fumarate (Seroquel) 50 mg HS 08/26/16 21:00 08/27/16 12:12 DC 08/26/16 20:24 50 MG Quetiapine Fumarate (Seroquel) 100 mg HS 08/27/16 21:00 08/30/16 10:31 DC 08/29/16 19:08 100 MG Quetiapine Fumarate (Seroquel) 50 mg DAILY 08/28/16 09:00 08/29/16 09:24 DC 08/28/16 09:06 50 MG Cyclobenzaprine HCl (Flexeril) 5 mg Q8H PRN 08/28/16 02:00 09/06/16 19:46 5 MG Divalproex Sodium (Depakote) 250 mg BID 08/28/16 21:00 08/30/16 11:24 DC 08/30/16 10:35 250 MG Quetiapine Fumarate (Seroquel) 50 mg DAILY 08/30/16 09:00 08/30/16 09:00 DC Quetiapine Fumarate (Seroquel) 50 mg DAILY 08/29/16 09:30 08/30/16 10:30 DC 08/29/16 09:30 50 MG Quetiapine Fumarate (Seroquel) 25 mg DAILY 08/31/16 09:00 09/06/16 11:06 DC 09/06/16 10:27 25 MG Quetiapine Fumarate (Seroquel) 150 mg HS 08/30/16 21:00 09/13/16 21:13 150 MG Divalproex Sodium (Depakote Sprinkle) 250 mg BID 08/30/16 21:00 09/01/16 21:43 DC 09/01/16 19:56 250 MG Divalproex Sodium (Depakote Sprinkle) 250 mg DAILY 09/02/16 09:00 09/06/16 12:41 DC 09/06/16 10:27 250 MG Divalproex Sodium (Depakote Sprinkle) 500 mg HS 09/02/16 21:00 09/13/16 21:08 500 MG Oxycodone HCl (Oxycodone Oral Solution) 5 mg Q4H PRN 09/02/16 22:30 09/08/16 12:42 5 MG Cyclobenzaprine HCl (Flexeril) 5 mg TID 09/03/16 21:00 09/05/16 10:44 DC 09/05/16 08:29 5 MG Cyclobenzaprine HCl (Flexeril) 5 mg HS 09/05/16 21:00 09/09/16 09:57 DC 09/08/16 19:42 5 MG Polyethylene Glycol (Miralax) 17 g DAILY 09/05/16 11:00 09/14/16 08:40 17 G Lorazepam (Ativan) 2 mg HS 09/05/16 21:00 09/10/16 17:50 DC 09/09/16 20:05 2 MG Quetiapine Fumarate (Seroquel) 25 mg DAILY 09/07/16 09:00 Future Hold 09/09/16 12:26 25 MG Divalproex Sodium (Depakote Sprinkle) 250 mg [id number] 09/06/16 14:00 09/14/16 06:39 250 MG Oxycodone HCl (Oxycodone Oral Solution) 5 mg HS 09/08/16 21:00 09/13/16 21:37 5 MG Magnesium Hydroxide (Mom) 30 ml DAILY PRN 09/08/16 16:45 09/08/16 16:36 30 ML Bisacodyl (Dulcolax) 10 mg DAILY PRN 09/09/16 02:00 09/09/16 06:39 10 MG Senna/Docusate Sodium (Senna Plus) 1 tab BID 09/09/16 09:15 09/14/16 08:40 1 TAB Cyclobenzaprine HCl (Flexeril) 5 mg 0630,21 09/09/16 21:00 09/14/16 06:39 5 MG Cyanocobalamin (Vit. B-12) 1,000 mcg DAILY 09/10/16 08:00 09/14/16 08:41 1,000 MCG Bisacodyl (Dulcolax) 10 mg DAILY PRN 09/10/16 14:45 09/10/16 14:20 10 MG Lorazepam (Ativan) 1 mg HS 09/10/16 21:00 09/13/16 21:16 1 MG Fentanyl (Duragesic 12 Mcg) 1 patch Q3D 09/11/16 12:00 09/11/16 12:21 1 PATCH Fentanyl (Duragesic Patch Removal) 1 removal Q3D 09/14/16 12:00 Subjective Patient seen and chart reviewed. Case discussed with treatment team. Patient lying in bed and yells out occasionally but does not communicate meaningfully; appears comfortable. Patient continues to be a bit resistive with cares but agitation is decreased when pain is well-controlled. He spits out medications at times but now has a patch for pain control. Son in agreement with Hospice services; [facility]. Patient slept well overnight. Appetite decreased which likely is contributing to more difficulty with medication adherence. No psychotropic PRNs required in the past 24 hours. Time of Service: 06:00 Start Time: 09:40 Stop Time: 10:00 Care >50% of this visit spent in counseling/coordination care. [facility] Exam Vitals Vital Signs Date Time Temp Pulse Resp B/P Pulse Ox O2 Delivery O2 Flow Rate FiO2 09/13/16 22:41 98.2 83 15 126/69 94 Room Air Physical examination performed by the hospitalist. Height (Feet): 5 Height (Inches): 10.00 Mental Status Exam Muscle Strength/Tone: Rigid Dressing: Casual Grooming: Fair Attitude: Uncooperative Motor Activity: Retardation, Tremors Eye Contact: Poor Speech: Slowed Volume: Soft Rhythm: Mumbled, Paucity of Language Sensory: Confused Orientation: Disoriented to time, Disoriented to place, Disoriented to situation, Oriented to person Mood: Neutral Affect: Blunted, Labile (improved from admission) Rate of Thoughts: Delayed Thought Organization: Confused Associations: Illogical Abstract Reasoning: Impaired, concrete Computation: Poor Computation Thought Content: Other (Poverty of thought) Perception/Psychotic: Perception Normal Attention Span/Concentration: Inattentive Language: Naming Impaired Fund of Knowledge: Poor fund of knowledge Memory: Poor-immediate, Poor-recent, Poor-remote Suicidal Ideation: None Homicidal Ideation: None Insight: Impaired Judgment: Impaired Impulse Control: Poor Assessment and Plan (1) Major neurocognitive disorder Assessment: Suspected due to Parkinsonian type or Subcortical etiology. 1. Hold Risperidone and Haloperidol. Cont Mirtazapine 2. Observe patient on the unit 3. ST to see patient for swallow test\ 08/22/16 Continue current care 08/23/16 continue current care 08/24/16 Continue current care 08/25/16: Will discuss antipsychotic use with son/MAXINEWILLIAM Figueroa ([phone]) and start Seroquel 25mg PO BID if he consents; plan to start Ativan 1mg PO HS to target insomnia as well. 08/26/16: Increase Seroquel to 25mg PO q AM and 50mg PO q HS; titrate slowly to effect while monitoring effect on gait/rigidity. 08/27/16: Increase Seroquel to 50mg PO q AM and 100mg PO q HS; titrate slowly to effect while monitoring effect on gait/rigidity. 08/28/16: Start Depakote 250mg PO BID to target anger. 08/29/16 Continue current care 08/30/16 Change Seroquel to 25mg daily and 150mg PO QHS 08/31/16 Continue current care 09/01/16: Increase Depakote to 250mg PO q AM and 500mg PO q HS to target continued mood lability. 09/02/16: Patient will receive increased dose of Depakote tonight at bedtime; continue current care otherwise. Improving overall. 09/03/16: Will schedule Flexeril 5mg PO TID at 0800, 1500, 2100. Continue current care otherwise; Depakote has yet to reach steady-state level since increasing dose. 09/04/16: Continue current care as patient is improving - sleep is biggest concern right now. Will continue to monitor for need of any additional bedtime PRNs. 09/05/16: Will increase HS Ativan to 2mg, obtain VPA trough level in AM and adjust accordingly, check UA to r/o UTI, obtain CT of head if patient able to cooperate. 09/06/16: VPA level this AM. Increase Depakote to 250/250/500. If cooperative enough today, CT scan. 09/07/16: VPA was 45. I increased Depakote to total of 1000mg per day but may be able to go higher yet. Would like to monitor for daytime sedation first. 09/08/16: Schedule oxycodone 5mg PO q HS. May continue taking Flexeril back to 5mg PO TID if patient is not too sedated during day, but primarily need to target overnight agitation/aggression first. Depakote still increasing to new steady state after recent increase. 09/09/16: Continue to hold fluids after 8:00 pm. Will also schedule AM dose of Flexeril, to be given 20-30 minutes prior to AM cares to minimize aggression/ agitation due to pain. 09/10/16: Will discontinue mirtazapine at HS, and decrease Ativan to 1mg Po q HS now that Depakote has likely reached new steady-state levels. Will also hold Seroquel 25mg q AM and monitor for less sedation. Will discuss possibility of patch for pain control rather than PO/PRN medications. 09/11/16: Patient continues to be agitated and aggressive with cares, believed to be related to pain. Patient has demonstrated decreased respiratory rate with higher doses of medications. Will discuss Hospice with family. 09/13/16: Son/DPOA in agreement with Hospice care. [facility] Will discuss pain regimen with hospitalist and whether other meds can now be decreased to minimize sedation and decreased respiratory drive. 09/14/16: Discontinue donepezil at bedtime; patient has had decreased appetite and has been refusing medications at times. Planning for transfer to Hospice once accepting facility available for transfer. (2) Hypothyroidism (3) Sensorineural hearing loss VAUGHN PARRA MD Sep 14, 2016 09:51
--- NOTE | 2016-09-14 15:50 | NUR ---
WAKE UP TIME PATIENT WOKE UP AT 0745 THIS MORNING
[2016-09-14 16:00] VITALS: BP 126/69; PULSE 90; RESP 16; TEMP 98.1; O2SAT 96
--- NOTE | 2016-09-14 18:25 | NUR ---
SHIFT SUMMARY Patient is AO x 1, patient has not been cooperative with cares, he took medications crushed with pudding in the morning and mixed with a mighty shake in the evening, he did not ate breakfast and took bites of lunch, he refused dinner and drink a mighty shake. patient was combative and cursing with cares, he grabbed staff hands with a strong cold mill supervisor and would not let go. Staff explained cares before they were done however patient was not able to understand. Patient was incontinent, unsteady gait, he transfer with assist of 2 and needed assistance of 3 staff during cares. Patient is currently sleeping in the recliner in the living room, staff is near by, will monitor for needs or concerns.
[2016-09-14] MEDS: QUETIAPINE 50 MG TABLET PO SCH (20:07)
[2016-09-14] MEDS: LORAZEPAM 1 MG TABLET PO SCH (20:14)
[2016-09-14] MEDS: OXYCODONE 10 MG/0.5 ML PO SCH (20:22)
[2016-09-14 20:23] VITALS: BP 128/78; PULSE 97; RESP 18; TEMP 98.2; O2SAT 96
[2016-09-14 22:28] VITALS: PULSE 97; RESP 18
--- NOTE | 2016-09-15 00:27 | NUR ---
Status Note Pt sitting in Day room in recliner. Pt is up to w/c x 2, a/o to self, pt was cooperative during assessment, taking medication and during cares. He had no aggressive behavior. Pt went to bed at 2100 and was asleep by 2145. Will continue to monitor.
--- NOTE | 2016-09-15 01:16 | NUR ---
Chart Check 24 hour chart check completed
[2016-09-15] MEDS: OXYCODONE 10 MG/0.5 ML PO PRN (04:39)
--- NOTE | 2016-09-15 04:45 | NUR ---
PRN PAIN Pt starting to become restless in bed. Staff checked to see if pt needed to be changed. He was grimacing and moaning. Oxycodone 5 mg solution given.
--- NOTE | 2016-09-15 05:20 | NUR ---
PAIN ASSESSMENT Pt is sleeping quietly.
--- NOTE | 2016-09-15 05:22 | NUR ---
Summary Pt had no behaviors this shift. Pt has been sleeping since 2144 except for cares. Pt is currently asleep.
[2016-09-15] MEDS: CYCLOBENZAPRINE 5 MG TABLET PO SCH ×2 (06:31→21:00)
[2016-09-15] MEDS: LEVOTHYROXINE 125 MCG TABLET PO SCH (06:31)
[2016-09-15] MEDS: DIVALPROEX SPRINKLE 125 MG CAPSULE PO SCH ×3 (07:00→21:00)
[2016-09-15 08:00] VITALS: BP 125/72; PULSE 85; RESP 20; TEMP 97.5; O2SAT 94
[2016-09-15] MEDS ORDERED: CYAN500T2 PO (08:17)
[2016-09-15] MEDS: SENNA + DOCUSATE TAB PO SCH ×2 (09:00→21:00)
[2016-09-15] MEDS: POLYETHYL.GLYCOL 3350 PACKET 17gm PO SCH (09:00)
[2016-09-15] MEDS: CYANOCOBALAMIN (B-12) 500mcg TABLET PO SCH (09:00)
--- NOTE | 2016-09-15 12:25 | NUR ---
CM CM PLACED CALL TO CHOLO DOUGLAS FROM [place] AND LEFT MESSAGE TO DISCUSS [facility] PER PREVIOUS CM NOTES. CM AWAITING RETURN CALL.
[2016-09-15 12:28] VITALS: RESP 12
--- NOTE | 2016-09-15 12:49 | NUR ---
STERLING KATZ SPOKE WITH CHOLO WHO REFERED CM TO IN HOSPICE INPT UNIT. STERLING SPOKE WITH SARAH WHO STATED THAT [facility] STAFF WERE ON THEIR WAY TO REEVALUATE PT. STERLING SPOKE WITH GENERATION NURSE AND SHE IS AWARE.
--- NOTE | 2016-09-15 14:06 | NUR ---
Status/Slept 11.25 hours Pt has been in bed this shift, pt cooperative with assessment. With cares pt does grab at staff, one staff member held pt's hands, while the other staff member changed pt. Pt kept his eyes closed during cares, pt unable drink out of a straw when offered a mighty shake. Pt's morning Meds withheld due to pt being to lethargic to swallow. Pt breathing is shallow, breaths per minute 8-12.
--- NOTE | 2016-09-15 14:56 | NUR ---
SUPERVISOR DIALS--HOSPICE Staff from [facility] unit came out to evaluate patient for placement. Karen from [facility] called back and said they are accepting pt. to their unit on 09/16/16. They asked that the hospital arrange transportation and have pt. arrive between 0900 and 1000. The nurse is to call in report tomorrow at [phone]. [phone].
--- NOTE | 2016-09-15 15:01 | NUR ---
STERLING KATZ SPOKE WITH [facility] PT SON REGARDING D/C PLAN FOR TOMORROW. STERLING SPOKE WITH CHOLO FROM [place] AND SHE WILL SET UP TRANSPORTATION AND CONTACT STERLING WITH RAILWAY SIGNAL TECHNICIAN TIME.
--- NOTE | 2016-09-15 15:35 | GENPN ---
[facility] Subjective Date DATE: 09/15/16 TIME: 15:26 Subjective/Severity of Illness Medications Current Medications Medications (Trade) Dose Ordered Sig/Raymon Start Time Stop Time Status Last Admin Dose Admin Donepezil HCl (Aricept) 10 mg HS 08/21/16 21:00 09/14/16 15:09 DC 09/13/16 21:08 10 MG Levothyroxine Sodium (Synthroid) 125 mcg ACB 08/21/16 06:30 09/15/16 06:31 125 MCG Mirtazapine (Remeron) 7.5 mg HS 08/21/16 21:00 09/10/16 17:50 DC 09/09/16 20:06 7.5 MG Miscellaneous Medication (May use PRN orders) 1 PRN PRN 08/20/16 23:30 Haloperidol (Haldol) 0.5 mg Q6H PRN 08/20/16 23:30 08/31/16 21:10 0.5 MG Lorazepam (Ativan) 0.5 mg Q6H PRN 08/20/16 23:30 09/06/16 14:35 0.5 MG Lorazepam (Ativan) 0.5 mg Q6H PRN 08/20/16 23:30 Haloperidol Lactate (Haldol 5 Mg/ml Inj) 0.5 mg Q6H PRN 08/20/16 23:30 Lorazepam (Ativan Intensol) 0.5 mg Q6H PRN 08/21/16 03:15 08/30/16 04:33 0.5 MG Haloperidol (Haldol Liquid) 0.5 mg Q6H PRN 08/21/16 03:15 09/02/16 21:57 0.5 MG Acetaminophen (Tylenol Regular Strength) 1-2 tabs Q5H PRN 08/22/16 23:45 09/01/16 21:45 650 MG Lorazepam (Ativan) 1 mg HS 08/25/16 21:00 09/05/16 12:28 DC 09/04/16 19:42 1 MG Quetiapine Fumarate (Seroquel) 25 mg BID 08/25/16 21:00 08/26/16 10:49 DC 08/26/16 08:58 25 MG Quetiapine Fumarate (Seroquel) 25 mg DAILY 08/27/16 09:00 08/27/16 12:12 DC Quetiapine Fumarate (Seroquel) 50 mg HS 08/26/16 21:00 08/27/16 12:12 DC 08/26/16 20:24 50 MG Quetiapine Fumarate (Seroquel) 100 mg HS 08/27/16 21:00 08/30/16 10:31 DC 08/29/16 19:08 100 MG Quetiapine Fumarate (Seroquel) 50 mg DAILY 08/28/16 09:00 08/29/16 09:24 DC 08/28/16 09:06 50 MG Cyclobenzaprine HCl (Flexeril) 5 mg Q8H PRN 08/28/16 02:00 09/06/16 19:46 5 MG Divalproex Sodium (Depakote) 250 mg BID 08/28/16 21:00 08/30/16 11:24 DC 08/30/16 10:35 250 MG Quetiapine Fumarate (Seroquel) 50 mg DAILY 08/30/16 09:00 08/30/16 09:00 DC Quetiapine Fumarate (Seroquel) 50 mg DAILY 08/29/16 09:30 08/30/16 10:30 DC 08/29/16 09:30 50 MG Quetiapine Fumarate (Seroquel) 25 mg DAILY 08/31/16 09:00 09/06/16 11:06 DC 09/06/16 10:27 25 MG Quetiapine Fumarate (Seroquel) 150 mg HS 08/30/16 21:00 09/14/16 20:07 150 MG Divalproex Sodium (Depakote Sprinkle) 250 mg BID 08/30/16 21:00 09/01/16 21:43 DC 09/01/16 19:56 250 MG Divalproex Sodium (Depakote Sprinkle) 250 mg DAILY 09/02/16 09:00 09/06/16 12:41 DC 09/06/16 10:27 250 MG Divalproex Sodium (Depakote Sprinkle) 500 mg HS 09/02/16 21:00 09/14/16 20:06 500 MG Oxycodone HCl (Oxycodone Oral Solution) 5 mg Q4H PRN 09/02/16 22:30 09/15/16 04:39 5 MG Cyclobenzaprine HCl (Flexeril) 5 mg TID 09/03/16 21:00 09/05/16 10:44 DC 09/05/16 08:29 5 MG Cyclobenzaprine HCl (Flexeril) 5 mg HS 09/05/16 21:00 09/09/16 09:57 DC 09/08/16 19:42 5 MG Polyethylene Glycol (Miralax) 17 g DAILY 09/05/16 11:00 09/14/16 08:40 17 G Lorazepam (Ativan) 2 mg HS 09/05/16 21:00 09/10/16 17:50 DC 09/09/16 20:05 2 MG Quetiapine Fumarate (Seroquel) 25 mg DAILY 09/07/16 09:00 Future Hold 09/09/16 12:26 25 MG Divalproex Sodium (Depakote Sprinkle) 250 mg [id number] 09/06/16 14:00 09/14/16 14:32 250 MG Oxycodone HCl (Oxycodone Oral Solution) 5 mg HS 09/08/16 21:00 09/14/16 20:22 5 MG Magnesium Hydroxide (Mom) 30 ml DAILY PRN 09/08/16 16:45 09/08/16 16:36 30 ML Bisacodyl (Dulcolax) 10 mg DAILY PRN 09/09/16 02:00 09/09/16 06:39 10 MG Senna/Docusate Sodium (Senna Plus) 1 tab BID 09/09/16 09:15 09/14/16 20:06 1 TAB Cyclobenzaprine HCl (Flexeril) 5 mg 0630,21 09/09/16 21:00 09/15/16 06:31 5 MG Cyanocobalamin (Vit. B-12) 1,000 mcg DAILY 09/10/16 08:00 09/14/16 08:41 1,000 MCG Bisacodyl (Dulcolax) 10 mg DAILY PRN 09/10/16 14:45 09/10/16 14:20 10 MG Lorazepam (Ativan) 1 mg HS 09/10/16 21:00 09/14/16 20:14 1 MG Fentanyl (Duragesic 12 Mcg) 1 patch Q3D 09/11/16 12:00 09/14/16 12:25 1 PATCH Fentanyl (Duragesic Patch Removal) 1 removal Q3D 09/14/16 12:00 09/14/16 12:00 1 REMOVAL Subjective Patient seen and chart reviewed. Case discussed with treatment team. Patient lying in supine in bed and unable to respond to calls of his name. The plan is to transfer patient to hospice care in [facility]. Dr. Cui spoke with Dr. Cobb yesterday and I also spoke to him today. He wants to have his mid-level practitioner and caser up to see patient before transfer to his facility. They were able to see him today and the plan is for a transfer tomorrow morning. Son in agreement with Hospice services. Patient slept well overnight. Appetite decreased which likely is contributing to more difficulty with medication adherence. No psychotropic PRNs required in the past 24 hours. Time of Service: 10:45 Start Time: 10:45 Stop Time: 11:00 Care >50% of this visit spent in counseling/coordination care. [facility] Exam Vitals Vital Signs Date Time Temp Pulse Resp B/P Pulse Ox O2 Delivery O2 Flow Rate FiO2 09/15/16 12:28 12 09/15/16 08:00 97.5 85 125/72 94 Room Air Physical examination performed by the hospitalist. Height (Feet): 5 Height (Inches): 10.00 Mental Status Exam Muscle Strength/Tone: Weak Dressing: Casual Grooming: Fair Attitude: Other (not responsive) Motor Activity: Restless (at times) Eye Contact: Poor Speech: Other (None) Volume: Other (None) Rhythm: Other (None) Sensory: Stupor Orientation: Disoriented to time, Disoriented to person, Disoriented to place, Disoriented to situation Mood: Other (Sleepy) Affect: Other (Sleepy) Rate of Thoughts: Other (None) Associations: Other (None) Abstract Reasoning: Impaired, concrete Computation: Poor Computation Attention Span/Concentration: Other (Poor) Memory: Poor-immediate, Poor-recent, Poor-remote Suicidal Ideation: None Homicidal Ideation: None Insight: Poor Judgment: Poor Impulse Control: Poor Assessment and Plan (1) Major neurocognitive disorder Assessment: Suspected due to Parkinsonian type or Subcortical etiology. 1. Hold Risperidone and Haloperidol. Cont Mirtazapine 2. Observe patient on the unit 3. ST to see patient for swallow test\ 08/22/16 Continue current care 08/23/16 continue current care 08/24/16 Continue current care 08/25/16: Will discuss antipsychotic use with son/DPWILLIAM Figueroa ([phone]) and start Seroquel 25mg PO BID if he consents; plan to start Ativan 1mg PO HS to target insomnia as well. 08/26/16: Increase Seroquel to 25mg PO q AM and 50mg PO q HS; titrate slowly to effect while monitoring effect on gait/rigidity. 08/27/16: Increase Seroquel to 50mg PO q AM and 100mg PO q HS; titrate slowly to effect while monitoring effect on gait/rigidity. 08/28/16: Start Depakote 250mg PO BID to target anger. 08/29/16 Continue current care 08/30/16 Change Seroquel to 25mg daily and 150mg PO QHS 08/31/16 Continue current care 09/01/16: Increase Depakote to 250mg PO q AM and 500mg PO q HS to target continued mood lability. 09/02/16: Patient will receive increased dose of Depakote tonight at bedtime; continue current care otherwise. Improving overall. 09/03/16: Will schedule Flexeril 5mg PO TID at 0800, 1500, 2100. Continue current care otherwise; Depakote has yet to reach steady-state level since increasing dose. 09/04/16: Continue current care as patient is improving - sleep is biggest concern right now. Will continue to monitor for need of any additional bedtime PRNs. 09/05/16: Will increase HS Ativan to 2mg, obtain VPA trough level in AM and adjust accordingly, check UA to r/o UTI, obtain CT of head if patient able to cooperate. 09/06/16: VPA level this AM. Increase Depakote to 250/250/500. If cooperative enough today, CT scan. 09/07/16: VPA was 45. I increased Depakote to total of 1000mg per day but may be able to go higher yet. Would like to monitor for daytime sedation first. 09/08/16: Schedule oxycodone 5mg PO q HS. May continue taking Flexeril back to 5mg PO TID if patient is not too sedated during day, but primarily need to target overnight agitation/aggression first. Depakote still increasing to new steady state after recent increase. 09/09/16: Continue to hold fluids after 8:00 pm. Will also schedule AM dose of Flexeril, to be given 20-30 minutes prior to AM cares to minimize aggression/ agitation due to pain. 09/10/16: Will discontinue mirtazapine at HS, and decrease Ativan to 1mg Po q HS now that Depakote has likely reached new steady-state levels. Will also hold Seroquel 25mg q AM and monitor for less sedation. Will discuss possibility of patch for pain control rather than PO/PRN medications. 09/11/16: Patient continues to be agitated and aggressive with cares, believed to be related to pain. Patient has demonstrated decreased respiratory rate with higher doses of medications. Will discuss Hospice with family. 09/13/16: Son/DPOA in agreement with Hospice care. [facility] Will discuss pain regimen with hospitalist and whether other meds can now be decreased to minimize sedation and decreased respiratory drive. 09/14/16: Discontinue donepezil at bedtime; patient has had decreased appetite and has been refusing medications at times. Planning for transfer to Hospice once accepting facility available for transfer. 09/15/16: Transfer to Hospice on 09/16/16 (2) Hypothyroidism (3) Sensorineural hearing loss VONDA CLARK MD September 15, 2016 15:30
[2016-09-15 16:00] VITALS: BP 121/69; PULSE 95; RESP 18; TEMP 99.2; O2SAT 97
[2016-09-15] MEDS ORDERED: LORA0.5T86 PO (16:51)
--- NOTE | 2016-09-15 16:53 | PDOCECFAO ---
Admission Orders Admission Orders Admit to: Hospice Allergies: Coded Allergies: No Known Allergies (Unverified , 08/20/16) Admitting Diagnosis Uns Neurocognitive Disorer W Behavioral Disturbanc Admitting Physician Janina Cui MD Code Status Do Not Resuscitate Anticipated LOS: Greater than 30 days May use Facility Protocol /SO: Yes Not Applicable VONDA CLARK MD September 15, 2016 16:53 reasons Not Applicable VONDA CLARK MD September 15, 2016 16:53
--- NOTE | 2016-09-15 18:14 | NUR ---
Shift Summary Pt has been repositioned in bed q2hs, incont. of urine x2. The second time pt was changed today pt didn't wake up no behaviors noted. Pt has not woke up enough today to eat or drink anything, Medications held due to being lethargic. Pt respirations continue to be shallow, VS within normal limits.
[2016-09-15 19:44] VITALS: BP 115/66; PULSE 82; RESP 16; TEMP 98.8; O2SAT 95
[2016-09-15 20:00] VITALS: RESP 14
[2016-09-15] MEDS: OXYCODONE 10 MG/0.5 ML PO SCH (21:00)
[2016-09-15] MEDS: QUETIAPINE 50 MG TABLET PO SCH (21:00)
[2016-09-15] MEDS: LORAZEPAM 1 MG TABLET PO SCH (21:00)
--- NOTE | 2016-09-15 22:00 | NUR ---
bedtime Pt went to bed at 2200, pt is now sleeping in bed with 2 bed rails up and bed alarm on
--- NOTE | 2016-09-16 00:54 | NUR ---
Chart Check 24 hour chart check completed
[2016-09-16] MEDS: OXYCODONE 10 MG/0.5 ML PO PRN (04:41)
--- NOTE | 2016-09-16 04:41 | NUR ---
prn given Pt awake, grabbing at staff's wrist and fingers, pt attempting to spit at staff, pt yelled "help me" and "get away from me" during cares. Pt attempting to kick at staff with legs, swat at staff. Pt grimacing, and frowning, Flacc scale 5/10, pt given Oxycodone for pain, pt repositioned for comfort. Pt is in bed with 2 bed rails up and bed alarm on.
--- NOTE | 2016-09-16 05:41 | NUR ---
prn update Pt is sleeping in bed with 2 bed rails up and bed alarm on
[2016-09-16] MEDS: LEVOTHYROXINE 125 MCG TABLET PO SCH (06:30)
[2016-09-16] MEDS: CYCLOBENZAPRINE 5 MG TABLET PO SCH (06:30)
--- NOTE | 2016-09-16 06:40 | NUR ---
shift summary Pt lethargic at the start of shift, pt responded to voice and light stimulus, pt allowed, assessment, vital, cares to bed done with no aggression or agitation. Pt hs meds held, pt is lethargic with decreased loc. Pt turned and repositioned q 2hrs, pt incontinent twice on this shift. Pt started waking up and became restless, pulling at bedrails , clothing, and swatting and kicking at staff, pt grimaces with touch. Pt given Oxycodone at 04:41 pt cares done (see previous note at 0441.) Pt is now in bed sleeping, pt am medication held, Pt is in bed with 2 bed rails up and bed alarm on.
[2016-09-16] MEDS: DIVALPROEX SPRINKLE 125 MG CAPSULE PO SCH (07:00)
[2016-09-16 08:00] VITALS: BP 120/67; PULSE 76; RESP 12; TEMP 97.7; O2SAT 96
[2016-09-16] MEDS: POLYETHYL.GLYCOL 3350 PACKET 17gm PO SCH (08:10)
[2016-09-16] MEDS: SENNA + DOCUSATE TAB PO SCH (08:10)
[2016-09-16] MEDS: CYANOCOBALAMIN (B-12) 500mcg TABLET PO SCH (08:10)
--- NOTE | 2016-09-16 08:59 | NUR ---
CM PT WILL D/C TO [facility] TODAY BETWEEN 9-10 AM. [facility] WILL TRANSPORT. CM LEFT MESSAGE FOR PT SON BARI REGARDING THE TRANSPORT TIME. CM ENCOURAGED BARI TO CONTACT IF NEEDS [facility].
--- NOTE | 2016-09-16 12:35 | NUR ---
Summary Pt has been repositioned in bed every 2 hours. Pt has had nothing by mouth today. Pt was incontinent of urine twice today and had no behaviors. Pt has not been out of bed and all medications were held due to lethargy. Patients vital signs continue to be within normal limits and pt is ready to be discharged later today. Pt is currently in bed sleeping with side rails up x 2 and bed alarm activated.
--- NOTE | 2016-09-16 13:30 | NUR ---
DISMISSAL Pt exited the [facility] unit at 1317 today. Pt was taken out on a cart via transportation service. Pts personal belongings were with the patient at the time of departure. Pt was accompanied by 2 Transportation service staff and 1 [facility] staff. Pt was transported to [facility]. Report called to Julianne HUI @ [phone] ext:[phone]
--- NOTE | 2016-09-16 14:41 | NUR ---
Report called to Julianne HUI; unit contact information given along with plans for follow-up care with PCP and MH professional as outlined in [facility]. No pending labs on discharge
--- NOTE | 2016-09-18 12:05 | DSPDOC ---
General Date Date DATE: 09/18/16 TIME: 11:58 Attending Physician Vaughn Parra MD Admitting Physician Vaughn Parra MD Consulting Physician Bull Cannon MD Admitting Diagnosis unspecified neurocognitive disorder with behavior disturbance Discharge Diagnosis 1. Major Neurocognitive disorder possibly due to Lewy body dementia 2. r/o Major Neurocognitive disorder due to Parkinson's diseases History of Present Illness Patient is a 71-year-old, retired [employer], who was transferred from [facility] for combativeness and agitation. He has history of cognitive impairment and was recently transferred by his family to the [facility] due to inability of his family to take care of him. He was said to agitated to the point where he grabbed a staff and was shaking the staff. He was taken to the ER at [facility] and was given Haloperidol which appeared to have helped but not much. He was on Risperidone 2mg BID and Haloperidol 1mg BID. Both were recently discontinued. He is also on Donepezil 10mg and Mirtazapine 7.5mg po q hs. Patient was seen to have hearing loss on both ears and he responds vaguely to loud speech. He was noted to have bradykinesis, postural instability, resting and kinetic tremor. There is also cogwheel rigidity of both of wrist with clasp knife rigidity of his elbow. Patient was supposed to be evaluated by speech therapy today, but they are yet to assess him. He is able to eat and drinks liberally. Reviewed his CBC, CMP and UA were all WNL. His EKG showed sinus bradycardia with QtcB of 433 and QtcF of 434. Past Medical Hx: Hypothyroidism, hearing loss Past Psych: Unable to obtain Social Hx: He lives in a foster home and retired from the [employer] Psychosis: delusions, paranoia Dementia: memory impairment, poor executive function. Hospital Course The patient was admitted to the [facility] unit on August 21 2016 and discharged to the Hospice unit of [facility] on Sep 16 2016._.Upon initial evaluation, the patient was placed on (suicide, homicide) precautions. Based on the diagnostic interview and collateral information provided by the staff at the [facility] where he resided prior to his admission, the patient was diagnosed with Major Neurocognitive Disorder possibly due to Parkinsonism or of sub-cortical etiology. He was noted to have postural instability, resting tremors on both hands, clasp knife rigidity on both elbow joints and bradykinetic shuffling gait. He required assistance for ambulation. Patient was noted to be on 2 anti-psychotic prior to admission and there was concern that the anti-psychotic could be exacerbating the Parkinsonian symptoms and they were discontinued. However his motor symptoms and behavioral problems continued and he was started on a trial of Seroquel which was gradually titrated. He also had a trial of Depakote and the trough Depakote level was 45. There was concern that the agitation and aggressive behavior he was exhibiting could be related to pain and as such he was started on pain medication During the hospitalization, the patient was unable to participate in unit activities, but did not have self-harming behavior. Since patient was not improving, and at one time he began having difficulty taking oral medication and was seen to be sedated most of the day. He was not able to respond to call of his name. A decision was made to transfer patient to hospice and family was okay with it. Below is a transcript of day to day management by the medical team. 08/21/16 Agree with admission orders. Hypothyroidism. TSH was over 10 when checked in April 2016. On reassessment yesterday, it had improved to 3.13. Continue levothyroxine. Labs reviewed: CBC and CMP were unremarkable. Urinalysis was negative for UTI. Folate, iron, vitamin B12, hemoglobin A1c, all pending. Will also check prealbumin. Bradycardia: EKG revealed sinus bradycardia with a left axis deviation. Borderline hypotension: Monitor at this time. Patient had similarly low blood pressure upon admission to the [facility]. Shuffling gait, tremor, and nurses report rigidity: Consider neurologic evaluation for Parkinson's. 08/22/16 Labs reviewed - unremarkable. VSS. Psychiatric notes reviewed. Medically stable. 08/30/16- Continue supportive care. Need to consider CT of the head if not done elsewhere. Repeat labs in am. Assess RPR as well. BP is a bit low- push fluids. Likely due to antipsychotics. Consider neurology eval. for diagnosis of gait instability, rigidity. ([facility] [employer] visit only). 09/01/16 Staff is going to call the [facility] and see if he's had a previous head CT. BP continues to run low - encourage fluids. Labs were done on 08/31/16 - unremarkable. Psych notes reviewed - over the last few days Depakote was started to target anger and Seroquel dose has been adjusted. 09/05/16 Yuan is somnolent this morning at the breakfast table. Did discuss medications with Dr Parra. Will change Flexeril to scheduled only at HS and otherwise keep it PRN. He is sleeping during the night which is a improvement. Continue with oxycodone as needed for pain control. BP is well controlled. Will add Miralax daily for bowel motivation. Last reported BM was on 09/0509/07/16- Pt is resting quietly. Medications are being adjusted due to variable behavior. DC planning is noted- potential DC on Thursday. UA is assessed. No acute sx of UTI noted. Last BM 09/05. Labs are reviewed. Flexeril adjusted to decrease sedation. PRN oxycodone. Continue to attempt pain control. Mild edema, but does not appear fluid overloaded. Continue to monitor. 09/09/16 Constipation - give MOM again today; start scheduled Senna plus in addition to MiraLAX. Bradycardia - resolved. Repeat labs for surveillance. Psychiatric notes reviewed - Depakote increased; scheduled oxycodone HS; continue Depakote. 09/11/16 Will start low-dose fentanyl patch d/t concerns regarding uncontrolled pain. Vitamin B12 was low-normal and oral replacement was initiated. Mild hypernatremia noted. Poor oral intake. SW is planning on trying to reach family for guidance on goals of care. Pt would be hospice-appropriate. Psych progress notes reviewed: discontinued mirtazapine at HS, and decreased Ativan to 1mg Po q HS; Depakote has likely reached new steady-state levels. Hold Seroquel 25mg q AM and monitor for less sedation. Later in the day I received a phone call from [facility] - family wants to continue with hospice through [facility]. 09/13/16- Behaviors remain an issue if patient is not sedated. He seems to be a bit better on low-dose Fentanyl patch. I have reviewed medications- at this point, I think we should continue current since comfort is the herrera issue. Agree with plans to transfer to inpatient hospice at the [facility] on Thursday. Continue safe, supportive environment. Problems: Code Status Do Not Resuscitate Home Meds Active Scripts Lorazepam (Ativan) 0.5 Mg Tablet, 0.5 MG PO Q6H Y for EXTREME AGITATION for 7 Days, #28 TAB 0 Refills Prov:VONDA CLARK MD 09/15/16 Cyanocobalamin (Vitamin B-12) (Vitamin B-12) 500 Mcg Tablet, 1000 MCG PO DAILY for 30 Days, #60 TAB Prov:TAMARA BLAIR [employer] 09/15/16 Oxycodone HCl (Oxycodone HCl) 20 Mg/1 Ml Oral.conc, 5 MG PO HS for Pain for 30 Days, #30 DOSE Prov:VAUGHN PARRA MD 09/10/16 Lorazepam (Ativan) 1 Mg Tablet, 2 MG PO HS for Agitation/insomnia for 30 Days, TAB Prov:VAUGHN PARRA MD 09/10/16 Divalproex Sodium (Depakote Sprinkle) 125 Mg Capsule, 500 MG PO HS for Agitation for 30 Days, #120 CAP Prov:VAUGHN PARRA MD 09/10/16 Divalproex Sodium (Depakote Sprinkle) 125 Mg Capsule, 250 MG PO BID72 for Agitation for 30 Days, #120 CAP Prov:VAUGHN PARRA MD 09/10/16 Cyclobenzaprine HCl (Cyclobenzaprine HCl) 5 Mg Tablet, 5 MG PO 0630,21 for 30 Days, TAB Prov:ROSALEE GLASS V [employer] 09/10/16 Reported Medications Levothyroxine Sodium (Levothyroxine Sodium) 125 Mcg Tablet, 125 MCG PO ACB 08/20/16 Face to Face Encounter I met with patient on the day of dismissal and discussed follow up appointments , medications, and safety plan. Discharge Disposition Hospice VONDA CLARK MD September 18, 2016 12:04
== END 2016-09-16 14:42 | disposition hospice, inpatient (51) | DRG 884 ==
LOC: ED 19:30 → GEN 21:10
PROVIDERS: ADMIT Psychiatry & Neurology Psychiatry; ATTEND Psychiatry & Neurology Psychiatry
DX: F03.91 Unspecified dementia, unspecified severity, with behavioral disturbance (principal); E03.9 Hypothyroidism, unspecified; E66.3 Overweight; H90.5 Unspecified sensorineural hearing loss; R00.1 Bradycardia, unspecified; Z66 Do not resuscitate; Z68.27 Body mass index [BMI] 27.0-27.9, adult
CPT/HCPCS: 36415; 51701; 80048; 80053; 80061; 80164; 81003; 82607; 82746; 83036; 84134; 84443; 85025; 86592; 93005